=== PATIENT | male | born 1970 | race Caucasian/White ===

== ENCOUNTER → 2019-06-25 | Outpatient (CLI) | payer OTHER ==
--- NOTE | 2019-06-25 14:54 | CT ---
EXAMINATION TYPE: CT brain wo con DATE OF EXAM: 06/25/2019 COMPARISON: None HISTORY: headaches, hypotension CT DLP: 1098.[address] of the brain was performed. The ventricles, basal cisterns and sulci overlying the cerebral convexities demonstrate a normal appe arance. There is no evidence for intracranial hemorrhage or sulcal effacement. No mass effects are seen. Osseous calvarium is intact. If symptoms persist consider MRI as clinically warranted. IMPRESSION: 1. No acute intracranial process is seen at this time.
== END | disposition home or self-care (01) ==
LOC: RADCTMAIN 14:31
DX: R51 Headache (principal)
CPT/HCPCS: 70450

== ENCOUNTER → 2019-07-02 | Outpatient (CLI) | payer OTHER ==
--- NOTE | 2019-07-06 21:56 | HM ---
HOLTER MONITOR REPORT This patient was monitored for 72 hours. Baseline rhythm is sinus mechanism with normal conduction. The average rate 66 beats per minute, minimum rate 36, maximum 137 beats per minute. Ventricular ectopic activity was present in the form of frequent single PVCs with episodes of bigeminy. Supraventricular ectopic activity was present in the form of rare single PACs. Symptoms of slight headache did not correlate with any significant arrhythmia. CONCLUSION: 1. Sinus mechanism baseline rhythm. 2. Frequent ventricular ectopic activity with episodes of bigeminy and trigeminy with rare couplets. 3. Rare supraventricular ectopic activity. 4. Symptoms did not correlate with any dysrhythmia. MMODL / IJN: [id number] /
== END | disposition home or self-care (01) ==
LOC: RADECHMAIN 12:22
DX: R00.1 Bradycardia, unspecified (principal)
CPT/HCPCS: 93225; 93226

== ENCOUNTER 2021-06-27 11:53 | Inpatient (IN) | payer OTHER ==
[2021-06-27] MEDS ORDERED: DEXAMETHASONE SOD PHOSPHATE 10 MG/ML 1 ML VIAL IVP STA (12:03)
[2021-06-27] MEDS ORDERED: SODIUM CHLORIDE 0.9% 1,000 ML IV STA (12:03)
--- NOTE | 2021-06-27 12:12 | ED ---
SOB HPI - General Chief Complaint: Shortness of Breath Stated Complaint: COVID+, SOB Time Seen by Provider: 06/27/21 11:59 Source: patient, EMS, RN notes reviewed Mode of arrival: EMS Limitations: no limitations - History of Present Illness Initial Comments: 50-year-old male presents emergency department via EMS chief complaint of COVID- 19. Patient states that he did at home positive test 8 days ago started symptoms 2 days prior to that. Patient states she does have a history of asthma states the last couple days she's had increasing shortness of breath. EMS reports patient to be severely hypoxic, initial on 4-5 L was in the 70s nonrebreather at 92%. Patient states she does feel improved on a nonrebreather. Patient has no complaints of chest pain no GI symptoms patient's had fever cough congestion, body aches. Patient's had no prior vaccine. - Related Data Home Medications Medication Instructions Recorded Confirmed Albuterol Sulfate [Proair Hfa] 2 puff INHALATION RT-Q6H PRN 06/27/21 06/27/21 Baclofen 10 mg PO BID 06/27/21 06/27/21 Fluticasone Propion/Salmeterol 1 puff INHALATION RT-BID 06/27/21 06/27/21 [Wixela 250-50 Inhub] Naproxen 500 mg PO BID 06/27/21 06/27/21 oxyCODONE-APAP 5-325MG [Percocet 1 tab PO TID 06/27/21 06/27/21 5-325 mg] Allergies Allergy/AdvReac Type Severity Reaction Status Date / Time No Known Allergies Allergy Verified 06/27/21 12:56 Review of Systems ROS Statement: Those systems with pertinent positive or pertinent negative responses have been documented in the HPI. ROS Other: All systems not noted in ROS Statement are negative. Past Medical History Past Medical History: Asthma Additional Past Medical History / Comment(s): tranverese mylitis History of Any Multi-Drug Resistant Organisms: None Reported Additional Past Surgical History / Comment(s): c5-c6 fusion, right hip replacment. Past Psychological History: No Psychological Hx Reported Smoking Status: Former smoker Past Alcohol Use History: None Reported Past Drug Use History: None Reported General Exam Limitations: no limitations General appearance: alert, in distress Head exam: Present: atraumatic, normocephalic, normal inspection Eye exam: Present: normal appearance, PERRL, EOMI. Absent: scleral icterus, conjunctival injection, periorbital swelling ENT exam: Present: normal exam, mucous membranes moist, other (Nonrebreather) Neck exam: Present: normal inspection. Absent: tenderness, meningismus, lymphadenopathy Respiratory exam: Present: respiratory distress, decreased breath sounds. Absent: normal lung sounds bilaterally, wheezes, rales, rhonchi, stridor Cardiovascular Exam: Present: regular rate, normal rhythm, normal heart sounds. Absent: systolic murmur, diastolic murmur, rubs, gallop, clicks Neurological exam: Present: alert, oriented X3, CN II-XII intact Course Vital Signs 06/27/21 06/27/21 06/27/21 11:56 12:26 12:48 Temperature 97.7 F Pulse Rate 97 95 80 Respiratory 22 22 22 Rate Blood Pressure 104/72 101/70 O2 Sat by Pulse 94 L 91 L Oximetry Medical Decision Making - Medical Decision Making X-ray shows extensive COVID-19 changes. Patient is hypoxic, mild improvement on nonrebreather. Patient will be admitted for COVID-19 pneumonia and hypoxia. - Lab Data Result diagrams: 06/27/21 12:09 06/27/21 12:09 Lab Results 06/27/21 06/27/21 06/27/21 Range/Units 12:06 12:09 12:09 WBC 5.2 (3.8-10.6) k/uL RBC 4.60 (4.30-5.90) m/uL Hgb 14.7 (13.0-17.5) gm/dL Hct 42.5 (39.0-53.0) % MCV 92.4 (80.0-100.0) fL MCH 31.9 (25.0-35.0) pg MCHC 34.5 (31.0-37.0) g/dL RDW 12.0 (11.5-15.5) % Plt Count 191 (150-450) k/uL MPV 7.8 Neutrophils % 82 % Lymphocytes % 11 % Monocytes % 5 % Eosinophils % 1 % Basophils % 1 % Neutrophils # 4.2 (1.3-7.7) k/uL Lymphocytes # 0.6 L (1.0-4.8) k/uL Monocytes # 0.2 (0-1.0) k/uL Eosinophils # 0.0 (0-0.7) k/uL Basophils # 0.0 (0-0.2) k/uL PT 10.0 (9.0-12.0) sec INR 0.9 (<1.2) APTT 24.2 (22.0-30.0) sec D-Dimer 4.24 H (<0.60) mg/L FEU Sodium (137-145) mmol/L Potassium (3.5-5.1) mmol/L Chloride (98-107) mmol/L Carbon Dioxide (22-30) mmol/L Anion Gap mmol/L BUN (9-20) mg/dL Creatinine (0.66-1.25) mg/dL Est GFR (CKD-EPI)AfAm (>60 ml/min/1.73 sqM) Est GFR (CKD-EPI)NonAf (>60 ml/min/1.73 sqM) Glucose (74-99) mg/dL Calcium (8.4-10.2) mg/dL Total Bilirubin (0.2-1.3) mg/dL AST (17-59) U/L ALT (4-49) U/L Alkaline Phosphatase (38-126) U/L Lactate Dehydrogenase (313-618) U/L C-Reactive Protein (<1.0) mg/dL Total Protein (6.3-8.2) g/dL Albumin (3.5-5.0) g/dL Coronavirus (PCR) Detected A (Not Detectd) 06/27/21 Range/Units 12:09 WBC (3.8-10.6) k/uL RBC (4.30-5.90) m/uL Hgb (13.0-17.5) gm/dL Hct (39.0-53.0) % MCV (80.0-100.0) fL MCH (25.0-35.0) pg MCHC (31.0-37.0) g/dL RDW (11.5-15.5) % Plt Count (150-450) k/uL MPV Neutrophils % % Lymphocytes % % Monocytes % % Eosinophils % % Basophils % % Neutrophils # (1.3-7.7) k/uL Lymphocytes # (1.0-4.8) k/uL Monocytes # (0-1.0) k/uL Eosinophils # (0-0.7) k/uL Basophils # (0-0.2) k/uL PT (9.0-12.0) sec INR (<1.2) APTT (22.0-30.0) sec D-Dimer (<0.60) mg/L FEU Sodium 141 (137-145) mmol/L Potassium 4.0 (3.5-5.1) mmol/L Chloride 109 H (98-107) mmol/L Carbon Dioxide 26 (22-30) mmol/L Anion Gap 6 mmol/L BUN 11 (9-20) mg/dL Creatinine 0.66 (0.66-1.25) mg/dL Est GFR (CKD-EPI)AfAm >90 (>60 ml/min/1.73 sqM) Est GFR (CKD-EPI)NonAf >90 (>60 ml/min/1.73 sqM) Glucose 126 H (74-99) mg/dL Calcium 8.7 (8.4-10.2) mg/dL Total Bilirubin 0.7 (0.2-1.3) mg/dL AST 102 H (17-59) U/L ALT 88 H (4-49) U/L Alkaline Phosphatase 67 (38-126) U/L Lactate Dehydrogenase 2296 H (313-618) U/L C-Reactive Protein 16.6 H (<1.0) mg/dL Total Protein 6.7 (6.3-8.2) g/dL Albumin 3.5 (3.5-5.0) g/dL Coronavirus (PCR) (Not Detectd) Disposition Clinical Impression: Pneumonia due to COVID-19 virus, Hypoxia Disposition: ADMITTED IP TO THIS HOSP Condition: Serious Referrals: [facility],Clinic [Primary Care Provider] - 1-2 days
[2021-06-27 12:18] LABS: Basophils % (A) 1 %; Eosinophils % (A) 1 %; HCT 42.5 % (39.0-53.0); HGB 14.7 gm/dL (13.0-17.5); Lymphocytes # (A) 0.6 k/uL (1.0-4.8); Lymphocytes % (A) 11 %; MCH 31.9 pg (25.0-35.0); MCHC 34.5 g/dL (31.0-37.0); MCV 92.4 fL (80.0-100.0); Mean Platelet Volume 7.8; Monocytes # (A) 0.2 k/uL (0-1.0); Monocytes % (A) 5 %; Neutrophils # (A) 4.2 k/uL (1.3-7.7); Neutrophils % (A) 82 %; Platelet Count 191 k/uL (150-450); WBC 5.2 k/uL (3.8-10.6)
--- NOTE | 2021-06-27 12:22 | XR ---
EXAMINATION TYPE: XR chest 1V portable DATE OF EXAM: 06/27/2021 COMPARISON: None HISTORY: Shortness of breath TECHNIQUE: Single frontal view of the chest is obtained. FINDINGS: Scattered diffuse partially consolidative opacities in both lungs right greater than left. There is no pleural effusion, pleural thickening or pneumothorax. The heart size is normal. The osse ous structures and soft tissues are unremarkable IMPRESSION: Diffuse partially consolidative lung infiltrates, right greater than left, consistent with acute cardiopulmonary disease.
[2021-06-27 12:31] LABS: African American GFR (CKD) >90 (>60 ml/min/1.73 sqM); Albumin 3.5 g/dL (3.5-5.0); Blood Urea Nitrogen 11 mg/dL (9-20); Calcium 8.7 mg/dL (8.4-10.2); Carbon Dioxide 26 mmol/L (22-30); Glucose 126 mg/dL (74-99); INR 0.9 (<1.2); Non-African American GFR(CKD) >90 (>60 ml/min/1.73 sqM); Partial Thromboplastin Time 24.2 sec (22.0-30.0); Sodium 141 mmol/L (137-145); Total Protein 6.7 g/dL (6.3-8.2)
[2021-06-27 12:34] LABS: ALT 88 U/L (4-49); AST 102 U/L (17-59); Alkaline Phosphatase 67 U/L (38-126); Total Bilirubin 0.7 mg/dL (0.2-1.3)
[2021-06-27 12:45] LABS: C Reactive Protein 16.6 mg/dL (<1.0); LDH 2296 U/L (313-618)
[2021-06-27 13:32] LABS: Anion Gap 6 mmol/L; Chloride 109 mmol/L (98-107)
[2021-06-27] MEDS ORDERED: NALOXONE 0.4 MG/ML 1 ML VIAL IV PRN (13:52)
[2021-06-27] MEDS ORDERED: ONDANSETRON 4 MG/2 ML VIAL IVP PRN (13:52)
[2021-06-27 17:11] LABS: Appearance,Urine Clear (Clear); Bilirubin,Urine Negative (Negative); Blood,Urine Negative (Negative); Color,Urine Yellow; Glucose,Urine (UA) Negative (Negative); Ketones,Urine Negative (Negative); Leukocyte Esterase,Urine Negative (Negative); Mucus,Urine Rare /hpf; Nitrite,Urine Negative (Negative); PH, Urine 6.5 (5.0-8.0); Protein,Urine 1+ (Negative); RBC,Urine 1 /hpf (0-5); Specific Gravity,Urine 1.021 (1.001-1.035); WBC,Urine 2 /hpf (0-5)
[2021-06-27] MEDS: ENOXAPARIN 40 MG/0.4 ML SYRINGE SQ SCH (17:32)
[2021-06-27] MEDS: oxyCODONE-APAP 5-325MG 1 EACH TAB PO SCH ×2 (17:32→23:23)
[2021-06-27] MEDS: SODIUM CHLORIDE 0.9% 1,000 ML IV SCH (17:33)
--- NOTE | 2021-06-27 17:42 | CT ---
EXAMINATION TYPE: CT angio chest DATE OF EXAM: 06/27/2021 COMPARISON: None HISTORY: Covid, PE CT DLP: 996.1 mGycm Automated exposure control for dose reduction was used. CONTRAST: Performed with IV Contrast, patient injected with 100 mL of Isovue 370. There is extensive patchy interstitial and airspace infiltrates throughout both lungs. Heart size is top normal. There is no pericardial effusion. There is no pleural effusion. There is no mediastinal adenopathy. There are no hilar masses. There is no evidence of filling defect in the pulmonary arteries. The thoracic spine is intact. Sternum is intact. There is no compression fracture. Upper abdominal so ft tissues are intact. IMPRESSION: No evidence of pulmonary embolism. Extensive pulmonary infiltrates consistent with multifocal pneumonia.
--- NOTE | 2021-06-27 17:48 | US ---
EXAMINATION TYPE: US venous doppler duplex LE BI DATE OF EXAM: 06/27/2021 4:40 PM COMPARISON: NONE CLINICAL HISTORY: dvt. Elevated d dimer SIDE PERFORMED: Bilateral TECHNIQUE: The lower extremity deep venous system is examined utilizing real time linear array sonog fabio with graded compression, doppler sonography and color-flow sonography. VESSELS IMAGED: Common Femoral Vein Deep Femoral Vein Greater Saphenous Vein * Femoral Vein Popliteal Vein Small Saphenous Vein * Proximal Calf Veins (* superficial vessels) Right Leg: Appears negative for DVT Left Leg: Appears negative for DVT IMPRESSION: No evidence of deep vein thrombosis in both legs.
--- NOTE | 2021-06-27 19:02 | HP ---
HISTORY AND PHYSICAL DATE OF SERVICE: 06/27/2021. CHIEF COMPLAINTS: Shortness of breath and cough. HISTORY OF PRESENT ILLNESS: This 50-year-old gentleman with a past medical history of multiple medical problems, including asthma, history of transverse myelitis in 2007, history of C5-6 fusion. The patient is on disability being followed at the [facility] and Dr. Romo in the outpatient setting, was not feeling well for the past several days. Patient had increased shortness of breath and cough and the symptoms started about 10 days ago. The patient was tested positive about 8 days ago. The patient also had some asthma exacerbation. Apparently patient's was also recently diagnosed with Covid 19. She is recovering at this time. EMS found him to be severely hypoxic initially. Saturation was 70s and the patient was taken to [facility] and found to have extensive bilateral Covid 19 interstitial pneumonia and the patient admitted for further evaluation and treatment. There is no history of fever, rigors or chills. No history of headache. D-dimer is 4.24. CT angio chest is being ordered at this time. Inflammatory markers of Covid 19 is also increased. PAST MEDICAL HISTORY: History of asthma, history of transverse myelitis, C5-6 fusion. MEDICATIONS: Home medications are: Oxycodone, Naprosyn, fluticasone, baclofen, albuterol p.r.n. Doses reviewed. ALLERGIES: None. FAMILY HISTORY: No history of heart disease or strokes in the family. SOCIAL HISTORY: Previous history of smoking. No history of alcohol intake. REVIEW OF SYSTEMS: ENT: No diminished vision. No diminished hearing. CARDIOVASCULAR system: As mentioned earlier. GI no nausea or vomiting. : No dysuria or hematuria. NERVOUS SYSTEM: No numbness or weakness. ALLERGY/IMMUNOLOGY: As mentioned earlier. HEMATOLOGY/ONCOLOGY: No history of anemia. ENDOCRINE: No history of diabetes or hypothyroidism. CONSTITUTIONAL: As mentioned. DERMATOLOGY: Negative. RHEUMATOLOGY: Negative. PSYCHIATRIC: As mentioned earlier. PHYSICAL EXAMINATION: Alert and oriented times three. Pulse 75, blood pressure 118/74, respiration 22, temperature 97.7, pulse ox 91 percent on 14 L and high-flow oxygen. HEENT: Conjunctivae normal. Oral mucosa moist. NECK: Accessory muscles of respiration acting. CARDIOVASCULAR systems: S1, S2. RESPIRATION: Breath sounds diminished in the bases. A few scattered rhonchi and crackles. ABDOMEN: Soft, nontender. No mass palpable. LEGS: No edema. No swelling. NERVOUS SYSTEM: Higher functions as mentioned earlier. Moves all 4 limbs. No focal motor or sensory deficits. LYMPHATICS: No lymph nodes palpable in the neck, axillae or groin. SKIN: No ulcer, no rashes and no bleeding. JOINTS: No active deforming arthropathy. LABS: CBC within normal limits and is 0.6, and D-dimer is 4.24. Other labs are noted. LDH is 2296 and C-reactive protein 16.6. ASSESSMENT: 1. Acute Covid 19 infection with acute Covid bilateral interstitial pneumonia with acute hypoxic respiratory failure. 2. Elevated D-dimer, rule out pulmonary embolism. 3. Elevated AST/ALT, acute hepatitis possibly secondary to Covid 19. 4. Elevated inflammatory markers of Covid 19. 5. History of asthma. 6. History of transverse myelitis. 7. History of C5-C6 fusion. 8. History of right hip replacement. 9. Remote history of nicotine dependence. 10.Obesity, body mass index. 11.FULL CODE. RECOMMENDATIONS AND DISCUSSION: This 50-year-old gentleman who presented with multiple complex medical issues, we will monitor the patient closely, continue the current medications, and symptomatic treatment. Recommend CT angio chest and Infectious Disease and pulmonary consultation. The patient might be a candidate for Remdesivir. We will initiate dexamethasone, monitor blood sugars closely. Bronchodilators, Lovenox, the usual medication for Covid 19. Prognosis guarded because of multiple complex medical issues. Further recommendations to follow. Discussed with the patient who understands and agrees. A copy of this dictation is being forwarded to Dr. Romo who is the primary physician. MMODL / IJN: [id number] / MTDD
[2021-06-27] MEDS: SYMBICORT 80-4.5 MCG INHALER INHALATION SCH (19:22)
[2021-06-27] MEDS: ALBUTEROL HFA INHALER INHALATION SCH (19:23)
[2021-06-27] MEDS: NAPROXEN 250 MG TAB PO SCH (23:24)
[2021-06-27] MEDS: BACLOFEN 10 MG TAB PO SCH (23:24)
[2021-06-28] MEDS: ALBUTEROL HFA INHALER INHALATION SCH ×4 (00:27→20:19)
[2021-06-28] MEDS: SODIUM CHLORIDE 0.9% 1,000 ML IV SCH ×2 (06:49→13:29)
[2021-06-28] MEDS: PANTOPRAZOLE 40 MG TABLET PO SCH (06:49)
[2021-06-28 08:17] LABS: Basophils % (A) 0 %; Eosinophils % (A) 0 %; HCT 41.8 % (39.0-53.0); HGB 13.8 gm/dL (13.0-17.5); Lymphocytes # (A) 0.4 k/uL (1.0-4.8); Lymphocytes % (A) 6 %; MCH 31.4 pg (25.0-35.0); MCV 95.4 fL (80.0-100.0); Monocytes # (A) 0.3 k/uL (0-1.0); Monocytes % (A) 5 %; Neutrophils # (A) 5.6 k/uL (1.3-7.7); Neutrophils % (A) 86 %; Platelet Count 207 k/uL (150-450); RBC 4.38 m/uL (4.30-5.90); RDW 12.2 % (11.5-15.5); WBC 6.5 k/uL (3.8-10.6)
[2021-06-28 08:25] LABS: ALT 82 U/L (4-49); AST 77 U/L (17-59); African American GFR (CKD) >90 (>60 ml/min/1.73 sqM); Albumin 3.1 g/dL (3.5-5.0); Alkaline Phosphatase 61 U/L (38-126); Anion Gap 6 mmol/L; Blood Urea Nitrogen 16 mg/dL (9-20); Calcium 8.6 mg/dL (8.4-10.2); Carbon Dioxide 26 mmol/L (22-30); Chloride 110 mmol/L (98-107); Glucose 132 mg/dL (74-99); Non-African American GFR(CKD) >90 (>60 ml/min/1.73 sqM); Potassium 4.6 mmol/L (3.5-5.1); Sodium 142 mmol/L (137-145); Total Bilirubin 0.7 mg/dL (0.2-1.3); Total Protein 6.4 g/dL (6.3-8.2)
[2021-06-28] MEDS: SYMBICORT 80-4.5 MCG INHALER INHALATION SCH ×2 (08:37→20:19)
[2021-06-28] MEDS: BACLOFEN 10 MG TAB PO SCH ×2 (09:18→20:38)
[2021-06-28] MEDS: NAPROXEN 250 MG TAB PO SCH ×2 (09:18→20:38)
[2021-06-28] MEDS: ENOXAPARIN 40 MG/0.4 ML SYRINGE SQ SCH (09:18)
[2021-06-28] MEDS: oxyCODONE-APAP 5-325MG 1 EACH TAB PO SCH ×3 (09:19→20:38)
[2021-06-28] MEDS: DEXAMETHASONE SOD PHOSPHATE 10 MG/ML 1 ML VIAL IVP SCH (09:20)
--- NOTE | 2021-06-28 14:30 | P.CNPUL ---
History of Present Illness Consult date: 06/28/21 Requesting physician: Maeve Tello Reason for consult: dyspnea, cough, asthma, hypoxemia, pneumonia, abnormal CXR/CT Chief complaint: Shortness of breath, muscle aches, fever, chills, cough. History of present illness: Pulmonary/critical care consult dated 06/28/2021. 50-year-old , who gets his healthcare out of the [place], [place]. The patient states that he tested positive for coronavirus back on June 18 or , and has been sick for a couple days even before that. He complains of multiple issues including fever, chills, muscle aches, shortness of breath, cough, chest congestion, and weakness. The patient does have a history of asthma. He doesn't believe that it's his asthma that's causing his shortness of breath. The patient is on vaccinated. He was seen in the emergency room admitted with a diagnosis of hypoxemic respiratory failure secondary to coronavirus infection. He's currently on 10 L high flow O2. He is getting saline at 75 mL an hour. He had a Doppler of lower extremities which was negative for DVT. CT angiogram was negative for pulmonary embolism. His white count of 6.5, hemoglobin 13.8, hematocrit 41.8, and platelet count 207,000. Sodium 142, potassium 4.6, chlorides 110, CO2 26, BUN 16, creatinine 0.74. Chest x-ray and CAT scan showed diffuse bilateral infiltrates. The patient is a candidate for Decadron, Lovenox, and vitamins. If his oxygen requirements go up, he may be a candidate for FLAQUITO. He is not a candidate for REM, because his symptoms have been present for more than 7 days, and his oxygen requirements are greater than 6 L/m. Review of Systems REVIEW OF SYSTEMS: CONSTITUTIONAL: Fever, chills, muscle aches, weakness. NEUROLOGIC: [ Negative.] HEENT: [ Negative.] CARDIAC: [Negative.] PULMONARY: Shortness of breath, cough, chest congestion. GI: [Negative.] : [Negative.] RHEUMATOLOGIC: Myalgias. IMMUNOLOGIC: [ Negative.] ENDOCRINE: [Negative. ] DERMATOLOGIC: [Negative.] Past Medical History Past Medical History: Asthma Additional Past Medical History / Comment(s): tranverese mylitis History of Any Multi-Drug Resistant Organisms: None Reported Additional Past Surgical History / Comment(s): c5-c6 fusion, right hip replacment. Past Anesthesia/Blood Transfusion Reactions: No Reported Reaction Past Psychological History: No Psychological Hx Reported Smoking Status: Former smoker Past Alcohol Use History: None Reported Past Drug Use History: None Reported - Past Family History Mother Family Medical History: Myocardial Infarction (CT), Vascular Disorder Father History Unknown: Yes Medications and Allergies Home Medications Medication Instructions Recorded Confirmed Type Albuterol Sulfate [Proair Hfa] 2 puff INHALATION RT-Q6H PRN 06/27/21 06/27/21 History Baclofen 10 mg PO BID 06/27/21 06/27/21 History Fluticasone Propion/Salmeterol 1 puff INHALATION RT-BID 06/27/21 06/27/21 History [Wixela 250-50 Inhub] Naproxen 500 mg PO BID 06/27/21 06/27/21 History oxyCODONE-APAP 5-325MG [Percocet 1 tab PO TID 06/27/21 06/27/21 History 5-325 mg] Allergies Allergy/AdvReac Type Severity Reaction Status Date / Time No Known Allergies Allergy Verified 06/27/21 12:56 Physical Exam Osteopathic Statement: *. No significant issues noted on an osteopathic structural exam other than those noted in the History and Physical/Consult. Vitals: Vital Signs Temp Pulse Pulse Resp BP BP Pulse Ox 06/28/21 09:43 90 L 06/28/21 09:30 20 90 L 06/28/21 09:15 98.4 F 54 L 22 127/69 88 L 06/28/21 08:40 87 L 06/28/21 03:53 97.6 F 57 L 18 109/70 93 L 06/28/21 01:30 20 06/28/21 00:30 90 L 06/27/21 23:30 98.2 F 72 20 102/68 92 L 06/27/21 20:30 24 06/27/21 20:00 97.0 F L 70 24 101/66 91 L 06/27/21 18:00 92 25 H 104/76 94 L 06/27/21 14:47 98.1 F 74 18 145/65 94 L Intake and Output 12/18/21 12/19/21 12/19/21 22:59 06:59 14:59 Intake Total 765 250 Output Total 600 Balance 765 -600 250 Intake: IV 10 Invasive Line 1 10 Intake, IV Titration 325 Amount Sodium Chloride 0.9% 1, 325 000 ml @ 75 mls/hr IV . [id number] [facility] Rx#:[id number] Oral 440 240 Output: Urine 600 Other: Voiding Method Urinal Urinal Urinal Weight 121 kg No acute distress, oriented 3. No conversational dyspnea or use of accessory muscles. The patient's on 10 L high flow oxygen. HEENT examination is grossly unremarkable. Neck supple. Full range of motion. No adenopathy thyromegaly or neck vein distention. Cardiovascular examination reveals regular rhythm rate. S1-S2 normal. No S3 or S4. No discernible murmur noted. Heart sounds are distant. Heart rate 54 bpm. Lungs reveal diffuse bilateral coarse rhonchi. Scattered crackles at the bases. No wheezes. Breath sounds are equal bilaterally. Saturations in the high 80s, low 90s. Abdomen soft bowel sounds are heard. No masses or tenderness. Extremities are intact. No cyanosis clubbing or edema. Skin is without rash or lesion. Neurologic examination is brief but nonfocal. Results - Laboratory Findings CBC and BMP: 06/28/21 07:04 06/28/21 07:04 PT/INR, D-dimer PT 10.0 sec (9.0-12.0) 06/27/21 12:09 INR 0.9 (<1.2) 06/27/21 12:09 D-Dimer 4.24 mg/L FEU (<0.60) H 06/27/21 12:09 Abnormal lab findings: Abnormal Labs 06/27/21 06/27/21 06/27/21 12:06 12:09 12:09 Lymphocytes # 0.6 L D-Dimer 4.24 H Chloride Glucose Ferritin AST ALT Lactate Dehydrogenase C-Reactive Protein Albumin Procalcitonin Urine Protein Urine Mucus Coronavirus (PCR) Detected A 06/27/21 06/27/21 06/27/21 12:09 12:09 16:57 Lymphocytes # D-Dimer Chloride 109 H Glucose 126 H Ferritin 2288.0 H AST 102 H ALT 88 H Lactate Dehydrogenase 2296 H C-Reactive Protein 16.6 H Albumin Procalcitonin 0.15 H Urine Protein 1+ H Urine Mucus Rare H Coronavirus (PCR) 06/28/21 06/28/21 07:04 07:04 Lymphocytes # 0.4 L D-Dimer Chloride 110 H Glucose 132 H Ferritin AST 77 H ALT 82 H Lactate Dehydrogenase C-Reactive Protein Albumin 3.1 L Procalcitonin Urine Protein Urine Mucus Coronavirus (PCR) - Diagnostic Findings Chest x-ray: image reviewed CT scan - chest: image reviewed Assessment and Plan Assessment: Acute hypoxemic respiratory failure, secondary to coronavirus associated pneumonia. History of chronic bronchial asthma. Previous history of tobacco use. History of C5-C6 fusion. History of transverse myelitis. Plan: Plan dated 06/28/2021. Currently, the patient is a candidate for Decadron, Lovenox, vitamin C, vitamin D3, and zinc. He is not a candidate for REM, consistent and have been present for more than 7 days, and he is on oxygen that is greater than 6 L/m. He is getting close to the point where he may become a candidate for FLAQUITO. The patient does appear relatively comfortable. We will continue to follow make recommendations where appropriate. The patient is on his usual inhalers for his asthma. Prognosis is guarded. Time with Patient: Greater than 30
[2021-06-28 17:06] LABS: Glucose,Whole Blood 133 mg/dL (75-99)
[2021-06-28] MEDS ORDERED: SODIUM CHLORIDE 0.65% NASAL SPRAY 44 ML BTL NASAL PRN (17:27)
--- NOTE | 2021-06-28 17:36 | PN ---
PROGRESS NOTE DATE OF SERVICE: 06/28/2021 REASON FOR FOLLOWUP: COVID-19 pneumonia. INTERVAL HISTORY: The patient is afebrile. The patient is breathing slightly comfortably. Still requiring 15 L high-flow oxygen. The patient denies having any chest pain or worsening cough or sputum production. No abdominal pain or diarrhea. PHYSICAL EXAMINATION: Blood pressure 111/70 with a pulse of 57, temperature 98.3. He is 94% on 15 L high- flow oxygen. General description is a middle-aged male lying in bed in no distress. Respiratory system: Unlabored breathing, decreased intensity of breath sounds. No wheeze. Heart S1, S2. Regular rate and rhythm. Abdomen soft, no tenderness. Extremities no edema of the feet. LABS: Hemoglobin is 13.9, white count 6.5, creatinine 0.74. DIAGNOSTIC IMPRESSION AND PLAN: Patient with acute respiratory failure secondary to COVID-19 infection. Patient is requiring high-flow oxygen. Not an ideal candidate for remdesivir. He is currently on Decadron, Lovenox, zinc and ascorbic acid and not sick enough to get baricitinib. The patient is monitored closely. No evidence of any secondary bacterial pneumonia and need for antibiotic therapy. MMODL / IJN: [id number] /
[2021-06-28 19:18] LABS: Glucose,Whole Blood 170 mg/dL (75-99)
[2021-06-29 05:44] LABS: Glucose,Whole Blood 116 mg/dL (75-99)
[2021-06-29] MEDS: INSULIN ASPART (NovoLOG) 100 UNIT/ML VIAL SQ SCH ×4 (05:46→20:12)
[2021-06-29] MEDS: PANTOPRAZOLE 40 MG TABLET PO SCH (06:36)
[2021-06-29] MEDS: SODIUM CHLORIDE 0.9% 1,000 ML IV SCH ×2 (06:36→16:44)
[2021-06-29] MEDS: ASCORBIC ACID 500 MG TAB PO SCH (08:19)
[2021-06-29] MEDS: BACLOFEN 10 MG TAB PO SCH ×2 (08:19→21:17)
[2021-06-29] MEDS: NAPROXEN 250 MG TAB PO SCH ×2 (08:19→21:17)
[2021-06-29] MEDS: CHOLECALCIFEROL 25 MCG (1000 IU) TABLET PO SCH (08:19)
[2021-06-29] MEDS: ZINC SULFATE 220 MG CAP PO SCH (08:19)
[2021-06-29] MEDS: oxyCODONE-APAP 5-325MG 1 EACH TAB PO SCH ×3 (08:19→21:17)
[2021-06-29] MEDS: ENOXAPARIN 40 MG/0.4 ML SYRINGE SQ SCH ×2 (08:19→21:17)
[2021-06-29] MEDS: DEXAMETHASONE SOD PHOSPHATE 10 MG/ML 1 ML VIAL IVP SCH (08:20)
[2021-06-29] MEDS: SYMBICORT 80-4.5 MCG INHALER INHALATION SCH ×2 (08:40→21:17)
[2021-06-29] MEDS: ALBUTEROL HFA INHALER INHALATION SCH ×4 (08:40→21:17)
[2021-06-29 10:46] LABS: ALT 72 U/L (4-49); AST 80 U/L (17-59); African American GFR (CKD) >90 (>60 ml/min/1.73 sqM); Albumin 3.3 g/dL (3.5-5.0); Alkaline Phosphatase 82 U/L (38-126); Anion Gap 7 mmol/L; Blood Urea Nitrogen 22 mg/dL (9-20); Calcium 8.9 mg/dL (8.4-10.2); Carbon Dioxide 25 mmol/L (22-30); Chloride 113 mmol/L (98-107); Glucose 122 mg/dL (74-99); Non-African American GFR(CKD) >90 (>60 ml/min/1.73 sqM); Potassium 4.2 mmol/L (3.5-5.1); Sodium 145 mmol/L (137-145); Total Bilirubin 0.9 mg/dL (0.2-1.3); Total Protein 6.6 g/dL (6.3-8.2)
[2021-06-29 11:50] LABS: Glucose,Whole Blood 138 mg/dL (75-99)
[2021-06-29] MEDS: BARICITINIB 2 MG TABLET PO SCH (12:07)
--- NOTE | 2021-06-29 13:04 | P.PN ---
Subjective Progress Note Date: 06/29/21 On today's evaluation of 06/29/2021, the patient is being seen for a follow-up. This is a pleasant 50-year-old M with history of chest was myelitis was currently hospitalized for cognitive pneumonia. The patient (is COVID 19 vaccination. Noted the patient has extensive bilateral pneumonia with extensive bilateral pulmonary infiltrates and the patient is currently on high flow oxygen 15 L per minute nasal cannula. He seems to be comfortable. He is able to talk in complete full sentences. His oxidation is definitely gotten worse and for that reason, the patient was started on a combination of Decadron 6 mg IV and Baricitinib 4 mg per protocol. He is also on vitamin C, vitamin D and zinc sup plements. The patient had a d-dimer of more than 34,000. Doppler of the lower extremity was done earlier was negative and a repeat Doppler will be done tomorrow. Note that he has previous history of DVT and the patient remains on Lovenox for DVT prophylaxis. Electrodes are all within normal limits. Blood sugar is at 138. He is afebrile. He is able to speak full sentences for now. His breathing is mildly labored even at rest. Objective - Vital Signs Vital signs: Vital Signs Temp 97.8 F 06/29/21 08:00 Pulse 65 06/29/21 08:00 Resp 18 06/29/21 08:00 BP 96/49 06/29/21 08:00 Pulse Ox 91 L 06/29/21 08:42 Intake & Output 06/28/21 06/29/21 06/29/21 18:59 06:59 18:59 Intake Total 1400 Output Total 400 Balance 1000 Weight 121 kg 123 kg Intake: IV 920 Invasive Line 1 20 Sodium Chloride 0.9% 1, 900 000 ml @ 75 mls/hr IV . [id number] SE Rx#:[id number] Oral 480 Output: Urine 400 Other: Voiding Method Urinal Urinal # Voids 1 - Exam No acute distress, oriented 3. No conversational dyspnea or use of accessory muscles. The patient's on 15 L high flow oxygen. HEENT examination is grossly unremarkable. Neck supple. Full range of motion. No adenopathy thyromegaly or neck vein distention. Cardiovascular examination reveals regular rhythm rate. S1-S2 normal. No S3 or S4. No discernible murmur noted. Heart sounds are distant. Heart rate 54 bpm. Lungs reveal diffuse bilateral coarse rhonchi. Scattered crackles at the bases. No wheezes. Breath sounds are equal bilaterally. Saturations in the high 80s, low 90s. Abdomen soft bowel sounds are heard. No masses or tenderness. Extremities are intact. No cyanosis clubbing or edema. Skin is without rash or lesion. Neurologic examination is brief but nonfocal. - Labs CBC & Chem 7: 06/28/21 07:04 06/29/21 10:11 Labs: Abnormal Lab Results - Last 24 Hours (Table) 06/27/21 06/28/21 06/28/21 Range/Units 12:09 16:51 19:16 POC Glucose (mg/dL) 133 H 170 H (75-99) mg/dL Ferritin 2288.0 H (22.0-322.0) ng/mL 06/29/21 Range/Units 05:42 POC Glucose (mg/dL) 116 H (75-99) mg/dL Ferritin (22.0-322.0) ng/mL Assessment and Plan Plan: 1 Acute hypoxemic respiratory failure, secondary to coronavirus associated pneumonia. The patient presented with diffuse bilateral pulmonary infiltrates and hypoxic respiratory failure. Since yesterday, the patient has been requiring more oxygen and currently is on 15 L of oxygen by nasal cannula. He is on a combination of Decadron and Baricitinib for now. He is also on Lovenox for DVT prophylaxis. Doppler of the lower extremity has a negative d-dimer was elevated and the repeat Doppler will be obtained for tomorrow. 2 acute COVID 19 related pneumonia 3 History of chronic bronchial asthma. 4 Previous history of tobacco use. 5 History of C5-C6 fusion. 6 History of transverse myelitis. 7 History of DVT, December 2007 Plan Titrate FiO2 to maintain saturation was 90% currently on 15 L. Reading is mildly labored. Continue treatment with a combination of Decadron and Baricitinib protocol Lovenox 40 mg subcu for DVT prophylaxis Cut down the IV fluids to KVO Continue vitamin C and vitamin D and zinc supplements NovoLog insulin for blood sugar control per sliding scale coverage Repeat chest x-ray with next 24 hours along with d-dimer Repeat Doppler of the lower extremities in a.m. We'll continue to follow.
[2021-06-29 16:48] LABS: Glucose,Whole Blood 142 mg/dL (75-99)
[2021-06-29 20:08] LABS: Glucose,Whole Blood 115 mg/dL (75-99)
--- NOTE | 2021-06-29 21:17 | P.PN ---
Subjective Progress Note Date: 06/29/21 06/29/2021 Patient evaluated today sitting up in bed. He does complain of shortness of breath, appears fatigued. He is able to ambulate to the bedside commode and back to bed, but is limited due to the need for high flow cannula. He is able to carry on a conversation. Vital signs today include Temp, 98.5 axillary, heart rate 71, blood pressure 124/53, 90% oxygen on 15L HF cannula. D-Dimer today 34.10, sodium 145, potassium 4.2, BUN 22, creatinine 0.80, glucose in the 140s, AST 80, ALT 72. Doppler is negative for bilateral DVT. He is being followed closely by pulmonary and ID services. Receiving decadron, lovenox, zinc, vitamins, and baricitinib. ROS Constitutional: Denied any fatigue denied any fever. Cardio vascular: denied any chest pain, palpitations Gastrointestinal denied any nausea vomiting Pulmonary: Reports congested cough, reports shortness of breath Neurologic denied any new focal deficits All inpatient medications were reviewed and appropriate changes in these medications as dictated in the interval history and assessment and plan. PHYSICAL EXAMINATION: GENERAL: The patient is alert and oriented x3, not in any acute distress. Well developed, well nourished. HEENT: Pupils are round and equally reacting to light. EOMI. No scleral icterus. No conjunctival pallor. Normocephalic, atraumatic. No pharyngeal erythema. No thyromegaly. CARDIOVASCULAR: S1 and S2 present. No murmurs, rubs, or gallops. PULMONARY: Coarse scattered rhonchi ABDOMEN: Soft, nontender, nondistended, normoactive bowel sounds. No palpable organomegaly. MUSCULOSKELETAL: No joint swelling or deformity. EXTREMITIES: No cyanosis, clubbing, or mild pedal edema NEUROLOGICAL: Gross neurological examination did not reveal any focal deficits. SKIN: No rashes. Assessment and plan Assessment Acute hypoxic respiratory failure secondary to COVID 19 pneumonia requiring 15L HF nasal cannula Elevated DD, CTA negative for PE Elevated liver enzymes possibly due to systemic inflammation Elevated inflammatory markers secondary to COVID 19 History of DVT History of asthma, not in acute exacerbation Remote history of nicotine dependence History of transverse myelitis History of C5-C6 fusion Obesity GI Prophylaxis: Protonix DVT Prophylaxis: Lovenox FULL CODE Plan Continue decadron, vitamins, Baricitinib Increase lovenox to BID Repeat doppler tomorrow Repeat labs and inflammatory markers in AM Repeat chest xray tomorrow Incentive spirometry Prognosis is guarded for this patient Objective - Vital Signs Vital signs: Vital Signs Temp 97.8 F 06/29/21 08:00 Pulse 65 06/29/21 08:00 Resp 18 06/29/21 08:00 BP 96/49 06/29/21 08:00 Pulse Ox 91 L 06/29/21 08:42 Intake & Output 06/28/21 06/29/21 06/29/21 18:59 06:59 18:59 Intake Total 1400 Output Total 400 Balance 1000 Weight 121 kg 123 kg Intake: IV 920 Invasive Line 1 20 Sodium Chloride 0.9% 1, 900 000 ml @ 75 mls/hr IV . [id number] SE Rx#:[id number] Oral 480 Output: Urine 400 Other: Voiding Method Urinal Urinal # Voids 1 - Labs CBC & Chem 7: 06/28/21 07:04 06/29/21 10:11 Labs: Abnormal Lab Results - Last 24 Hours (Table) 06/27/21 06/28/21 06/28/21 Range/Units 12:09 16:51 19:16 POC Glucose (mg/dL) 133 H 170 H (75-99) mg/dL Ferritin 2288.0 H (22.0-322.0) ng/mL 06/29/21 Range/Units 05:42 POC Glucose (mg/dL) 116 H (75-99) mg/dL Ferritin (22.0-322.0) ng/mL
--- NOTE | 2021-06-29 22:58 | PN ---
PROGRESS NOTE DATE OF SERVICE: 06/29/2021 REASON FOR FOLLOWUP: COVID-19 pneumonia. INTERVAL HISTORY: The patient is afebrile. The patient is breathing comfortably; however, still requiring 15 L high-flow oxygen. The patient denies having any chest pain or worsening cough or sputum production. No abdominal pain or diarrhea. PHYSICAL EXAMINATION: Blood pressure 117/50 with a pulse of 60, temperature 98.1. He is 90% on % FiO2. General description is a middle-aged male lying in bed in no distress. Respiratory system: Unlabored breathing, decreased intensity of breath sounds. No wheeze. Heart S1, S2. Regular rate and rhythm. Abdomen soft, no tenderness. LABS: BUN of 22, creatinine 0.80. D-dimer is elevated. DIAGNOSTIC IMPRESSION AND PLAN: Patient with acute respiratory failure secondary to COVID-19 pneumonia. Patient's condition remains critical, though no worsening over the last 24 hours. Patient to continue dexamethasone with Lovenox, zinc and ascorbic acid along with respiratory support and monitor his clinical course closely. MMODL / IJN: [id number] /
[2021-06-30 05:56] LABS: Glucose,Whole Blood 95 mg/dL (75-99)
[2021-06-30] MEDS: INSULIN ASPART (NovoLOG) 100 UNIT/ML VIAL SQ SCH ×4 (06:22→20:59)
[2021-06-30] MEDS: PANTOPRAZOLE 40 MG TABLET PO SCH (06:29)
[2021-06-30 06:33] LABS: Basophils % (A) 0 %; Eosinophils % (A) 0 %; HCT 41.3 % (39.0-53.0); HGB 13.7 gm/dL (13.0-17.5); Lymphocytes # (A) 0.8 k/uL (1.0-4.8); Lymphocytes % (A) 8 %; MCH 31.5 pg (25.0-35.0); MCHC 33.2 g/dL (31.0-37.0); MCV 94.8 fL (80.0-100.0); Mean Platelet Volume 8.2; Monocytes # (A) 0.5 k/uL (0-1.0); Monocytes % (A) 5 %; Neutrophils # (A) 8.8 k/uL (1.3-7.7); Neutrophils % (A) 86 %; Platelet Count 213 k/uL (150-450); RBC 4.35 m/uL (4.30-5.90); RDW 12.1 % (11.5-15.5); WBC 10.3 k/uL (3.8-10.6)
[2021-06-30 06:52] LABS: ALT 61 U/L (4-49); AST 61 U/L (17-59); African American GFR (CKD) >90 (>60 ml/min/1.73 sqM); Alkaline Phosphatase 83 U/L (38-126); Anion Gap 4 mmol/L; Blood Urea Nitrogen 28 mg/dL (9-20); Calcium 8.4 mg/dL (8.4-10.2); Carbon Dioxide 28 mmol/L (22-30); Chloride 111 mmol/L (98-107); Glucose 94 mg/dL (74-99); Non-African American GFR(CKD) >90 (>60 ml/min/1.73 sqM); Potassium 4.6 mmol/L (3.5-5.1); Sodium 143 mmol/L (137-145); Total Bilirubin 0.9 mg/dL (0.2-1.3); Total Protein 6.2 g/dL (6.3-8.2)
[2021-06-30 07:59] LABS: LDH 2764 U/L (313-618)
[2021-06-30] MEDS: ALBUTEROL HFA INHALER INHALATION SCH ×4 (08:15→19:54)
[2021-06-30] MEDS: SYMBICORT 80-4.5 MCG INHALER INHALATION SCH ×2 (08:20→19:55)
[2021-06-30 08:42] LABS: C Reactive Protein 3.2 mg/dL (<1.0)
[2021-06-30] MEDS: BARICITINIB 2 MG TABLET PO SCH (08:45)
[2021-06-30] MEDS: oxyCODONE-APAP 5-325MG 1 EACH TAB PO SCH ×2 (08:46→18:40)
[2021-06-30] MEDS: ASCORBIC ACID 500 MG TAB PO SCH (08:46)
[2021-06-30] MEDS: CHOLECALCIFEROL 25 MCG (1000 IU) TABLET PO SCH (08:46)
[2021-06-30] MEDS: NAPROXEN 250 MG TAB PO SCH ×2 (08:47→20:50)
[2021-06-30] MEDS: ZINC SULFATE 220 MG CAP PO SCH (08:47)
[2021-06-30] MEDS: BACLOFEN 10 MG TAB PO SCH ×2 (08:47→20:51)
[2021-06-30] MEDS: DEXAMETHASONE SOD PHOSPHATE 10 MG/ML 1 ML VIAL IVP SCH ×2 (08:47→20:51)
[2021-06-30] MEDS: ENOXAPARIN 40 MG/0.4 ML SYRINGE SQ SCH (08:47)
--- NOTE | 2021-06-30 11:35 | US ---
EXAMINATION TYPE: US venous doppler duplex LE DATE OF EXAM: 06/30/2021 11:19 AM COMPARISON: US Venous doppler duplex LE BI 06/27/2021 CLINICAL HISTORY: elevated d-dimer. Patient states he is not experiencing any signs or symptoms for D VT; COVID-19 patient. Patient states having a DVT in his right lower extremity in 2007; patient does not currently take blood thinners. SIDE PERFORMED: Bilateral TECHNIQUE: The lower extremity deep venous system is examined utilizing real time linear array sonog fabio with graded compression, doppler sonography and color-flow sonography. VESSELS IMAGED: Common Femoral Vein Deep Femoral Vein Greater Saphenous Vein * Femoral Vein Popliteal Vein Small Saphenous Vein * Proximal Calf Veins (* superficial vessels) Right Leg: Positive for DVT in the right mid and distal popliteal vein as well as the right PTVs and peroneal veins. Left Leg: Negative for DVT Patient had same study done 3 days ago and was negative for DVT in the bilateral legs. Today, patient presents with elevated D-dimer and shows non-compressible thrombus within the popliteal, PTV, and pe roneal veins in the right lower extremity. IMPRESSION: 1. Positive DVT mid and distal popliteal vein and within the posterior tibial veins.
[2021-06-30 11:39] LABS: Glucose,Whole Blood 109 mg/dL (75-99)
--- NOTE | 2021-06-30 13:57 | P.PN ---
Subjective Progress Note Date: 06/30/21 On 06/30/2021, the patient is being seen for a follow-up. As mentioned earlier, 50-year-old male patient with pneumonia. The patient is not vaccinated. The patient has other comorbidities including previous history of DVT and history of transverse myelitis. The patient came in for worsening shortness of breath. The patient's shortness of breath progressively got worse and the patient was given 100% nonrebreather facemask to use in combination with 15 L per minute nasal cannula. Note that his inflammatory markers are also on the rise. On today's blood work, the patient had an LDH level of 2763 and a CRP level is at 3.2 and the rest of the electrodes are all within normal limits. Glucose 19. D-dimer is above 34,000 and the patient has a white second of 10.3 with hemoglobin 13.7. The patient was being treated with Decadron and Baricitinib was also added for protocol in view of worsening dyspnea and hypoxemia and oxygen requirements. Patient was also started on Lovenox for DVT prophylaxis. Currently is receiving 40 mg subcu every 24 hours and a repeat Doppler of the lower extremity to be done to rule out the possibility of DVT knowing his previous history. Objective - Vital Signs Vital signs: Vital Signs Temp 98 F 06/30/21 04:00 Pulse 50 L 06/30/21 04:00 Resp 20 06/30/21 04:00 BP 113/65 06/30/21 04:00 Pulse Ox 92 L 06/30/21 04:00 Intake & Output 06/29/21 06/30/21 06/30/21 18:59 06:59 18:59 Intake Total 118 240 Output Total 700 Balance 118 -700 240 Weight 122.5 kg Intake: Oral 118 240 Output: Urine 700 Other: Voiding Method Urinal # Voids 1 - Exam No acute distress, oriented 3. No conversational dyspnea or use of accessory muscles. The patient's on 15 L high flow oxygen, in addition to 100% nonrebreather facemask. Despite this high oxygen requirements, the patient's breathing is nonlabored at this point., HEENT examination is grossly unremarkable. Neck supple. Full range of motion. No adenopathy thyromegaly or neck vein distention. Cardiovascular examination reveals regular rhythm rate. S1-S2 normal. No S3 or S4. No discernible murmur noted. Heart sounds are distant. Lungs reveal diffuse bilateral coarse rhonchi. Scattered crackles at the bases. No wheezes. Breath sounds are equal bilaterally. Abdomen soft bowel sounds are heard. No masses or tenderness. Extremities are intact. No cyanosis clubbing or edema. Skin is without rash or lesion. Neurologic examination is brief but nonfocal. - Labs CBC & Chem 7: 06/30/21 05:46 06/30/21 05:46 Labs: Abnormal Lab Results - Last 24 Hours (Table) 06/29/21 06/29/21 06/30/21 Range/Units 16:44 20:06 05:46 Neutrophils # 8.8 H (1.3-7.7) k/uL Lymphocytes # 0.8 L (1.0-4.8) k/uL D-Dimer (<0.60) mg/L FEU Chloride (98-107) mmol/L BUN (9-20) mg/dL POC Glucose (mg/dL) 142 H 115 H (75-99) mg/dL AST (17-59) U/L ALT (4-49) U/L Lactate Dehydrogenase (313-618) U/L C-Reactive Protein (<1.0) mg/dL Total Protein (6.3-8.2) g/dL Albumin (3.5-5.0) g/dL 06/30/21 06/30/21 06/30/21 Range/Units 05:46 05:46 11:27 Neutrophils # (1.3-7.7) k/uL Lymphocytes # (1.0-4.8) k/uL D-Dimer >34.10 H (<0.60) mg/L FEU Chloride 111 H (98-107) mmol/L BUN 28 H (9-20) mg/dL POC Glucose (mg/dL) 109 H (75-99) mg/dL AST 61 H (17-59) U/L ALT 61 H (4-49) U/L Lactate Dehydrogenase 2764 H (313-618) U/L C-Reactive Protein 3.2 H (<1.0) mg/dL Total Protein 6.2 L (6.3-8.2) g/dL Albumin 3.0 L (3.5-5.0) g/dL Assessment and Plan Plan: 1 Acute hypoxemic respiratory failure, secondary to coronavirus associated pneumonia. The patient presented with diffuse bilateral pulmonary infiltrates and hypoxic respiratory failure. Since yesterday, the patient has been requiring more oxygen and currently is on 15 L of oxygen by nasal cannula in addition to 100% on a facemask to maintain a saturation above 90%. . He is on a combination of Decadron and Baricitinib for now. He is also on Lovenox for DVT prophylaxis. Doppler of the lower extremity has a negative d-dimer was elevated and the repeat Doppler will be obtained today. Note that the patient's d-dimer remains quite elevated. Nevertheless, no history of any DVT or pulmonary embolism on prior Dopplers and 5 CT of the chest. I realized the patient's oxidation is getting worse. I'm going to increase his Decadron dose. I'm going to keep the patient on Baricitinib. 2 acute COVID 19 related pneumonia 3 History of chronic bronchial asthma. 4 Previous history of tobacco use. 5 History of C5-C6 fusion. 6 History of transverse myelitis. 7 History of DVT, December 2007 Plan Titrate FiO2 to maintain saturation was 90% currently on 15 L in combination with 100% nonrebreather facemask Continue treatment with a combination of Decadron and Baricitinib protocol increase his Decadron dose to 6 mg IV every 12 hours. Lovenox 40 mg subcu for DVT prophylaxis Cut down the IV fluids to KVO Continue vitamin C and vitamin D and zinc supplements NovoLog insulin for blood sugar control per sliding scale coverage Repeat chest x-ray with next 24 hours along with d-dimer Repeat Doppler of the lower extremities today We'll continue to follow.
[2021-06-30] MEDS: SODIUM CHLORIDE 0.9% 1,000 ML IV SCH ×2 (14:46→21:01)
--- NOTE | 2021-06-30 14:48 | P.PN ---
Subjective Progress Note Date: 06/30/21 06/29/2021 Patient evaluated today sitting up in bed. He does complain of shortness of breath, appears fatigued. He is able to ambulate to the bedside commode and back to bed, but is limited due to the need for high flow cannula. He is able to carry on a conversation. Vital signs today include Temp, 98.5 axillary, heart rate 71, blood pressure 124/53, 90% oxygen on 15L HF cannula. D-Dimer today 34.10, sodium 145, potassium 4.2, BUN 22, creatinine 0.80, glucose in the 140s, AST 80, ALT 72. Doppler is negative for bilateral DVT. He is being followed closely by pulmonary and ID services. Receiving decadron, lovenox, zinc, vitamins, and baricitinib. 06/30/2021 Patient today sitting in bed. He is on a 15 L HF cannula with oxygen staturation around 97%. Afebrile, heart rate 61 sinus rhythm, blood pressure 118/74. Patient continues on Baricitinib, Decadron, Lovenox, zinc, vitamins. Labs today show white count 10.3, sodium 143, potassium 4.6, chloride 111, AST 61, ALT 61, LDH 2764, CRP 3.2 d-dimer again elevated at greater than 34.1. Repeat venous Doppler shows a positive DVT in the right mid and distal popliteal vein as well as the right PTVs and peroneal veins. Lovenox increased to 120 mg twice a day. Patient is followed closely by pulmonary and ID services. Prognosis is guarded continue all supportive care. ROS Constitutional: Denied any fatigue denied any fever. Cardio vascular: denied any chest pain, palpitations Gastrointestinal denied any nausea vomiting Pulmonary: Reports congested cough, reports shortness of breath Neurologic denied any new focal deficits All inpatient medications were reviewed and appropriate changes in these medications as dictated in the interval history and assessment and plan. PHYSICAL EXAMINATION: GENERAL: The patient is alert and oriented x3,mild respiratory distress. Well developed, well nourished. HEENT: Pupils are round and equally reacting to light. EOMI. No scleral icterus. No conjunctival pallor. Normocephalic, atraumatic. No pharyngeal erythema. No thyromegaly. CARDIOVASCULAR: S1 and S2 present. No murmurs, rubs, or gallops. PULMONARY: Coarse scattered rhonchi ABDOMEN: Soft, nontender, nondistended, normoactive bowel sounds. No palpable organomegaly. MUSCULOSKELETAL: No joint swelling or deformity. EXTREMITIES: No cyanosis, clubbing, mild pedal edema NEUROLOGICAL: Gross neurological examination did not reveal any focal deficits. SKIN: No rashes. Assessment and plan Assessment Acute hypoxic respiratory failure secondary to COVID 19 pneumonia requiring 15L HF nasal cannula Acute DVT right mid and distal popliteal vein, as well as right PTV's and peroneal veins Elevated DD, CTA negative for PE Elevated liver enzymes possibly due to systemic inflammation Elevated inflammatory markers secondary to COVID 19 History of DVT History of asthma, not in acute exacerbation Remote history of nicotine dependence History of transverse myelitis History of C5-C6 fusion Obesity GI Prophylaxis: Protonix DVT Prophylaxis: Lovenox FULL CODE Plan Continue decadron, vitamins, Baricitinib Decadron increased to 6 mg IV BID Lovenox increased for DVT Repeat labs in AM Incentive spirometry Prognosis is guarded for this patient Objective - Vital Signs Vital signs: Vital Signs Temp 98 F 06/30/21 04:00 Pulse 50 L 06/30/21 04:00 Resp 20 06/30/21 04:00 BP 113/65 06/30/21 04:00 Pulse Ox 92 L 06/30/21 04:00 Intake & Output 06/29/21 06/30/21 06/30/21 18:59 06:59 18:59 Intake Total 118 240 Output Total 700 Balance 118 -700 240 Weight 122.5 kg Intake: Oral 118 240 Output: Urine 700 Other: Voiding Method Urinal # Voids 1 - Labs CBC & Chem 7: 06/30/21 05:46 06/30/21 05:46 Labs: Abnormal Lab Results - Last 24 Hours (Table) 06/29/21 06/29/21 06/29/21 Range/Units 10:11 10:37 11:47 Neutrophils # (1.3-7.7) k/uL Lymphocytes # (1.0-4.8) k/uL D-Dimer >34.10 H (<0.60) mg/L FEU Chloride 113 H (98-107) mmol/L BUN 22 H (9-20) mg/dL Glucose 122 H (74-99) mg/dL POC Glucose (mg/dL) 138 H (75-99) mg/dL AST 80 H (17-59) U/L ALT 72 H (4-49) U/L Lactate Dehydrogenase (313-618) U/L C-Reactive Protein (<1.0) mg/dL Total Protein (6.3-8.2) g/dL Albumin 3.3 L (3.5-5.0) g/dL 06/29/21 06/29/21 06/30/21 Range/Units 16:44 20:06 05:46 Neutrophils # 8.8 H (1.3-7.7) k/uL Lymphocytes # 0.8 L (1.0-4.8) k/uL D-Dimer (<0.60) mg/L FEU Chloride (98-107) mmol/L BUN (9-20) mg/dL Glucose (74-99) mg/dL POC Glucose (mg/dL) 142 H 115 H (75-99) mg/dL AST (17-59) U/L ALT (4-49) U/L Lactate Dehydrogenase (313-618) U/L C-Reactive Protein (<1.0) mg/dL Total Protein (6.3-8.2) g/dL Albumin (3.5-5.0) g/dL 06/30/21 06/30/21 Range/Units 05:46 05:46 Neutrophils # (1.3-7.7) k/uL Lymphocytes # (1.0-4.8) k/uL D-Dimer >34.10 H (<0.60) mg/L FEU Chloride 111 H (98-107) mmol/L BUN 28 H (9-20) mg/dL Glucose (74-99) mg/dL POC Glucose (mg/dL) (75-99) mg/dL AST 61 H (17-59) U/L ALT 61 H (4-49) U/L Lactate Dehydrogenase 2764 H (313-618) U/L C-Reactive Protein 3.2 H (<1.0) mg/dL Total Protein 6.2 L (6.3-8.2) g/dL Albumin 3.0 L (3.5-5.0) g/dL
[2021-06-30 16:50] LABS: Glucose,Whole Blood 171 mg/dL (75-99)
[2021-06-30 20:05] LABS: Glucose,Whole Blood 117 mg/dL (75-99)
[2021-06-30] MEDS: ENOXAPARIN 120 MG/0.8 ML SYRINGE SQ SCH (20:52)
--- NOTE | 2021-06-30 22:17 | PN ---
PROGRESS NOTE DATE OF SERVICE: 06/30/2021 REASON FOR FOLLOWUP: COVID-19 pneumonia. INTERVAL HISTORY: The patient did have worsening of his respiratory status, requiring non-rebreather. The patient, however, mentioned breathing slightly comfortably. The patient denies having any chest pain. No cough. No sputum production. No abdominal pain or diarrhea. PHYSICAL EXAMINATION: Blood pressure is 113/67, pulse of 85, temperature 98.4. He is 90% on non-rebreather. General description is a middle-aged male lying in bed in no distress. Respiratory system: Unlabored breathing. Clear to auscultation anteriorly. Heart S1, S2. Regular rate and rhythm. Abdomen soft, no tenderness. LABS: Hemoglobin is 13.7, white count 10.3, creatinine 0.89. DIAGNOSTIC IMPRESSION AND PLAN: Patient with acute respiratory failure secondary to acute COVID-19 pneumonia and slight worsening of his respiratory status. The patient has been started on baricitinib. That will be continued along with dexamethasone, Lovenox, zinc and ascorbic acid and respiratory support. Monitor his clinical course closely. Continue with supportive care. MMODL / IJN: [id number] /
[2021-07-01] MEDS: oxyCODONE-APAP 5-325MG 1 EACH TAB PO SCH ×4 (00:47→21:13)
[2021-07-01 06:40] LABS: Glucose,Whole Blood 124 mg/dL (75-99)
[2021-07-01] MEDS: INSULIN ASPART (NovoLOG) 100 UNIT/ML VIAL SQ SCH ×4 (06:42→21:11)
[2021-07-01] MEDS: PANTOPRAZOLE 40 MG TABLET PO SCH (06:49)
[2021-07-01 08:40] LABS: Basophils % (A) 0 %; Eosinophils % (A) 0 %; HCT 45.5 % (39.0-53.0); HGB 14.7 gm/dL (13.0-17.5); Lymphocytes # (A) 0.6 k/uL (1.0-4.8); Lymphocytes % (A) 5 %; MCH 31.1 pg (25.0-35.0); MCHC 32.2 g/dL (31.0-37.0); MCV 96.6 fL (80.0-100.0); Mean Platelet Volume 8.5; Monocytes # (A) 0.5 k/uL (0-1.0); Monocytes % (A) 4 %; Neutrophils # (A) 11.2 k/uL (1.3-7.7); Neutrophils % (A) 90 %; Platelet Count 224 k/uL (150-450); RBC 4.71 m/uL (4.30-5.90); RDW 12.9 % (11.5-15.5); WBC 12.4 k/uL (3.8-10.6)
[2021-07-01 08:43] LABS: ALT 69 U/L (4-49); AST 60 U/L (17-59); African American GFR (CKD) >90 (>60 ml/min/1.73 sqM); Albumin 3.1 g/dL (3.5-5.0); Alkaline Phosphatase 102 U/L (38-126); Anion Gap 4 mmol/L; Blood Urea Nitrogen 24 mg/dL (9-20); Calcium 8.6 mg/dL (8.4-10.2); Carbon Dioxide 32 mmol/L (22-30); Chloride 107 mmol/L (98-107); Glucose 117 mg/dL (74-99); Non-African American GFR(CKD) >90 (>60 ml/min/1.73 sqM); Potassium 4.9 mmol/L (3.5-5.1); Sodium 143 mmol/L (137-145); Total Protein 6.6 g/dL (6.3-8.2)
[2021-07-01] MEDS: ALBUTEROL HFA INHALER INHALATION SCH ×4 (09:40→19:14)
[2021-07-01] MEDS: SYMBICORT 80-4.5 MCG INHALER INHALATION SCH ×2 (09:40→19:14)
[2021-07-01] MEDS: CHOLECALCIFEROL 25 MCG (1000 IU) TABLET PO SCH (10:44)
[2021-07-01] MEDS: NAPROXEN 250 MG TAB PO SCH ×2 (10:45→21:11)
[2021-07-01] MEDS: BACLOFEN 10 MG TAB PO SCH ×2 (10:45→21:11)
[2021-07-01] MEDS: ASCORBIC ACID 500 MG TAB PO SCH (10:45)
[2021-07-01] MEDS: ZINC SULFATE 220 MG CAP PO SCH (10:45)
[2021-07-01] MEDS: BARICITINIB 2 MG TABLET PO SCH (10:46)
[2021-07-01] MEDS: DEXAMETHASONE SOD PHOSPHATE 10 MG/ML 1 ML VIAL IVP SCH ×2 (10:46→21:11)
[2021-07-01] MEDS: ENOXAPARIN 120 MG/0.8 ML SYRINGE SQ SCH (10:47)
[2021-07-01 11:44] LABS: Glucose,Whole Blood 107 mg/dL (75-99)
--- NOTE | 2021-07-01 11:57 | P.PN ---
Subjective Progress Note Date: 07/01/21 06/29/2021 Patient evaluated today sitting up in bed. He does complain of shortness of breath, appears fatigued. He is able to ambulate to the bedside commode and back to bed, but is limited due to the need for high flow cannula. He is able to carry on a conversation. Vital signs today include Temp, 98.5 axillary, heart rate 71, blood pressure 124/53, 90% oxygen on 15L HF cannula. D-Dimer today 34.10, sodium 145, potassium 4.2, BUN 22, creatinine 0.80, glucose in the 140s, AST 80, ALT 72. Doppler is negative for bilateral DVT. He is being followed closely by pulmonary and ID services. Receiving decadron, lovenox, zinc, vitamins, and baricitinib. 06/30/2021 Patient today sitting in bed. He is on a 15 L HF cannula with oxygen staturation around 97%. Afebrile, heart rate 61 sinus rhythm, blood pressure 118/74. Patient continues on Baricitinib, Decadron, Lovenox, zinc, vitamins. Labs today show white count 10.3, sodium 143, potassium 4.6, chloride 111, AST 61, ALT 61, LDH 2764, CRP 3.2 d-dimer again elevated at greater than 34.1. Repeat venous Doppler shows a positive DVT in the right mid and distal popliteal vein as well as the right PTVs and peroneal veins. Lovenox increased to 120 mg twice a day. Patient is followed closely by pulmonary and ID services. Prognosis is guarded continue all supportive care. 07/01/2021 Patient evaluated today sitting up in a chair, states that he did well while transferring from bed. He is on 15L HF NC and nonrebreather at 15 L, oxygen saturation is between 90-91%. Blood pressure today is 108/68, heart rate 70s sinus rhythm, afebrile. On, zinc, vitamins, lovenox, decadron, and baricitinib. Continues to use IS and has been doing simple exercises in the room to keep his strength up. Spirits seem good today, and he seems less winded while talking. IV fluids have been off for the last 2 days per patient. White count today 12.4, sodium 143, potassium 4.9, CO2 32, BUN 24, creatinine 0.91 sugars in the 20s, AST 60, ALT 69. Followed by ID, pulmonary services. ROS Constitutional: Denied any fatigue denied any fever. Cardio vascular: denied any chest pain, palpitations Gastrointestinal denied any nausea vomiting Pulmonary: Reports congested cough, reports shortness of breath with exertion, minimally at rest. Neurologic denied any new focal deficits All inpatient medications were reviewed and appropriate changes in these medications as dictated in the interval history and assessment and plan. PHYSICAL EXAMINATION: GENERAL: The patient is alert and oriented x3,mild respiratory distress. Well developed, well nourished. HEENT: Pupils are round and equally reacting to light. EOMI. No scleral icterus. No conjunctival pallor. Normocephalic, atraumatic. No pharyngeal erythema. No thyromegaly. CARDIOVASCULAR: S1 and S2 present. No murmurs, rubs, or gallops. PULMONARY: Coarse scattered rhonchi, faint crackles right base ABDOMEN: Soft, nontender, nondistended, normoactive bowel sounds. No palpable organomegaly. MUSCULOSKELETAL: No joint swelling or deformity. EXTREMITIES: No cyanosis, clubbing, mild pedal edema NEUROLOGICAL: Gross neurological examination did not reveal any focal deficits. SKIN: No rashes. Assessment and plan Assessment Acute hypoxic respiratory failure secondary to COVID 19 pneumonia requiring 15L HF nasal cannula, and 15L NRB Acute DVT right mid and distal popliteal vein, as well as right PTV's and peroneal veins Elevated DD, CTA negative for PE Elevated liver enzymes possibly due to systemic inflammation Elevated inflammatory markers secondary to COVID 19 History of DVT History of asthma, not in acute exacerbation Remote history of nicotine dependence History of transverse myelitis History of C5-C6 fusion Obesity GI Prophylaxis: Protonix DVT Prophylaxis: Lovenox FULL CODE Plan Continue decadron, vitamins, Baricitinib Lovenox for DVT Repeat labs in AM Incentive spirometry Prognosis is guarded for this patient Objective - Vital Signs Vital signs: Vital Signs Temp 97.8 F 07/01/21 04:00 Pulse 52 L 07/01/21 04:00 Resp 18 07/01/21 04:00 BP 108/68 07/01/21 04:00 Pulse Ox 90 L 07/01/21 04:00 Intake & Output 06/30/21 07/01/21 07/01/21 18:59 06:59 18:59 Intake Total 694 Balance 694 Intake: Oral 694 Other: Voiding Method Urinal Urinal # Voids 1 # Bowel Movements 1 - Labs CBC & Chem 7: 07/01/21 06:55 07/01/21 06:55 Labs: Abnormal Lab Results - Last 24 Hours (Table) 06/30/21 06/30/21 06/30/21 Range/Units 05:46 11:27 16:35 POC Glucose (mg/dL) 109 H 171 H (75-99) mg/dL C-Reactive Protein 3.2 H (<1.0) mg/dL 06/30/21 07/01/21 Range/Units 20:04 06:39 POC Glucose (mg/dL) 117 H 124 H (75-99) mg/dL C-Reactive Protein (<1.0) mg/dL
--- NOTE | 2021-07-01 13:54 | P.PN ---
Subjective Progress Note Date: 07/01/21 07/01/2021, the patient remains in the hospital for community related pneumonia and hypoxic respiratory failure. Note that the patient had progressive worsening and oxygenation. Based on that, the patient was placed on a combination of 15 L nasal cannula in addition to 100% on a beta facemasks. He was also started on a higher dose of Decadron 6 mg IV every 12 hours and the patient was given Baricitinib per protocol. Further investigation with a repeat Doppler of the lower extremity showed a development of left lower extremity DVT. The patient accordingly is on a combination of Baricitinib, Decadron and therapeutic dose of Lovenox. His oxidation is the same. Is maintaining pulse ox above 90% and the patient denies having any worsening shortness of breath compared to yesterday. As such, his condition has remained stable for now. He remains on IV fluids at 75 mL an hour and still be cut down to KVO. Meanwhile, his inflammatory markers were quite elevated and this is to be repeated. Normal renal function. Normal electrolytes. D-dimer was around 34 and above. No altered mentation. Has a good appetite. Energy is preserved Objective - Vital Signs Vital signs: Vital Signs Temp 97.8 F 07/01/21 04:00 Pulse 52 L 07/01/21 04:00 Resp 18 07/01/21 04:00 BP 108/68 07/01/21 04:00 Pulse Ox 90 L 07/01/21 04:00 Intake & Output 06/30/21 07/01/21 07/01/21 18:59 06:59 18:59 Intake Total 694 Balance 694 Intake: Oral 694 Other: Voiding Method Urinal Urinal # Voids 1 # Bowel Movements 1 - Exam No acute distress, oriented 3. No conversational dyspnea or use of accessory muscles. The patient's on 15 L high flow oxygen, in addition to 100% nonrebreather facemask. Despite this high oxygen requirements, the patient's breathing is nonlabored at this point., HEENT examination is grossly unremarkable. Neck supple. Full range of motion. No adenopathy thyromegaly or neck vein distention. Cardiovascular examination reveals regular rhythm rate. S1-S2 normal. No S3 or S4. No discernible murmur noted. Heart sounds are distant. Lungs reveal diffuse bilateral coarse rhonchi. Scattered crackles at the bases. No wheezes. Breath sounds are equal bilaterally. Abdomen soft bowel sounds are heard. No masses or tenderness. Extremities are intact. No cyanosis clubbing or edema. Skin is without rash or lesion. Neurologic examination is brief but nonfocal. - Labs CBC & Chem 7: 07/01/21 06:55 07/01/21 06:55 Labs: Abnormal Lab Results - Last 24 Hours (Table) 06/30/21 06/30/21 07/01/21 Range/Units 16:35 20:04 06:39 WBC (3.8-10.6) k/uL Neutrophils # (1.3-7.7) k/uL Lymphocytes # (1.0-4.8) k/uL Carbon Dioxide (22-30) mmol/L BUN (9-20) mg/dL Glucose (74-99) mg/dL POC Glucose (mg/dL) 171 H 117 H 124 H (75-99) mg/dL AST (17-59) U/L ALT (4-49) U/L Albumin (3.5-5.0) g/dL 07/01/21 07/01/21 07/01/21 Range/Units 06:55 06:55 11:35 WBC 12.4 H (3.8-10.6) k/uL Neutrophils # 11.2 H (1.3-7.7) k/uL Lymphocytes # 0.6 L (1.0-4.8) k/uL Carbon Dioxide 32 H (22-30) mmol/L BUN 24 H (9-20) mg/dL Glucose 117 H (74-99) mg/dL POC Glucose (mg/dL) 107 H (75-99) mg/dL AST 60 H (17-59) U/L ALT 69 H (4-49) U/L Albumin 3.1 L (3.5-5.0) g/dL Assessment and Plan Plan: 1 Acute hypoxemic respiratory failure, secondary to coronavirus associated pneumonia. The patient presented with diffuse bilateral pulmonary infiltrates and hypoxic respiratory failure. Since yesterday, the patient has been requiring more oxygen and currently is on 15 L of oxygen by nasal cannula in addition to 100% on a facemask to maintain a saturation above 90%. . He is on a combination of Decadron and Baricitinib for now. Doppler of the lower extremity was positive for DVT in the patient is currently on a therapeutic dose of Lovenox. Oxygenation has remained stable without any interval worsening over the past 24 hours. 2 acute COVID 19 related pneumonia 3 History of chronic bronchial asthma. 4 Previous history of tobacco use. 5 History of C5-C6 fusion. 6 History of transverse myelitis. 7 History of DVT, December 2007 Plan Titrate FiO2 to maintain saturation was 90% currently on 15 L in combination with 100% nonrebreather facemask Oxygenation has remained stable for now Continue treatment with a combination of Decadron and Baricitinib protocol Continue Decadron dose to 6 mg IV every 12 hours. Lovenox 120 mg subcu every 12 hours Cut down the IV fluids to KVO Continue vitamin C and vitamin D and zinc supplements NovoLog insulin for blood sugar control per sliding scale coverage Repeat chest x-ray with next 24 hours along with d-dimer Repeat inflammatory markers in a.m. We'll continue to follow.
[2021-07-01 16:58] LABS: Glucose,Whole Blood 166 mg/dL (75-99)
[2021-07-01] MEDS: SODIUM CHLORIDE 0.9% 1,000 ML IV SCH (17:19)
[2021-07-01 20:02] LABS: Glucose,Whole Blood 157 mg/dL (75-99)
[2021-07-01] MEDS: APIXABAN 5 MG TAB PO SCH (21:11)
--- NOTE | 2021-07-01 23:06 | PN ---
PROGRESS NOTE DATE OF SERVICE: 07/01/2021 REASON FOR FOLLOWUP: COVID-19 pneumonia. INTERVAL HISTORY: The patient is afebrile. The patient is breathing slightly comfortably. Still requiring high-flow oxygen. The patient denies having any chest pain or worsening cough or sputum production. No abdominal pain or diarrhea. PHYSICAL EXAMINATION: Blood pressure 101/68 with a pulse of 72, temperature 97.8. He is 91% on 15 L non- rebreather. General description is a middle-aged male up in the chair in no distress. Respiratory system: Unlabored breathing, decreased intensity of breath sounds. No wheeze. Heart S1, S2. Regular rate and rhythm. Abdomen soft, no tenderness. LABS: Hemoglobin is 14, white count 12.4. 0.91. DIAGNOSTIC IMPRESSION AND PLAN: Patient with acute respiratory failure from COVID-19 pneumonia. The patient did have overall critical respiratory status requiring high-flow oxygen. Patient is currently covered with baricitinib, dexamethasone, Lovenox, zinc and ascorbic acid; to continue along with respiratory support and monitor his clinical course closely. MMODL / IJN: [id number] /
[2021-07-02 06:03] LABS: Glucose,Whole Blood 115 mg/dL (75-99)
[2021-07-02] MEDS: INSULIN ASPART (NovoLOG) 100 UNIT/ML VIAL SQ SCH ×4 (06:25→23:40)
[2021-07-02 06:33] LABS: Basophils % (A) 0 %; Eosinophils % (A) 0 %; HCT 44.4 % (39.0-53.0); HGB 14.6 gm/dL (13.0-17.5); Lymphocytes # (A) 0.6 k/uL (1.0-4.8); Lymphocytes % (A) 4 %; MCH 31.1 pg (25.0-35.0); MCHC 32.9 g/dL (31.0-37.0); MCV 94.7 fL (80.0-100.0); Mean Platelet Volume 8.3; Monocytes # (A) 0.5 k/uL (0-1.0); Monocytes % (A) 3 %; Neutrophils # (A) 13.6 k/uL (1.3-7.7); Neutrophils % (A) 92 %; Platelet Count 268 k/uL (150-450); RBC 4.69 m/uL (4.30-5.90); RDW 12.2 % (11.5-15.5); WBC 14.8 k/uL (3.8-10.6)
[2021-07-02 07:08] LABS: ALT 72 U/L (4-49); AST 57 U/L (17-59); African American GFR (CKD) >90 (>60 ml/min/1.73 sqM); Albumin 3.2 g/dL (3.5-5.0); Alkaline Phosphatase 109 U/L (38-126); Anion Gap 5 mmol/L; Blood Urea Nitrogen 26 mg/dL (9-20); Carbon Dioxide 30 mmol/L (22-30); Chloride 105 mmol/L (98-107); Glucose 118 mg/dL (74-99); Non-African American GFR(CKD) >90 (>60 ml/min/1.73 sqM); Potassium 4.9 mmol/L (3.5-5.1); Sodium 140 mmol/L (137-145); Total Bilirubin 0.9 mg/dL (0.2-1.3); Total Protein 6.9 g/dL (6.3-8.2)
[2021-07-02] MEDS: SODIUM CHLORIDE 0.9% 1,000 ML IV SCH (08:17)
[2021-07-02] MEDS: CHOLECALCIFEROL 25 MCG (1000 IU) TABLET PO SCH (08:35)
[2021-07-02] MEDS: BARICITINIB 2 MG TABLET PO SCH (08:36)
[2021-07-02] MEDS: ZINC SULFATE 220 MG CAP PO SCH (08:36)
[2021-07-02] MEDS: APIXABAN 5 MG TAB PO SCH ×2 (08:36→20:14)
[2021-07-02] MEDS: PANTOPRAZOLE 40 MG TABLET PO SCH (08:36)
[2021-07-02] MEDS: NAPROXEN 250 MG TAB PO SCH ×2 (08:37→20:13)
[2021-07-02] MEDS: BACLOFEN 10 MG TAB PO SCH (08:37)
[2021-07-02] MEDS: oxyCODONE-APAP 5-325MG 1 EACH TAB PO SCH ×3 (08:37→20:13)
[2021-07-02] MEDS: DEXAMETHASONE SOD PHOSPHATE 10 MG/ML 1 ML VIAL IVP SCH ×2 (08:40→20:18)
[2021-07-02] MEDS: ASCORBIC ACID 500 MG TAB PO SCH (08:40)
[2021-07-02] MEDS: SYMBICORT 80-4.5 MCG INHALER INHALATION SCH ×2 (09:09→19:48)
[2021-07-02] MEDS: ALBUTEROL HFA INHALER INHALATION SCH ×4 (09:09→19:48)
--- NOTE | 2021-07-02 09:23 | P.PN ---
Subjective 06/29/2021 Patient evaluated today sitting up in bed. He does complain of shortness of breath, appears fatigued. He is able to ambulate to the bedside commode and back to bed, but is limited due to the need for high flow cannula. He is able to lu y on a conversation. Vital signs today include Temp, 98.5 axillary, heart rate 71, blood pressure 124/53, 90% oxygen on 15L HF cannula. D-Dimer today 34.10, sodium 145, potassium 4.2, BUN 22, creatinine 0.80, glucose in the 140s, AST 80, ALT 72. Doppler is negative for bilateral DVT. He is being followed closely by pulmonary and ID services. Receiving decadron, lovenox, zinc, vitamins, and baricitinib. 06/30/2021 Patient today sitting in bed. He is on a 15 L HF cannula with oxygen staturation around 97%. Afebrile, heart rate 61 sinus rhythm, blood pressure 118/74. Patient continues on Baricitinib, Decadron, Lovenox, zinc, vitamins. Labs today show white count 10.3, sodium 143, potassium 4.6, chloride 111, AST 61, ALT 61, LDH 2764, CRP 3.2 d-dimer again elevated at greater than 34.1. Repeat venous Doppler shows a positive DVT in the right mid and distal popliteal vein as well as the right PTVs and peroneal veins. Lovenox increased to 120 mg twice a day. Patient is followed closely by pulmonary and ID services. Prognosis is guarded continue all supportive care. 07/01/2021 Patient evaluated today sitting up in a chair, states that he did well while transferring from bed. He is on 15L HF NC and nonrebreather at 15 L, oxygen saturation is between 90-91%. Blood pressure today is 108/68, heart rate 70s sinus rhythm, afebrile. On, zinc, vitamins, lovenox, decadron, and baricitinib. Continues to use IS and has been doing simple exercises in the room to keep his strength up. Spirits seem good today, and he seems less winded while talking. IV fluids have been off for the last 2 days per patient. White count today 12.4, sodium 143, potassium 4.9, CO2 32, BUN 24, creatinine 0.91 sugars in the 20s, AST 60, ALT 69. Followed by ID, pulmonary services. 07/02/2021 Liver enzymes are improving patient remains on nonrebreather rebreather as well as 15 L . ROS Constitutional: Denied any fatigue denied any fever. Cardio vascular: denied any chest pain, palpitations Gastrointestinal denied any nausea vomiting Pulmonary: Reports congested cough, reports shortness of breath with exertion, minimally at rest. Neurologic denied any new focal deficits All inpatient medications were reviewed and appropriate changes in these medications as dictated in the interval history and assessment and plan. PHYSICAL EXAMINATION: GENERAL: The patient is alert and oriented x3,mild respiratory distress. Well developed, well nourished. HEENT: Pupils are round and equally reacting to light. EOMI. No scleral icterus. No conjunctival pallor. Normocephalic, atraumatic. No pharyngeal erythema. No thyromegaly. CARDIOVASCULAR: S1 and S2 present. No murmurs, rubs, or gallops. PULMONARY: Coarse scattered rhonchi, faint crackles right base ABDOMEN: Soft, nontender, nondistended, normoactive bowel sounds. No palpable organomegaly. MUSCULOSKELETAL: No joint swelling or deformity. EXTREMITIES: No cyanosis, clubbing, mild pedal edema NEUROLOGICAL: Gross neurological examination did not reveal any focal deficits. SKIN: No rashes. Assessment and plan Assessment Acute hypoxic respiratory failure secondary to COVID 19 pneumonia requiring 15L HF nasal cannula, and 15L NRB Acute DVT right mid and distal popliteal vein, as well as right PTV's and peroneal veins Elevated DD, CTA negative for PE Elevated liver enzymes possibly due to systemic inflammation Elevated inflammatory markers secondary to COVID 19 History of DVT History of asthma, not in acute exacerbation Remote history of nicotine dependence History of transverse myelitis History of C5-C6 fusion Obesity GI Prophylaxis: Protonix DVT Prophylaxis: Lovenox FULL CODE Plan Continue decadron, vitamins, Baricitinib Lovenox for DVT Repeat labs in AM Incentive spirometry Prognosis is guarded for this patient Objective - Vital Signs Vital signs: Vital Signs Temp 97.7 F 07/02/21 00:00 Pulse 59 L 07/02/21 01:38 Resp 18 07/02/21 01:38 BP 108/62 07/02/21 00:00 Pulse Ox 90 L 07/02/21 00:00 Intake & Output 07/01/21 07/02/21 07/02/21 18:59 06:59 18:59 Intake Total 240 118 Output Total 400 300 Balance -160 -300 118 Intake: Oral 240 118 Output: Urine 400 300 Other: Voiding Method Urinal # Voids 1 - Labs CBC & Chem 7: 07/02/21 06:01 07/02/21 06:01 Labs: Abnormal Lab Results - Last 24 Hours (Table) 07/01/21 07/01/21 07/01/21 Range/Units 11:35 16:56 20:00 WBC (3.8-10.6) k/uL Neutrophils # (1.3-7.7) k/uL Lymphocytes # (1.0-4.8) k/uL BUN (9-20) mg/dL Glucose (74-99) mg/dL POC Glucose (mg/dL) 107 H 166 H 157 H (75-99) mg/dL ALT (4-49) U/L Albumin (3.5-5.0) g/dL 07/02/21 07/02/21 07/02/21 Range/Units 06:01 06:01 06:01 WBC 14.8 H (3.8-10.6) k/uL Neutrophils # 13.6 H (1.3-7.7) k/uL Lymphocytes # 0.6 L (1.0-4.8) k/uL BUN 26 H (9-20) mg/dL Glucose 118 H (74-99) mg/dL POC Glucose (mg/dL) 115 H (75-99) mg/dL ALT 72 H (4-49) U/L Albumin 3.2 L (3.5-5.0) g/dL
--- NOTE | 2021-07-02 10:57 | P.PN ---
Subjective Progress Note Date: 07/02/21 The patient is seen today 07/02/2021 in follow-up on the selective care unit. He is currently sitting up in a chair at the bedside. Awake and alert in no acute distress. He is still dyspneic with conversation. Dyspneic with exertion. He is still requiring 15 L high flow nasal cannula + nonrebreather mask. He was found to have a DVT in the right lower extremity. He is currently on Eliquis. He remains on Baricitinib, Decadron, bronchodilators and vitamin supplements. Objective - Vital Signs Vital signs: Vital Signs Temp 97.7 F 07/02/21 00:00 Pulse 59 L 07/02/21 01:38 Resp 18 07/02/21 01:38 BP 108/62 07/02/21 00:00 Pulse Ox 90 L 07/02/21 00:00 Intake & Output 07/01/21 07/02/21 07/02/21 18:59 06:59 18:59 Intake Total 240 118 Output Total 400 300 Balance -160 -300 118 Intake: Oral 240 118 Output: Urine 400 300 Other: Voiding Method Urinal # Voids 1 - Exam GENERAL EXAM: Alert, pleasant 50-year-old gentleman, up in a chair at the bedside, on 15 L high flow nasal cannula plus a nonrebreather mask, fairly comfortable in no apparent distress. HEAD: Normocephalic. EYES: Normal reaction of pupils, equal size. NOSE: Clear with pink turbinates. THROAT: No erythema or exudates. NECK: No masses, no JVD. CHEST: No chest wall deformity. LUNGS: Equal air entry with coarse crackles in bilateral bases. CVS: S1 and S2 normal with no audible murmur, regular rhythm. ABDOMEN: No hepatosplenomegaly, normal bowel sounds, no guarding or rigidity. SPINE: No scoliosis or deformity SKIN: No rashes CENTRAL NERVOUS SYSTEM: No focal deficits, tone is normal in all 4 extremities. EXTREMITIES: There is no peripheral edema. No clubbing, no cyanosis. Peripheral pulses are intact. - Labs CBC & Chem 7: 07/02/21 06:01 07/02/21 06:01 Labs: Abnormal Lab Results - Last 24 Hours (Table) 07/01/21 07/01/21 07/01/21 Range/Units 11:35 16:56 20:00 WBC (3.8-10.6) k/uL Neutrophils # (1.3-7.7) k/uL Lymphocytes # (1.0-4.8) k/uL BUN (9-20) mg/dL Glucose (74-99) mg/dL POC Glucose (mg/dL) 107 H 166 H 157 H (75-99) mg/dL ALT (4-49) U/L Albumin (3.5-5.0) g/dL 07/02/21 07/02/21 07/02/21 Range/Units 06:01 06:01 06:01 WBC 14.8 H (3.8-10.6) k/uL Neutrophils # 13.6 H (1.3-7.7) k/uL Lymphocytes # 0.6 L (1.0-4.8) k/uL BUN 26 H (9-20) mg/dL Glucose 118 H (74-99) mg/dL POC Glucose (mg/dL) 115 H (75-99) mg/dL ALT 72 H (4-49) U/L Albumin 3.2 L (3.5-5.0) g/dL Assessment and Plan Assessment: 1 Acute hypoxemic respiratory failure, secondary to coronavirus associated pneumonia. The patient presented with diffuse bilateral pulmonary infiltrates and hypoxic respiratory failure. Currently is on 15 L of oxygen by nasal cannula in addition to 100% on a facemask to maintain a saturation above 90%. . He is on a combination of Decadron and Baricitinib for now. Doppler of the lower extremity was positive for DVT in the patient is currently on Eliquis. Oxygenation has remained stable without any interval worsening over the past 24 hours. 2 Acute COVID 19 related pneumonia 3 History of chronic bronchial asthma. 4 Previous history of tobacco use. 5 History of C5-C6 fusion. 6 History of transverse myelitis. 7 History of DVT, December 2007 Plan: The patient was seen and evaluated Remains on 15 L high flow nasal cannula plus a nonrebreather mask We'll titrate down the FiO2 as tolerated Up in a chair at the bedside Anticoagulated with Eliquis Remains on Baricitinib, Decadron, vitamin supplements Prognosis guarded We will continue to follow I, the cosigning physician, performed a history & physical examination of the patient. Lungs sounds crackles in bilateral bases. Maintaining O2 saturations in the 90s on 15 L high flow nasal cannula +100% nonrebreather mask. I dis cussed the assessment and plan of care with my nurse practitioner, Harleen Mayen. I attest to the above note as dictated by her.
[2021-07-02 11:59] LABS: Glucose,Whole Blood 127 mg/dL (75-99)
[2021-07-02 16:56] LABS: Glucose,Whole Blood 123 mg/dL (75-99)
[2021-07-02] MEDS ORDERED: FLUTICASONE 50MCG/SPRAY NASAL 16GM EA NOSTRIL PRN (19:56)
[2021-07-02] MEDS: ALPRAZolam 0.25 MG TAB PO PRN (20:13)
[2021-07-02] MEDS: BACLOFEN 10 MG TAB PO PRN (20:14)
[2021-07-02 21:06] LABS: Glucose,Whole Blood 133 mg/dL (75-99)
--- NOTE | 2021-07-02 22:49 | PN ---
PROGRESS NOTE DATE OF SERVICE: 07/02/2021 REASON FOR FOLLOWUP: COVID-19 pneumonia. INTERVAL HISTORY: The patient is afebrile. The patient is still requiring a non-rebreather; however, he mentioned that he has been slightly better. The patient denies having any chest pain. No worsening cough or sputum production. No abdominal pain or diarrhea. PHYSICAL EXAMINATION: Blood pressure 110/62 with a pulse of 78, temperature 98.2. He is 92% on non- rebreather. General description is a middle-aged male up in the chair in no distress. Respiratory system: Unlabored breathing, decreased intensity of breath sounds. No wheeze. Heart S1, S2. Regular rate and rhythm. Abdomen soft, no tenderness. Extremities with no edema of the feet. LABS: Hemoglobin is 14.6, white count 14.8, creatinine 0.94. DIAGNOSTIC IMPRESSION AND PLAN: Patient with acute respiratory failure secondary to COVID-19 pneumonia in this patient whose condition remains critical. Still requiring high-flow oxygen. Patient to continue with baricitinib, dexamethasone, Eliquis, zinc and ascorbic acid along with respiratory support. Monitor his clinical course closely. MMODL / IJN: [id number] /
[2021-07-03] MEDS: SODIUM CHLORIDE 0.9% 1,000 ML IV SCH (05:45)
[2021-07-03 05:52] LABS: Basophils % (A) 0 %; Eosinophils # (A) 0.3 k/uL (0-0.7); Eosinophils % (A) 2 %; HCT 43.8 % (39.0-53.0); HGB 14.6 gm/dL (13.0-17.5); Lymphocytes # (A) 0.8 k/uL (1.0-4.8); Lymphocytes % (A) 5 %; MCH 31.3 pg (25.0-35.0); MCHC 33.4 g/dL (31.0-37.0); MCV 93.5 fL (80.0-100.0); Mean Platelet Volume 8.1; Monocytes # (A) 0.4 k/uL (0-1.0); Monocytes % (A) 3 %; Neutrophils % (A) 90 %; Platelet Count 233 k/uL (150-450); RBC 4.68 m/uL (4.30-5.90); RDW 12.3 % (11.5-15.5); WBC 15.6 k/uL (3.8-10.6)
[2021-07-03 06:15] LABS: ALT 73 U/L (4-49); AST 71 U/L (17-59); African American GFR (CKD) >90 (>60 ml/min/1.73 sqM); Albumin 3.2 g/dL (3.5-5.0); Alkaline Phosphatase 113 U/L (38-126); Anion Gap 6 mmol/L; Blood Urea Nitrogen 26 mg/dL (9-20); Calcium 8.7 mg/dL (8.4-10.2); Carbon Dioxide 28 mmol/L (22-30); Chloride 104 mmol/L (98-107); Glucose 87 mg/dL (74-99); Non-African American GFR(CKD) >90 (>60 ml/min/1.73 sqM); Potassium 4.2 mmol/L (3.5-5.1); Sodium 138 mmol/L (137-145); Total Protein 6.7 g/dL (6.3-8.2)
[2021-07-03] MEDS: INSULIN ASPART (NovoLOG) 100 UNIT/ML VIAL SQ SCH ×4 (06:18→22:48)
[2021-07-03] MEDS: PANTOPRAZOLE 40 MG TABLET PO SCH (06:31)
[2021-07-03] MEDS: ALBUTEROL HFA INHALER INHALATION SCH ×4 (08:20→23:29)
[2021-07-03] MEDS: SYMBICORT 80-4.5 MCG INHALER INHALATION SCH ×2 (08:20→23:29)
[2021-07-03] MEDS: DEXAMETHASONE SOD PHOSPHATE 10 MG/ML 1 ML VIAL IVP SCH ×2 (08:20→19:53)
[2021-07-03] MEDS: CHOLECALCIFEROL 25 MCG (1000 IU) TABLET PO SCH (08:20)
[2021-07-03] MEDS: oxyCODONE-APAP 5-325MG 1 EACH TAB PO SCH ×3 (08:21→19:54)
[2021-07-03] MEDS: BACLOFEN 10 MG TAB PO PRN ×2 (08:21→19:53)
[2021-07-03] MEDS: APIXABAN 5 MG TAB PO SCH ×2 (08:21→19:53)
[2021-07-03] MEDS: ZINC SULFATE 220 MG CAP PO SCH (08:21)
[2021-07-03] MEDS: NAPROXEN 250 MG TAB PO SCH ×2 (08:24→19:52)
[2021-07-03] MEDS: ASCORBIC ACID 500 MG TAB PO SCH (08:24)
[2021-07-03] MEDS: BARICITINIB 2 MG TABLET PO SCH (08:25)
[2021-07-03 11:44] LABS: Glucose,Whole Blood 108 mg/dL (75-99)
--- NOTE | 2021-07-03 11:53 | P.PN ---
Subjective 06/29/2021 Patient evaluated today sitting up in bed. He does complain of shortness of breath, appears fatigued. He is able to ambulate to the bedside commode and back to bed, but is limited due to the need for high flow cannula. He is able to lu y on a conversation. Vital signs today include Temp, 98.5 axillary, heart rate 71, blood pressure 124/53, 90% oxygen on 15L HF cannula. D-Dimer today 34.10, sodium 145, potassium 4.2, BUN 22, creatinine 0.80, glucose in the 140s, AST 80, ALT 72. Doppler is negative for bilateral DVT. He is being followed closely by pulmonary and ID services. Receiving decadron, lovenox, zinc, vitamins, and baricitinib. 06/30/2021 Patient today sitting in bed. He is on a 15 L HF cannula with oxygen staturation around 97%. Afebrile, heart rate 61 sinus rhythm, blood pressure 118/74. Patient continues on Baricitinib, Decadron, Lovenox, zinc, vitamins. Labs today show white count 10.3, sodium 143, potassium 4.6, chloride 111, AST 61, ALT 61, LDH 2764, CRP 3.2 d-dimer again elevated at greater than 34.1. Repeat venous Doppler shows a positive DVT in the right mid and distal popliteal vein as well as the right PTVs and peroneal veins. Lovenox increased to 120 mg twice a day. Patient is followed closely by pulmonary and ID services. Prognosis is guarded continue all supportive care. 07/01/2021 Patient evaluated today sitting up in a chair, states that he did well while transferring from bed. He is on 15L HF NC and nonrebreather at 15 L, oxygen saturation is between 90-91%. Blood pressure today is 108/68, heart rate 70s sinus rhythm, afebrile. On, zinc, vitamins, lovenox, decadron, and baricitinib. Continues to use IS and has been doing simple exercises in the room to keep his strength up. Spirits seem good today, and he seems less winded while talking. IV fluids have been off for the last 2 days per patient. White count today 12.4, sodium 143, potassium 4.9, CO2 32, BUN 24, creatinine 0.91 sugars in the 20s, AST 60, ALT 69. Followed by ID, pulmonary services. 07/02/2021 Liver enzymes are improving patient remains on nonrebreather rebreather as well as 15 L . 07/03/2021 Patient states he is feeling better his a also requirements remain the same. ROS Constitutional: Denied any fatigue denied any fever. Cardio vascular: denied any chest pain, palpitations Gastrointestinal denied any nausea vomiting Pulmonary: Reports congested cough, reports shortness of breath with exertion, minimally at rest. Neurologic denied any new focal deficits All inpatient medications were reviewed and appropriate changes in these medications as dictated in the interval history and assessment and plan. PHYSICAL EXAMINATION: GENERAL: The patient is alert and oriented x3,mild respiratory distress. Well developed, well nourished. HEENT: Pupils are round and equally reacting to light. EOMI. No scleral icterus. No conjunctival pallor. Normocephalic, atraumatic. No pharyngeal erythema. No thyromegaly. CARDIOVASCULAR: S1 and S2 present. No murmurs, rubs, or gallops. PULMONARY: Coarse scattered rhonchi, faint crackles right base ABDOMEN: Soft, nontender, nondistended, normoactive bowel sounds. No palpable organomegaly. MUSCULOSKELETAL: No joint swelling or deformity. EXTREMITIES: No cyanosis, clubbing, mild pedal edema NEUROLOGICAL: Gross neurological examination did not reveal any focal deficits. SKIN: No rashes. Assessment and plan Assessment Acute hypoxic respiratory failure secondary to COVID 19 pneumonia requiring 15L HF nasal cannula, and 15L NRB Acute DVT right mid and distal popliteal vein, as well as right PTV's and peroneal veins Elevated DD, CTA negative for PE Elevated liver enzymes possibly due to systemic inflammation Elevated inflammatory markers secondary to COVID 19 History of DVT History of asthma, not in acute exacerbation Remote history of nicotine dependence History of transverse myelitis History of C5-C6 fusion Obesity GI Prophylaxis: Protonix DVT Prophylaxis: Lovenox FULL CODE Plan Continue decadron, vitamins, Baricitinib Lovenox for DVT Repeat labs in AM Incentive spirometry Prognosis is guarded for this patient Objective - Vital Signs Vital signs: Vital Signs Temp 99 F 07/03/21 08:00 Pulse 101 H 07/03/21 08:00 Resp 24 07/03/21 08:00 BP 105/63 07/03/21 08:00 Pulse Ox 92 L 07/03/21 08:00 Intake & Output 07/02/21 07/03/21 07/03/21 18:59 06:59 18:59 Intake Total 354 150 240 Output Total 800 300 Balance 354 -650 -60 Weight 122.5 kg Intake: Intake, IV Titration 30 Amount Sodium Chloride 0.9% 1, 30 000 ml @ 10 mls/hr IV . Q24H [facility] Rx#:[id number] Oral 354 120 240 Output: Urine 800 300 Other: Voiding Method Urinal Urinal - Labs CBC & Chem 7: 07/03/21 04:58 07/03/21 04:58 Labs: Abnormal Lab Results - Last 24 Hours (Table) 07/02/21 07/02/21 07/02/21 Range/Units 11:57 16:55 20:59 WBC (3.8-10.6) k/uL Neutrophils # (1.3-7.7) k/uL Lymphocytes # (1.0-4.8) k/uL BUN (9-20) mg/dL POC Glucose (mg/dL) 127 H 123 H 133 H (75-99) mg/dL AST (17-59) U/L ALT (4-49) U/L Albumin (3.5-5.0) g/dL 07/03/21 07/03/21 07/03/21 Range/Units 04:58 04:58 11:42 WBC 15.6 H (3.8-10.6) k/uL Neutrophils # 14.0 H (1.3-7.7) k/uL Lymphocytes # 0.8 L (1.0-4.8) k/uL BUN 26 H (9-20) mg/dL POC Glucose (mg/dL) 108 H (75-99) mg/dL AST 71 H (17-59) U/L ALT 73 H (4-49) U/L Albumin 3.2 L (3.5-5.0) g/dL
--- NOTE | 2021-07-03 11:54 | P.PN ---
Subjective Progress Note Date: 07/03/21 Principal diagnosis: CoVID pneumonia The patient is seen today 07/02/2021 in follow-up on the selective care unit. He is currently sitting up in a chair at the bedside. Awake and alert in no acute distress. He is still dyspneic with conversation. Dyspneic with exertion. He is still requiring 15 L high flow nasal cannula + nonrebreather mask. He was found to have a DVT in the right lower extremity. He is currently on Eliquis. He remains on Baricitinib, Decadron, bronchodilators and vitamin supplements. The patient is seen today 07/03/2021 in follow-up on the selective care unit. he is currently sitting up in a chair at the bedside. Awake and alert in mild respiratory distress. He is now on AirVo high flow oxygen at 55 L and 90% FiO2 plus a nonrebreather mask to maintain O2 saturations in the high 80s low 90s. He is afebrile. Hemodynamically stable.He is continued on Eliquis 10 mg twice a day. Remains on Baricitinib,IV Decadron every 12 hours, bronchodilators,vitamin supplements. white count 15.6. Hemoglobin 14.6. Lymphocytes 0.8. Sodium 138. Potassium 4.2. Creatinine 0.84. Last pro calcitonin 0.08. Objective - Vital Signs Vital signs: Vital Signs Temp 99 F 07/03/21 08:00 Pulse 101 H 07/03/21 08:00 Resp 24 07/03/21 08:00 BP 105/63 07/03/21 08:00 Pulse Ox 92 L 07/03/21 08:00 Intake & Output 07/02/21 07/03/21 07/03/21 18:59 06:59 18:59 Intake Total 354 150 240 Output Total 800 300 Balance 354 -650 -60 Weight 122.5 kg Intake: Intake, IV Titration 30 Amount Sodium Chloride 0.9% 1, 30 000 ml @ 10 mls/hr IV . Q24H [facility] Rx#:[id number] Oral 354 120 240 Output: Urine 800 300 Other: Voiding Method Urinal Urinal - Exam GENERAL EXAM: Alert, pleasant 50-year-old gentleman, up in a chair at the bedside, on AirVo high flow nasal cannula at 55 L and 90% FiO2 plus a nonrebreather mask, fairly comfortable in no apparent distress. HEAD: Normocephalic. EYES: Normal reaction of pupils, equal size. NOSE: Clear with pink turbinates. THROAT: No erythema or exudates. NECK: No masses, no JVD. CHEST: No chest wall deformity. LUNGS: Equal air entry with coarse crackles in bilateral bases. CVS: S1 and S2 normal with no audible murmur, regular rhythm. ABDOMEN: No hepatosplenomegaly, normal bowel sounds, no guarding or rigidity. SPINE: No scoliosis or deformity SKIN: No rashes CENTRAL NERVOUS SYSTEM: No focal deficits, tone is normal in all 4 extremities. EXTREMITIES: There is no peripheral edema. No clubbing, no cyanosis. Peripheral pulses are intact. - Labs CBC & Chem 7: 07/03/21 04:58 07/03/21 04:58 Labs: Abnormal Lab Results - Last 24 Hours (Table) 07/02/21 07/02/21 07/02/21 Range/Units 11:57 16:55 20:59 WBC (3.8-10.6) k/uL Neutrophils # (1.3-7.7) k/uL Lymphocytes # (1.0-4.8) k/uL BUN (9-20) mg/dL POC Glucose (mg/dL) 127 H 123 H 133 H (75-99) mg/dL AST (17-59) U/L ALT (4-49) U/L Albumin (3.5-5.0) g/dL 07/03/21 07/03/21 07/03/21 Range/Units 04:58 04:58 11:42 WBC 15.6 H (3.8-10.6) k/uL Neutrophils # 14.0 H (1.3-7.7) k/uL Lymphocytes # 0.8 L (1.0-4.8) k/uL BUN 26 H (9-20) mg/dL POC Glucose (mg/dL) 108 H (75-99) mg/dL AST 71 H (17-59) U/L ALT 73 H (4-49) U/L Albumin 3.2 L (3.5-5.0) g/dL Assessment and Plan Assessment: 1 Acute hypoxemic respiratory failure, secondary to coronavirus associated pneumonia. The patient presented with diffuse bilateral pulmonary infiltrates and hypoxic respiratory failure. Currently is on AirVo high flow oxygen at 55 L and 90% FiO2 in addition to 100% on a facemask to maintain a saturation above 90%. He is on a combination of Decadron and Baricitinib for now. Doppler of the lower extremity was positive for DVT in the patient is currently on Eliquis. 2 Acute COVID 19 related pneumonia 3 History of chronic bronchial asthma. 4 Previous history of tobacco use. 5 History of C5-C6 fusion. 6 History of transverse myelitis. 7 History of DVT, December 2007 Plan: The patient was seen and evaluated Now on AirVo high flow oxygen at 55 L and 90% FiO2 plus a nonrebreather mask We'll titrate down the FiO2 as tolerated Up in a chair at the bedside Anticoagulated with Eliquis Remains on Baricitinib, Decadron, vitamin supplements Prognosis guarded Follow-up chest x-ray and inflammatory markers We will continue to follow I, the cosigning physician, performed a history & physical examination of the patient. Lungs sounds crackles in bilateral bases. Maintaining O2 saturations in the 90s on AirVo high flow nasal cannula at 55 L and 90% FiO2 +100% nonrebreather mask. I discussed the assessment and plan of care with my nurse practitioner, Harleen Mayen. I attest to the above note as dictated by her.
--- NOTE | 2021-07-03 12:21 | XR ---
EXAMINATION TYPE: XR chest 1V portable DATE OF EXAM: 07/03/2021 COMPARISON: Chest x-ray 06/27/2021 HISTORY: Covid pneumonia TECHNIQUE: Single frontal view of the chest is obtained. FINDINGS: Bilateral airspace disease is present. There is no evident pneumothorax or pleural effusio n. Cardiac mediastinal silhouette is stable. IMPRESSION: Correlate for pneumonia.
[2021-07-03 13:35] LABS: C Reactive Protein 14.8 mg/dL (<1.0)
--- NOTE | 2021-07-03 15:32 | PN ---
PROGRESS NOTE DATE OF SERVICE: 07/03/2021 REASON FOR FOLLOWUP: COVID-19 pneumonia and right leg DVT. INTERVAL HISTORY: The patient is afebrile. The patient is breathing more comfortably. The patient denies having any chest pain. No worsening cough or sputum production. No abdominal pain or diarrhea. PHYSICAL EXAMINATION: Blood pressure 108/55, pulse 88, temperature 98. He is 90% on % FiO2. General description is a middle-aged male up in the bed in no distress. Respiratory system: Unlabored breathing, decreased intensity of breath sounds. No wheeze. Heart S1, S2. Regular rate and rhythm. Abdomen soft, no tenderness. Extremities with no edema of the feet. LABS: Hemoglobin is 14, white count of 15, creatinine 0.84. DIAGNOSTIC IMPRESSION AND PLAN: Patient with acute respiratory failure secondary to COVID-19 pneumonia with right lower extremity DVT. Chest x-ray with no significant change. Patient to continue with Eliquis, baricitinib, dexamethasone, zinc and ascorbic acid along with respiratory support, and monitor his clinical course closely. MMODL / IJN: [id number] /
[2021-07-03 16:36] LABS: Glucose,Whole Blood 146 mg/dL (75-99)
[2021-07-03] MEDS: MORPHINE SULFATE 2 MG/ML SYRINGE IVP PRN (20:38)
[2021-07-03 21:11] LABS: Glucose,Whole Blood 153 mg/dL (75-99)
[2021-07-04 06:13] LABS: Glucose,Whole Blood 132 mg/dL (75-99)
[2021-07-04 06:25] LABS: Basophils % (A) 0 %; Eosinophils % (A) 0 %; HCT 39.9 % (39.0-53.0); HGB 13.3 gm/dL (13.0-17.5); Lymphocytes # (A) 0.3 k/uL (1.0-4.8); Lymphocytes % (A) 2 %; MCH 31.6 pg (25.0-35.0); MCHC 33.3 g/dL (31.0-37.0); MCV 94.9 fL (80.0-100.0); Mean Platelet Volume 8.3; Monocytes # (A) 0.5 k/uL (0-1.0); Monocytes % (A) 3 %; Neutrophils # (A) 14.6 k/uL (1.3-7.7); Neutrophils % (A) 95 %; Platelet Count 168 k/uL (150-450); RBC 4.21 m/uL (4.30-5.90); RDW 12.1 % (11.5-15.5); WBC 15.5 k/uL (3.8-10.6)
[2021-07-04 06:51] LABS: ALT 54 U/L (4-49); AST 52 U/L (17-59); African American GFR (CKD) >90 (>60 ml/min/1.73 sqM); Albumin 2.9 g/dL (3.5-5.0); Alkaline Phosphatase 127 U/L (38-126); Anion Gap 5 mmol/L; Blood Urea Nitrogen 26 mg/dL (9-20); Calcium 8.5 mg/dL (8.4-10.2); Carbon Dioxide 29 mmol/L (22-30); Chloride 104 mmol/L (98-107); Glucose 143 mg/dL (74-99); Non-African American GFR(CKD) >90 (>60 ml/min/1.73 sqM); Potassium 4.7 mmol/L (3.5-5.1); Sodium 138 mmol/L (137-145); Total Bilirubin 0.6 mg/dL (0.2-1.3); Total Protein 6.2 g/dL (6.3-8.2)
[2021-07-04] MEDS: INSULIN ASPART (NovoLOG) 100 UNIT/ML VIAL SQ SCH ×4 (06:56→21:46)
[2021-07-04] MEDS: PANTOPRAZOLE 40 MG TABLET PO SCH (06:57)
[2021-07-04] MEDS: APIXABAN 5 MG TAB PO SCH ×2 (08:45→21:45)
[2021-07-04] MEDS: DEXAMETHASONE SOD PHOSPHATE 10 MG/ML 1 ML VIAL IVP SCH ×2 (08:45→21:45)
[2021-07-04] MEDS: CHOLECALCIFEROL 25 MCG (1000 IU) TABLET PO SCH (08:45)
[2021-07-04] MEDS: BARICITINIB 2 MG TABLET PO SCH (08:45)
[2021-07-04] MEDS: ZINC SULFATE 220 MG CAP PO SCH (08:46)
[2021-07-04] MEDS: ASCORBIC ACID 500 MG TAB PO SCH (08:46)
[2021-07-04] MEDS: NAPROXEN 250 MG TAB PO SCH (08:46)
[2021-07-04] MEDS: MORPHINE SULFATE 2 MG/ML SYRINGE IVP PRN ×2 (08:47→21:45)
--- NOTE | 2021-07-04 08:49 | P.PN ---
Subjective 06/29/2021 Patient evaluated today sitting up in bed. He does complain of shortness of breath, appears fatigued. He is able to ambulate to the bedside commode and back to bed, but is limited due to the need for high flow cannula. He is able to lu y on a conversation. Vital signs today include Temp, 98.5 axillary, heart rate 71, blood pressure 124/53, 90% oxygen on 15L HF cannula. D-Dimer today 34.10, sodium 145, potassium 4.2, BUN 22, creatinine 0.80, glucose in the 140s, AST 80, ALT 72. Doppler is negative for bilateral DVT. He is being followed closely by pulmonary and ID services. Receiving decadron, lovenox, zinc, vitamins, and baricitinib. 06/30/2021 Patient today sitting in bed. He is on a 15 L HF cannula with oxygen staturation around 97%. Afebrile, heart rate 61 sinus rhythm, blood pressure 118/74. Patient continues on Baricitinib, Decadron, Lovenox, zinc, vitamins. Labs today show white count 10.3, sodium 143, potassium 4.6, chloride 111, AST 61, ALT 61, LDH 2764, CRP 3.2 d-dimer again elevated at greater than 34.1. Repeat venous Doppler shows a positive DVT in the right mid and distal popliteal vein as well as the right PTVs and peroneal veins. Lovenox increased to 120 mg twice a day. Patient is followed closely by pulmonary and ID services. Prognosis is guarded continue all supportive care. 07/01/2021 Patient evaluated today sitting up in a chair, states that he did well while transferring from bed. He is on 15L HF NC and nonrebreather at 15 L, oxygen saturation is between 90-91%. Blood pressure today is 108/68, heart rate 70s sinus rhythm, afebrile. On, zinc, vitamins, lovenox, decadron, and baricitinib. Continues to use IS and has been doing simple exercises in the room to keep his strength up. Spirits seem good today, and he seems less winded while talking. IV fluids have been off for the last 2 days per patient. White count today 12.4, sodium 143, potassium 4.9, CO2 32, BUN 24, creatinine 0.91 sugars in the 20s, AST 60, ALT 69. Followed by ID, pulmonary services. 07/02/2021 Liver enzymes are improving patient remains on nonrebreather rebreather as well as 15 L . 07/03/2021 Patient states he is feeling better his a also requirements remain the same. 07/04/2021 Patient the feel slightly better compared to yesterday is also requirement still remains the same which is 50 L of nasal cannula along with 100% nonrebreather although his saturation appears to have slightly improved patient overall appears to have slight improvement even compared to yesterday patient had a repeat chest x-ray continues to show bilateral pneumonia. Inflammatory markers are still high leukocytosis remained stable at 15,000. ROS Constitutional: Denied any fatigue denied any fever. Cardio vascular: denied any chest pain, palpitations Gastrointestinal denied any nausea vomiting Pulmonary: Reports congested cough, reports shortness of breath with exertion, minimally at rest. Neurologic denied any new focal deficits All inpatient medications were reviewed and appropriate changes in these m edications as dictated in the interval history and assessment and plan. PHYSICAL EXAMINATION: GENERAL: The patient is alert and oriented x3,mild respiratory distress. Well developed, well nourished. HEENT: Pupils are round and equally reacting to light. EOMI. No scleral icterus. No conjunctival pallor. Normocephalic, atraumatic. No pharyngeal erythema. No thyromegaly. CARDIOVASCULAR: S1 and S2 present. No murmurs, rubs, or gallops. PULMONARY: Coarse scattered rhonchi, faint crackles right base ABDOMEN: Soft, nontender, nondistended, normoactive bowel sounds. No palpable organomegaly. MUSCULOSKELETAL: No joint swelling or deformity. EXTREMITIES: No cyanosis, clubbing, mild pedal edema NEUROLOGICAL: Gross neurological examination did not reveal any focal deficits. SKIN: No rashes. Assessment and plan Assessment Acute hypoxic respiratory failure secondary to COVID 19 pneumonia requiring 15L HF nasal cannula, and 15L NRB Acute DVT right mid and distal popliteal vein, as well as right PTV's and peroneal veins, presently on Eliquis Elevated DD, CTA negative for PE Elevated liver enzymes possibly due to systemic inflammation Elevated inflammatory markers secondary to COVID 19 History of DVT History of asthma, not in acute exacerbation Remote history of nicotine dependence History of transverse myelitis History of C5-C6 fusion Obesity GI Prophylaxis: Protonix DVT Prophylaxis: Eliquis FULL CODE Plan Continue decadron, vitamins, Baricitinib Lovenox for DVT Repeat labs in AM Incentive spirometry Prognosis is guarded for this patient Objective - Vital Signs Vital signs: Vital Signs Temp 98.5 F 07/04/21 04:00 Pulse 90 07/04/21 04:00 Resp 22 07/04/21 04:00 BP 114/60 07/04/21 04:00 Pulse Ox 93 L 07/04/21 04:00 Intake & Output 07/03/21 07/04/21 07/04/21 18:59 06:59 18:59 Intake Total 476 240 340 Output Total 700 350 900 Balance -224 110 -560 Intake: Oral 476 240 340 Output: Urine 700 350 900 Other: Voiding Method Urinal - Labs CBC & Chem 7: 07/04/21 05:40 07/04/21 05:40 Labs: Abnormal Lab Results - Last 24 Hours (Table) 07/03/21 07/03/21 07/03/21 Range/Units 11:42 12:26 12:26 WBC (3.8-10.6) k/uL RBC (4.30-5.90) m/uL Neutrophils # (1.3-7.7) k/uL Lymphocytes # (1.0-4.8) k/uL D-Dimer >34.10 H (<0.60) mg/L FEU BUN (9-20) mg/dL Glucose (74-99) mg/dL POC Glucose (mg/dL) 108 H (75-99) mg/dL ALT (4-49) U/L Alkaline Phosphatase (38-126) U/L Lactate Dehydrogenase 3232 H (313-618) U/L C-Reactive Protein 14.8 H (<1.0) mg/dL Total Protein (6.3-8.2) g/dL Albumin (3.5-5.0) g/dL 07/03/21 07/03/21 07/04/21 Range/Units 16:34 20:59 05:40 WBC 15.5 H (3.8-10.6) k/uL RBC 4.21 L (4.30-5.90) m/uL Neutrophils # 14.6 H (1.3-7.7) k/uL Lymphocytes # 0.3 L (1.0-4.8) k/uL D-Dimer (<0.60) mg/L FEU BUN (9-20) mg/dL Glucose (74-99) mg/dL POC Glucose (mg/dL) 146 H 153 H (75-99) mg/dL ALT (4-49) U/L Alkaline Phosphatase (38-126) U/L Lactate Dehydrogenase (313-618) U/L C-Reactive Protein (<1.0) mg/dL Total Protein (6.3-8.2) g/dL Albumin (3.5-5.0) g/dL 07/04/21 07/04/21 Range/Units 05:40 06:00 WBC (3.8-10.6) k/uL RBC (4.30-5.90) m/uL Neutrophils # (1.3-7.7) k/uL Lymphocytes # (1.0-4.8) k/uL D-Dimer (<0.60) mg/L FEU BUN 26 H (9-20) mg/dL Glucose 143 H (74-99) mg/dL POC Glucose (mg/dL) 132 H (75-99) mg/dL ALT 54 H (4-49) U/L Alkaline Phosphatase 127 H (38-126) U/L Lactate Dehydrogenase (313-618) U/L C-Reactive Protein (<1.0) mg/dL Total Protein 6.2 L (6.3-8.2) g/dL Albumin 2.9 L (3.5-5.0) g/dL
[2021-07-04] MEDS: ALBUTEROL HFA INHALER INHALATION SCH ×4 (09:26→20:31)
[2021-07-04] MEDS: SYMBICORT 80-4.5 MCG INHALER INHALATION SCH ×2 (09:26→20:31)
--- NOTE | 2021-07-04 09:51 | P.PN ---
Subjective Progress Note Date: 07/04/21 Principal diagnosis: CoVID pneumonia The patient is seen today 07/02/2021 in follow-up on the selective care unit. He is currently sitting up in a chair at the bedside. Awake and alert in no acute distress. He is still dyspneic with conversation. Dyspneic with exertion. He is still requiring 15 L high flow nasal cannula + nonrebreather mask. He was found to have a DVT in the right lower extremity. He is currently on Eliquis. He remains on Baricitinib, Decadron, bronchodilators and vitamin supplements. The patient is seen today 07/03/2021 in follow-up on the selective care unit. he is currently sitting up in a chair at the bedside. Awake and alert in mild respiratory distress. He is now on AirVo high flow oxygen at 55 L and 90% FiO2 plus a nonrebreather mask to maintain O2 saturations in the high 80s low 90s. He is afebrile. Hemodynamically stable.He is continued on Eliquis 10 mg twice a day. Remains on Baricitinib,IV Decadron every 12 hours, bronchodilators,vitamin supplements. white count 15.6. Hemoglobin 14.6. Lymphocytes 0.8. Sodium 138. Potassium 4.2. Creatinine 0.84. Last pro calcitonin 0.08. The patient is seen today 07/04/2021 in follow-up on the selective care unit. He is awake and alert. Continues in mild respiratory distress. He's up in a chair at the bedside. He is still requiring AirVo high flow oxygen at 55 L or 90% FiO2 along with 100% nonrebreather mask to maintain O2 saturations in the low 90s. He is doing about the same. He states he is not worse. Chest x-ray continues to reveal bilateral airspace disease. No evidence of pneumothorax. white count 15.5. Hemoglobin 13.3. Glipizide 0.3. Sodium 138. Potassium 4.7. Creatinine 0.67. AST 52. ALT 54. LDH 3232, C-reactive protein 14.8. D-dimer remains greater than 34. He is continued on Symbicort, albuterol. On Baricitinib. Anticoagulated with Eliquis. Remains on Decadron, vitamin supplements. Objective - Vital Signs Vital signs: Vital Signs Temp 98.5 F 07/04/21 04:00 Pulse 90 12/25/21 04:00 Resp 22 07/04/21 04:00 BP 114/60 07/04/21 04:00 Pulse Ox 93 L 07/04/21 04:00 Intake & Output 07/03/21 07/04/21 07/04/21 18:59 06:59 18:59 Intake Total 476 240 340 Output Total 700 350 900 Balance -224 110 -560 Intake: Oral 476 240 340 Output: Urine 700 350 900 Other: Voiding Method Urinal - Exam GENERAL EXAM: Alert, pleasant 50-year-old gentleman, up in a chair at the bedside, on AirVo high flow nasal cannula at 55 L and 90% FiO2 plus a nonrebreather mask, fairly comfortable in no apparent distress. HEAD: Normocephalic. EYES: Normal reaction of pupils, equal size. NOSE: Clear with pink turbinates. THROAT: No erythema or exudates. NECK: No masses, no JVD. CHEST: No chest wall deformity. LUNGS: Equal air entry with coarse crackles in bilateral bases. CVS: S1 and S2 normal with no audible murmur, regular rhythm. ABDOMEN: No hepatosplenomegaly, normal bowel sounds, no guarding or rigidity. SPINE: No scoliosis or deformity SKIN: No rashes CENTRAL NERVOUS SYSTEM: No focal deficits, tone is normal in all 4 extremities. EXTREMITIES: There is no peripheral edema. No clubbing, no cyanosis. Peripheral pulses are intact. - Labs CBC & Chem 7: 07/04/21 05:40 07/04/21 05:40 Labs: Abnormal Lab Results - Last 24 Hours (Table) 07/03/21 07/03/21 07/03/21 Range/Units 11:42 12:26 12:26 WBC (3.8-10.6) k/uL RBC (4.30-5.90) m/uL Neutrophils # (1.3-7.7) k/uL Lymphocytes # (1.0-4.8) k/uL D-Dimer >34.10 H (<0.60) mg/L FEU BUN (9-20) mg/dL Glucose (74-99) mg/dL POC Glucose (mg/dL) 108 H (75-99) mg/dL ALT (4-49) U/L Alkaline Phosphatase (38-126) U/L Lactate Dehydrogenase 3232 H (313-618) U/L C-Reactive Protein 14.8 H (<1.0) mg/dL Total Protein (6.3-8.2) g/dL Albumin (3.5-5.0) g/dL 07/03/21 07/03/21 07/04/21 Range/Units 16:34 20:59 05:40 WBC 15.5 H (3.8-10.6) k/uL RBC 4.21 L (4.30-5.90) m/uL Neutrophils # 14.6 H (1.3-7.7) k/uL Lymphocytes # 0.3 L (1.0-4.8) k/uL D-Dimer (<0.60) mg/L FEU BUN (9-20) mg/dL Glucose (74-99) mg/dL POC Glucose (mg/dL) 146 H 153 H (75-99) mg/dL ALT (4-49) U/L Alkaline Phosphatase (38-126) U/L Lactate Dehydrogenase (313-618) U/L C-Reactive Protein (<1.0) mg/dL Total Protein (6.3-8.2) g/dL Albumin (3.5-5.0) g/dL 07/04/21 07/04/21 Range/Units 05:40 06:00 WBC (3.8-10.6) k/uL RBC (4.30-5.90) m/uL Neutrophils # (1.3-7.7) k/uL Lymphocytes # (1.0-4.8) k/uL D-Dimer (<0.60) mg/L FEU BUN 26 H (9-20) mg/dL Glucose 143 H (74-99) mg/dL POC Glucose (mg/dL) 132 H (75-99) mg/dL ALT 54 H (4-49) U/L Alkaline Phosphatase 127 H (38-126) U/L Lactate Dehydrogenase (313-618) U/L C-Reactive Protein (<1.0) mg/dL Total Protein 6.2 L (6.3-8.2) g/dL Albumin 2.9 L (3.5-5.0) g/dL Assessment and Plan Assessment: 1 Acute hypoxemic respiratory failure, secondary to coronavirus associated pneumonia. The patient presented with diffuse bilateral pulmonary infiltrates and hypoxic respiratory failure. Currently is on AirVo high flow oxygen at 55 L and 90% FiO2 in addition to 100% on a facemask to maintain a saturation above 90%. He is on a combination of Decadron and Baricitinib for now. Doppler of the right lower extremity was positive for DVT currently on Eliquis. 2 Acute COVID 19 related pneumonia 3 History of chronic bronchial asthma. 4 Previous history of tobacco use. 5 History of C5-C6 fusion. 6 History of transverse myelitis. 7 History of DVT, December 2007 8 Positive DVT of the right lower extremity, on Eliquis Plan: The patient was seen and evaluated Chest x-ray and labs reviewed AirVo high flow oxygen at 55 L and 90% FiO2 plus a nonrebreather mask We'll titrate down the FiO2 as tolerated Anticoagulated with Eliquis Remains on Baricitinib, Decadron, vitamin supplements Prognosis guarded We will continue to follow I, the cosigning physician, performed a history & physical examination of the patient. Lungs sounds crackles in bilateral bases. Maintaining O2 saturations in the 90s on AirVo high flow nasal cannula at 55 L and 90% FiO2 +100% nonrebreather mask. I discussed the assessment and plan of care with my nurse practitioner, Harleen Mayen. I attest to the above note as dictated by her.
[2021-07-04] MEDS: SODIUM CHLORIDE 0.9% 1,000 ML IV SCH (10:02)
[2021-07-04 11:42] LABS: Glucose,Whole Blood 121 mg/dL (75-99)
[2021-07-04 17:00] LABS: Glucose,Whole Blood 149 mg/dL (75-99)
--- NOTE | 2021-07-04 20:03 | PN ---
PROGRESS NOTE DATE OF SERVICE: 07/04/2021 REASON FOR FOLLOWUP: COVID-19 pneumonia. INTERVAL HISTORY: The patient is afebrile. The patient is breathing comfortably. Still requiring a non- rebreather in order to maintain his saturations. The patient denies having any chest pain. No worsening cough or sputum production. No abdominal pain or diarrhea. PHYSICAL EXAMINATION: Blood pressure 119/72 with a pulse of 81, temperature 98.1. He is 95% on 90% FiO2. General description is a middle-aged male up in the bed in no distress. Respiratory system: Unlabored breathing, decreased intensity of breath sounds. No wheeze. Heart S1, S2. Regular rate and rhythm. Abdomen soft, no tenderness. LABS: Hemoglobin is 13.3, white count 15.5, creatinine 0.67. DIAGNOSTIC IMPRESSION AND PLAN: Patient with acute respiratory failure secondary to COVID-19 pneumonia in this patient also with a component of infected DVT to the leg. The patient is on Eliquis, baricitinib, Decadron, zinc and ascorbic acid. To continue along with respiratory support and monitor his clinical course closely. MMODL / IJN: [id number] /
[2021-07-04 20:51] LABS: Glucose,Whole Blood 129 mg/dL (75-99)
[2021-07-04] MEDS: BACLOFEN 10 MG TAB PO PRN (21:45)
[2021-07-05] MEDS: NAPROXEN 250 MG TAB PO PRN ×3 (00:13→09:01)
[2021-07-05] MEDS: SODIUM CHLORIDE 0.9% 1,000 ML IV SCH (01:55)
[2021-07-05 06:58] LABS: Glucose,Whole Blood 131 mg/dL (75-99)
[2021-07-05] MEDS: PANTOPRAZOLE 40 MG TABLET PO SCH (07:03)
[2021-07-05] MEDS: INSULIN ASPART (NovoLOG) 100 UNIT/ML VIAL SQ SCH ×4 (07:03→21:16)
[2021-07-05 07:40] LABS: Basophils % (A) 0 %; Eosinophils % (A) 0 %; HCT 41.9 % (39.0-53.0); HGB 13.8 gm/dL (13.0-17.5); Lymphocytes # (A) 0.4 k/uL (1.0-4.8); Lymphocytes % (A) 2 %; MCH 31.6 pg (25.0-35.0); MCHC 32.9 g/dL (31.0-37.0); Mean Platelet Volume 8.4; Monocytes # (A) 0.6 k/uL (0-1.0); Monocytes % (A) 3 %; Neutrophils # (A) 19.4 k/uL (1.3-7.7); Neutrophils % (A) 95 %; Platelet Count 228 k/uL (150-450); RBC 4.37 m/uL (4.30-5.90); RDW 12.3 % (11.5-15.5); WBC 20.5 k/uL (3.8-10.6)
[2021-07-05 07:53] LABS: ALT 52 U/L (4-49); AST 43 U/L (17-59); African American GFR (CKD) >90 (>60 ml/min/1.73 sqM); Albumin 3.1 g/dL (3.5-5.0); Alkaline Phosphatase 131 U/L (38-126); Anion Gap 4 mmol/L; Blood Urea Nitrogen 24 mg/dL (9-20); Calcium 8.8 mg/dL (8.4-10.2); Carbon Dioxide 30 mmol/L (22-30); Chloride 104 mmol/L (98-107); Glucose 112 mg/dL (74-99); Non-African American GFR(CKD) >90 (>60 ml/min/1.73 sqM); Potassium 4.6 mmol/L (3.5-5.1); Sodium 138 mmol/L (137-145); Total Bilirubin 0.8 mg/dL (0.2-1.3); Total Protein 6.7 g/dL (6.3-8.2)
[2021-07-05 07:56] LABS: C Reactive Protein 4.7 mg/dL (<1.0)
[2021-07-05] MEDS: DEXAMETHASONE SOD PHOSPHATE 10 MG/ML 1 ML VIAL IVP SCH ×2 (08:44→21:15)
[2021-07-05] MEDS: APIXABAN 5 MG TAB PO SCH ×2 (08:44→21:16)
[2021-07-05] MEDS: CHOLECALCIFEROL 25 MCG (1000 IU) TABLET PO SCH (08:45)
[2021-07-05] MEDS: ASCORBIC ACID 500 MG TAB PO SCH (08:45)
[2021-07-05] MEDS: ZINC SULFATE 220 MG CAP PO SCH (08:45)
[2021-07-05] MEDS: BARICITINIB 2 MG TABLET PO SCH (08:45)
[2021-07-05] MEDS: BACLOFEN 10 MG TAB PO PRN ×2 (08:52→09:01)
[2021-07-05] MEDS: SYMBICORT 80-4.5 MCG INHALER INHALATION SCH ×2 (08:53→19:25)
[2021-07-05] MEDS: MORPHINE SULFATE 2 MG/ML SYRINGE IVP PRN ×3 (08:53→21:16)
[2021-07-05] MEDS: ALBUTEROL HFA INHALER INHALATION SCH ×4 (08:53→19:25)
--- NOTE | 2021-07-05 10:06 | P.PN ---
Subjective 06/29/2021 Patient evaluated today sitting up in bed. He does complain of shortness of breath, appears fatigued. He is able to ambulate to the bedside commode and back to bed, but is limited due to the need for high flow cannula. He is able to lu y on a conversation. Vital signs today include Temp, 98.5 axillary, heart rate 71, blood pressure 124/53, 90% oxygen on 15L HF cannula. D-Dimer today 34.10, sodium 145, potassium 4.2, BUN 22, creatinine 0.80, glucose in the 140s, AST 80, ALT 72. Doppler is negative for bilateral DVT. He is being followed closely by pulmonary and ID services. Receiving decadron, lovenox, zinc, vitamins, and baricitinib. 06/30/2021 Patient today sitting in bed. He is on a 15 L HF cannula with oxygen staturation around 97%. Afebrile, heart rate 61 sinus rhythm, blood pressure 118/74. Patient continues on Baricitinib, Decadron, Lovenox, zinc, vitamins. Labs today show white count 10.3, sodium 143, potassium 4.6, chloride 111, AST 61, ALT 61, LDH 2764, CRP 3.2 d-dimer again elevated at greater than 34.1. Repeat venous Doppler shows a positive DVT in the right mid and distal popliteal vein as well as the right PTVs and peroneal veins. Lovenox increased to 120 mg twice a day. Patient is followed closely by pulmonary and ID services. Prognosis is guarded continue all supportive care. 07/01/2021 Patient evaluated today sitting up in a chair, states that he did well while transferring from bed. He is on 15L HF NC and nonrebreather at 15 L, oxygen saturation is between 90-91%. Blood pressure today is 108/68, heart rate 70s sinus rhythm, afebrile. On, zinc, vitamins, lovenox, decadron, and baricitinib. Continues to use IS and has been doing simple exercises in the room to keep his strength up. Spirits seem good today, and he seems less winded while talking. IV fluids have been off for the last 2 days per patient. White count today 12.4, sodium 143, potassium 4.9, CO2 32, BUN 24, creatinine 0.91 sugars in the 20s, AST 60, ALT 69. Followed by ID, pulmonary services. 07/02/2021 Liver enzymes are improving patient remains on nonrebreather rebreather as well as 15 L . 07/03/2021 Patient states he is feeling better his a also requirements remain the same. 07/04/2021 Patient the feel slightly better compared to yesterday is also requirement still remains the same which is 50 L of nasal cannula along with 100% nonrebreather although his saturation appears to have slightly improved patient overall appears to have slight improvement even compared to yesterday patient had a repeat chest x-ray continues to show bilateral pneumonia. Inflammatory markers are still high leukocytosis remained stable at 15,000. 07/05/2021 Patient has mild worsening of leukocytosis, patient although can use to feel better AND requirements did not change much. Intermittent markers have gone down a bit. No fevers at this time. ROS Constitutional: Denied any fatigue denied any fever. Cardio vascular: denied any chest pain, palpitations Gastrointestinal denied any nausea vomiting Pulmonary: Reports congested cough, reports shortness of breath with exertion, minimally at rest. Neurologic denied any new focal deficits All inpatient medications were reviewed and appropriate changes in these medications as dictated in the interval history and assessment and plan. PHYSICAL EXAMINATION: GENERAL: The patient is alert and oriented x3,mild respiratory distress. Well developed, well nourished. HEENT: Pupils are round and equally reacting to light. EOMI. No scleral icterus. No conjunctival pallor. Normocephalic, atraumatic. No pharyngeal erythema. No thyromegaly. CARDIOVASCULAR: S1 and S2 present. No murmurs, rubs, or gallops. PULMONARY: Coarse scattered rhonchi, faint crackles right base ABDOMEN: Soft, nontender, nondistended, normoactive bowel sounds. No palpable organomegaly. MUSCULOSKELETAL: No joint swelling or deformity. EXTREMITIES: No cyanosis, clubbing, mild pedal edema NEUROLOGICAL: Gross neurological examination did not reveal any focal deficits. SKIN: No rashes. Assessment and plan Assessment Acute hypoxic respiratory failure secondary to COVID 19 pneumonia requiring 15L HF nasal cannula, and 15L NRB Acute DVT right mid and distal popliteal vein, as well as right PTV's and peroneal veins, presently on Eliquis Elevated DD, CTA negative for PE Elevated liver enzymes possibly due to systemic inflammation Elevated inflammatory markers secondary to COVID 19 History of DVT History of asthma, not in acute exacerbation Remote history of nicotine dependence History of transverse myelitis History of C5-C6 fusion Obesity GI Prophylaxis: Protonix DVT Prophylaxis: Eliquis FULL CODE Plan Continue decadron, vitamins, Baricitinib Lovenox for DVT Repeat labs in AM Incentive spirometry Prognosis is guarded for this patient Objective - Vital Signs Vital signs: Vital Signs Temp 98.0 F 07/05/21 08:00 Pulse 73 07/05/21 08:00 Resp 20 07/05/21 08:00 BP 119/61 07/05/21 08:00 Pulse Ox 94 L 07/05/21 09:02 Intake & Output 07/04/21 07/05/21 07/05/21 18:59 06:59 18:59 Intake Total 580 Output Total 1000 1200 Balance -420 -1200 Intake: Oral 580 Output: Urine 1000 1200 Other: Voiding Method Urinal Urinal Urinal # Voids 1 # Bowel Movements 1 - Labs CBC & Chem 7: 07/05/21 07:10 07/05/21 07:10 Labs: Abnormal Lab Results - Last 24 Hours (Table) 07/04/21 07/04/21 07/04/21 Range/Units 11:40 16:58 20:48 WBC (3.8-10.6) k/uL Neutrophils # (1.3-7.7) k/uL Lymphocytes # (1.0-4.8) k/uL D-Dimer (<0.60) mg/L FEU BUN (9-20) mg/dL Glucose (74-99) mg/dL POC Glucose (mg/dL) 121 H 149 H 129 H (75-99) mg/dL ALT (4-49) U/L Alkaline Phosphatase (38-126) U/L Lactate Dehydrogenase (313-618) U/L C-Reactive Protein (<1.0) mg/dL Albumin (3.5-5.0) g/dL 07/05/21 07/05/21 07/05/21 Range/Units 06:57 07:10 07:10 WBC (3.8-10.6) k/uL Neutrophils # (1.3-7.7) k/uL Lymphocytes # (1.0-4.8) k/uL D-Dimer >34.10 H (<0.60) mg/L FEU BUN (9-20) mg/dL Glucose (74-99) mg/dL POC Glucose (mg/dL) 131 H (75-99) mg/dL ALT (4-49) U/L Alkaline Phosphatase (38-126) U/L Lactate Dehydrogenase 2585 H (313-618) U/L C-Reactive Protein 4.7 H (<1.0) mg/dL Albumin (3.5-5.0) g/dL 07/05/21 07/05/21 Range/Units 07:10 07:10 WBC 20.5 H (3.8-10.6) k/uL Neutrophils # 19.4 H (1.3-7.7) k/uL Lymphocytes # 0.4 L (1.0-4.8) k/uL D-Dimer (<0.60) mg/L FEU BUN 24 H (9-20) mg/dL Glucose 112 H (74-99) mg/dL POC Glucose (mg/dL) (75-99) mg/dL ALT 52 H (4-49) U/L Alkaline Phosphatase 131 H (38-126) U/L Lactate Dehydrogenase (313-618) U/L C-Reactive Protein (<1.0) mg/dL Albumin 3.1 L (3.5-5.0) g/dL
[2021-07-05 11:55] LABS: Glucose,Whole Blood 162 mg/dL (75-99)
--- NOTE | 2021-07-05 14:48 | P.PN ---
Subjective Progress Note Date: 07/05/21 Principal diagnosis: Acute hypoxic respiratory failure secondary to COVID-19 pneumonia The patient is seen today 07/02/2021 in follow-up on the selective care unit. He is currently sitting up in a chair at the bedside. Awake and alert in no acute distress. He is still dyspneic with conversation. Dyspneic with exertion. He is still requiring 15 L high flow nasal cannula + nonrebreather mask. He was found to have a DVT in the right lower extremity. He is currently on Eliquis. He remains on Baricitinib, Decadron, bronchodilators and vitamin supplements. The patient is seen today 07/03/2021 in follow-up on the selective care unit. he is currently sitting up in a chair at the bedside. Awake and alert in mild respiratory distress. He is now on AirVo high flow oxygen at 55 L and 90% FiO2 plus a nonrebreather mask to maintain O2 saturations in the high 80s low 90s. He is afebrile. Hemodynamically stable.He is continued on Eliquis 10 mg twice a day. Remains on Baricitinib,IV Decadron every 12 hours, bronchodilators,vitamin supplements. white count 15.6. Hemoglobin 14.6. Lymphocytes 0.8. Sodium 138. Potassium 4.2. Creatinine 0.84. Last pro calcitonin 0.08. The patient is seen today 07/04/2021 in follow-up on the selective care unit. He is awake and alert. Continues in mild respiratory distress. He's up in a chair at the bedside. He is still requiring AirVo high flow oxygen at 55 L or 90% FiO2 along with 100% nonrebreather mask to maintain O2 saturations in the low 90s. He is doing about the same. He states he is not worse. Chest x-ray c ontinues to reveal bilateral airspace disease. No evidence of pneumothorax. white count 15.5. Hemoglobin 13.3. Glipizide 0.3. Sodium 138. Potassium 4.7. Creatinine 0.67. AST 52. ALT 54. LDH 3232, C-reactive protein 14.8. D-dimer remains greater than 34. He is continued on Symbicort, albuterol. On Baricitinib. Anticoagulated with Eliquis. Remains on Decadron, vitamin supplements. Reevaluated today on 07/05/21, patient is basically about the same, remains on 90% FiO2, 55 L flow, has a nonrebreather mask in addition to airvo psychiatric the patient felt that his feeling better today compared to how he felt in the last 2 days. Patient remains on high flow oxygen remains on anticoagulation therapy/Eliquis remains on Baricitinib and on Decadron as well as the COVID-19 cocktail. Objective - Vital Signs Vital signs: Vital Signs Temp 97.8 F 07/05/21 12:00 Pulse 73 07/05/21 12:00 Resp 20 07/05/21 12:00 BP 104/62 07/05/21 12:00 Pulse Ox 99 07/05/21 12:17 Intake & Output 07/04/21 07/05/21 07/05/21 18:59 06:59 18:59 Intake Total 580 Output Total 1000 1200 725 Balance -420 -1200 -725 Intake: Oral 580 Output: Urine 1000 1200 725 Other: Voiding Method Urinal Urinal Urinal # Voids 1 # Bowel Movements 1 1 - Exam Physical Exam: Revealed a 50-year-old white male on high flow oxygen via airvo and non-rebreather mask, O2 saturation is in the low 90s. Seems to be comfortable. Head: Atraumatic normocephalic. HEENT:[Neck is supple.] [No neck masses.] [No thyromegaly.] [No JVD.] Chest: [Symmetrical chest expansion coarse crackles at the bases. Cardiac Exam: [Normal S1 and S2, no S3 gallop, no murmur.] Abdomen: [Soft, nontender, no megaly, no rebound, no guarding, normal bowel sounds.] Extremities: [No clubbing, no edema, no cyanosis.] Neurological Exam: [No focal neurologic deficit.] Alert oriented 3. Psychiatric: Normal mood affect and normal mental status examination. Skin: No rashes. - Labs CBC & Chem 7: 07/05/21 07:10 07/05/21 07:10 Labs: Abnormal Lab Results - Last 24 Hours (Table) 07/04/21 07/04/21 07/05/21 Range/Units 16:58 20:48 06:57 WBC (3.8-10.6) k/uL Neutrophils # (1.3-7.7) k/uL Lymphocytes # (1.0-4.8) k/uL D-Dimer (<0.60) mg/L FEU BUN (9-20) mg/dL Glucose (74-99) mg/dL POC Glucose (mg/dL) 149 H 129 H 131 H (75-99) mg/dL ALT (4-49) U/L Alkaline Phosphatase (38-126) U/L Lactate Dehydrogenase (313-618) U/L C-Reactive Protein (<1.0) mg/dL Albumin (3.5-5.0) g/dL 07/05/21 07/05/21 07/05/21 Range/Units 07:10 07:10 07:10 WBC 20.5 H (3.8-10.6) k/uL Neutrophils # 19.4 H (1.3-7.7) k/uL Lymphocytes # 0.4 L (1.0-4.8) k/uL D-Dimer >34.10 H (<0.60) mg/L FEU BUN (9-20) mg/dL Glucose (74-99) mg/dL POC Glucose (mg/dL) (75-99) mg/dL ALT (4-49) U/L Alkaline Phosphatase (38-126) U/L Lactate Dehydrogenase 2585 H (313-618) U/L C-Reactive Protein 4.7 H (<1.0) mg/dL Albumin (3.5-5.0) g/dL 07/05/21 07/05/21 Range/Units 07:10 11:46 WBC (3.8-10.6) k/uL Neutrophils # (1.3-7.7) k/uL Lymphocytes # (1.0-4.8) k/uL D-Dimer (<0.60) mg/L FEU BUN 24 H (9-20) mg/dL Glucose 112 H (74-99) mg/dL POC Glucose (mg/dL) 162 H (75-99) mg/dL ALT 52 H (4-49) U/L Alkaline Phosphatase 131 H (38-126) U/L Lactate Dehydrogenase (313-618) U/L C-Reactive Protein (<1.0) mg/dL Albumin 3.1 L (3.5-5.0) g/dL Assessment and Plan Assessment: Impression: Acute hypoxic respiratory failure secondary to COVID-19 pneumonia, remains mar ginal at best remains on high flow oxygen patient does not seem to be getting much better or much worse. Remains on a combination of Decadron and Baricitinib patient remains on Eliquis for right lower extremity deep vein thrombosis. Acute COVID-19 pneumonia History of chronic bronchial asthma Previous smoker History of transverse myelitis History of C5-C6 fusion History of DVT and now he has DVT in the right lower extremity. Recommendation: Continue the COVID-19 cocktail Continue high flow oxygen and titrate accordingly Continue Eliquis Continue Decadron Prognosis remains relatively guarded Not ready for any discharge planning We will continue to follow. Time with Patient: Less than 30
[2021-07-05 17:11] LABS: Glucose,Whole Blood 120 mg/dL (75-99)
[2021-07-05 21:04] LABS: Glucose,Whole Blood 176 mg/dL (75-99)
--- NOTE | 2021-07-05 23:52 | PN ---
PROGRESS NOTE DATE OF SERVICE: 07/05/2021 REASON FOR FOLLOWUP: COVID-19 pneumonia. INTERVAL HISTORY: The patient is afebrile. The patient is breathing slightly comfortably. The patient's FiO2 is currently down to 70%. Denies any chest pain. No worsening cough. No sputum production. No abdominal pain. No diarrhea. PHYSICAL EXAMINATION: Blood pressure 128/72 with a pulse of 73, temperature 97.7. He is 94% on 70% FiO2. General description is a middle-aged male up in the chair in no distress. Respiratory system: Unlabored breathing, coarse breath sounds bilaterally. No wheeze. Heart S1, S2. Regular rate and rhythm. Abdomen soft, no tenderness. LABS: Hemoglobin is 13.8, white count 20.5 creatinine 0.73. DIAGNOSTIC IMPRESSION/PLAN: 1. Patient with acute respiratory failure secondary to Covid 19 pneumonia with complicating factor of DVT. Patient is currently on Eliquis, baricitinib, dexamethasone, zinc and ascorbic acid. 2. Patient with elevated white count more likely steroid effect. Clinically no evidence of any worsening infection and we will monitor closely. MMODL / IJN: [id number] /
[2021-07-06] MEDS: SODIUM CHLORIDE 0.9% 1,000 ML IV SCH (01:45)
[2021-07-06] MEDS: INSULIN ASPART (NovoLOG) 100 UNIT/ML VIAL SQ SCH ×4 (06:17→20:35)
[2021-07-06 06:18] LABS: Glucose,Whole Blood 112 mg/dL (75-99)
[2021-07-06] MEDS: PANTOPRAZOLE 40 MG TABLET PO SCH (06:57)
[2021-07-06] MEDS: ALBUTEROL HFA INHALER INHALATION SCH ×4 (07:44→20:20)
[2021-07-06] MEDS: SYMBICORT 80-4.5 MCG INHALER INHALATION SCH ×2 (07:45→20:21)
[2021-07-06 07:59] LABS: Basophils % (A) 0 %; Eosinophils % (A) 0 %; HCT 41.3 % (39.0-53.0); HGB 13.5 gm/dL (13.0-17.5); Lymphocytes # (A) 0.4 k/uL (1.0-4.8); Lymphocytes % (A) 2 %; MCH 31.4 pg (25.0-35.0); MCHC 32.8 g/dL (31.0-37.0); Mean Platelet Volume 8.7; Monocytes # (A) 0.8 k/uL (0-1.0); Monocytes % (A) 4 %; Neutrophils # (A) 17.4 k/uL (1.3-7.7); Neutrophils % (A) 93 %; Platelet Count 260 k/uL (150-450); RDW 12.2 % (11.5-15.5); WBC 18.7 k/uL (3.8-10.6)
[2021-07-06 08:13] LABS: ALT 47 U/L (4-49); AST 37 U/L (17-59); African American GFR (CKD) >90 (>60 ml/min/1.73 sqM); Alkaline Phosphatase 116 U/L (38-126); Anion Gap 4 mmol/L; Blood Urea Nitrogen 20 mg/dL (9-20); Calcium 8.7 mg/dL (8.4-10.2); Carbon Dioxide 32 mmol/L (22-30); Chloride 101 mmol/L (98-107); Glucose 101 mg/dL (74-99); Magnesium 2.2 mg/dL (1.6-2.3); Non-African American GFR(CKD) >90 (>60 ml/min/1.73 sqM); Potassium 4.5 mmol/L (3.5-5.1); Sodium 137 mmol/L (137-145); Total Protein 6.5 g/dL (6.3-8.2)
[2021-07-06] MEDS: DEXAMETHASONE SOD PHOSPHATE 10 MG/ML 1 ML VIAL IVP SCH ×2 (08:27→20:35)
[2021-07-06] MEDS: APIXABAN 5 MG TAB PO SCH ×2 (08:28→20:35)
[2021-07-06] MEDS: ZINC SULFATE 220 MG CAP PO SCH (08:28)
[2021-07-06] MEDS: CHOLECALCIFEROL 25 MCG (1000 IU) TABLET PO SCH (08:28)
[2021-07-06] MEDS: BARICITINIB 2 MG TABLET PO SCH (08:29)
[2021-07-06] MEDS: ASCORBIC ACID 500 MG TAB PO SCH (08:38)
[2021-07-06] MEDS: MORPHINE SULFATE 2 MG/ML SYRINGE IVP PRN ×2 (08:38→20:35)
--- NOTE | 2021-07-06 11:31 | P.PN ---
Subjective Progress Note Date: 07/06/21 Principal diagnosis: dyspnea On 07/06/2021 patient seen in follow-up on selective care unit, he remains on Airvo at 50 L and 70 percent, and nonrebreather mask, his pulse ox is 93-94%. She is sitting up in the chair, breathing comfortably, does not appear to be in any acute distress, no complete chest discomfort, occasional cough, he is afebrile. Does get short of breath and coughing with activity. Overall FiO2 requirements have improved slightly, he currently continues on Baricitinib, Decadron 6 mg twice daily, he is on Eliquis for new diagnosis DVT at 10 mg twice daily, and inhaled bronchodilators. Today's labs have been reviewed his white count is improving and is down to 18.7, hemoglobin is 13.5, d-dimer still pending for today, yesterday's level was greater than 34.1. Electrolytes and renal profile are unremarkable. Inflammatory markers were improving on yesterday's labs Objective - Vital Signs Vital signs: Vital Signs Temp 97.8 F 07/06/21 08:00 Pulse 93 07/06/21 08:00 Resp 23 07/06/21 08:00 BP 102/66 07/06/21 08:00 Pulse Ox 93 L 07/06/21 08:00 Intake & Output 07/05/21 07/06/21 07/06/21 18:59 06:59 18:59 Intake Total 240 118 Output Total 1025 1425 Balance -785 -1425 118 Intake: Oral 240 118 Output: Urine 1025 1425 Other: Voiding Method Urinal Urinal # Bowel Movements 1 - Exam GENERAL EXAM: Alert, very pleasant, 50-year-old white male, chronically on Airvo at 50 L and FiO2 of 70% nonrebreather mask with a pulse ox of 94%. comfortable in no apparent distress. HEAD: Normocephalic/atraumatic. EYES: Normal reaction of pupils, equal size. Conjunctiva pink, sclera white. NOSE: Clear with pink turbinates. THROAT: No erythema or exudates. NECK: No masses, no JVD, no thyroid enlargement, no adenopathy. CHEST: No chest wall deformity. Symmetrical expansion. LUNGS: Equal air entry with diffuse crackles CVS: Regular rate and rhythm, normal S1 and S2, no gallops, no murmurs, no rubs ABDOMEN: Soft, nontender. No hepatosplenomegaly, normal bowel sounds, no guarding or rigidity. EXTREMITIES: No clubbing, no edema, no cyanosis, 2+ pulses and upper and lower extremities. MUSCULOSKELETAL: Muscle strength and tone normal. SPINE: No scoliosis or deformity SKIN: No rashes CENTRAL NERVOUS SYSTEM: Alert and oriented -3. No focal deficits, tone is normal in all 4 extremities. PSYCHIATRIC: Alert and oriented -3. Appropriate affect. Intact judgment and insight. - Labs CBC & Chem 7: 07/06/21 06:52 07/06/21 06:52 Labs: Abnormal Lab Results - Last 24 Hours (Table) 07/05/21 07/05/21 07/05/21 Range/Units 11:46 17:00 21:03 WBC (3.8-10.6) k/uL Neutrophils # (1.3-7.7) k/uL Lymphocytes # (1.0-4.8) k/uL Carbon Dioxide (22-30) mmol/L Glucose (74-99) mg/dL POC Glucose (mg/dL) 162 H 120 H 176 H (75-99) mg/dL Albumin (3.5-5.0) g/dL 07/06/21 07/06/21 07/06/21 Range/Units 06:04 06:52 06:52 WBC 18.7 H (3.8-10.6) k/uL Neutrophils # 17.4 H (1.3-7.7) k/uL Lymphocytes # 0.4 L (1.0-4.8) k/uL Carbon Dioxide 32 H (22-30) mmol/L Glucose 101 H (74-99) mg/dL POC Glucose (mg/dL) 112 H (75-99) mg/dL Albumin 3.0 L (3.5-5.0) g/dL Assessment and Plan Plan: Assessment #1. Acute hypoxic respiratory failure related to over 19 associated pneumonia. Patient presented to the emergency department on 06/27/2021 with 8 days of symptoms, and shortness of breath. Patient was already on 70% nonrebreather mask when the EMS arrived. We started the patient on Baricitinib on 06/29/2021. Today on 07/06/2091 patient is on interval at 15 L and FiO2 of 70% in addition to nonrebreather mask #2. Acute right lower extremity DVT, patient was started on Eliquis #3. Increased d-dimer related to acute hypoxic respiratory failure and right lower extremity DVT #4. Increased inflammatory markers, improving #5. Previous history of smoking #6. History of transverse myelitis #7. History of C5-C6 fusion #8. History of chronic bronchial asthma Plan: Continue Baricitinib Continue current dose Decadron, and Eliquis Patient remains on Airvo and nonrebreather Does not appear to be in any acute distress, we're able to cut back slightly on the flow in the FiO2 compared to days prior We'll continue to follow his clinical course Today's labs have been reviewed inflammatory markers are improving although still elevated We'll continue to follow I performed a history & physical examination of the patient and discussed their management with my nurse practitioner, Snow Lovell. I reviewed the nurse practitioner's note and agree with the documented findings and plan of care. Lung sounds are positive for diffuse crackles throughout the lung vines. The findings and the impression was discussed with the patient. I attest to the documentation by the nurse practitioner. Time with Patient: Less than 30
[2021-07-06 12:24] LABS: Glucose,Whole Blood 113 mg/dL (75-99)
--- NOTE | 2021-07-06 15:08 | P.PN ---
Subjective Progress Note Date: 07/06/21 07/06/2021 Patient evaluated sitting up in the chair, reports overall he is feeling slightly better. He was talking on the phone with family and appeared in good spirits. He continues on airvo at 50L with an FiO2 of 70% and in addition to a nonrebreather, oxygen saturation is 94%. He is afebrile, blood pressure 102/66. Labs reviewed today; white count of 18.7, sodium 137, potassium 4.5, CO2 32, sugars in the 110s. AST, ALT and alk phos have normalized. He continues on eliquis for a right leg DVT. There is still some peripheral edema to the right leg. Continues on baricitinib, bronchodilators, zinc, vitamins, decadron. He is being followed closely pulmonary and ID services. ROS Constitutional: Denied any fatigue denied any fever. Cardio vascular: denied any chest pain, palpitations Gastrointestinal denied any nausea vomiting Pulmonary: Reports congested cough, reports shortness of breath with exertion, minimally at rest. Neurologic denied any new focal deficits All inpatient medications were reviewed and appropriate changes in these medications as dictated in the history and assessment and plan. PHYSICAL EXAMINATION: GENERAL: The patient is alert and oriented x3, no acute distress. Well developed, well nourished. HEENT: Pupils are round and equally reacting to light. EOMI. No scleral icterus. No conjunctival pallor. Normocephalic, atraumatic. No pharyngeal erythema. No thyromegaly. CARDIOVASCULAR: S1 and S2 present. No murmurs, rubs, or gallops. PULMONARY: Coarse scattered rhonchi, faint crackles right base ABDOMEN: Soft, nontender, nondistended, normoactive bowel sounds. No palpable organomegaly. MUSCULOSKELETAL: No joint swelling or deformity. EXTREMITIES: No cyanosis, clubbing, right leg peripheral edema. NEUROLOGICAL: Gross neurological examination did not reveal any focal deficits. SKIN: No rashes. Assessment and plan Assessment Acute hypoxic respiratory failure secondary to COVID 19 pneumonia requiring oxygen support with 50L with FiO2 70% and nonrebreather mask. Acute DVT right lower extremity; on eliquis started this admission Elevated DD, CTA negative for PE, positive DVT Elevated liver enzymes possibly due to systemic inflammation, resolved Elevated inflammatory markers secondary to COVID 19, improving History of DVT History of asthma, not in acute exacerbation Remote history of nicotine dependence History of transverse myelitis History of C5-C6 fusion Obesity GI Prophylaxis: Protonix DVT Prophylaxis: Eliquis FULL CODE Plan Continue decadron, vitamins, Baricitinib Eliquis for DVT Repeat labs in AM Incentive spirometry Prognosis is guarded for this patient however pulmonary was able to slightly wean oxygen today. Cont with PT/OT consultation Objective - Vital Signs Vital signs: Vital Signs Temp 97.8 F 07/06/21 08:00 Pulse 93 07/06/21 08:00 Resp 23 07/06/21 08:00 BP 102/66 07/06/21 08:00 Pulse Ox 93 L 07/06/21 08:00 Intake & Output 07/05/21 07/06/21 07/06/21 18:59 06:59 18:59 Intake Total 240 118 Output Total 1025 1425 Balance -785 -1425 118 Intake: Oral 240 118 Output: Urine 1025 1425 Other: Voiding Method Urinal Urinal # Bowel Movements 1 - Labs CBC & Chem 7: 07/06/21 06:52 07/06/21 06:52 Labs: Abnormal Lab Results - Last 24 Hours (Table) 07/05/21 07/05/21 07/05/21 Range/Units 11:46 17:00 21:03 WBC (3.8-10.6) k/uL Neutrophils # (1.3-7.7) k/uL Lymphocytes # (1.0-4.8) k/uL Carbon Dioxide (22-30) mmol/L Glucose (74-99) mg/dL POC Glucose (mg/dL) 162 H 120 H 176 H (75-99) mg/dL Albumin (3.5-5.0) g/dL 07/06/21 07/06/21 07/06/21 Range/Units 06:04 06:52 06:52 WBC 18.7 H (3.8-10.6) k/uL Neutrophils # 17.4 H (1.3-7.7) k/uL Lymphocytes # 0.4 L (1.0-4.8) k/uL Carbon Dioxide 32 H (22-30) mmol/L Glucose 101 H (74-99) mg/dL POC Glucose (mg/dL) 112 H (75-99) mg/dL Albumin 3.0 L (3.5-5.0) g/dL
[2021-07-06 17:10] LABS: Glucose,Whole Blood 112 mg/dL (75-99)
--- NOTE | 2021-07-06 17:14 | PN ---
PROGRESS NOTE DATE OF SERVICE: 07/06/2021 REASON FOR FOLLOW UP: Covid 19 pneumonia. INTERVAL HISTORY: Patient is afebrile. The patient is breathing more comfortably. Patient denies having any chest pain. Cough has decreased in intensity. FiO2 is down to 70%. No nausea, no vomiting. No abdominal pain. No diarrhea. PHYSICAL EXAMINATION: Blood pressure 102/70 with a pulse of 85. Temperature 97.4. He is 92% on 70% FiO2. General description is a middle-aged male up in the chair in no distress. Respiratory system: Unlabored breathing, decreased intensity of breath sounds. No wheeze. Heart S1, S2. Regular rate and rhythm. Abdomen soft, no tenderness. LABS: Hemoglobin 13.8, white count 18.7, creatinine 0.71. DIAGNOSTIC IMPRESSION AND PLAN: Patient with acute respiratory failure, secondary to COVID-19 pneumonia in this patient with slow clinical response. The patient to continue with Eliquis, baricitinib, dexamethasone, zinc and ascorbic acid along with respiratory support and monitor clinical course closely. MMODL / SABINAN: [id number] /
[2021-07-06 20:22] LABS: Glucose,Whole Blood 139 mg/dL (75-99)
[2021-07-07] MEDS: SODIUM CHLORIDE 0.9% 1,000 ML IV SCH (02:25)
[2021-07-07] MEDS: INSULIN ASPART (NovoLOG) 100 UNIT/ML VIAL SQ SCH ×4 (06:22→20:30)
[2021-07-07 06:30] LABS: Glucose,Whole Blood 123 mg/dL (75-99)
[2021-07-07] MEDS: PANTOPRAZOLE 40 MG TABLET PO SCH (06:52)
[2021-07-07] MEDS: SYMBICORT 80-4.5 MCG INHALER INHALATION SCH ×2 (08:07→21:33)
[2021-07-07] MEDS: ALBUTEROL HFA INHALER INHALATION SCH ×4 (08:07→21:32)
[2021-07-07] MEDS: ZINC SULFATE 220 MG CAP PO SCH (08:21)
[2021-07-07] MEDS: APIXABAN 5 MG TAB PO SCH ×2 (08:21→20:42)
[2021-07-07] MEDS: BARICITINIB 2 MG TABLET PO SCH (08:21)
[2021-07-07] MEDS: CHOLECALCIFEROL 25 MCG (1000 IU) TABLET PO SCH (08:21)
[2021-07-07] MEDS: ASCORBIC ACID 500 MG TAB PO SCH (08:22)
[2021-07-07] MEDS: DEXAMETHASONE SOD PHOSPHATE 10 MG/ML 1 ML VIAL IVP SCH ×2 (08:22→20:41)
[2021-07-07] MEDS: MORPHINE SULFATE 2 MG/ML SYRINGE IVP PRN ×3 (08:22→20:47)
[2021-07-07 09:45] LABS: Basophils % (A) 0 %; Eosinophils # (A) 0.1 k/uL (0-0.7); Eosinophils % (A) 1 %; HCT 41.1 % (39.0-53.0); HGB 13.5 gm/dL (13.0-17.5); Lymphocytes # (A) 0.7 k/uL (1.0-4.8); Lymphocytes % (A) 4 %; MCH 31.1 pg (25.0-35.0); MCHC 32.8 g/dL (31.0-37.0); MCV 94.8 fL (80.0-100.0); Mean Platelet Volume 8.1; Monocytes # (A) 0.6 k/uL (0-1.0); Monocytes % (A) 3 %; Neutrophils # (A) 16.8 k/uL (1.3-7.7); Neutrophils % (A) 92 %; Platelet Count 251 k/uL (150-450); RBC 4.33 m/uL (4.30-5.90); RDW 12.2 % (11.5-15.5); WBC 18.3 k/uL (3.8-10.6)
--- NOTE | 2021-07-07 09:50 | P.PN ---
Subjective Progress Note Date: 07/07/21 Principal diagnosis: dyspnea On 07/06/2021 patient seen in follow-up on selective care unit, he remains on Airvo at 50 L and 70 percent, and nonrebreather mask, his pulse ox is 93-94%. She is sitting up in the chair, breathing comfortably, does not appear to be in any acute distress, no complete chest discomfort, occasional cough, he is afebrile. Does get short of breath and coughing with activity. Overall FiO2 requirements have improved slightly, he currently continues on Baricitinib, Decadron 6 mg twice daily, he is on Eliquis for new diagnosis DVT at 10 mg twice daily, and inhaled bronchodilators. Today's labs have been reviewed his white count is improving and is down to 18.7, hemoglobin is 13.5, d-dimer still pending for today, yesterday's level was greater than 34.1. Electrolytes and renal profile are unremarkable. Inflammatory markers were improving on yesterday's labs On 07/07/2021 patient is seen in follow-up on selective care unit, she remains on high flow oxygen per Airvo at 65 L and FiO2 of 70% in addition to 100% nonrebreather mask, and his pulse ox is 92%, does not appear to be in any acute distress, sitting up in the recliner, he is talking to his on face time. He is awake and alert, oriented 3, afebrile, vital signs have been stable, occasional cough without phlegm production, no complaints of chest discomfort. Lung sounds reveal diffuse inspiratory crackles throughout the lung vines today. Overall he states he feels like he is slightly improved, no nausea vomiting or diarrhea, no abdominal pain, he is tolerating oral intake, he is currently on Baricitinib, decadron 6 mg twice daily, and Eliquis for newly diagnosed DVT, his inflammatory markers were improving on yesterday's labs, today's labs are still pending today Objective - Vital Signs Vital signs: Vital Signs Temp 98.1 F 07/07/21 04:01 Pulse 73 07/07/21 04:01 Resp 24 07/07/21 04:01 BP 96/62 07/07/21 04:01 Pulse Ox 92 L 07/07/21 04:01 Intake & Output 07/06/21 07/07/21 07/07/21 18:59 06:59 18:59 Intake Total 1198 240 240 Output Total 1175 500 Balance 23 -260 240 Intake: Oral 1198 240 240 Output: Urine 1175 500 Other: Voiding Method Urinal - Exam GENERAL EXAM: Alert, very pleasant, 50-year-old white male, chronically on Airvo at 50 L and FiO2 of 70% nonrebreather mask with a pulse ox of 92%. comfortable in no apparent distress. HEAD: Normocephalic/atraumatic. EYES: Normal reaction of pupils, equal size. Conjunctiva pink, sclera white. NOSE: Clear with pink turbinates. THROAT: No erythema or exudates. NECK: No masses, no JVD, no thyroid enlargement, no adenopathy. CHEST: No chest wall deformity. Symmetrical expansion. LUNGS: Equal air entry with diffuse crackles CVS: Regular rate and rhythm, normal S1 and S2, no gallops, no murmurs, no rubs ABDOMEN: Soft, nontender. No hepatosplenomegaly, normal bowel sounds, no guarding or rigidity. EXTREMITIES: No clubbing, mild pedal edema, no cyanosis, 2+ pulses and upper and lower extremities. MUSCULOSKELETAL: Muscle strength and tone normal. SPINE: No scoliosis or deformity SKIN: No rashes CENTRAL NERVOUS SYSTEM: Alert and oriented -3. No focal deficits, tone is normal in all 4 extremities. PSYCHIATRIC: Alert and oriented -3. Appropriate affect. Intact judgment and insight. - Labs CBC & Chem 7: 07/07/21 09:13 07/06/21 06:52 Labs: Abnormal Lab Results - Last 24 Hours (Table) 07/06/21 07/06/21 07/06/21 Range/Units 12:04 17:05 20:20 WBC (3.8-10.6) k/uL Neutrophils # (1.3-7.7) k/uL Lymphocytes # (1.0-4.8) k/uL POC Glucose (mg/dL) 113 H 112 H 139 H (75-99) mg/dL 07/07/21 07/07/21 Range/Units 06:21 09:13 WBC 18.3 H (3.8-10.6) k/uL Neutrophils # 16.8 H (1.3-7.7) k/uL Lymphocytes # 0.7 L (1.0-4.8) k/uL POC Glucose (mg/dL) 123 H (75-99) mg/dL Assessment and Plan Plan: Assessment #1. Acute hypoxic respiratory failure related to over 19 associated pneumonia. Patient presented to the emergency department on 06/27/2021 with 8 days of symptoms, and shortness of breath. Patient was already on 70% nonrebreather mask when the EMS arrived. We started the patient on Baricitinib on 06/29/2021. Today on 07/06/2091 patient is on interval at 15 L and FiO2 of 70% in addition to nonrebreather mask. Patient is currently on Airvo at 55 L and FiO2 of 70% in addition to nonrebreather mask with a pulse ox of 92% #2. Acute right lower extremity DVT, patient was started on Eliquis #3. Increased d-dimer related to acute hypoxic respiratory failure and right lower extremity DVT #4. Increased inflammatory markers, improving #5. Previous history of smoking #6. History of transverse myelitis #7. History of C5-C6 fusion #8. History of chronic bronchial asthma Plan: Patient remains on Airvo and nonrebreather Occasional cough, no phlegm production Seems be breathing fairly comfortably, does not appear to be in any acute distress Continue Baricitinib Continue current dose Decadron, and Eliquis Follow up chest x-ray today We'll continue to follow I performed a history & physical examination of the patient and discussed their management with my nurse practitioner, Snow Lovell. I reviewed the nurse practitioner's note and agree with the documented findings and plan of care. Lung sounds are positive for diffuse crackles throughout the lung vines. The findings and the impression was discussed with the patient. I attest to the documentation by the nurse practitioner. Time with Patient: Less than 30
--- NOTE | 2021-07-07 10:31 | XR ---
EXAMINATION TYPE: XR chest 1V portable DATE OF EXAM: 07/07/2021 COMPARISON: 07/03/2021 HISTORY: Cough TECHNIQUE: Single frontal view of the chest is obtained. FINDINGS: Diffuse bilateral infiltrates. Tiny effusion suspected. Cannot exclude a subtle pneumomedi astinum. No pneumothorax. Heart size stable. Osseous structures stable. IMPRESSION: 1. Stable bilateral diffuse infiltrates. Could not exclude subtle pneumomediastinum. Correlate clinic ally.
[2021-07-07 11:20] LABS: Glucose,Whole Blood 105 mg/dL (75-99)
[2021-07-07] MEDS: BACLOFEN 10 MG TAB PO PRN (12:02)
--- NOTE | 2021-07-07 12:38 | CDI ---
Documentation Clarification Form Date: 07/07/2021 12:22:01 PM From: Edita Goodman CCS, CCDS Admit Date: 06/27/2021 02:35:00 PM Patient Name: Dave Tian Visit Number: [id number] Discharge Date: ATTENTION: The Clinical Documentation Specialists (CDI) and [facility] Coding Staff appreciate your assistance in clarifying documentation. Please respond to the clarification below the line at the bottom and electronically sign. The CDI & [facility] Coding staff will review the response and follow-up if needed. Please note: Queries are made part of the Legal Health Record. If you have any questions, please contact the author of this message via ITS. Dr. Mika Camp: Asthma is documented throughout the record without further specificity. Per the 06/27 H/P: History of asthma and also had some asthma exacerbation. Per the 06/28 Pulmonary Consult and subsequent Progress Notes: History of Chronic Bronchial Asthma, uses Inhalers. Per the 06/29 Attending Progress Note: History of asthma, not in acute exacerbation. Additional clarification regarding the type of asthma is requested. History/risk factors per the 06/27 H/P: Asthma nos, Transverse myelitis, C5-C6 Fusion, Right Hip Replacement, Obesity w/BMI 37.7 and Nicotine Dependence. Home meds: INH Proair Hfa 2 puffs q6H/prn, INH Wixela 1 puff BID. Clinical Indicators: Presented to the ED on 06/27 via EMS from home with SOB. Had a positive COVID test eight days prior with symptoms 2 days prior to test. Per EMS: severely hypoxic, initially on 4-5L, PO in the 70s, 92% on nrb. Admit with COVID 19 Pneumonia & Hypoxia 06/27 VS: T 97.7, P 97, R 22 - 28 (sob, labored), BP 104/72, PO 94 nrb - 91 on 14L high flow 06/27 LAB: Lymph 0.6, D Dimer 4.24, Cl 109, Glucose 126, Ferritin 2288.0, AST 102, ALT 88, LDH 2296, CRP 16.6, Procalcitonin 0.15. 06/27 COVID Positive 06/27 CXR: Diffuse partially consolidative lung infiltrates, right > left, consistent with acute cardiopulmonary disease. 06/27 CT Chest: Negative for PE, Extensive pulmonary infiltrates consistent with multifocal pneumonia. Treatment 06/27: O2: nrb - High Flow, IV Decadron 10 mg x1, IV Na Cl 1,000 mls @ 999 mls/hr Q1H, IV Zofran 4 mg q8Hr, Lovenox 40 mg sq q24H, INH Symbicort 2 puffs BID Please clarify the type and severity of asthma, if known: [ ] Extrinsic asthma [ ] with exacerbation [ ] without exacerbation [ ] Intrinsic asthma [ ] with exacerbation [ ] without exacerbation [ ] Mild intermittent asthma [ ] with exacerbation [ ] without exacerbation [ ] Mild persistent asthma [ ] with exacerbation [ ] without exacerbation [ ] Moderate persistent asthma [ ] with exacerbation [ ] without exacerbation [ ] Other, please specify ____ [ ] Unable to determine (Template Last Revised: September 2020) MTDD
--- NOTE | 2021-07-07 14:33 | P.PN ---
Subjective Progress Note Date: 07/07/21 07/06/2021 Patient evaluated sitting up in the chair, reports overall he is feeling slightly better. He was talking on the phone with family and appeared in good spirits. He continues on airvo at 50L with an FiO2 of 70% and in addition to a nonrebreather, oxygen saturation is 94%. He is afebrile, blood pressure 102/66. Labs reviewed today; white count of 18.7, sodium 137, potassium 4.5, CO2 32, sugars in the 110s. AST, ALT and alk phos have normalized. He continues on eliquis for a right leg DVT. There is still some peripheral edema to the right leg. Continues on baricitinib, bronchodilators, zinc, vitamins, decadron. He is being followed closely pulmonary and ID services. 07/07/2021 Patient had to sleep sitting up in the chair last night, his oxygen support was decreased slightly yesterday to 55L airvo from 60L airvo. Otherwise he is relatively stable where he is at. Chest xray today shows stable bilateral diffuse infiltrates. Could not exclude subtle pneumomediastinum. Correlate c linically. Labs reviewed today shows a WBC count of 18.3. He has some cough with minimal sputum production. Vitals today he is afebrile, heart rate 85 normal sinus rhythm, blood pressure 102/61, 91% on airvo with nonrebreather. He maintains in good spirits. ROS Constitutional: Denied any fatigue denied any fever. Cardio vascular: denied any chest pain, palpitations Gastrointestinal denied any nausea vomiting Pulmonary: Reports congested cough, reports shortness of breath with exertion, minimally at rest. Neurologic denied any new focal deficits All inpatient medications were reviewed and appropriate changes in these medications as dictated in the history and assessment and plan. PHYSICAL EXAMINATION: GENERAL: The patient is alert and oriented x3, no acute distress. Well developed, well nourished. HEENT: Pupils are round and equally reacting to light. EOMI. No scleral icterus. No conjunctival pallor. Normocephalic, atraumatic. No pharyngeal erythema. No thyromegaly. CARDIOVASCULAR: S1 and S2 present. No murmurs, rubs, or gallops. PULMONARY: Coarse scattered rhonchi ABDOMEN: Soft, nontender, nondistended, normoactive bowel sounds. No palpable organomegaly. MUSCULOSKELETAL: No joint swelling or deformity. EXTREMITIES: No cyanosis, clubbing, right leg peripheral edema. NEUROLOGICAL: Gross neurological examination did not reveal any focal deficits. SKIN: No rashes. Assessment and plan Assessment Acute hypoxic respiratory failure secondary to COVID 19 pneumonia requiring oxygen support with 55L with FiO2 70% and nonrebreather mask. Acute DVT right lower extremity; on eliquis started this admission Elevated DD, CTA negative for PE, positive DVT Elevated liver enzymes possibly due to systemic inflammation, resolved Elevated inflammatory markers secondary to COVID 19, improving History of DVT History of asthma, not in acute exacerbation Remote history of nicotine dependence History of transverse myelitis History of C5-C6 fusion Obesity GI Prophylaxis: Protonix DVT Prophylaxis: Eliquis FULL CODE Plan Continue decadron, vitamins, Baricitinib Eliquis for DVT Repeat labs in AM Incentive spirometry Continue all other supportive care Cont with PT/OT consultation Prognosis remains guarded Objective - Vital Signs Vital signs: Vital Signs Temp 97.7 F 07/07/21 08:00 Pulse 92 07/07/21 08:00 Resp 24 07/07/21 08:00 BP 108/66 07/07/21 08:00 Pulse Ox 90 L 07/07/21 08:00 Intake & Output 07/06/21 07/07/21 07/07/21 18:59 06:59 18:59 Intake Total 1198 240 240 Output Total 1175 500 500 Balance 23 -260 -260 Intake: Oral 1198 240 240 Output: Urine 1175 500 500 Other: Voiding Method Urinal Urinal - Labs CBC & Chem 7: 07/07/21 09:13 07/06/21 06:52 Labs: Abnormal Lab Results - Last 24 Hours (Table) 07/06/21 07/06/21 07/06/21 Range/Units 12:04 17:05 20:20 WBC (3.8-10.6) k/uL Neutrophils # (1.3-7.7) k/uL Lymphocytes # (1.0-4.8) k/uL POC Glucose (mg/dL) 113 H 112 H 139 H (75-99) mg/dL 07/07/21 07/07/21 07/07/21 Range/Units 06:21 09:13 11:18 WBC 18.3 H (3.8-10.6) k/uL Neutrophils # 16.8 H (1.3-7.7) k/uL Lymphocytes # 0.7 L (1.0-4.8) k/uL POC Glucose (mg/dL) 123 H 105 H (75-99) mg/dL
[2021-07-07] MEDS: ALPRAZolam 0.25 MG TAB PO PRN ×2 (15:16→22:15)
[2021-07-07 16:46] LABS: Glucose,Whole Blood 167 mg/dL (75-99)
[2021-07-07 20:03] LABS: Glucose,Whole Blood 104 mg/dL (75-99)
--- NOTE | 2021-07-07 22:53 | PN ---
PROGRESS NOTE DATE OF SERVICE: 07/07/2021 REASON FOR FOLLOWUP: Acute COVID-19 pneumonia. INTERVAL HISTORY: The patient is afebrile. The patient is breathing slightly comfortably. FiO2 is currently down to 70%. The patient denies having any chest pain or worsening cough or sputum production. No abdominal pain or diarrhea. PHYSICAL EXAMINATION: Blood pressure 110/72 with a pulse of 87, temperature 97.5. He is 90% on 70% FiO2. General description is a middle-aged male lying in bed in no distress. Respiratory system: Unlabored breathing. Coarse breath sounds in the bases. No wheeze. Heart S1, S2. Regular rate and rhythm. Abdomen soft, no tenderness. LABS: Hemoglobin is 13.5, white count 18.3, procalcitonin 0.10. DIAGNOSTIC IMPRESSION AND PLAN: Patient with acute respiratory failure secondary to COVID-19 pneumonia with a complicating factor of a deep vein thrombosis. Patient is currently on Eliquis, baricitinib, dexamethasone, zinc and ascorbic acid; to continue along with respiratory support and monitor his clinical course closely. Prognosis remains fair. MMODL / IJN: [id number] /
[2021-07-08] MEDS: MORPHINE SULFATE 2 MG/ML SYRINGE IVP PRN ×3 (01:31→13:25)
[2021-07-08] MEDS: ALPRAZolam 0.25 MG TAB PO PRN ×3 (05:27→22:13)
[2021-07-08 06:07] LABS: Glucose,Whole Blood 111 mg/dL (75-99)
[2021-07-08] MEDS: INSULIN ASPART (NovoLOG) 100 UNIT/ML VIAL SQ SCH ×4 (06:16→20:08)
[2021-07-08] MEDS: SYMBICORT 80-4.5 MCG INHALER INHALATION SCH ×2 (08:23→21:03)
[2021-07-08] MEDS: ALBUTEROL HFA INHALER INHALATION SCH ×4 (08:23→21:03)
[2021-07-08 08:26] LABS: Basophils % (A) 0 %; Eosinophils # (A) 0.1 k/uL (0-0.7); Eosinophils % (A) 0 %; HCT 39.7 % (39.0-53.0); HGB 13.4 gm/dL (13.0-17.5); Lymphocytes # (A) 0.6 k/uL (1.0-4.8); Lymphocytes % (A) 3 %; MCH 32.1 pg (25.0-35.0); MCHC 33.7 g/dL (31.0-37.0); MCV 95.4 fL (80.0-100.0); Mean Platelet Volume 7.9; Monocytes # (A) 0.6 k/uL (0-1.0); Monocytes % (A) 3 %; Neutrophils # (A) 16.3 k/uL (1.3-7.7); Neutrophils % (A) 93 %; Platelet Count 243 k/uL (150-450); RBC 4.16 m/uL (4.30-5.90); RDW 12.9 % (11.5-15.5); WBC 17.6 k/uL (3.8-10.6)
[2021-07-08] MEDS: DEXAMETHASONE SOD PHOSPHATE 10 MG/ML 1 ML VIAL IVP SCH ×2 (08:31→20:08)
[2021-07-08] MEDS: PANTOPRAZOLE 40 MG TABLET PO SCH (08:32)
[2021-07-08] MEDS: CHOLECALCIFEROL 25 MCG (1000 IU) TABLET PO SCH (08:32)
[2021-07-08] MEDS: ZINC SULFATE 220 MG CAP PO SCH (08:32)
[2021-07-08] MEDS: APIXABAN 5 MG TAB PO SCH ×2 (08:32→20:09)
[2021-07-08] MEDS: ASCORBIC ACID 500 MG TAB PO SCH (08:32)
[2021-07-08] MEDS: BARICITINIB 2 MG TABLET PO SCH (08:33)
[2021-07-08 08:34] LABS: ALT 51 U/L (4-49); AST 30 U/L (17-59); African American GFR (CKD) >90 (>60 ml/min/1.73 sqM); Alkaline Phosphatase 104 U/L (38-126); Anion Gap 4 mmol/L; Blood Urea Nitrogen 22 mg/dL (9-20); Calcium 8.5 mg/dL (8.4-10.2); Carbon Dioxide 33 mmol/L (22-30); Chloride 99 mmol/L (98-107); Glucose 111 mg/dL (74-99); LDH 1897 U/L (313-618); Non-African American GFR(CKD) >90 (>60 ml/min/1.73 sqM); Potassium 4.5 mmol/L (3.5-5.1); Sodium 136 mmol/L (137-145); Total Bilirubin 1.2 mg/dL (0.2-1.3); Total Protein 6.6 g/dL (6.3-8.2)
[2021-07-08 09:08] LABS: C Reactive Protein 4.4 mg/dL (<1.0)
[2021-07-08 11:37] LABS: Glucose,Whole Blood 158 mg/dL (75-99)
[2021-07-08] MEDS: SODIUM CHLORIDE 0.9% 1,000 ML IV SCH (12:31)
--- NOTE | 2021-07-08 15:02 | P.PN ---
Subjective Progress Note Date: 07/08/21 Principal diagnosis: Acute hypoxic respiratory failure secondary to COVID-19 pneumonia The patient is seen today 07/02/2021 in follow-up on the selective care unit. He is currently sitting up in a chair at the bedside. Awake and alert in no acute distress. He is still dyspneic with conversation. Dyspneic with exertion. He is still requiring 15 L high flow nasal cannula + nonrebreather mask. He was found to have a DVT in the right lower extremity. He is currently on Eliquis. He remains on Baricitinib, Decadron, bronchodilators and vitamin supplements. The patient is seen today 07/03/2021 in follow-up on the selective care unit. he is currently sitting up in a chair at the bedside. Awake and alert in mild respiratory distress. He is now on AirVo high flow oxygen at 55 L and 90% FiO2 plus a nonrebreather mask to maintain O2 saturations in the high 80s low 90s. He is afebrile. Hemodynamically stable.He is continued on Eliquis 10 mg twice a day. Remains on Baricitinib,IV Decadron every 12 hours, bronchodilators,vitamin supplements. white count 15.6. Hemoglobin 14.6. Lymphocytes 0.8. Sodium 138. Potassium 4.2. Creatinine 0.84. Last pro calcitonin 0.08. The patient is seen today 07/04/2021 in follow-up on the selective care unit. He is awake and alert. Continues in mild respiratory distress. He's up in a chair at the bedside. He is still requiring AirVo high flow oxygen at 55 L or 90% FiO2 along with 100% nonrebreather mask to maintain O2 saturations in the low 90s. He is doing about the same. He states he is not worse. Chest x-ray c ontinues to reveal bilateral airspace disease. No evidence of pneumothorax. white count 15.5. Hemoglobin 13.3. Glipizide 0.3. Sodium 138. Potassium 4.7. Creatinine 0.67. AST 52. ALT 54. LDH 3232, C-reactive protein 14.8. D-dimer remains greater than 34. He is continued on Symbicort, albuterol. On Baricitinib. Anticoagulated with Eliquis. Remains on Decadron, vitamin supplements. Reevaluated today on 07/05/21, patient is basically about the same, remains on 90% FiO2, 55 L flow, has a nonrebreather mask in addition to airvo psychiatric the patient felt that his feeling better today compared to how he felt in the last 2 days. Patient remains on high flow oxygen remains on anticoagulation therapy/Eliquis remains on Baricitinib and on Decadron as well as the COVID-19 cocktail. On 07/06/2021 patient seen in follow-up on selective care unit, he remains on Airvo at 50 L and 70 percent, and nonrebreather mask, his pulse ox is 93-94%. She is sitting up in the chair, breathing comfortably, does not appear to be in any acute distress, no complete chest discomfort, occasional cough, he is afebrile. Does get short of breath and coughing with activity. Overall FiO2 requirements have improved slightly, he currently continues on Baricitinib, Decadron 6 mg twice daily, he is on Eliquis for new diagnosis DVT at 10 mg twice daily, and inhaled bronchodilators. Today's labs have been reviewed his white count is improving and is down to 18.7, hemoglobin is 13.5, d-dimer still pe nding for today, yesterday's level was greater than 34.1. Electrolytes and renal profile are unremarkable. Inflammatory markers were improving on yesterday's labs On 07/07/2021 patient is seen in follow-up on selective care unit, she remains on high flow oxygen per Airvo at 65 L and FiO2 of 70% in addition to 100% nonrebreather mask, and his pulse ox is 92%, does not appear to be in any acute distress, sitting up in the recliner, he is talking to his on face time. He is awake and alert, oriented 3, afebrile, vital signs have been stable, occasional cough without phlegm production, no complaints of chest discomfort. Lung sounds reveal diffuse inspiratory crackles throughout the lung vines today. Overall he states he feels like he is slightly improved, no nausea vomiting or diarrhea, no abdominal pain, he is tolerating oral intake, he is currently on Baricitinib, decadron 6 mg twice daily, and Eliquis for newly diagnosed DVT, his inflammatory markers were improving on yesterday's labs, today's labs are still pending today Patient was reevaluated today on 07/08/21, remains on high flow oxygen he is now at 60% FiO2, flow of 55 L/m, is also on a nonrebreather mask, patient seems to be doing better today compared to the last 2 days, less shortness of breath nonetheless is still requiring significant amount of oxygen. Patient remains on Baricitinib, Decadron, Eliquis, and overall minimal improvement noted over the last few days. Nonetheless the patient is not getting any worse. She count is 17.6 hemoglobin 15.4 electrolytes are normal renal profile is normal. Objective - Vital Signs Vital signs: Vital Signs Temp 97.8 F 07/08/21 12:00 Pulse 80 07/08/21 12:00 Resp 24 07/08/21 12:00 BP 106/66 07/08/21 12:00 Pulse Ox 94 L 07/08/21 12:00 Intake & Output 07/07/21 07/08/21 07/08/21 18:59 06:59 18:59 Intake Total 480 236 Output Total 1000 1000 600 Balance -520 -1000 -364 Intake: Oral 480 236 Output: Urine 1000 1000 600 Other: Voiding Method Urinal Urinal - Exam Physical Exam: Revealed a 50-year-old white male on high flow oxygen via airvo and non-rebreather mask, O2 saturation is in the low 90s. Seems to be comfortable. Head: Atraumatic normocephalic. HEENT:[Neck is supple.] [No neck masses.] [No thyromegaly.] [No JVD.] Chest: [Symmetrical chest expansion coarse crackles at the bases. Cardiac Exam: [Normal S1 and S2, no S3 gallop, no murmur.] Abdomen: [Soft, nontender, no megaly, no rebound, no guarding, normal bowel sounds.] Extremities: [No clubbing, no edema, no cyanosis.] Neurological Exam: [No focal neurologic deficit.] Alert oriented 3. Psychiatric: Normal mood affect and normal mental status examination. Skin: No rashes. - Labs CBC & Chem 7: 07/08/21 07:39 07/08/21 07:39 Labs: Abnormal Lab Results - Last 24 Hours (Table) 07/07/21 07/07/21 07/07/21 Range/Units 09:13 16:44 20:02 WBC (3.8-10.6) k/uL RBC (4.30-5.90) m/uL Neutrophils # (1.3-7.7) k/uL Lymphocytes # (1.0-4.8) k/uL Sodium (137-145) mmol/L Carbon Dioxide (22-30) mmol/L BUN (9-20) mg/dL Glucose (74-99) mg/dL POC Glucose (mg/dL) 167 H 104 H (75-99) mg/dL ALT (4-49) U/L Lactate Dehydrogenase (313-618) U/L C-Reactive Protein (<1.0) mg/dL Albumin (3.5-5.0) g/dL Procalcitonin 0.10 H (0.02-0.09) ng/mL 07/08/21 07/08/21 07/08/21 Range/Units 06:06 07:39 07:39 WBC 17.6 H (3.8-10.6) k/uL RBC 4.16 L (4.30-5.90) m/uL Neutrophils # 16.3 H (1.3-7.7) k/uL Lymphocytes # 0.6 L (1.0-4.8) k/uL Sodium 136 L (137-145) mmol/L Carbon Dioxide 33 H (22-30) mmol/L BUN 22 H (9-20) mg/dL Glucose 111 H (74-99) mg/dL POC Glucose (mg/dL) 111 H (75-99) mg/dL ALT 51 H (4-49) U/L Lactate Dehydrogenase 1897 H (313-618) U/L C-Reactive Protein 4.4 H (<1.0) mg/dL Albumin 3.0 L (3.5-5.0) g/dL Procalcitonin (0.02-0.09) ng/mL 07/08/21 Range/Units 11:36 WBC (3.8-10.6) k/uL RBC (4.30-5.90) m/uL Neutrophils # (1.3-7.7) k/uL Lymphocytes # (1.0-4.8) k/uL Sodium (137-145) mmol/L Carbon Dioxide (22-30) mmol/L BUN (9-20) mg/dL Glucose (74-99) mg/dL POC Glucose (mg/dL) 158 H (75-99) mg/dL ALT (4-49) U/L Lactate Dehydrogenase (313-618) U/L C-Reactive Protein (<1.0) mg/dL Albumin (3.5-5.0) g/dL Procalcitonin (0.02-0.09) ng/mL Assessment and Plan Assessment: Impression: Acute hypoxic respiratory failure secondary to COVID-19 pneumonia, remains marginal at best remains on high flow oxygen patient is about the same.. Remains on a combination of Decadron and Baricitinib patient remains on Eliquis for right lower extremity deep vein thrombosis. Acute COVID-19 pneumonia History of chronic bronchial asthma however it is not clear to me whether the patient had mild intermittent asthma or mild persistent or severe persistent, his asthma seems to be the least of his problem on this admission and it is an active straight is basically mild intermittent in general. Previous smoker History of transverse myelitis History of C5-C6 fusion History of DVT and now he has DVT in the right lower extremity. Mild intermittent asthma based on his history but again it is not active Recommendation: Continue the COVID-19 cocktail Continue high flow oxygen and titrate accordingly Continue Eliquis Continue Decadron Continue bronchodilators. Prognosis remains relatively guarded Not ready for any discharge planning We will continue to follow. Time with Patient: Less than 30
--- NOTE | 2021-07-08 15:25 | PN ---
PROGRESS NOTE DATE OF SERVICE: 07/08/2021 REASON FOR FOLLOWUP: COVID-19 pneumonia. INTERVAL HISTORY: The patient is afebrile. The patient is breathing comfortably. He is down to 70% FiO2. The patient denies any chest pain. No vomiting. No worsening cough or sputum production. No abdominal pain. No diarrhea. PHYSICAL EXAMINATION: Blood pressure 106/66, pulse of 80, temperature 97.8. He is 94% on 70% FIO2. General description is a middle-aged male up in a chair in no distress. Respiratory system: Unlabored breathing. Few coarse crackles at the base. No wheeze. Heart S1, S2. Regular rate and rhythm. Abdomen soft, no tenderness. Extremities: No edema of the feet. LABS: Hemoglobin is 13.4, white count 17.6, creatinine 0.74. DIAGNOSTIC IMPRESSION AND PLAN: 1. The patient with acute respiratory failure secondary to Covid 19 pneumonia in this patient with minimal slow clinical improvement. The patient to continue with about baricitinib, Eliquis, zinc and ascorbic acid along with respiratory support and monitor clinical course closely. Continue supportive care. 2. Elevated white count more likely steroid effect and will monitor closely. MMODL / IJN: [id number] /
[2021-07-08 15:44] LABS: Glucose,Whole Blood 121 mg/dL (75-99)
--- NOTE | 2021-07-08 15:48 | P.EN ---
A team called I arrived and was assessing patient when primary admitting service and assumed care.
--- NOTE | 2021-07-08 16:13 | XR ---
EXAMINATION TYPE: XR chest 1V DATE OF EXAM: 07/08/2021 COMPARISON: 07/07/2021 HISTORY: Chest pain TECHNIQUE: Single frontal view of the chest is obtained. FINDINGS: There is interval development of a small right apical pneumothorax estimated at less than 10%. There is subcutaneous emphysema. Scattered infiltrates persist bilaterally. Cardiomediastinal silhouette is stable. IMPRESSION: 1. There is interval development of a small right apical pneumothorax estimated at less than 10%. Th ere is subcutaneous emphysema. A [place] level critical message alert has been initiated for Dorene Pitt via the [employer] Critical Results System on 07/08/2021 4:10 PM. This message alert has been sent to Dorene Pitt via the preferences provided by the clinician for the receipt of Radiology Critical Findings. Message ID [id number].
[2021-07-08] MEDS: NAPROXEN 250 MG TAB PO PRN (16:23)
[2021-07-08 17:31] LABS: Glucose,Whole Blood 127 mg/dL (75-99)
[2021-07-08 20:05] LABS: Glucose,Whole Blood 168 mg/dL (75-99)
[2021-07-09] MEDS: MORPHINE SULFATE 2 MG/ML SYRINGE IVP PRN ×3 (05:20→20:23)
[2021-07-09] MEDS: INSULIN ASPART (NovoLOG) 100 UNIT/ML VIAL SQ SCH ×4 (06:02→20:17)
[2021-07-09 06:03] LABS: Glucose,Whole Blood 129 mg/dL (75-99)
[2021-07-09] MEDS: PANTOPRAZOLE 40 MG TABLET PO SCH (06:04)
[2021-07-09] MEDS: SODIUM CHLORIDE 0.9% 1,000 ML IV SCH (07:27)
--- NOTE | 2021-07-09 08:05 | XR ---
EXAMINATION TYPE: XR chest 1V portable DATE OF EXAM: 07/09/2021 COMPARISON: 07/08/2021 HISTORY: Chest pain TECHNIQUE: Single frontal view of the chest is obtained. FINDINGS: Right-sided pneumothorax persists and appears to have enlarged slightly in the interval with estimate d measurement of 15%. Scattered patchy perihilar and basilar infiltrates persist. Subcutaneous emphys raffy along the right chest. The cardiac silhouette size is within normal limits. The osseous structures are intact. IMPRESSION: 1. Persistent and enlarging right-sided pneumothorax. 2. Stable scattered reticulonodular infiltrates throughout both lung vines. A [place] level critical message alert has been initiated for Mika Camp MD~[id number] via the [employer] Critical Results System on 07/09/2021 8:02 AM. This message alert has been sent to Mika solis MD~[id number] via the preferences provided by the clinician for the receipt of Radiology Critical Find ings. Message ID [id number].
[2021-07-09 08:06] LABS: Basophils % (A) 0 %; Eosinophils # (A) 0.1 k/uL (0-0.7); Eosinophils % (A) 1 %; HCT 38.9 % (39.0-53.0); HGB 12.9 gm/dL (13.0-17.5); Lymphocytes # (A) 0.6 k/uL (1.0-4.8); Lymphocytes % (A) 4 %; MCH 31.7 pg (25.0-35.0); MCHC 33.1 g/dL (31.0-37.0); MCV 95.8 fL (80.0-100.0); Mean Platelet Volume 7.8; Monocytes # (A) 0.6 k/uL (0-1.0); Monocytes % (A) 4 %; Neutrophils # (A) 15.6 k/uL (1.3-7.7); Neutrophils % (A) 92 %; Platelet Count 260 k/uL (150-450); RBC 4.06 m/uL (4.30-5.90); RDW 12.8 % (11.5-15.5)
[2021-07-09 08:10] LABS: ALT 41 U/L (4-49); AST 28 U/L (17-59); African American GFR (CKD) >90 (>60 ml/min/1.73 sqM); Albumin 2.8 g/dL (3.5-5.0); Alkaline Phosphatase 96 U/L (38-126); Anion Gap 1 mmol/L; Blood Urea Nitrogen 23 mg/dL (9-20); Calcium 8.3 mg/dL (8.4-10.2); Carbon Dioxide 34 mmol/L (22-30); Chloride 101 mmol/L (98-107); Glucose 103 mg/dL (74-99); Non-African American GFR(CKD) >90 (>60 ml/min/1.73 sqM); Potassium 4.5 mmol/L (3.5-5.1); Sodium 136 mmol/L (137-145); Total Bilirubin 0.8 mg/dL (0.2-1.3); Total Protein 6.2 g/dL (6.3-8.2)
--- NOTE | 2021-07-09 08:23 | P.PN ---
Subjective Progress Note Date: 07/09/21 The patient is seen today 07/02/2021 in follow-up on the selective care unit. He is currently sitting up in a chair at the bedside. Awake and alert in no acute distress. He is still dyspneic with conversation. Dyspneic with exertion. He is still requiring 15 L high flow nasal cannula + nonrebreather mask. He was found to have a DVT in the right lower extremity. He is currently on Eliquis. He remains on Baricitinib, Decadron, bronchodilators and vitamin supplements. The patient is seen today 07/03/2021 in follow-up on the selective care unit. he is currently sitting up in a chair at the bedside. Awake and alert in mild respiratory distress. He is now on AirVo high flow oxygen at 55 L and 90% FiO2 plus a nonrebreather mask to maintain O2 saturations in the high 80s low 90s. He is afebrile. Hemodynamically stable.He is continued on Eliquis 10 mg twice a day. Remains on Baricitinib,IV Decadron every 12 hours, bronchodilators,vitamin supplements. white count 15.6. Hemoglobin 14.6. Lymphocytes 0.8. Sodium 138. Potassium 4.2. Creatinine 0.84. Last pro calcitonin 0.08. The patient is seen today 07/04/2021 in follow-up on the selective care unit. He is awake and alert. Continues in mild respiratory distress. He's up in a chair at the bedside. He is still requiring AirVo high flow oxygen at 55 L or 90% FiO2 along with 100% nonrebreather mask to maintain O2 saturations in the low 90s. He is doing about the same. He states he is not worse. Chest x-ray continues to reveal bilateral airspace disease. No evidence of pneumothorax. white count 15.5. Hemoglobin 13.3. Glipizide 0.3. Sodium 138. Potassium 4.7. Creatinine 0.67. AST 52. ALT 54. LDH 3232, C-reactive protein 14.8. D-dimer remains greater than 34. He is continued on Symbicort, albuterol. On Baricit inib. Anticoagulated with Eliquis. Remains on Decadron, vitamin supplements. Reevaluated today on 07/05/21, patient is basically about the same, remains on 90% FiO2, 55 L flow, has a nonrebreather mask in addition to airvo psychiatric the patient felt that his feeling better today compared to how he felt in the last 2 days. Patient remains on high flow oxygen remains on anticoagulation therapy/Eliquis remains on Baricitinib and on Decadron as well as the COVID-19 cocktail. On 07/06/2021 patient seen in follow-up on selective care unit, he remains on Airvo at 50 L and 70 percent, and nonrebreather mask, his pulse ox is 93-94%. She is sitting up in the chair, breathing comfortably, does not appear to be in any acute distress, no complete chest discomfort, occasional cough, he is afeb rile. Does get short of breath and coughing with activity. Overall FiO2 requirements have improved slightly, he currently continues on Baricitinib, Decadron 6 mg twice daily, he is on Eliquis for new diagnosis DVT at 10 mg twice daily, and inhaled bronchodilators. Today's labs have been reviewed his white count is improving and is down to 18.7, hemoglobin is 13.5, d-dimer still pending for today, yesterday's level was greater than 34.1. Electrolytes and renal profile are unremarkable. Inflammatory markers were improving on yesterday's labs On 07/07/2021 patient is seen in follow-up on selective care unit, she remains on high flow oxygen per Airvo at 65 L and FiO2 of 70% in addition to 100% nonrebreather mask, and his pulse ox is 92%, does not appear to be in any acute distress, sitting up in the recliner, he is talking to his on face time. He is awake and alert, oriented 3, afebrile, vital signs have been stable, occasional cough without phlegm production, no complaints of chest discomfort. Lung sounds reveal diffuse inspiratory crackles throughout the lung vines today . Overall he states he feels like he is slightly improved, no nausea vomiting or diarrhea, no abdominal pain, he is tolerating oral intake, he is currently on Baricitinib, decadron 6 mg twice daily, and Eliquis for newly diagnosed DVT, his inflammatory markers were improving on yesterday's labs, today's labs are still pending today Patient was reevaluated today on 07/08/21, remains on high flow oxygen he is now at 60% FiO2, flow of 55 L/m, is also on a nonrebreather mask, patient seems to be doing better today compared to the last 2 days, less shortness of breath nonetheless is still requiring significant amount of oxygen. Patient remains on Baricitinib, Decadron, Eliquis, and overall minimal improvement noted over the last few days. Nonetheless the patient is not getting any worse. She count is 17.6 hemoglobin 15.4 electrolytes are normal renal profile is normal. 07/09/2021, the patient is been transferred to the intensive care unit. Note that this is a subsequent severe COVID 19 related to pneumonia with hypoxic respiratory failure. The patient also has developed subcutaneous emphysema and pneumomediastinum. Follow-up chest x-rays. The most recent chest x-ray from this morning shows essentially no clear indication for pneumothorax. Nevertheless, there is subcutaneous emphysema on the right and there is evidence of pneumomediastinum. Radiologist raised the concern for a persistent and enlarging right-sided pneumothorax was probably in the order of 10-15%. The jackie duarte remains on a combination of Decadron and Baricitinib per protocol. His been on that for at least a week for now. His most recent inflammatory markers reveal a LDH level of 1897 from 07/08/2021 and this was lower compared to earlier values and a CRP level is at 6.4.4. Meanwhile, his pro calcitonin level is low at 0.1, sodium level is at 136, BUN is at 23 with a creatinine of 0.6, the the cause of 70 with a hemoglobin of 12.9. In terms of medication, the patient remains on Decadron and Baricitinib per protocol. He remains on Eliquis 5 mg by mouth twice a day as the patient was found to have DVTs in the right lower extremity and his been on anticoagulation since. He has a positive DVT in the mid and distal popliteal vein. In terms of oxygen supplementation, he is on Airvo 60 L, FiO2 of 90% along with 100% nonrebreather facemask. Is able to speak sentences. His breathing is nonlabored. Respiratory rate is currently in the mid 20s. Objective - Vital Signs Vital signs: Vital Signs Temp 97.7 F 07/09/21 04:00 Pulse 51 L 07/09/21 07:00 Resp 19 07/09/21 07:00 BP 119/74 07/09/21 07:00 Pulse Ox 92 L 07/09/21 07:00 Intake & Output 07/08/21 07/09/21 07/09/21 18:59 06:59 18:59 Intake Total 236 1080 0 Output Total 800 1425 Balance -564 -345 0 Weight 119 kg Intake: IV 0 0 Sodium Chloride 0.9% 1, 0 0 000 ml @ 10 mls/hr IV . Q24H [facility] Rx#:[id number] Oral 236 Tube Feeding 1080 Output: Urine 800 1425 Other: Voiding Method Urinal # Voids 0 0 # Bowel Movements 2 - Exam No acute distress, oriented 3. No conversational dyspnea or use of accessory muscles. The patient's on Airvo high flow oxygen 60 l and 90% Fio2 , in addition to 100% nonrebreather facemask. Despite this high oxygen requirements, the patient's breathing is nonlabored at this point., HEENT examination is grossly unremarkable. Neck supple. Full range of motion. No adenopathy thyromegaly or neck vein distention. Cardiovascular examination reveals regular rhythm rate. S1-S2 normal. No S3 or S4. No discernible murmur noted. Heart sounds are distant. Lungs reveal diffuse bilateral coarse rhonchi. Scattered crackles at the bases. No wheezes. Breath sounds are equal bilaterally. The patient has some limited to case emphysema along the right chest area. The patient has crackles in the lower lung vines bilaterally. Abdomen soft bowel sounds are heard. No masses or tenderness. Extremities are intact. No cyanosis clubbing or edema. Skin is without rash or lesion. Neurologic examination is brief but nonfocal. - Labs CBC & Chem 7: 07/09/21 07:31 07/09/21 07:31 Labs: Abnormal Lab Results - Last 24 Hours (Table) 07/08/21 07/08/21 07/08/21 Range/Units 07:39 07:39 11:36 WBC 17.6 H (3.8-10.6) k/uL RBC 4.16 L (4.30-5.90) m/uL Hgb (13.0-17.5) gm/dL Hct (39.0-53.0) % Neutrophils # 16.3 H (1.3-7.7) k/uL Lymphocytes # 0.6 L (1.0-4.8) k/uL Sodium 136 L (137-145) mmol/L Carbon Dioxide 33 H (22-30) mmol/L BUN 22 H (9-20) mg/dL Creatinine (0.66-1.25) mg/dL Glucose 111 H (74-99) mg/dL POC Glucose (mg/dL) 158 H (75-99) mg/dL Calcium (8.4-10.2) mg/dL ALT 51 H (4-49) U/L Lactate Dehydrogenase 1897 H (313-618) U/L C-Reactive Protein 4.4 H (<1.0) mg/dL Total Protein (6.3-8.2) g/dL Albumin 3.0 L (3.5-5.0) g/dL 07/08/21 07/08/21 07/08/21 Range/Units 15:43 17:30 20:03 WBC (3.8-10.6) k/uL RBC (4.30-5.90) m/uL Hgb (13.0-17.5) gm/dL Hct (39.0-53.0) % Neutrophils # (1.3-7.7) k/uL Lymphocytes # (1.0-4.8) k/uL Sodium (137-145) mmol/L Carbon Dioxide (22-30) mmol/L BUN (9-20) mg/dL Creatinine (0.66-1.25) mg/dL Glucose (74-99) mg/dL POC Glucose (mg/dL) 121 H 127 H 168 H (75-99) mg/dL Calcium (8.4-10.2) mg/dL ALT (4-49) U/L Lactate Dehydrogenase (313-618) U/L C-Reactive Protein (<1.0) mg/dL Total Protein (6.3-8.2) g/dL Albumin (3.5-5.0) g/dL 07/09/21 07/09/21 07/09/21 Range/Units 06:01 07:31 07:31 WBC 17.0 H (3.8-10.6) k/uL RBC 4.06 L (4.30-5.90) m/uL Hgb 12.9 L (13.0-17.5) gm/dL Hct 38.9 L (39.0-53.0) % Neutrophils # 15.6 H (1.3-7.7) k/uL Lymphocytes # 0.6 L (1.0-4.8) k/uL Sodium 136 L (137-145) mmol/L Carbon Dioxide 34 H (22-30) mmol/L BUN 23 H (9-20) mg/dL Creatinine 0.64 L (0.66-1.25) mg/dL Glucose 103 H (74-99) mg/dL POC Glucose (mg/dL) 129 H (75-99) mg/dL Calcium 8.3 L (8.4-10.2) mg/dL ALT (4-49) U/L Lactate Dehydrogenase (313-618) U/L C-Reactive Protein (<1.0) mg/dL Total Protein 6.2 L (6.3-8.2) g/dL Albumin 2.8 L (3.5-5.0) g/dL Assessment and Plan Plan: 1 Acute hypoxemic respiratory failure, secondary to coronavirus associated pneumonia. The patient presented with diffuse bilateral pulmonary infiltrates and hypoxic respiratory failure. Since yesterday, the patient has been requiring more oxygen and currently is on Airvo 60 liters Fio2 90 of oxygen in addition to 100% on a facemask to maintain a saturation above 90%. . He is on a combination of Decadron and Baricitinib for now. Doppler of the lower extremity was positive for DVT in the patient is currently on a therapeutic dose of Lovenox. Oxygenation has remained stable without any interval worsening over the past 24 hours. The patient has developed a right apical pneumothorax probably in the order of 5-10% in addition to that the patient has evidence of subcutaneous emphysema on the right, this is noted along the right chest area and the neck in addition to evidence of pneumomediastinum. All of those are anticipated and expected complications of COVID 19 related infection/pneumonia. He continues to have diffuse bilateral pulmonary infiltrates. He is currently requiring high flow oxygen in the form of Airvo 60 L, FiO2 of 90%He remains on a combination Baricitinib and Decadron. 100% nonrebreather facemask 2 acute COVID 19 related pneumonia 3 History of chronic bronchial asthma. 4 Previous history of tobacco use. 5 History of C5-C6 fusion. 6 History of transverse myelitis. 7 History of DVT, December 2007 Plan Titrate FiO2 to maintain saturation was 90% currently on Airvo 60 L , Fio2 90 in combination with addition to 100% on a beta facemasks. Oxygenation has remained stable for now Continue treatment with a combination of Decadron and Baricitinib protocol Continue Decadron dose to 6 mg IV every 24 hours. Eliquis 5 mg BID IV fluids to KVO Continue vitamin C and vitamin D and zinc supplements NovoLog insulin for blood sugar control per sliding scale coverage Repeat chest x-ray with next 24 hours along with d-dimer in am Repeat inflammatory markers in a.m., note that his LDH level was improving. We'll continue to follow.
[2021-07-09] MEDS: ZINC SULFATE 220 MG CAP PO SCH (08:30)
[2021-07-09] MEDS: ALPRAZolam 0.25 MG TAB PO PRN ×3 (08:30→20:23)
[2021-07-09] MEDS: CHOLECALCIFEROL 25 MCG (1000 IU) TABLET PO SCH (08:31)
[2021-07-09] MEDS: BARICITINIB 2 MG TABLET PO SCH (08:31)
[2021-07-09] MEDS: DEXAMETHASONE SOD PHOSPHATE 10 MG/ML 1 ML VIAL IVP SCH ×2 (08:31→08:32)
[2021-07-09] MEDS: ASCORBIC ACID 500 MG TAB PO SCH (08:31)
[2021-07-09] MEDS: APIXABAN 5 MG TAB PO SCH ×2 (08:32→20:01)
[2021-07-09] MEDS: NAPROXEN 250 MG TAB PO PRN (08:51)
[2021-07-09] MEDS: ALBUTEROL HFA INHALER INHALATION SCH ×4 (09:28→20:06)
[2021-07-09] MEDS: SYMBICORT 80-4.5 MCG INHALER INHALATION SCH ×2 (09:34→20:06)
[2021-07-09 11:48] LABS: Glucose,Whole Blood 125 mg/dL (75-99)
[2021-07-09] MEDS ORDERED: INSULIN ASPART (NovoLOG) 100 UNIT/ML VIAL SQ SCH (12:30)
[2021-07-09 16:44] LABS: Glucose,Whole Blood 152 mg/dL (75-99)
--- NOTE | 2021-07-09 18:50 | PN ---
PROGRESS NOTE DATE OF SERVICE: 07/09/2021 REASON FOR FOLLOWUP: COVID-19 pneumonia. INTERIM HISTORY: The patient is afebrile. The patient has been transferred to the ICU as the patient did have some episode of difficulty breathing and hypoxemia last evening. The patient denies any chest pain. No worsening cough or sputum production. No abdominal pain or diarrhea. PHYSICAL EXAMINATION: Blood pressure 126/85, pulse 72, temperature 96.9. He is 95% on 90% FiO2. General description is a middle-aged male up in chair in no distress. Respiratory system: Unlabored breathing, decreased breath sounds in the base, with no wheeze. Heart S1, S2. Regular rate and rhythm. Abdomen soft, no tenderness. LAB: Hemoglobin 12.1, white count 50224, BUN of 23, creatinine 0.64. DIAGNOSTIC IMPRESSION AND PLAN: Patient with acute respiratory failure secondary to the COVID-19 pneumonia. This patient did have evidence of complication with enlarging right-sided pneumothorax. Pulmonary is following the patient closely. The patient is currently covered with Eliquis, baricitinib, zinc and ascorbic acid to continue along with respiratory support and monitor clinical course closely. MMODL / IJN: [id number] /
[2021-07-09 20:12] LABS: Glucose,Whole Blood 117 mg/dL (75-99)
[2021-07-10] MEDS: MORPHINE SULFATE 2 MG/ML SYRINGE IVP PRN ×2 (00:21→05:28)
[2021-07-10] MEDS: SODIUM CHLORIDE 0.9% 1,000 ML IV SCH ×3 (00:28→21:16)
[2021-07-10 04:01] LABS: Basophils % (A) 0 %; Eosinophils # (A) 0.4 k/uL (0-0.7); Eosinophils % (A) 2 %; HCT 39.1 % (39.0-53.0); HGB 12.9 gm/dL (13.0-17.5); Lymphocytes # (A) 0.9 k/uL (1.0-4.8); Lymphocytes % (A) 4 %; MCH 31.7 pg (25.0-35.0); MCHC 33.1 g/dL (31.0-37.0); MCV 95.9 fL (80.0-100.0); Mean Platelet Volume 7.5; Monocytes % (A) 5 %; Neutrophils # (A) 18.9 k/uL (1.3-7.7); Neutrophils % (A) 89 %; Platelet Count 264 k/uL (150-450); RBC 4.08 m/uL (4.30-5.90); RDW 12.3 % (11.5-15.5); WBC 21.3 k/uL (3.8-10.6)
[2021-07-10 04:49] LABS: ALT 39 U/L (4-49); AST 30 U/L (17-59); African American GFR (CKD) >90 (>60 ml/min/1.73 sqM); Albumin 2.8 g/dL (3.5-5.0); Alkaline Phosphatase 105 U/L (38-126); Anion Gap 4 mmol/L; Blood Urea Nitrogen 28 mg/dL (9-20); C Reactive Protein 2.7 mg/dL (<1.0); Calcium 8.4 mg/dL (8.4-10.2); Carbon Dioxide 32 mmol/L (22-30); Chloride 99 mmol/L (98-107); Glucose 84 mg/dL (74-99); LDH 1698 U/L (313-618); Non-African American GFR(CKD) >90 (>60 ml/min/1.73 sqM); Potassium 4.3 mmol/L (3.5-5.1); Sodium 135 mmol/L (137-145); Total Bilirubin 0.5 mg/dL (0.2-1.3); Total Protein 6.1 g/dL (6.3-8.2)
[2021-07-10] MEDS: INSULIN ASPART (NovoLOG) 100 UNIT/ML VIAL SQ SCH ×3 (05:01→19:24)
[2021-07-10] MEDS: ALPRAZolam 0.25 MG TAB PO PRN (05:28)
[2021-07-10] MEDS: PANTOPRAZOLE 40 MG TABLET PO SCH (06:30)
[2021-07-10] MEDS ORDERED: DEXMEDETOMIDINE/0.9% NACL(PMX) 400 MCG in EMPTY BAG 1 BAG IV SCH (07:30)
--- NOTE | 2021-07-10 07:30 | P.PN ---
Subjective Progress Note Date: 07/10/21 The patient is seen today 07/02/2021 in follow-up on the selective care unit. He is currently sitting up in a chair at the bedside. Awake and alert in no acute distress. He is still dyspneic with conversation. Dyspneic with exertion. He is still requiring 15 L high flow nasal cannula + nonrebreather mask. He was found to have a DVT in the right lower extremity. He is currently on Eliquis. He remains on Baricitinib, Decadron, bronchodilators and vitamin supplements. The patient is seen today 07/03/2021 in follow-up on the selective care unit. he is currently sitting up in a chair at the bedside. Awake and alert in mild respiratory distress. He is now on AirVo high flow oxygen at 55 L and 90% FiO2 plus a nonrebreather mask to maintain O2 saturations in the high 80s low 90s. He is afebrile. Hemodynamically stable.He is continued on Eliquis 10 mg twice a day. Remains on Baricitinib,IV Decadron every 12 hours, bronchodilators,vitamin supplements. white count 15.6. Hemoglobin 14.6. Lymphocytes 0.8. Sodium 138. Potassium 4.2. Creatinine 0.84. Last pro calcitonin 0.08. The patient is seen today 07/04/2021 in follow-up on the selective care unit. He is awake and alert. Continues in mild respiratory distress. He's up in a chair at the bedside. He is still requiring AirVo high flow oxygen at 55 L or 90% FiO2 along with 100% nonrebreather mask to maintain O2 saturations in the low 90s. He is doing about the same. He states he is not worse. Chest x-ray continues to reveal bilateral airspace disease. No evidence of pneumothorax. white count 15.5. Hemoglobin 13.3. Glipizide 0.3. Sodium 138. Potassium 4.7. Creatinine 0.67. AST 52. ALT 54. LDH 3232, C-reactive protein 14.8. D-dimer remains greater than 34. He is continued on Symbicort, albuterol. On Baricit inib. Anticoagulated with Eliquis. Remains on Decadron, vitamin supplements. Reevaluated today on 07/05/21, patient is basically about the same, remains on 90% FiO2, 55 L flow, has a nonrebreather mask in addition to airvo psychiatric the patient felt that his feeling better today compared to how he felt in the last 2 days. Patient remains on high flow oxygen remains on anticoagulation therapy/Eliquis remains on Baricitinib and on Decadron as well as the COVID-19 cocktail. On 07/06/2021 patient seen in follow-up on selective care unit, he remains on Airvo at 50 L and 70 percent, and nonrebreather mask, his pulse ox is 93-94%. She is sitting up in the chair, breathing comfortably, does not appear to be in any acute distress, no complete chest discomfort, occasional cough, he is afeb rile. Does get short of breath and coughing with activity. Overall FiO2 requirements have improved slightly, he currently continues on Baricitinib, Decadron 6 mg twice daily, he is on Eliquis for new diagnosis DVT at 10 mg twice daily, and inhaled bronchodilators. Today's labs have been reviewed his white count is improving and is down to 18.7, hemoglobin is 13.5, d-dimer still pending for today, yesterday's level was greater than 34.1. Electrolytes and renal profile are unremarkable. Inflammatory markers were improving on yesterday's labs On 07/07/2021 patient is seen in follow-up on selective care unit, she remains on high flow oxygen per Airvo at 65 L and FiO2 of 70% in addition to 100% nonrebreather mask, and his pulse ox is 92%, does not appear to be in any acute distress, sitting up in the recliner, he is talking to his on face time. He is awake and alert, oriented 3, afebrile, vital signs have been stable, occasional cough without phlegm production, no complaints of chest discomfort. Lung sounds reveal diffuse inspiratory crackles throughout the lung vines today . Overall he states he feels like he is slightly improved, no nausea vomiting or diarrhea, no abdominal pain, he is tolerating oral intake, he is currently on Baricitinib, decadron 6 mg twice daily, and Eliquis for newly diagnosed DVT, his inflammatory markers were improving on yesterday's labs, today's labs are still pending today Patient was reevaluated today on 07/08/21, remains on high flow oxygen he is now at 60% FiO2, flow of 55 L/m, is also on a nonrebreather mask, patient seems to be doing better today compared to the last 2 days, less shortness of breath nonetheless is still requiring significant amount of oxygen. Patient remains on Baricitinib, Decadron, Eliquis, and overall minimal improvement noted over the last few days. Nonetheless the patient is not getting any worse. She count is 17.6 hemoglobin 15.4 electrolytes are normal renal profile is normal. 07/09/2021, the patient is been transferred to the intensive care unit. Note that this is a subsequent severe COVID 19 related to pneumonia with hypoxic respiratory failure. The patient also has developed subcutaneous emphysema and pneumomediastinum. Follow-up chest x-rays. The most recent chest x-ray from this morning shows essentially no clear indication for pneumothorax. Nevertheless, there is subcutaneous emphysema on the right and there is evidence of pneumomediastinum. Radiologist raised the concern for a persistent and enlarging right-sided pneumothorax was probably in the order of 10-15%. The jackie duarte remains on a combination of Decadron and Baricitinib per protocol. His been on that for at least a week for now. His most recent inflammatory markers reveal a LDH level of 1897 from 07/08/2021 and this was lower compared to earlier values and a CRP level is at 6.4.4. Meanwhile, his pro calcitonin level is low at 0.1, sodium level is at 136, BUN is at 23 with a creatinine of 0.6, the the cause of 70 with a hemoglobin of 12.9. In terms of medication, the patient remains on Decadron and Baricitinib per protocol. He remains on Eliquis 5 mg by mouth twice a day as the patient was found to have DVTs in the right lower extremity and his been on anticoagulation since. He has a positive DVT in the mid and distal popliteal vein. In terms of oxygen supplementation, he is on Airvo 60 L, FiO2 of 90% along with 100% nonrebreather facemask. Is able to speak sentences. His breathing is nonlabored. Respiratory rate is currently in the mid 20s. 07/10/2021, patient is being seen in follow-up in intensive care unit. This is a critically ill 50-year-old male patient with COVID 19 related pneumonia, with secondary hypoxic respiratory failure, and subsequent development of bilateral apical pneumothoraces that were small, saphenous emphysema and pneumomediastinum. The patient got transferred to the ICU yesterday because of worsening shortness of breath and worsening and oxygenation. He was Airvo at 60 L with an FiO2 of 90% in Addition to 100% on a Beta Facemasks. At the Time of My Evaluation Yesterday, the Patient Seemed to Be Comfortable and He Was Able to Speak Full Sentences and He Stated That His Breathing Was Not Labored. Nevertheless, in the stepdown nurse hours, the patient woke up with a coughing spell and subsequently he desaturated and he was unable to recover. At that point, he was switched to a BiPAP which is currently running at a pressure of 14/8 cm of water and FiO2 of 100%. He is breathing is labored. He is tachypneic. He is currently breathing in the mid 30s. His current pulse ox is in the low 80s. He is sitting up on a recliner. He is using some accessory muscles of breathing. He is anxious. He does not like the BiPAP which is making him quite claustrophobic Repeat chest x-ray from today shows essentially stable bilateral apical pneumothoraces and pneumomediastinum in addition to subcutaneous emphysema seen in the right chest and neck area. The patient remains hemodynamically stable. The patient remains on a combination of De cadron and Baricitinib per protocol. The patient remains on Eliquis 5 mg by mouth twice a day as he was found to have DVT of the right lower extremity. He does have a DVT in the mid and the distal popliteal vein noted on the Doppler of the lower extremities. He is afebrile. On his blood work from today, the patient has a white count of 21.3 with a hemoglobin of 12.9 which is essentially compatible to yesterday, predicted consistent 64, d-dimer was elevated at 28.5, his LDH level is at 1698 and compared to earlier values, it still elevated although lower compared to the earlier lab and his LFTs are essentially within normal limits. BUN is at 28 with a creatinine of 0.6. He is on IV fluids which is currently running at 10 mL an hour. He is receiving Xanax on an as-needed basis for increased anxiety. He seems to be quite anxious while on the BiPAP. He is able to generate volumes of around 600 at least while breathing on a BiPAP full face mask. Objective - Vital Signs Vital signs: Vital Signs Temp 97.7 F 07/10/21 00:00 Pulse 110 H 07/10/21 07:00 Resp 37 H 07/10/21 07:00 BP 131/82 07/10/21 07:00 Pulse Ox 81 L 07/10/21 07:00 Intake & Output 07/09/21 07/10/21 07/10/21 18:59 06:59 18:59 Intake Total 1075 325 0 Output Total 600 850 0 Balance 475 -525 0 Weight 121 kg Intake: IV 0 0 0 Sodium Chloride 0.9% 1, 0 0 0 000 ml @ 10 mls/hr IV . Q24H [facility] Rx#:[id number] Oral 1075 325 Output: Urine 600 850 0 Other: Voiding Method Urinal Urinal # Voids 0 0 - Exam acute distress, oriented 3. The patient is currently on a BiPAP at a pressure of 14/8cm water and FiO2 100%. He looks short of breath and anxious. HEENT examination is grossly unremarkable. Neck supple. Full range of motion. No adenopathy thyromegaly or neck vein distention. Cardiovascular examination reveals regular rhythm rate. S1-S2 normal. No S3 or S4. No discernible murmur noted. Heart sounds are distant. Lungs reveal diffuse bilateral coarse rhonchi. Scattered crackles at the bases. No wheezes. Breath sounds are equal bilaterally. The patient has some limited to case emphysema along the right chest area. The patient has crackles in the lower lung vines bilaterally. The patient is tachypneic. The patient is using some excessive muscle of breathing. Abdomen soft bowel sounds are heard. No masses or tenderness. Extremities are intact. No cyanosis clubbing or edema. Skin is without rash or lesion. Neurologic examination is brief but nonfocal. - Labs CBC & Chem 7: 07/10/21 03:38 07/10/21 03:38 Labs: Abnormal Lab Results - Last 24 Hours (Table) 07/09/21 07/09/21 07/09/21 Range/Units 07:31 07:31 11:47 WBC 17.0 H (3.8-10.6) k/uL RBC 4.06 L (4.30-5.90) m/uL Hgb 12.9 L (13.0-17.5) gm/dL Hct 38.9 L (39.0-53.0) % Neutrophils # 15.6 H (1.3-7.7) k/uL Lymphocytes # 0.6 L (1.0-4.8) k/uL D-Dimer (<0.60) mg/L FEU Sodium 136 L (137-145) mmol/L Carbon Dioxide 34 H (22-30) mmol/L BUN 23 H (9-20) mg/dL Creatinine 0.64 L (0.66-1.25) mg/dL Glucose 103 H (74-99) mg/dL POC Glucose (mg/dL) 125 H (75-99) mg/dL Calcium 8.3 L (8.4-10.2) mg/dL Lactate Dehydrogenase (313-618) U/L C-Reactive Protein (<1.0) mg/dL Total Protein 6.2 L (6.3-8.2) g/dL Albumin 2.8 L (3.5-5.0) g/dL 07/09/21 07/09/21 07/10/21 Range/Units 16:41 20:11 03:38 WBC 21.3 H (3.8-10.6) k/uL RBC 4.08 L (4.30-5.90) m/uL Hgb 12.9 L (13.0-17.5) gm/dL Hct (39.0-53.0) % Neutrophils # 18.9 H (1.3-7.7) k/uL Lymphocytes # 0.9 L (1.0-4.8) k/uL D-Dimer (<0.60) mg/L FEU Sodium (137-145) mmol/L Carbon Dioxide (22-30) mmol/L BUN (9-20) mg/dL Creatinine (0.66-1.25) mg/dL Glucose (74-99) mg/dL POC Glucose (mg/dL) 152 H 117 H (75-99) mg/dL Calcium (8.4-10.2) mg/dL Lactate Dehydrogenase (313-618) U/L C-Reactive Protein (<1.0) mg/dL Total Protein (6.3-8.2) g/dL Albumin (3.5-5.0) g/dL 07/10/21 07/10/21 Range/Units 03:38 03:38 WBC (3.8-10.6) k/uL RBC (4.30-5.90) m/uL Hgb (13.0-17.5) gm/dL Hct (39.0-53.0) % Neutrophils # (1.3-7.7) k/uL Lymphocytes # (1.0-4.8) k/uL D-Dimer 28.53 H (<0.60) mg/L FEU Sodium 135 L (137-145) mmol/L Carbon Dioxide 32 H (22-30) mmol/L BUN 28 H (9-20) mg/dL Creatinine (0.66-1.25) mg/dL Glucose (74-99) mg/dL POC Glucose (mg/dL) (75-99) mg/dL Calcium (8.4-10.2) mg/dL Lactate Dehydrogenase 1698 H (313-618) U/L C-Reactive Protein 2.7 H (<1.0) mg/dL Total Protein 6.1 L (6.3-8.2) g/dL Albumin 2.8 L (3.5-5.0) g/dL Assessment and Plan Plan: 1 Acute hypoxemic respiratory failure, secondary to coronavirus associated pneumonia. The patient presented with diffuse bilateral pulmonary infiltrates and hypoxic respiratory failure. Since yesterday, the patient has been requiring more oxygen and currently is on Airvo 60 liters Fio2 90 of oxygen in addition to 100% on a facemask to maintain a saturation above 90%. . He is on a combination of Decadron and Baricitinib for now. Doppler of the lower extremity was positive for DVT and the patient is on Eliquis. Note that over the past 48 hours, the patient's condition is decompensated. Initially got t ransferred to the intensive care unit where he was placed on high flow oxygen with 60 L and FiO2 of 90% in combination with 100% nonrebreather facemask. Subsequently, earlier this morning, he was switched to BiPAP at a pressure of 14/8 cm of water with an FiO2 of 100%. He is tachypneic. He is anxious. His hypoxic. He is on Precedex which is currently running at point for microvascular kilogram per minute. Is same time, inflammatory markers remain elevated including d-dimer and LDH. Chest x-ray showing bilateral apical pneumothoraces, stable. The patient has evidence of pneumomediastinum, the patient has evidence of subcutaneous emphysema involving the neck and the right lateral chest area which seems to be stable compared to yesterday. Obviously, the patient's condition is decompensated. High likelihood for intubation mechanical ventilation over the next 8-12 hours. 2 acute COVID 19 related pneumonia 3 History of chronic bronchial asthma. 4 Previous history of tobacco use. 5 History of C5-C6 fusion. 6 History of transverse myelitis. 7 History of DVT, December 2007 Plan Continue BiPAP at the same setting Keep the Precedex at a dose of 0.4 microvascular kilogram per minute and titrate for anxiety synchrony with the BiPAP Obtain a blood gases while the patient on a BiPAP Continue the combination of Decadron Baricitinib Continue anticoagulation Dear the patient dose of Lasix 40 mg IV push Consider possibility of superinfection and stop the Baricitinib for this patient and start IV cefepime 2 g every 12 hours Check a pro-calcitonin level Continue Decadron dose to 6 mg IV every 24 hours. Eliquis 5 mg BID IV fluids to KVO Continue vitamin C and vitamin D and zinc supplements NovoLog insulin for blood sugar control per sliding scale coverage We'll continue to follow. I'm going to contact the , Shyla and updated condition. High likelihood that the patient may decompensate further adequate intubation mechanical ventilation with the next few hours. We'll continue to follow this case here in the ICU. Carries a high risk for mortality based on his progressive decline and decompensated this occurred over the past several days. There is a critically care evaluation that was on a more than 30 minutes. More recommendations to follow. Time with Patient: Greater than 30
[2021-07-10] MEDS: ASCORBIC ACID 500 MG TAB PO SCH (07:59)
[2021-07-10] MEDS: APIXABAN 5 MG TAB PO SCH ×2 (07:59→20:11)
[2021-07-10] MEDS: CHOLECALCIFEROL 25 MCG (1000 IU) TABLET PO SCH (08:00)
[2021-07-10] MEDS: DEXAMETHASONE SOD PHOSPHATE 10 MG/ML 1 ML VIAL IVP SCH (08:00)
[2021-07-10] MEDS: ZINC SULFATE 220 MG CAP PO SCH (08:00)
[2021-07-10] MEDS: ALBUTEROL HFA INHALER INHALATION SCH ×4 (08:23→19:48)
[2021-07-10] MEDS: SYMBICORT 80-4.5 MCG INHALER INHALATION SCH ×2 (08:23→19:48)
--- NOTE | 2021-07-10 08:25 | XR ---
EXAMINATION TYPE: XR chest 1V portable DATE OF EXAM: 07/10/2021 COMPARISON: 07/09/2021 HISTORY: Shortness of breath TECHNIQUE: Single frontal view of the chest is obtained. FINDINGS: Stable right-sided pneumothorax estimated at 10%. Subcutaneous emphysema persists. Bilateral airspace and interstitial infiltrates persist unchanged. Cardiomediastinal silhouette is stable. IMPRESSION: 1. Stable chest
[2021-07-10] MEDS ORDERED: FUROSEMIDE 10 MG/ML 4 ML VIAL IV STA (09:31)
[2021-07-10] MEDS: CEFEPIME 2 GM in SODIUM CHLORIDE 0.9% 100 ML IVPB SCH ×2 (09:35→20:11)
[2021-07-10 10:14] LABS: ABG Base Excess 12.4 mmol/L; ABG HCO3 35 mmol/L (21-25); ABG Oxygen Saturation 84.6 % (94-97); ABG PCO2 44 mmHg (35-45); ABG PH 7.51 (7.35-7.45); ABG TCO2 37 mmol/L (19-24); Allen Test Performed? Yes
[2021-07-10 10:16] LABS: ABG PO2 46 mmHg (83-108)
[2021-07-10] MEDS ORDERED: CISATRACURIUM 2 MG/ML 5 ML VIAL IV ONE (10:27)
[2021-07-10] MEDS ORDERED: propofoL 100 ML IV ONE (10:27)
[2021-07-10] MEDS ORDERED: NOREPINEPHRIN 4 MG-0.9% NS PMX 4 MG/250 ML ML IV ONE (10:41)
--- NOTE | 2021-07-10 11:20 | P.PCN ---
Date of Procedure: 07/10/21 Operative Findings: Date of Procedure: 07/10/21 Operative Findings: Preoperative Diagnosis: COVID 19 pneumonia Postoperative Diagnosis: COVID 19 pneumonia Procedure(s) Performed: Intubation, insertion of a arterial line, insertion of central line Anesthesia: JAMARCUS Surgeon: Emile Isbell Estimated Blood Loss (ml): 0 Pathology: other Condition: critical Disposition: ICU Operative Findings: Intubation Indication: Respiratory compromise. A time-out was completed verifying correct patient, procedure, site, positioning, and implant(s) or special equipment if applicable. The scope was used to complete this intubation process. The patient was positioned appropriately and a #8 endotracheal tube was placed under direct laryngoscopy. The tube was anchored at 22 cm at the teeth. Correct placement was confirmed by presence of bilateral breath sounds without air sounds in the abdomen on auscultation. An end-tidal CO2 monitor was also used to confirm tr acheal placement of the ET tube. A chest x-ray was ordered to assess for pneumothorax and verify endotracheal tube placement. The patient tolerated the procedure well and there were no complications. Arterial Line Indication: Hemodynamic monitoring. A time-out was completed verifying correct patient, procedure, site, positioning, and implant(s) or special equipment if applicable. Allens test was performed to ensure adequate perfusion. The patients right wrist was prepped and draped in sterile fashion. 1% Lidocaine was used to anesthetize the area. An 18G Arrow arterial line was introduced into the radial artery. The catheter was threaded over the guide wire and the needle was removed with appropriate pulsatile blood return. Blood loss was minimal. The catheter was then sutured in place to the skin and a sterile dressing applied. Perfusion to the extremity distal to the point of catheter insertion was checked and found to be adequate. The patient tolerated the procedure well and there were no complications. Central Line Indication: Hemodynamic monitoring/Intravenous access. A time-out was completed verifying correct patient, procedure, site, positioning, and implant(s) or special equipment if applicable. The patient was placed in a dependent position appropriate for central line placement based on the vein to be cannulated. The patient s left shoulder was prepped and draped in sterile fashion. 1% Lidocaine was used to anesthetize the surrounding skin area. A triple lumen 9F Cordis catheter was introduced into the subclavian vein using Seldinger technique. The catheter was threaded smoothly over the guide wire and appropriate blood return was obtained. Each lumen of the catheter was evacuated of air and flushed with sterile saline. The catheter was then sutured in place to the skin and a sterile dressing applied. Perfusion to the extremity distal to the point of catheter insertion was checked and found to be adequate. The patient tolerated the procedure well and there were no complications.
--- NOTE | 2021-07-10 11:45 | XR ---
EXAMINATION TYPE: XR chest 1V portable DATE OF EXAM: 07/10/2021 COMPARISON: 07/10/2021 HISTORY: Shortness of breath TECHNIQUE: Single frontal view of the chest is obtained. FINDINGS: Diffuse subcutaneous emphysema noted in suspicion for pneumomediastinum stable relative to prior. Right-sided less than 5% apical pneumothorax suspected. Diffuse bilateral airspace disease wi th small effusion noted. ET and NG tube stable. Left-sided central line noted with the tip overlying the SVC. IMPRESSION: 1. Left-sided central line seen with the tip overlying the SVC. 2. Diffuse bilateral airspace disease, subcutaneous emphysema, pneumomediastinum, and less than 5% ri ght right-sided pneumothorax stable.
[2021-07-10] MEDS: FLUCONAZOLE IN NACL,ISO-OSM 100 MG in SALINE 1 50ML.BAG IVPB SCH (11:47)
[2021-07-10] MEDS: CISATRACURIUM 200 MG in SODIUM CHLORIDE 0.9% 180 ML IV SCH ×2 (12:29→22:21)
[2021-07-10 13:06] LABS: ABG Base Excess 6.6 mmol/L; ABG HCO3 34 mmol/L (21-25); ABG Oxygen Saturation 93.2 % (94-97); ABG PH 7.26 (7.35-7.45); ABG PO2 80 mmHg (83-108); ABG TCO2 36 mmol/L (19-24)
[2021-07-10 13:07] LABS: ABG PCO2 75 mmHg (35-45)
[2021-07-10] MEDS: fentaNYL (PF). 1,000 MCG in SODIUM CHLORIDE 0.9% 80 ML IV SCH ×2 (13:38→20:12)
[2021-07-10] MEDS ORDERED: SODIUM CHLORIDE 0.9% 1,000 ML IV ONE ×5 (14:00→18:30)
[2021-07-10] MEDS: NOREPINEPHRINE 8 MG in SODIUM CHLORIDE 0.9% 250 ML IV SCH ×3 (14:03→16:44)
[2021-07-10 14:12] LABS: Glucose,Whole Blood 189 mg/dL (75-99)
[2021-07-10] MEDS ORDERED: SODIUM CHLORIDE 0.9% 150 ML with VASOPRESSIN 60 UNIT IV SCH ×2 (15:00)
--- NOTE | 2021-07-10 15:11 | XR ---
EXAMINATION TYPE: XR chest 1V portable DATE OF EXAM: 07/10/2021 Comparison: 07/10/2021, earlier today Clinical History: 50-year-old male increased oxygen demands, previous pneumothorax Findings: Extensive subcutaneous emphysema persists. ET tube satisfactory. NG tube is short. It can be advanced further by 8 cm so that the sidehole enters the stomach. Left subclavian CVC tip not clearly seen be yond the upper SVC level. Heart borderline in size. Diffuse interstitial and patchy and confluent airspace opacities persist. S mall right apical pneumothorax slightly larger now a 2.0 cm versus 1.4 cm, earlier today. Trace left apical pneumothorax is now seen measuring 1.1 cm. Impression: 1. Small right apical pneumothorax slightly larger at 2.0 cm versus 1.4 cm earlier today. Trace left apical pneumothorax now seen measuring 1.1 cm. Findings called to Nurse Frey on 2SICU at 3:03pm. 2. Persistent extensive subcutaneous emphysema, slightly increased. 3. Diffuse interstitial along with patchy and confluent airspace disease persists 4. Advance NG tube so that the sidehole into the stomach. Advance by 8 cm.
[2021-07-10] MEDS: ARTIFICIAL TEARS-HYPROMELLOSE DROPS 15 ML BTL BOTH EYES SCH ×2 (15:35→20:15)
[2021-07-10 15:58] LABS: African American GFR (CKD) >90 (>60 ml/min/1.73 sqM); Anion Gap 4 mmol/L; Blood Urea Nitrogen 33 mg/dL (9-20); Calcium 7.7 mg/dL (8.4-10.2); Carbon Dioxide 30 mmol/L (22-30); Chloride 101 mmol/L (98-107); Glucose 217 mg/dL (74-99); Non-African American GFR(CKD) 83 (>60 ml/min/1.73 sqM); Potassium 5.4 mmol/L (3.5-5.1); Sodium 135 mmol/L (137-145)
[2021-07-10 16:28] LABS: Amorphous Sediment,Urine Occasional /hpf; Appearance,Urine Cloudy (Clear); Bilirubin,Urine Negative (Negative); Blood,Urine Small (Negative); Color,Urine Yellow; Glucose,Urine (UA) Negative (Negative); Hyaline Casts,Urine 3 /lpf (0-2); Ketones,Urine Negative (Negative); Leukocyte Esterase,Urine Negative (Negative); Mucus,Urine Rare /hpf; Nitrite,Urine Negative (Negative); PH, Urine 5.5 (5.0-8.0); Protein,Urine 1+ (Negative); RBC,Urine 18 /hpf (0-5); Specific Gravity,Urine 1.023 (1.001-1.035); Squamous Epithelial Cell,Urine <1 /hpf (0-4); WBC,Urine 6 /hpf (0-5)
[2021-07-10] MEDS: SODIUM CHLORIDE 0.9% 150 ML with VASOPRESSIN 60 UNIT IV SCH ×2 (18:00)
[2021-07-10 18:04] LABS: Glucose,Whole Blood 195 mg/dL (75-99)
[2021-07-10] MEDS ORDERED: SODIUM BICARB 8.4% 50 ML SYR (1 MEQ/ML) IV STA ×2 (18:15)
[2021-07-10 18:45] LABS: Basophils # (A) 0.1 k/uL (0-0.2); Basophils % (A) 0 %; Eosinophils % (A) 0 %; HCT 41.5 % (39.0-53.0); HGB 13.3 gm/dL (13.0-17.5); Hypochromasia Slight; Lymphocytes # (A) 0.5 k/uL (1.0-4.8); Lymphocytes % (A) 1 %; MCH 31.7 pg (25.0-35.0); MCHC 32.1 g/dL (31.0-37.0); MCV 98.8 fL (80.0-100.0); Mean Platelet Volume 7.8; Monocytes # (A) 1.4 k/uL (0-1.0); Monocytes % (A) 4 %; Neutrophils # (A) 37.8 k/uL (1.3-7.7); Neutrophils % (A) 95 %; Platelet Count 362 k/uL (150-450); RDW 12.4 % (11.5-15.5)
[2021-07-10] MEDS ORDERED: Magnesium Replacement Protocol 1 EACH MISC MISCELLANE PRN (19:50)
[2021-07-10] MEDS: MAGNESIUM SULFATE-D5W PMX 1 GM in DEXTROSE/WATER 1 100ML.BAG IVPB SCH ×2 (20:11→21:32)
[2021-07-10] MEDS: CHLORHEXIDINE GLUCONATE 15 ML CUP MUCOUS MEM SCH (20:11)
[2021-07-10] MEDS ORDERED: VANCOMYCIN IV PER PHARMACY 1 EACH MISC MISCELLANE PRN (20:11)
[2021-07-10] MEDS ORDERED: SODIUM CHLORIDE 0.9% 2,000 ML IV ONE (20:21)
[2021-07-10] MEDS ORDERED: ALBUMIN HUMAN 5% 250 ML in EMPTY BAG 1 BAG IVPB ONE ×2 (20:21→20:22)
[2021-07-10] MEDS: NOREPINEPHRINE 32 MG in SODIUM CHLORIDE 0.9% 218 ML IV SCH (22:12)
[2021-07-10] MEDS: VANCOMYCIN 2,000 MG in SODIUM CHLORIDE 0.9% 500 ML 500 ML IVPB SCH (22:20)
[2021-07-10 23:59] LABS: Glucose,Whole Blood 161 mg/dL (75-99)
--- NOTE | 2021-07-11 00:03 | PN ---
PROGRESS NOTE DATE OF SERVICE: 07/10/2021 REASON FOR FOLLOWUP: Acute aspiration pneumonia. INTERVAL HISTORY: Patient did spike a fever this morning of 100.9. Patient also had worsening of his respiratory status requiring intubation. The patient did have a right-sided chest tube. The patient is currently on pressor support. FiO2 is currently 100%. No significant purulent secretions in the ET or diarrhea reported by nursing staff. PHYSICAL EXAMINATION: Blood pressure is 83/54 with a pulse of 108, temperature of 98, T-max is 100.8. He is 93% on 100% FiO2. General description is a middle-aged male intubated on the vent. Respiratory system: Unlabored breathing, decreased intensity of breath sounds, no wheeze. Heart S1, S2. Regular rate and rhythm. Abdomen: Soft, no tenderness. LABORATORY DATA: Hemoglobin 13.3, white count 14 thousand, BUN of 33, creatinine 1.06. DIAGNOSTIC IMPRESSION AND PLAN: Patient with acute respiratory failure secondary to acute COVID-19 pneumonia. This patient did have significant worsening of his clinical condition and has developed a pneumothorax, status post right-sided chest tube placement. Empiric antibiotic has been added. However, cefepime and vanco will be continued while watching his kidney function closely. Prognosis remains to be guarded. MMODL / IJN: [id number] /
[2021-07-11] MEDS: ARTIFICIAL TEARS-HYPROMELLOSE DROPS 15 ML BTL BOTH EYES SCH ×7 (00:32→23:58)
[2021-07-11] MEDS: INSULIN ASPART (NovoLOG) 100 UNIT/ML VIAL SQ SCH ×5 (00:32→23:57)
[2021-07-11] MEDS: fentaNYL (PF). 1,000 MCG in SODIUM CHLORIDE 0.9% 80 ML IV SCH ×3 (02:52→16:47)
[2021-07-11 04:23] LABS: Glucose,Whole Blood 155 mg/dL (75-99)
[2021-07-11 05:15] LABS: Basophils % (A) 0 %; Eosinophils % (A) 0 %; HCT 39.4 % (39.0-53.0); HGB 12.5 gm/dL (13.0-17.5); Hypochromasia Slight; Lymphocytes # (A) 0.5 k/uL (1.0-4.8); Lymphocytes % (A) 2 %; MCH 31.5 pg (25.0-35.0); MCHC 31.7 g/dL (31.0-37.0); MCV 99.7 fL (80.0-100.0); Monocytes # (A) 1.3 k/uL (0-1.0); Monocytes % (A) 4 %; Neutrophils # (A) 26.5 k/uL (1.3-7.7); Neutrophils % (A) 93 %; Platelet Count 342 k/uL (150-450); RBC 3.95 m/uL (4.30-5.90); RDW 12.5 % (11.5-15.5); WBC 28.4 k/uL (3.8-10.6)
[2021-07-11 05:31] LABS: Albumin 2.6 g/dL (3.5-5.0); Calcium 6.6 mg/dL (8.4-10.2); Magnesium 2.5 mg/dL (1.6-2.3); Potassium 5.8 mmol/L (3.5-5.1); Total Bilirubin 1.5 mg/dL (0.2-1.3); Total Protein 5.5 g/dL (6.3-8.2)
[2021-07-11 05:42] LABS: ABG Base Excess -4.5 mmol/L; ABG HCO3 24 mmol/L (21-25); ABG Oxygen Saturation 96.1 % (94-97); ABG PCO2 70 mmHg (35-45); ABG PO2 95 mmHg (83-108); ABG TCO2 27 mmol/L (19-24)
[2021-07-11 05:44] LABS: ABG PH 7.15 (7.35-7.45); Allen Test Performed? no
[2021-07-11] MEDS: NOREPINEPHRINE 32 MG in SODIUM CHLORIDE 0.9% 218 ML IV SCH ×2 (05:50→23:58)
[2021-07-11] MEDS ORDERED: ALBUMIN HUMAN 5% 500 ML in EMPTY BAG 1 BAG IVPB ONE (06:13)
[2021-07-11] MEDS ORDERED: SODIUM CHLORIDE 0.9% 2,000 ML IV ONE (06:13)
[2021-07-11] MEDS ORDERED: SODIUM BICARB 8.4% 50 ML SYR (1 MEQ/ML) IV STA ×2 (06:13→06:20)
[2021-07-11] MEDS: ALBUMIN HUMAN 5% 250 ML in EMPTY BAG 1 BAG IVPB SCH ×2 (06:24→07:32)
[2021-07-11] MEDS: DEXTROSE 5% IN WATER 1,000 ML with SODIUM BICARB (1 MEQ/ML) 150 ML IV SCH ×3 (06:46→21:07)
--- NOTE | 2021-07-11 06:51 | XR ---
EXAMINATION TYPE: XR chest 1V portable DATE OF EXAM: 07/11/2021 5:28 AM COMPARISON:Chest radiograph from one day prior. CLINICAL INDICATION:Male, 50 years old with history of Tube placement; TECHNIQUE: Frontal view of the chest. FINDINGS: Lungs/Pleura: The pneumothoraces are not definitively visualized on today's exam. Linear line right m ay represent pneumothorax bilaterally however overlying subcutaneous gas limits evaluation. Scattered airspace opacities are seen throughout the lungs. No evidence of large pleural effusion. Pulmonary vascularity: Unremarkable. Heart/mediastinum: Cardiomediastinal silhouette is unremarkable. Musculoskeletal: No acute osseous pathology. Other findings: Diffuse subcutaneous emphysema not significantly changed from one day prior scattered throughout the thorax. Lines/Tubes: Endotracheal tube with distal tip 7.1 cm above the colin Nasogastric tube with its distal tip and side-port projecting under the diaphragm. Left-sided PICC with distal tip at the brachiocephalic vein. IMPRESSION: 1. Persistent bilateral airspace opacities. 2. Diffuse subcutaneous emphysema not significantly changed. 3. Pneumothoraces not definitely visualized continued attention on follow-up imaging.
--- NOTE | 2021-07-11 07:03 | P.PN ---
Subjective Progress Note Date: 07/11/21 The patient is seen today 07/02/2021 in follow-up on the selective care unit. He is currently sitting up in a chair at the bedside. Awake and alert in no acute distress. He is still dyspneic with conversation. Dyspneic with exertion. He is still requiring 15 L high flow nasal cannula + nonrebreather mask. He was found to have a DVT in the right lower extremity. He is currently on Eliquis. He remains on Baricitinib, Decadron, bronchodilators and vitamin supplements. The patient is seen today 07/03/2021 in follow-up on the selective care unit. he is currently sitting up in a chair at the bedside. Awake and alert in mild respiratory distress. He is now on AirVo high flow oxygen at 55 L and 90% FiO2 plus a nonrebreather mask to maintain O2 saturations in the high 80s low 90s. He is afebrile. Hemodynamically stable.He is continued on Eliquis 10 mg twice a day. Remains on Baricitinib,IV Decadron every 12 hours, bronchodilators,vitamin supplements. white count 15.6. Hemoglobin 14.6. Lymphocytes 0.8. Sodium 138. Potassium 4.2. Creatinine 0.84. Last pro calcitonin 0.08. The patient is seen today 07/04/2021 in follow-up on the selective care unit. He is awake and alert. Continues in mild respiratory distress. He's up in a chair at the bedside. He is still requiring AirVo high flow oxygen at 55 L or 90% FiO2 along with 100% nonrebreather mask to maintain O2 saturations in the low 90s. He is doing about the same. He states he is not worse. Chest x-ray continues to reveal bilateral airspace disease. No evidence of pneumothorax. white count 15.5. Hemoglobin 13.3. Glipizide 0.3. Sodium 138. Potassium 4.7. Creatinine 0.67. AST 52. ALT 54. LDH 3232, C-reactive protein 14.8. D-dimer remains greater than 34. He is continued on Symbicort, albuterol. On Baricit inib. Anticoagulated with Eliquis. Remains on Decadron, vitamin supplements. Reevaluated today on 07/05/21, patient is basically about the same, remains on 90% FiO2, 55 L flow, has a nonrebreather mask in addition to airvo psychiatric the patient felt that his feeling better today compared to how he felt in the last 2 days. Patient remains on high flow oxygen remains on anticoagulation therapy/Eliquis remains on Baricitinib and on Decadron as well as the COVID-19 cocktail. On 07/06/2021 patient seen in follow-up on selective care unit, he remains on Airvo at 50 L and 70 percent, and nonrebreather mask, his pulse ox is 93-94%. She is sitting up in the chair, breathing comfortably, does not appear to be in any acute distress, no complete chest discomfort, occasional cough, he is afeb rile. Does get short of breath and coughing with activity. Overall FiO2 requirements have improved slightly, he currently continues on Baricitinib, Decadron 6 mg twice daily, he is on Eliquis for new diagnosis DVT at 10 mg twice daily, and inhaled bronchodilators. Today's labs have been reviewed his white count is improving and is down to 18.7, hemoglobin is 13.5, d-dimer still pending for today, yesterday's level was greater than 34.1. Electrolytes and renal profile are unremarkable. Inflammatory markers were improving on yesterday's labs On 07/07/2021 patient is seen in follow-up on selective care unit, she remains on high flow oxygen per Airvo at 65 L and FiO2 of 70% in addition to 100% nonrebreather mask, and his pulse ox is 92%, does not appear to be in any acute distress, sitting up in the recliner, he is talking to his on face time. He is awake and alert, oriented 3, afebrile, vital signs have been stable, occasional cough without phlegm production, no complaints of chest discomfort. Lung sounds reveal diffuse inspiratory crackles throughout the lung vines today . Overall he states he feels like he is slightly improved, no nausea vomiting or diarrhea, no abdominal pain, he is tolerating oral intake, he is currently on Baricitinib, decadron 6 mg twice daily, and Eliquis for newly diagnosed DVT, his inflammatory markers were improving on yesterday's labs, today's labs are still pending today Patient was reevaluated today on 07/08/21, remains on high flow oxygen he is now at 60% FiO2, flow of 55 L/m, is also on a nonrebreather mask, patient seems to be doing better today compared to the last 2 days, less shortness of breath nonetheless is still requiring significant amount of oxygen. Patient remains on Baricitinib, Decadron, Eliquis, and overall minimal improvement noted over the last few days. Nonetheless the patient is not getting any worse. She count is 17.6 hemoglobin 15.4 electrolytes are normal renal profile is normal. 07/09/2021, the patient is been transferred to the intensive care unit. Note that this is a subsequent severe COVID 19 related to pneumonia with hypoxic respiratory failure. The patient also has developed subcutaneous emphysema and pneumomediastinum. Follow-up chest x-rays. The most recent chest x-ray from this morning shows essentially no clear indication for pneumothorax. Nevertheless, there is subcutaneous emphysema on the right and there is evidence of pneumomediastinum. Radiologist raised the concern for a persistent and enlarging right-sided pneumothorax was probably in the order of 10-15%. The jackie duarte remains on a combination of Decadron and Baricitinib per protocol. His been on that for at least a week for now. His most recent inflammatory markers reveal a LDH level of 1897 from 07/08/2021 and this was lower compared to earlier values and a CRP level is at 6.4.4. Meanwhile, his pro calcitonin level is low at 0.1, sodium level is at 136, BUN is at 23 with a creatinine of 0.6, the the cause of 70 with a hemoglobin of 12.9. In terms of medication, the patient remains on Decadron and Baricitinib per protocol. He remains on Eliquis 5 mg by mouth twice a day as the patient was found to have DVTs in the right lower extremity and his been on anticoagulation since. He has a positive DVT in the mid and distal popliteal vein. In terms of oxygen supplementation, he is on Airvo 60 L, FiO2 of 90% along with 100% nonrebreather facemask. Is able to speak sentences. His breathing is nonlabored. Respiratory rate is currently in the mid 20s. 07/10/2021, patient is being seen in follow-up in intensive care unit. This is a critically ill 50-year-old male patient with COVID 19 related pneumonia, with secondary hypoxic respiratory failure, and subsequent development of bilateral apical pneumothoraces that were small, saphenous emphysema and pneumomediastinum. The patient got transferred to the ICU yesterday because of worsening shortness of breath and worsening and oxygenation. He was Airvo at 60 L with an FiO2 of 90% in Addition to 100% on a Beta Facemasks. At the Time of My Evaluation Yesterday, the Patient Seemed to Be Comfortable and He Was Able to Speak Full Sentences and He Stated That His Breathing Was Not Labored. Nevertheless, in the brake operator hours, the patient woke up with a coughing spell and subsequently he desaturated and he was unable to recover. At that point, he was switched to a BiPAP which is currently running at a pressure of 14/8 cm of water and FiO2 of 100%. He is breathing is labored. He is tachypneic. He is currently breathing in the mid 30s. His current pulse ox is in the low 80s. He is sitting up on a recliner. He is using some accessory muscles of breathing. He is anxious. He does not like the BiPAP which is making him quite claustrophobic Repeat chest x-ray from today shows essentially stable bilateral apical pneumothoraces and pneumomediastinum in addition to subcutaneous emphysema seen in the right chest and neck area. The patient remains hemodynamically stable. The patient remains on a combination of De cadron and Baricitinib per protocol. The patient remains on Eliquis 5 mg by mouth twice a day as he was found to have DVT of the right lower extremity. He does have a DVT in the mid and the distal popliteal vein noted on the Doppler of the lower extremities. He is afebrile. On his blood work from today, the patient has a white count of 21.3 with a hemoglobin of 12.9 which is essentially compatible to yesterday, predicted consistent 64, d-dimer was elevated at 28.5, his LDH level is at 1698 and compared to earlier values, it still elevated although lower compared to the earlier lab and his LFTs are essentially within normal limits. BUN is at 28 with a creatinine of 0.6. He is on IV fluids which is currently running at 10 mL an hour. He is receiving Xanax on an as-needed basis for increased anxiety. He seems to be quite anxious while on the BiPAP. He is able to generate volumes of around 600 at least while breathing on a BiPAP full face mask. 07/11/2021, the patient is critically ill in the intensive care unit. At this point in time, the patient is intubated on a mechanical ventilator. I had to intubate the patient yesterday because of worsening respiratory status, decomp ensation, hypoxemia, respiratory distress, tachypnea and altered mentation. He was intubated in the ICU immediately following that the patient was sedated and paralyzed. The patient was placed on a combination of propofol and fentanyl and Nimbex. He was also placed on a pressure control mode of mechanical ventilation. Few hours following his intubation, the patient became progressively more hypotensive and went into shock state with signs of multisystem organ failure. I suspected septic shock and I immediately stop the Baricitinib. I had ordered to start the patient on antibiotics with cefepime and later on vancomycin was added. Note that during the course of his resuscitation, the patient received a total of 8 L of normal saline, a total of 500cc of albumin and despite that he continued to be hypotensive and in shock state. The patient had to be placed on high-dose of pressors. In summary, this morning, the patient remains on sedation the patient is currently on protocol ru nning at 50 g kilogram per minute and the patient is also on fentanyl at 1.5 mg/kg/h. The patient is paralyzed with Nimbex at 1.5 Dave respiratory kilogram per minute. Is adequately paralyzed and sedated at this point in time. He remains on a pressure control mode of mechanical ventilation and his pressure control is set at 23 cm of water with a rate of 30 and FiO2 is currently at 100% with a PEEP of 15. The chest x-ray showing worsening of the subcutaneous emphysema no mediastinal. Nevertheless, there is no change in the tiny apical pneumothoraces that were seen earlier. ET tube remains in a good location. The patient has a triple-lumen cath in the left subclavian and the patient has an orogastric tube in place. Blood gases showed a pH of 7.15 with a pCO2 of 70 and pO2 of 94 and this was done earlier this morning. Clinically, he does have some subcutaneous emphysema in his neck and the chest and arms bilaterally. Hemodynamically, he remains in shock and multisystem organ failure. The patient is currently on norepinephrine infusion running at 0.5 Dave respiratory kilogram per minute and the patient is on vasopressin physiologic dose. Urine output is in order of 20-30 mL an hour. He has having a temperature of 103.3 axillary. He is currently covered with accommodation cefepime and vancomycin. His white cell count came up to 40 and subsequently dropped down to 28.4 from this morning. He does have signs of shock liver and the cerumen total was at 1.5 with an AST of 1308 and the ALT of 1497 and alkaline phosphatase is 105. He also developed an acute kidney injury. Creatinine is up to 1.3. Potassium this morning is at 5.8 and the hyperkalemia is being managed and treated for now. The patient is receiving another 2 L of normal saline bolus this morning and he is going to receive 500 mL of albumin. His hyperkalemia is being treated with sodium bicarb and repeat potassium will be done accordingly and the patient will be switched to a bicarb infusion at the rate of 150 mL an hour. He remains nothing by mouth for now. He remains on Decadron. He remains on anticoagulation and the patient is currently on Eliquis 5 mg by mouth twice a day. Blood cultures of been sent and results are still pending. Sputum cultures are still pending. Family has been informed of these changes. Condition is critical. The patient is in obvious septic shock and multisystem organ failure. We'll obtain a stat echocardiogram to evaluate his LV function. Objective - Vital Signs Vital signs: Vital Signs Temp 103.3 F H 07/11/21 06:00 Pulse 125 H 07/11/21 06:00 Resp 30 H 07/11/21 06:00 BP 98/68 07/11/21 06:00 Pulse Ox 95 07/11/21 06:00 Intake & Output 07/10/21 07/10/21 07/11/21 06:59 18:59 06:59 Intake Total 325 4487.272 8482.048 Output Total 850 1610 727 Balance -525 2877.272 7755.048 Weight 121 kg 125.5 kg Intake: IV 0 3710 7860 Albumin 500 Cefepime 100 Fluid Bolus 4000 Magnesium 200 Pressure Bag 60 Sodium Chloride 0.9% 1, 0 3560 000 ml @ 10 mls/hr IV . Q24H [facility] Rx#:[id number] Sodium Chloride 0.9% 1, 150 2500 000 ml @ 150 mls/hr IV . Q6H40M [facility] Rx#:[id number] Vancomycin 2g/500 ml 500 Intake, IV Titration 677.272 622.048 Amount Cisatracurium 200 mg In 85.123 40.989 Sodium Chloride 0.9% 180 ml @ 1 MCG/KG/MIN 7.26 mls/hr IV .Q24H [facility] Rx#: [id number] Dexmedetomidine/0.9% NaCl 2.521 (Pmx) 400 mcg In Empty Bag 1 bag @ 0.2 MCG/KG/HR 6.05 mls/hr IV .F87Q00H [facility] Rx#:[id number] Norepinephrine 32 mg In 21.648 Sodium Chloride 0.9% 218 ml @ 0.05 MCG/KG/MIN 2. 836 mls/hr IV .Q24H [facility] Rx#:[id number] Norepinephrine 8 mg In 375.006 Sodium Chloride 0.9% 250 ml @ 0.05 MCG/KG/MIN 11. 707 mls/hr IV .Q22H3M [facility] Rx#:[id number] fentaNYL (PF). 1,000 mcg 14.622 185.378 In Sodium Chloride 0.9% 80 ml @ 0.5 MCG/KG/HR 6. 05 mls/hr IV .[id number] [facility] Rx#:[id number] propofoL 1,000 mg In 200.000 374.033 Empty Bag 1 bag @ Titrate IV .Q0M [facility] Rx#: [id number] Oral 325 100 0 Output: Urine 850 1610 727 Other: Voiding Method Urinal Indwelling Catheter Indwelling Catheter # Voids 0 ABP, PAP, CO, CI - Last Documented Arterial Blood Pressure 77/44 - Exam Patient is currently intubated on a mechanical ventilator. He is sedated and paralyzed. Orogastric and orotracheal tube are both in place. The patient is evidence of subcutaneous emphysema in his face neck chest and upper extremity is bilaterally. He has gained significant amount of weight in the order of 10 kg over the past 24 hours and this is essentially due to aggressive fluid resuscitation. HEENT examination is grossly unremarkable. Neck supple. Full range of motion. No adenopathy thyromegaly or neck vein distention. Cardiovascular examination reveals regular rhythm rate. S1-S2 normal. No S3 or S4. No discernible murmur noted. Heart sounds are distant. Lungs reveal diffuse bilateral coarse rhonchi. Scattered crackles at the bases. No wheezes. Breath sounds are equal bilaterally. The patient has some limited to case emphysema along the right chest area. The patient has crackles in the lower lung vines bilaterally. . Abdominal exam revealed normal bowel sounds. The abdomen was soft, non-tender, and without masses, organomegaly, or appreciable enlargement of the abdominal aorta. Extremities shows diminished pulses in all 4 extremities. Dexamethasone still cold. Pulses are present. There is trace edema and there is no cyanosis or clubbing at this point in time. Skin is without rash or lesion. Neurologic examination is limited as the patient is currently sedated and paralyzed. Pupils are equal and reactive to light. - Labs CBC & Chem 7: 07/11/21 04:20 07/11/21 04:20 Labs: Abnormal Lab Results - Last 24 Hours (Table) 07/10/21 07/10/21 07/10/21 Range/Units 10:10 13:00 14:07 WBC (3.8-10.6) k/uL RBC (4.30-5.90) m/uL Hgb (13.0-17.5) gm/dL Neutrophils # (1.3-7.7) k/uL Lymphocytes # (1.0-4.8) k/uL Monocytes # (0-1.0) k/uL ABG pH 7.51 H 7.26 L (7.35-7.45) ABG pCO2 75 H* (35-45) mmHg ABG pO2 46 L* 80 L (83-108) mmHg ABG HCO3 35 H 34 H (21-25) mmol/L ABG Total CO2 37 H 36 H (19-24) mmol/L ABG O2 Saturation 84.6 L 93.2 L (94-97) % Sodium (137-145) mmol/L Potassium (3.5-5.1) mmol/L BUN (9-20) mg/dL Creatinine (0.66-1.25) mg/dL Glucose (74-99) mg/dL POC Glucose (mg/dL) 189 H (75-99) mg/dL Calcium (8.4-10.2) mg/dL Magnesium (1.6-2.3) mg/dL Total Bilirubin (0.2-1.3) mg/dL AST (17-59) U/L ALT (4-49) U/L Troponin I (0.000-0.034) ng/mL Total Protein (6.3-8.2) g/dL Albumin (3.5-5.0) g/dL Procalcitonin (0.02-0.09) ng/mL Urine Protein (Negative) Urine Blood (Negative) Urine RBC (0-5) /hpf Urine WBC (0-5) /hpf Amorphous Sediment (None) /hpf Hyaline Casts (0-2) /lpf Urine Mucus (None) /hpf 07/10/21 07/10/21 07/10/21 Range/Units 15:22 15:22 15:38 WBC 40.0 H (3.8-10.6) k/uL RBC 4.20 L (4.30-5.90) m/uL Hgb (13.0-17.5) gm/dL Neutrophils # 37.8 H (1.3-7.7) k/uL Lymphocytes # 0.5 L (1.0-4.8) k/uL Monocytes # 1.4 H (0-1.0) k/uL ABG pH (7.35-7.45) ABG pCO2 (35-45) mmHg ABG pO2 (83-108) mmHg ABG HCO3 (21-25) mmol/L ABG Total CO2 (19-24) mmol/L ABG O2 Saturation (94-97) % Sodium 135 L (137-145) mmol/L Potassium 5.4 H (3.5-5.1) mmol/L BUN 33 H (9-20) mg/dL Creatinine (0.66-1.25) mg/dL Glucose 217 H (74-99) mg/dL POC Glucose (mg/dL) (75-99) mg/dL Calcium 7.7 L (8.4-10.2) mg/dL Magnesium (1.6-2.3) mg/dL Total Bilirubin (0.2-1.3) mg/dL AST (17-59) U/L ALT (4-49) U/L Troponin I (0.000-0.034) ng/mL Total Protein (6.3-8.2) g/dL Albumin (3.5-5.0) g/dL Procalcitonin 4.19 H (0.02-0.09) ng/mL Urine Protein (Negative) Urine Blood (Negative) Urine RBC (0-5) /hpf Urine WBC (0-5) /hpf Amorphous Sediment (None) /hpf Hyaline Casts (0-2) /lpf Urine Mucus (None) /hpf 07/10/21 07/10/21 07/10/21 Range/Units 15:38 15:45 18:02 WBC (3.8-10.6) k/uL RBC (4.30-5.90) m/uL Hgb (13.0-17.5) gm/dL Neutrophils # (1.3-7.7) k/uL Lymphocytes # (1.0-4.8) k/uL Monocytes # (0-1.0) k/uL ABG pH (7.35-7.45) ABG pCO2 (35-45) mmHg ABG pO2 (83-108) mmHg ABG HCO3 (21-25) mmol/L ABG Total CO2 (19-24) mmol/L ABG O2 Saturation (94-97) % Sodium (137-145) mmol/L Potassium (3.5-5.1) mmol/L BUN (9-20) mg/dL Creatinine (0.66-1.25) mg/dL Glucose (74-99) mg/dL POC Glucose (mg/dL) 195 H (75-99) mg/dL Calcium (8.4-10.2) mg/dL Magnesium (1.6-2.3) mg/dL Total Bilirubin (0.2-1.3) mg/dL AST (17-59) U/L ALT (4-49) U/L Troponin I 0.153 H* (0.000-0.034) ng/mL Total Protein (6.3-8.2) g/dL Albumin (3.5-5.0) g/dL Procalcitonin (0.02-0.09) ng/mL Urine Protein 1+ H (Negative) Urine Blood Small H (Negative) Urine RBC 18 H (0-5) /hpf Urine WBC 6 H (0-5) /hpf Amorphous Sediment Occasional H (None) /hpf Hyaline Casts 3 H (0-2) /lpf Urine Mucus Rare H (None) /hpf 07/10/21 07/11/21 07/11/21 Range/Units 23:56 04:20 04:20 WBC 28.4 H (3.8-10.6) k/uL RBC 3.95 L (4.30-5.90) m/uL Hgb 12.5 L (13.0-17.5) gm/dL Neutrophils # 26.5 H (1.3-7.7) k/uL Lymphocytes # 0.5 L (1.0-4.8) k/uL Monocytes # 1.3 H (0-1.0) k/uL ABG pH (7.35-7.45) ABG pCO2 (35-45) mmHg ABG pO2 (83-108) mmHg ABG HCO3 (21-25) mmol/L ABG Total CO2 (19-24) mmol/L ABG O2 Saturation (94-97) % Sodium (137-145) mmol/L Potassium 5.8 H (3.5-5.1) mmol/L BUN 34 H (9-20) mg/dL Creatinine 1.30 H (0.66-1.25) mg/dL Glucose 143 H (74-99) mg/dL POC Glucose (mg/dL) 161 H (75-99) mg/dL Calcium 6.6 L (8.4-10.2) mg/dL Magnesium 2.5 H (1.6-2.3) mg/dL Total Bilirubin 1.5 H (0.2-1.3) mg/dL AST 1308 H (17-59) U/L ALT 1497 H (4-49) U/L Troponin I (0.000-0.034) ng/mL Total Protein 5.5 L (6.3-8.2) g/dL Albumin 2.6 L (3.5-5.0) g/dL Procalcitonin (0.02-0.09) ng/mL Urine Protein (Negative) Urine Blood (Negative) Urine RBC (0-5) /hpf Urine WBC (0-5) /hpf Amorphous Sediment (None) /hpf Hyaline Casts (0-2) /lpf Urine Mucus (None) /hpf 07/11/21 07/11/21 Range/Units 04:21 05:40 WBC (3.8-10.6) k/uL RBC (4.30-5.90) m/uL Hgb (13.0-17.5) gm/dL Neutrophils # (1.3-7.7) k/uL Lymphocytes # (1.0-4.8) k/uL Monocytes # (0-1.0) k/uL ABG pH 7.15 L* (7.35-7.45) ABG pCO2 70 H (35-45) mmHg ABG pO2 (83-108) mmHg ABG HCO3 (21-25) mmol/L ABG Total CO2 27 H (19-24) mmol/L ABG O2 Saturation (94-97) % Sodium (137-145) mmol/L Potassium (3.5-5.1) mmol/L BUN (9-20) mg/dL Creatinine (0.66-1.25) mg/dL Glucose (74-99) mg/dL POC Glucose (mg/dL) 155 H (75-99) mg/dL Calcium (8.4-10.2) mg/dL Magnesium (1.6-2.3) mg/dL Total Bilirubin (0.2-1.3) mg/dL AST (17-59) U/L ALT (4-49) U/L Troponin I (0.000-0.034) ng/mL Total Protein (6.3-8.2) g/dL Albumin (3.5-5.0) g/dL Procalcitonin (0.02-0.09) ng/mL Urine Protein (Negative) Urine Blood (Negative) Urine RBC (0-5) /hpf Urine WBC (0-5) /hpf Amorphous Sediment (None) /hpf Hyaline Casts (0-2) /lpf Urine Mucus (None) /hpf Microbiology - Last 24 Hours (Table) 07/10/21 13:05 Sputum Culture - Preliminary Sputum Assessment and Plan Plan: 1 Acute hypoxemic respiratory failure, secondary to coronavirus associated pneumonia. The patient presented with diffuse bilateral pulmonary infiltrates and hypoxic respiratory failure. Since yesterday, the patient has been requiring more oxygen and currently is on Airvo 60 liters Fio2 90 of oxygen in addition to 100% on a facemask to maintain a saturation above 90%. . He is on a combination of Decadron and Baricitinib for now. Doppler of the lower extremity was positive for DVT and the patient is on Eliquis. Note that over the past 24-48 hours, the patient's condition decompensated. He got transferred to the intensive care unit. He was switched to BiPAP yesterday morning and subsequently further failed and by afternoon he had to be intubated and placed on mechanical ventilator. At this point in time, he is on a pressure control mode of mechanical ventilation. He has developed tiny apical pneumothoraces bilaterally. There is extensive subcutaneous emphysema which is worse on fred mariee's chest x-ray. He is oxygenating adequately at this point and he has adequate ventilation. Nevertheless, he has gone into shock and multisystem organ failure which is probably related to a septic shock events. The patient is being resuscitated accordingly. His condition is extremely critical at this point in time. 2 septic shock with multisystem organ failure. The patient is profoundly hy potensive currently on a combination of vasopressin and norepinephrine. The patient is also being resuscitated with fluids received a total of 9 L about 4 in addition to albumin and he is on broad-spectrum antibiotics. His blood pressure is soft and marginal at this point in time 3 acute metabolic and respiratory acidosis 4 acute kidney injury 5 acute hyperkalemia 6 shock liver secondary to above 7 history of bronchial asthma 8 history of transverse myelitis 9 DVT of the lower extremity currently on Eliquis 5 mg twice a day 10 acute leukocytosis 11 oropharyngeal candidiasis currently on Diflucan 12 fever Plan Extremely critical situation with multisystem organ failure. Overnight, we managed to reassess the patient aggressively. The active issue for now as his respiratory failure and septic shock and multisystem organ failure. continue the fluid resuscitation. The patient is already received 9 L and another liters will be given in addition to albumin. His urine output is marginal at this point in time. Give the patient is total of 150 mEq of sodium bicarbonate immediately and repeat the potassium level Consult nephrology regarding the acute kidney injury Start The patient a bicarb infusion at a rate of 150 mL an hour and repeat another set of electrolytes of around 10:00 today. Supported to touch base with nephrology regarding his oligoria and ongoing signs of renal failure. Continue pressors with a combination of vasopressin and norepinephrine infusion Obtain echocardiogram to evaluate his LV function Patient has developed leukocytosis and cultures of been sent and the results will be pending for now Continue cefepime vancomycin for now and the patient is also on fluconazole as the patient during intubation process was seen to have extensive amount of oropharyngeal candidiasis Continue Eliquis 5 mg by mouth twice a day Continue Decadron 6 mg daily 24 hours. The Baricitinib NovoLog insulin sliding scale coverage Monitor LFTs and rest of electrolytes Consult also infectious disease We'll continue to follow. I'm going to contact the , Shyla and updated condition. Condition is critical and the patient carries a very high mortality risk placed on above-mentioned comorbidities. This evaluation was done more than 30 minutes. Time with Patient: Greater than 30
[2021-07-11] MEDS: SODIUM CHLORIDE 0.9% 1,000 ML IV SCH ×2 (07:36→13:43)
[2021-07-11] MEDS: EPINEPHrine 4 MG in DEXTROSE 5% IN WATER 250 ML IV SCH ×2 (08:20)
[2021-07-11] MEDS: ALBUTEROL HFA INHALER INHALATION SCH ×4 (08:42→19:41)
[2021-07-11] MEDS: SYMBICORT 80-4.5 MCG INHALER INHALATION SCH ×2 (08:42→19:41)
[2021-07-11] MEDS: ACETAMINOPHEN IV (For NPO) 1,000 MG in EMPTY BAG 1 BAG IVPB PRN ×2 (08:45→18:26)
[2021-07-11 08:56] LABS: Glucose,Whole Blood 131 mg/dL (75-99)
[2021-07-11] MEDS ORDERED: FUROSEMIDE 10 MG/ML 10 ML VIAL IV STA (09:00)
--- NOTE | 2021-07-11 09:03 | P.NPCON ---
History of Present Illness - Reason for Consult acute renal failure - History of Present Illness Reason for consultation: Acute kidney injury History of present illness: Patient is a 50-year-old male seen in consultation for acute kidney injury. Patient presented to the hospital on 06/27/2021 with shortness of breath. He had tested positive for coronary 5 as prior to his admission. He presented to the hospital with fever or chills shortness of breath cough as well as muscle aches. Patient became progressively short of breath and was intubated on 07/10/2021. He has received 10 L of IV fluid as well as IV albumin in the last 24 hours. He is currently on Levophed and vasopressin and remains hypotensive. Epinephrine will be added as well. Urine output was about 70 mL an hour and in the last 2 hours he has made 55 mL of urine. He is currently maintained on isotonic bicarbonate drip running at 1 50 mL an hour. He also received 3 A of sodium bicarbonate IV push this morning. Potassium level this morning was 5.8. Vital signs - tachycardic. On vasopressor support. HEENT: Intubated. LUNGS: Breath sounds decreased. HEART: Tachycardic. ABDOMEN: Soft, no distention. EXTREMITITES: No edema. Past Medical History Past Medical History: Asthma Additional Past Medical History / Comment(s): tranverese mylitis History of Any Multi-Drug Resistant Organisms: None Reported Additional Past Surgical History / Comment(s): c5-c6 fusion, right hip replacment. Past Anesthesia/Blood Transfusion Reactions: No Reported Reaction Past Psychological History: No Psychological Hx Reported Smoking Status: Former smoker Past Alcohol Use History: None Reported Past Drug Use History: None Reported - Past Family History Mother Family Medical History: Myocardial Infarction ([place]), Vascular Disorder Father History Unknown: Yes Medications and Allergies Home Medications Medication Instructions Recorded Confirmed Type Albuterol Sulfate [Proair Hfa] 2 puff INHALATION RT-Q6H PRN 06/27/21 06/27/21 History Baclofen 10 mg PO BID 06/27/21 06/27/21 History Fluticasone Propion/Salmeterol 1 puff INHALATION RT-BID 06/27/21 06/27/21 History [Wixela 250-50 Inhub] Naproxen 500 mg PO BID 06/27/21 06/27/21 History oxyCODONE-APAP 5-325MG [Percocet 1 tab PO TID 06/27/21 06/27/21 History 5-325 mg] Allergies Allergy/AdvReac Type Severity Reaction Status Date / Time No Known Allergies Allergy Verified 06/27/21 12:56 Physical Exam Vitals: Vital Signs Temp Pulse Resp BP Pulse Ox 07/11/21 08:30 115 H 30 H 97 07/11/21 08:15 116 H 30 H 76/56 97 07/11/21 08:00 115 H 30 H 97 07/11/21 07:45 117 H 30 H 96 07/11/21 07:30 118 H 30 H 97 07/11/21 07:15 120 H 30 H 98 07/11/21 07:00 103.1 F H 121 H 30 H 92/64 98 07/11/21 06:45 122 H 30 H 97 07/11/21 06:30 129 H 30 H 95 07/11/21 06:15 125 H 30 H 96 07/11/21 06:00 103.3 F H 125 H 30 H 98/68 95 07/11/21 05:45 125 H 30 H 95 07/11/21 05:30 126 H 30 H 95 07/11/21 05:15 103.1 F H 128 H 30 H 95 07/11/21 05:00 128 H 30 H 101/69 95 07/11/21 04:45 102.7 F H 126 H 30 H 94 L 07/11/21 04:30 125 H 30 H 95 07/11/21 04:15 123 H 30 H 95 07/11/21 04:00 102.3 F H 122 H 30 H 104/67 95 07/11/21 03:45 123 H 30 H 95 07/11/21 03:30 121 H 30 H 95 07/11/21 03:15 120 H 30 H 96 07/11/21 03:00 118 H 30 H 103/62 96 07/11/21 02:45 117 H 30 H 96 07/11/21 02:30 117 H 30 H 96 07/11/21 02:15 117 H 30 H 95 07/11/21 02:00 115 H 30 H 104/76 96 07/11/21 01:45 115 H 30 H 96 07/11/21 01:30 115 H 30 H 96 07/11/21 01:15 113 H 30 H 96 07/11/21 01:00 115 H 30 H 98/63 96 07/11/21 00:45 112 H 30 H 95 07/11/21 00:30 113 H 30 H 96 07/11/21 00:15 112 H 30 H 96 07/11/21 00:00 99.7 F H 113 H 30 H 99/73 95 07/10/21 23:45 111 H 30 H 96 07/10/21 23:30 109 H 30 H 96 07/10/21 23:15 111 H 30 H 96 07/10/21 23:00 109 H 30 H 100/73 96 07/10/21 22:45 108 H 30 H 100/73 95 07/10/21 22:30 101 H 30 H 96 07/10/21 22:15 112 H 30 H 96 07/10/21 22:00 111 H 30 H 89/72 96 07/10/21 21:45 111 H 30 H 97 07/10/21 21:30 113 H 30 H 97 07/10/21 21:15 114 H 30 H 97 07/10/21 21:00 114 H 30 H 88/61 98 07/10/21 20:45 115 H 30 H 97 07/10/21 20:30 98.1 F 118 H 30 H 97 07/10/21 20:15 120 H 30 H 97 07/10/21 20:00 120 H 30 H 87/62 96 07/10/21 19:45 118 H 30 H 96 07/10/21 19:30 118 H 30 H 96 07/10/21 19:15 118 H 30 H 87/62 95 07/10/21 19:00 118 H 30 H 96 07/10/21 18:45 117 H 30 H 96 07/10/21 18:30 120 H 30 H 95 07/10/21 18:15 121 H 30 H 95/71 94 L 07/10/21 18:00 122 H 30 H 88/65 95 07/10/21 17:45 122 H 30 H 94 L 07/10/21 17:30 123 H 30 H 88/65 94 L 07/10/21 17:15 123 H 30 H 88/65 94 L 07/10/21 17:00 123 H 30 H 94 L 07/10/21 16:45 122 H 30 H 94 L 07/10/21 16:30 124 H 30 H 94 L 07/10/21 16:15 125 H 30 H 93/69 94 L 07/10/21 16:00 98.2 F 125 H 30 H 94 L 07/10/21 15:45 128 H 30 H 93 L 07/10/21 15:30 134 H 30 H 100/69 93 L 07/10/21 15:15 135 H 30 H 92 L 07/10/21 15:00 138 H 30 H 92 L 07/10/21 14:45 140 H 30 H 106/68 91 L 07/10/21 14:30 140 H 30 H 91 L 07/10/21 14:15 141 H 30 H 90 L 07/10/21 14:00 138 H 30 H 90 L 07/10/21 13:45 135 H 30 H 91 L 07/10/21 13:30 130 H 30 H 91 L 07/10/21 13:15 123 H 30 H 91 L 07/10/21 13:00 118 H 30 H 92 L 07/10/21 12:45 123 H 32 H 93 L 07/10/21 12:30 123 H 30 H 94 L 07/10/21 12:15 122 H 30 H 93 L 07/10/21 12:00 99 F 122 H 31 H 94 L 07/10/21 11:45 120 H 30 H 94 L 07/10/21 11:30 107 H 30 H 80/56 94 L 07/10/21 11:15 101 H 30 H 80/56 94 L 07/10/21 11:05 30 H 07/10/21 11:00 106 H 103/74 90 L 07/10/21 10:45 101 H 39 H 103/74 86 L 07/10/21 10:30 101 H 36 H 89/79 86 L 07/10/21 10:00 104 H 37 H 89/79 81 L 07/10/21 09:30 98 363 H 94/54 86 L 07/10/21 09:00 95 26 H 128/74 88 L Intake and Output 07/10/21 07/11/21 07/11/21 22:59 06:59 14:59 Intake Total 86815.419 2241.846 1323.412 Output Total 337 510 55 Balance 9990.419 1604.789 5463.412 Intake: IV 9637 1823 1322 Albumin 500 Cefepime 25 75 Fluid Bolus 4000 1000 Magnesium 200 Pressure Bag 12 48 12 Sodium Bicarbonate 300 Sodium Chloride 0.9% 1, 3450 000 ml @ 10 mls/hr IV . Q24H [facility] Rx#:[id number] Sodium Chloride 0.9% 1, 1450 1200 10 000 ml @ 150 mls/hr IV . Q6H40M [facility] Rx#:[id number] Vancomycin 2g/500 ml 500 Intake, IV Titration 690.419 418.846 1.412 Amount Cisatracurium 200 mg In 96.951 Sodium Chloride 0.9% 180 ml @ 1 MCG/KG/MIN 7.26 mls/hr IV .Q24H SE Rx#: [id number] EPINEPHrine 4 mg In 1.412 Dextrose 5% in Water 250 ml @ 0.01 MCG/KG/MIN 4. 706 mls/hr IV .Q24H [facility] Rx#:[id number] Norepinephrine 32 mg In 21.648 Sodium Chloride 0.9% 218 ml @ 0.05 MCG/KG/MIN 2. 836 mls/hr IV .Q24H [facility] Rx#:[id number] Norepinephrine 8 mg In 341.056 Sodium Chloride 0.9% 250 ml @ 0.05 MCG/KG/MIN 11. 707 mls/hr IV .Q22H3M [facility] Rx#:[id number] fentaNYL (PF). 1,000 mcg 85.378 100 In Sodium Chloride 0.9% 80 ml @ 0.5 MCG/KG/HR 6. 05 mls/hr IV .[id number] SE Rx#:[id number] propofoL 1,000 mg In 167.034 297.198 Empty Bag 1 bag @ Titrate IV .Q0M SE Rx#: [id number] Oral 0 0 0 Output: Urine 337 510 55 Other: Voiding Method Indwelling Catheter Indwelling Catheter Weight 125.5 kg ABP, PAP, CO, CI - Last 8 Hours Arterial Blood Pressure 73/44 Arterial Blood Pressure 68/44 Arterial Blood Pressure 67/42 Arterial Blood Pressure 71/43 Arterial Blood Pressure 68/43 Arterial Blood Pressure 71/44 Arterial Blood Pressure 76/47 Arterial Blood Pressure 78/49 Arterial Blood Pressure 97/59 Arterial Blood Pressure 77/44 Arterial Blood Pressure 77/44 Arterial Blood Pressure 75/46 Arterial Blood Pressure 74/47 Arterial Blood Pressure 81/46 Arterial Blood Pressure 84/74 Arterial Blood Pressure 84/48 Arterial Blood Pressure 90/51 Arterial Blood Pressure 94/49 Arterial Blood Pressure 94/51 Arterial Blood Pressure 90/53 Arterial Blood Pressure 93/50 Arterial Blood Pressure 90/52 Arterial Blood Pressure 89/54 Arterial Blood Pressure 90/54 Arterial Blood Pressure 91/55 Arterial Blood Pressure 96/54 Arterial Blood Pressure 90/60 Arterial Blood Pressure 94/57 Arterial Blood Pressure 92/56 Arterial Blood Pressure 94/58 Arterial Blood Pressure 84/65 Results - Lab Results Most recent lab results ABG pH 7.15 (7.35-7.45) L* 07/11/21 05:40 ABG pCO2 70 mmHg (35-45) H 07/11/21 05:40 ABG pO2 95 mmHg (83-108) 07/11/21 05:40 ABG HCO3 24 mmol/L (21-25) 07/11/21 05:40 ABG O2 Saturation 96.1 % (94-97) 07/11/21 05:40 Calcium 6.6 mg/dL (8.4-10.2) L 07/11/21 04:20 Magnesium 2.5 mg/dL (1.6-2.3) H 07/11/21 04:20 07/11/21 04:20 07/11/21 04:20 Assessment and Plan Plan: Assessment: 1. Acute kidney injury secondary to ATN secondary to septic shock. Baseline creatinine near 1 and is 1.3 today. Urine output dropping - 55 mL in the last 12 hours. 2. Septic shock secondary to COVID-19 infection with concern for superimposed b acterial infection. 3. Hyperkalemia secondary to acute kidney injury, nonsteroidals and acidosis. 4. Acute hypoxic and hypercapnic respiratory failure. 5. Metabolic acidosis secondary to acute kidney injury. Plan: Maintain bicarb drip. Add lokelma. Lasix 80 mg IV once today. Repeat potassium level this evening. Epinephrine will be added. Stop NSAIDs. Continue to monitor renal function and urine output. Continue to assess daily for need for renal replacement therapy. Currently hemodynamically unstable. Thank you for the consultation. I will continue to follow the patient with you during his hospital stay.
[2021-07-11] MEDS: APIXABAN 5 MG TAB PO SCH ×2 (09:10→21:08)
[2021-07-11] MEDS: ASCORBIC ACID 500 MG TAB PO SCH (09:10)
[2021-07-11] MEDS: CEFEPIME 2 GM in SODIUM CHLORIDE 0.9% 100 ML IVPB SCH ×2 (09:10→21:08)
[2021-07-11] MEDS: DEXAMETHASONE SOD PHOSPHATE 10 MG/ML 1 ML VIAL IVP SCH (09:11)
[2021-07-11] MEDS: CHOLECALCIFEROL 25 MCG (1000 IU) TABLET PO SCH (09:11)
[2021-07-11] MEDS: CHLORHEXIDINE GLUCONATE 15 ML CUP MUCOUS MEM SCH ×2 (09:11→21:08)
[2021-07-11] MEDS: PANTOPRAZOLE 40 MG/10 ML VIAL IVP SCH (09:12)
[2021-07-11] MEDS: ZINC SULFATE 220 MG CAP PO SCH (09:12)
[2021-07-11] MEDS: FLUCONAZOLE IN NACL,ISO-OSM 100 MG in SALINE 1 50ML.BAG IVPB SCH (09:14)
[2021-07-11] MEDS: SODIUM ZIRCONIUM CYCLOSILICATE 10 GM PACKET PO SCH ×2 (09:29→21:08)
[2021-07-11] MEDS: VANCOMYCIN 2,000 MG in SODIUM CHLORIDE 0.9% 500 ML 500 ML IVPB SCH (09:58)
[2021-07-11 10:11] LABS: INR 1.6 (<1.2); Prothrombin Time 15.7 sec (9.0-12.0)
[2021-07-11 10:34] LABS: Albumin 2.5 g/dL (3.5-5.0); Potassium 5.4 mmol/L (3.5-5.1); Total Bilirubin 1.4 mg/dL (0.2-1.3)
[2021-07-11 11:03] LABS: Calcium 6.2 mg/dL (8.4-10.2)
[2021-07-11] MEDS: SODIUM CHLORIDE 0.9% 150 ML with VASOPRESSIN 60 UNIT IV SCH ×4 (11:30→20:44)
[2021-07-11] MEDS ORDERED: DEXTROSE 5% IN WATER 1,000 ML IV ONE (12:25)
[2021-07-11 12:37] LABS: Glucose,Whole Blood 168 mg/dL (75-99)
[2021-07-11] MEDS ORDERED: CEFEPIME 2 GM in SODIUM CHLORIDE 0.9% 100 ML IVPB STA (14:40)
[2021-07-11] MEDS ORDERED: VORICONAZOLE IVPB SCH (16:00)
[2021-07-11] MEDS ORDERED: SODIUM CHLORIDE 0.9% IVPB SCH (16:00)
[2021-07-11] MEDS: CISATRACURIUM 200 MG in SODIUM CHLORIDE 0.9% 180 ML IV SCH (16:09)
[2021-07-11 17:02] LABS: Potassium 5.2 mmol/L (3.5-5.1)
[2021-07-11 17:04] LABS: Calcium 6.2 mg/dL (8.4-10.2)
[2021-07-11 19:01] LABS: Glucose,Whole Blood 222 mg/dL (75-99)
[2021-07-11 19:34] LABS: INR 1.4 (<1.2); Prothrombin Time 14.2 sec (9.0-12.0)
--- NOTE | 2021-07-11 20:10 | PN ---
PROGRESS NOTE DATE OF SERVICE: 07/11/2021 REASON FOR FOLLOWUP: 1. Covid 19 pneumonia. 2. Sepsis. INTERVAL HISTORY: Patient has been spiking fever since 4 in the morning. The patient is requiring maximal pressor support to maintain his blood pressure. FiO2 is currently at 60%. No significant purulent secretions in the ET or diarrhea or any other changes reported by nursing staff. EXAMINATION: Blood pressure 104/50 with a pulse of 106, temperature of 102. He is 97% on 60% FIO2. General description is a middle-aged male intubated on the vent. Respiratory system: Unlabored breathing, decreased intensity of breath sounds. No wheeze. Heart S1, S2. Regular rate and rhythm. Abdomen soft. No tenderness. Extremities: No edema of the feet. LABS: Hemoglobin is 12.4, white count 28.4 with a BUN of 44, creatinine is 2.177. Liver enzymes have jumped as well. DIAGNOSTIC IMPRESSION AND PLAN: Patient with acute respiratory failure, multifactorial in this patient who did have COVID-19 pneumonia now with concern for possible secondary bacterial pneumonia. The patient has been on broad spectrum antibiotic in the form of cefepime and Vanco and Diflucan , to cover for the aspergillosis. Voriconazole was considered with severe jump in his liver enzymes that will contraindicate the use of it. The patient is not a candidate or high-risk with . Overall prognosis remains to be poor at this point. Hence, we will continue with cefepime, Vanco and Diflucan and continue supportive care. MMODL / IJN: [id number] /
--- NOTE | 2021-07-11 21:59 | P.PN ---
Subjective Progress Note Date: 07/08/21 Principal diagnosis: Acute hypoxic respiratory failure secondary to COVID-19 pneumonia 07/06/2021 Patient evaluated sitting up in the chair, reports overall he is feeling slightly better. He was talking on the phone with family and appeared in good spirits. He continues on airvo at 50L with an FiO2 of 70% and in addition to a nonrebreather, oxygen saturation is 94%. He is afebrile, blood pressure 102/66. Labs reviewed today; white count of 18.7, sodium 137, potassium 4.5, CO2 32, sugars in the 110s. AST, ALT and alk phos have normalized. He continues on eliquis for a right leg DVT. There is still some peripheral edema to the right leg. Continues on baricitinib, bronchodilators, zinc, vitamins, decadron. He is being followed closely pulmonary and ID services. 07/07/2021 Patient had to sleep sitting up in the chair last night, his oxygen support was decreased slightly yesterday to 55L airvo from 60L airvo. Otherwise he is relatively stable where he is at. Chest xray today shows stable bilateral diffuse infiltrates. Could not exclude subtle pneumomediastinum. Correlate clinically. Labs reviewed today shows a WBC count of 18.3. He has some cough with minimal sputum production. Vitals today he is afebrile, heart rate 85 normal sinus rhythm, blood pressure 102/61, 91% on airvo with nonrebreather. He maintains in good spirits. 07/08/2021 Patient is in the select care unit. Requiring high flow oxygen 55 L/min with 60% FiO2. Patient became anxious and hypoxic in the afternoon and rapid response team was called him. Repeat chest x-ray showed right apical pneumothorax. Patient was transferred to MICU for close monitoring. Patient is being continued on dexamethasone and Eliquis. Also being continued on baricitinib. Laboratory data showed WBC 17.6 hemoglobin 13.4 and platelets 243 Sodium 136 potassium 4.5 chloride 99 bicarbonate 33 BUN 22 and creatinine 0.74 LDH 8074 and CRP 4.4 ROS Constitutional: Denied any fatigue denied any fever. Cardio vascular: denied any chest pain, palpitations Gastrointestinal denied any nausea vomiting Pulmonary: Reports congested cough, reports shortness of breath with exertion, minimally at rest. Neurologic denied any new focal deficits All inpatient medications were reviewed and appropriate changes in these medications as dictated in the history and assessment and plan. Objective - Vital Signs Vital signs: Vital Signs Temp 97.8 F 07/08/21 12:00 Pulse 80 07/08/21 12:00 Resp 24 07/08/21 12:00 BP 106/66 07/08/21 12:00 Pulse Ox 94 L 07/08/21 12:00 Intake & Output 07/07/21 07/08/21 07/08/21 18:59 06:59 18:59 Intake Total 480 236 Output Total 1000 1000 600 Balance -520 -1000 -364 Intake: Oral 480 236 Output: Urine 1000 1000 600 Other: Voiding Method Urinal Urinal - Exam PHYSICAL EXAMINATION: GENERAL: The patient is alert and oriented x3, no acute distress. Well developed, well nourished. HEENT: Pupils are round and equally reacting to light. EOMI. No scleral icterus. No conjunctival pallor. Normocephalic, atraumatic. No pharyngeal erythema. No thyromegaly. CARDIOVASCULAR: S1 and S2 present. No murmurs, rubs, or gallops. PULMONARY: Coarse scattered rhonchi ABDOMEN: Soft, nontender, nondistended, normoactive bowel sounds. No palpable organomegaly. MUSCULOSKELETAL: No joint swelling or deformity. EXTREMITIES: No cyanosis, clubbing, right leg peripheral edema. NEUROLOGICAL: Gross neurological examination did not reveal any focal deficits. SKIN: No rashes. - Labs CBC & Chem 7: 07/11/21 04:20 07/11/21 16:15 Labs: Abnormal Lab Results - Last 24 Hours (Table) 07/07/21 07/07/21 07/07/21 Range/Units 09:13 16:44 20:02 WBC (3.8-10.6) k/uL RBC (4.30-5.90) m/uL Neutrophils # (1.3-7.7) k/uL Lymphocytes # (1.0-4.8) k/uL Sodium (137-145) mmol/L Carbon Dioxide (22-30) mmol/L BUN (9-20) mg/dL Glucose (74-99) mg/dL POC Glucose (mg/dL) 167 H 104 H (75-99) mg/dL ALT (4-49) U/L Lactate Dehydrogenase (313-618) U/L C-Reactive Protein (<1.0) mg/dL Albumin (3.5-5.0) g/dL Procalcitonin 0.10 H (0.02-0.09) ng/mL 07/08/21 07/08/21 07/08/21 Range/Units 06:06 07:39 07:39 WBC 17.6 H (3.8-10.6) k/uL RBC 4.16 L (4.30-5.90) m/uL Neutrophils # 16.3 H (1.3-7.7) k/uL Lymphocytes # 0.6 L (1.0-4.8) k/uL Sodium 136 L (137-145) mmol/L Carbon Dioxide 33 H (22-30) mmol/L BUN 22 H (9-20) mg/dL Glucose 111 H (74-99) mg/dL POC Glucose (mg/dL) 111 H (75-99) mg/dL ALT 51 H (4-49) U/L Lactate Dehydrogenase 1897 H (313-618) U/L C-Reactive Protein 4.4 H (<1.0) mg/dL Albumin 3.0 L (3.5-5.0) g/dL Procalcitonin (0.02-0.09) ng/mL 07/08/21 Range/Units 11:36 WBC (3.8-10.6) k/uL RBC (4.30-5.90) m/uL Neutrophils # (1.3-7.7) k/uL Lymphocytes # (1.0-4.8) k/uL Sodium (137-145) mmol/L Carbon Dioxide (22-30) mmol/L BUN (9-20) mg/dL Glucose (74-99) mg/dL POC Glucose (mg/dL) 158 H (75-99) mg/dL ALT (4-49) U/L Lactate Dehydrogenase (313-618) U/L C-Reactive Protein (<1.0) mg/dL Albumin (3.5-5.0) g/dL Procalcitonin (0.02-0.09) ng/mL Assessment and Plan Assessment: Acute hypoxic respiratory failure secondary to COVID 19 pneumonia requiring oxygen support with 55L with FiO2 70% and nonrebreather mask. Right apical pneumothorax estimated at less than 10% and subcutaneous emphysema Acute DVT right lower extremity; on eliquis started this admission Elevated DD, CTA negative for PE, positive DVT Elevated liver enzymes possibly due to systemic inflammation, resolved Elevated inflammatory markers secondary to COVID 19, improving History of DVT History of asthma, not in acute exacerbation Remote history of nicotine dependence History of transverse myelitis History of C5-C6 fusion Obesity GI Prophylaxis: Protonix DVT Prophylaxis: Eliquis FULL CODE Plan Patient is being transferred to MICU. Repeat chest x-ray showed right apical pneumothorax. Continue decadron, vitamins, Baricitinib Eliquis for DVT Repeat labs in AM Incentive spirometry Continue all other supportive care Cont with PT/OT consultation Prognosis remains guarded Time with Patient: Greater than 30
[2021-07-11] MEDS ORDERED: VANCOMYCIN IV PER PHARMACY 1 EACH MISC MISCELLANE PRN (22:00)
--- NOTE | 2021-07-11 22:03 | P.PN ---
Subjective Progress Note Date: 07/09/21 Principal diagnosis: Acute hypoxic respiratory failure secondary to COVID-19 pneumonia 07/06/2021 Patient evaluated sitting up in the chair, reports overall he is feeling slightly better. He was talking on the phone with family and appeared in good spirits. He continues on airvo at 50L with an FiO2 of 70% and in addition to a nonrebreather, oxygen saturation is 94%. He is afebrile, blood pressure 102/66. Labs reviewed today; white count of 18.7, sodium 137, potassium 4.5, CO2 32, sugars in the 110s. AST, ALT and alk phos have normalized. He continues on eliquis for a right leg DVT. There is still some peripheral edema to the right leg. Continues on baricitinib, bronchodilators, zinc, vitamins, decadron. He is being followed closely pulmonary and ID services. 07/07/2021 Patient had to sleep sitting up in the chair last night, his oxygen support was decreased slightly yesterday to 55L airvo from 60L airvo. Otherwise he is relatively stable where he is at. Chest xray today shows stable bilateral diffuse infiltrates. Could not exclude subtle pneumomediastinum. Correlate clinically. Labs reviewed today shows a WBC count of 18.3. He has some cough with minimal sputum production. Vitals today he is afebrile, heart rate 85 normal sinus rhythm, blood pressure 102/61, 91% on airvo with nonrebreather. He maintains in good spirits. 07/08/2021 Patient is in the select care unit. Requiring high flow oxygen 55 L/min with 60% FiO2. Patient became anxious and hypoxic in the afternoon and rapid response team was called him. Repeat chest x-ray showed right apical pneumothorax. Patient was transferred to MICU for close monitoring. Patient is being continued on dexamethasone and Eliquis. Also being continued on baricitinib. Laboratory data showed WBC 17.6 hemoglobin 13.4 and platelets 243 Sodium 136 potassium 4.5 chloride 99 bicarbonate 33 BUN 22 and creatinine 0.74 LDH 8074 and CRP 4.4 07/09/2021 Patient is currently in the MICU. Awake alert and oriented x3. Able to speak. Sitting in the chair. Requiring high flow oxygen currently. on Airvo 60 L at 90% FiO2 with 100% nonrebreather facemask. Chest x-ray showed no pneumothorax today. There is subcutaneous emphysema on the right and evidence of pneumomediastinum. Patient is being continued on dexamethasone and baricitinib and Eliquis due to DVT diagnosed on admission. Laboratory data showed WBC 17.0 hemoglobin 12.9 and platelets 260 BUN 73 and creatinine 0.64 ROS Constitutional: Denied any fatigue denied any fever. Cardio vascular: denied any chest pain, palpitations Gastrointestinal denied any nausea vomiting Pulmonary: Reports congested cough, reports shortness of breath with exertion, minimally at rest. Neurologic denied any new focal deficits All inpatient medications were reviewed and appropriate changes in these medications as dictated in the history and assessment and plan. Objective - Vital Signs Vital signs: Vital Signs Temp 97.3 F L 07/09/21 20:00 Pulse 71 07/09/21 21:00 Resp 22 07/09/21 21:00 BP 115/70 07/09/21 21:00 Pulse Ox 94 L 07/09/21 21:00 Intake & Output 07/09/21 07/09/21 07/10/21 06:59 18:59 06:59 Intake Total 1080 1075 0 Output Total 1425 600 350 Balance -345 475 -350 Weight 119 kg Intake: IV 0 0 0 Sodium Chloride 0.9% 1, 0 0 0 000 ml @ 10 mls/hr IV . Q24H [facility] Rx#:[id number] Oral 1075 Tube Feeding 1080 Output: Urine 1425 600 350 Other: Voiding Method Urinal Urinal Urinal # Voids 0 0 0 - Exam PHYSICAL EXAMINATION: GENERAL: The patient is alert and oriented x3, no acute distress. Well developed, well nourished. HEENT: Pupils are round and equally reacting to light. EOMI. No scleral icterus. No conjunctival pallor. Normocephalic, atraumatic. No pharyngeal erythema. No thyromegaly. CARDIOVASCULAR: S1 and S2 present. No murmurs, rubs, or gallops. PULMONARY: Coarse scattered rhonchi ABDOMEN: Soft, nontender, nondistended, normoactive bowel sounds. No palpable organomegaly. MUSCULOSKELETAL: No joint swelling or deformity. EXTREMITIES: No cyanosis, clubbing, right leg peripheral edema. NEUROLOGICAL: Gross neurological examination did not reveal any focal deficits. SKIN: No rashes. - Labs CBC & Chem 7: 07/11/21 04:20 07/11/21 16:15 Labs: Abnormal Lab Results - Last 24 Hours (Table) 07/09/21 07/09/21 07/09/21 Range/Units 06:01 07:31 07:31 WBC 17.0 H (3.8-10.6) k/uL RBC 4.06 L (4.30-5.90) m/uL Hgb 12.9 L (13.0-17.5) gm/dL Hct 38.9 L (39.0-53.0) % Neutrophils # 15.6 H (1.3-7.7) k/uL Lymphocytes # 0.6 L (1.0-4.8) k/uL Sodium 136 L (137-145) mmol/L Carbon Dioxide 34 H (22-30) mmol/L BUN 23 H (9-20) mg/dL Creatinine 0.64 L (0.66-1.25) mg/dL Glucose 103 H (74-99) mg/dL POC Glucose (mg/dL) 129 H (75-99) mg/dL Calcium 8.3 L (8.4-10.2) mg/dL Total Protein 6.2 L (6.3-8.2) g/dL Albumin 2.8 L (3.5-5.0) g/dL 07/09/21 07/09/21 07/09/21 Range/Units 11:47 16:41 20:11 WBC (3.8-10.6) k/uL RBC (4.30-5.90) m/uL Hgb (13.0-17.5) gm/dL Hct (39.0-53.0) % Neutrophils # (1.3-7.7) k/uL Lymphocytes # (1.0-4.8) k/uL Sodium (137-145) mmol/L Carbon Dioxide (22-30) mmol/L BUN (9-20) mg/dL Creatinine (0.66-1.25) mg/dL Glucose (74-99) mg/dL POC Glucose (mg/dL) 125 H 152 H 117 H (75-99) mg/dL Calcium (8.4-10.2) mg/dL Total Protein (6.3-8.2) g/dL Albumin (3.5-5.0) g/dL Assessment and Plan Assessment: Acute hypoxic respiratory failure secondary to COVID 19 pneumonia requiring oxygen support with 60L with FiO2 90% and nonrebreather mask. Right apical pneumothorax estimated at less than 10% and subcutaneous emphysema Acute DVT right lower extremity; on eliquis started this admission Elevated DD, CTA negative for PE, positive DVT Elevated liver enzymes possibly due to systemic inflammation, resolved Elevated inflammatory markers secondary to COVID 19, improving History of DVT History of asthma, not in acute exacerbation Remote history of nicotine dependence History of transverse myelitis History of C5-C6 fusion Obesity GI Prophylaxis: Protonix DVT Prophylaxis: Eliquis FULL CODE Plan Patient is being transferred to MICU. Repeat chest x-ray showed right apical pneumothorax. Continue decadron, vitamins, Baricitinib Eliquis for DVT Repeat labs in AM Incentive spirometry Continue all other supportive care Cont with PT/OT consultation Prognosis remains guarded Time with Patient: Greater than 30
--- NOTE | 2021-07-11 22:09 | P.PN ---
Subjective Progress Note Date: 07/10/21 Principal diagnosis: Acute hypoxic respiratory failure secondary to COVID-19 pneumonia 07/06/2021 Patient evaluated sitting up in the chair, reports overall he is feeling slightly better. He was talking on the phone with family and appeared in good spirits. He continues on airvo at 50L with an FiO2 of 70% and in addition to a nonrebreather, oxygen saturation is 94%. He is afebrile, blood pressure 102/66. Labs reviewed today; white count of 18.7, sodium 137, potassium 4.5, CO2 32, sugars in the 110s. AST, ALT and alk phos have normalized. He continues on eliquis for a right leg DVT. There is still some peripheral edema to the right leg. Continues on baricitinib, bronchodilators, zinc, vitamins, decadron. He is being followed closely pulmonary and ID services. 07/07/2021 Patient had to sleep sitting up in the chair last night, his oxygen support was decreased slightly yesterday to 55L airvo from 60L airvo. Otherwise he is relatively stable where he is at. Chest xray today shows stable bilateral diffuse infiltrates. Could not exclude subtle pneumomediastinum. Correlate clinically. Labs reviewed today shows a WBC count of 18.3. He has some cough with minimal sputum production. Vitals today he is afebrile, heart rate 85 normal sinus rhythm, blood pressure 102/61, 91% on airvo with nonrebreather. He maintains in good spirits. 07/08/2021 Patient is in the select care unit. Requiring high flow oxygen 55 L/min with 60% FiO2. Patient became anxious and hypoxic in the afternoon and rapid response team was called him. Repeat chest x-ray showed right apical pneumothorax. Patient was transferred to MICU for close monitoring. Patient is being continued on dexamethasone and Eliquis. Also being continued on baricitinib. Laboratory data showed WBC 17.6 hemoglobin 13.4 and platelets 243 Sodium 136 potassium 4.5 chloride 99 bicarbonate 33 BUN 22 and creatinine 0.74 LDH 8074 and CRP 4.4 07/09/2021 Patient is currently in the MICU. Awake alert and oriented x3. Able to speak. Sitting in the chair. Requiring high flow oxygen currently. on Airvo 60 L at 90% FiO2 with 100% nonrebreather facemask. Chest x-ray showed no pneumothorax today. There is subcutaneous emphysema on the right and evidence of pneumomediastinum. Patient is being continued on dexamethasone and baricitinib and Eliquis due to DVT diagnosed on admission. Laboratory data showed WBC 17.0 hemoglobin 12.9 and platelets 260 BUN 73 and creatinine 0.64 [id number] Patient is in the MICU. Was requiring BiPAP last night. Patient woke up with coughing spell and subsequently desaturated and unable to recover. He was switched to BiPAP and eventually went into respiratory failure. Patient was intubated in the afternoon. Chest x-ray in the morning showed stable chest. Repeat chest x-ray showed left- sided central line. Diffuse bilateral airspace disease subcutaneous emphysema pneumomediastinum and less than 5% right-sided pneumothorax stable. Patient is being current dexamethasone, baricitinib and Eliquis. Laboratory data showed WBC 40.0 hemoglobin 13.3 and platelets 362 ABGs showed pH 7.26 PCO2 75 PO2 80 and sodium 135 potassium 4.3 chloride 99 bicarb is 32 BUN 28 and creatinine 0.69 LDH 1698 CRP 2.7 and procalcitonin level is 0.06 Review of systems could not be obtained from the patient at this time. All inpatient medications were reviewed and appropriate changes in these medications as dictated in the history and assessment and plan. Objective - Vital Signs Vital signs: Vital Signs Temp 98.1 F 07/10/21 20:30 Pulse 108 H 07/10/21 22:45 Resp 30 H 07/10/21 22:45 BP 100/73 07/10/21 22:45 Pulse Ox 95 07/10/21 22:45 Intake & Output 07/10/21 07/10/21 07/11/21 06:59 18:59 06:59 Intake Total 325 4487.272 6090.202 Output Total 850 1610 217 Balance -525 2877.272 5873.202 Weight 121 kg Intake: IV 0 3710 5887 Albumin 500 Cefepime 25 Fluid Bolus 4000 Magnesium 200 Pressure Bag 12 Sodium Chloride 0.9% 1, 0 3560 000 ml @ 10 mls/hr IV . Q24H SE Rx#:[id number] Sodium Chloride 0.9% 1, 150 1150 000 ml @ 150 mls/hr IV . Q6H40M SE Rx#:[id number] Intake, IV Titration 677.272 203.202 Amount Cisatracurium 200 mg In 85.123 40.989 Sodium Chloride 0.9% 180 ml @ 1 MCG/KG/MIN 7.26 mls/hr IV .Q24H SE Rx#: [id number] Dexmedetomidine/0.9% NaCl 2.521 (Pmx) 400 mcg In Empty Bag 1 bag @ 0.2 MCG/KG/HR 6.05 mls/hr IV .[id number] SE Rx#:[id number] Norepinephrine 8 mg In 375.006 Sodium Chloride 0.9% 250 ml @ 0.05 MCG/KG/MIN 11. 707 mls/hr IV .Q22H3M SE Rx#:[id number] fentaNYL (PF). 1,000 mcg 14.622 85.378 In Sodium Chloride 0.9% 80 ml @ 0.5 MCG/KG/HR 6. 05 mls/hr IV .[id number] SE Rx#:[id number] propofoL 1,000 mg In 200.000 76.835 Empty Bag 1 bag @ Titrate IV .Q0M SE Rx#: [id number] Oral 325 100 0 Output: Urine 850 1610 217 Other: Voiding Method Urinal Indwelling Catheter # Voids 0 ABP, PAP, CO, CI - Last Documented Arterial Blood Pressure 88/60 - Exam PHYSICAL EXAMINATION: GENERAL: Patient is currently on mechanical mechanical ventilator sedated and intubated.. HEENT: Pupils are round and equally reacting to light. EOMI. No scleral icterus. No conjunctival pallor. Normocephalic, atraumatic. No pharyngeal erythema. No thyromegaly. CARDIOVASCULAR: S1 and S2 present. No murmurs, rubs, or gallops. PULMONARY: Coarse scattered rhonchi ABDOMEN: Soft, nontender, nondistended, normoactive bowel sounds. No palpable organomegaly. MUSCULOSKELETAL: No joint swelling or deformity. EXTREMITIES: No cyanosis, clubbing, right leg peripheral edema. NEUROLOGICAL: Gross neurological examination did not reveal any focal deficits. SKIN: No rashes. - Labs CBC & Chem 7: 07/11/21 04:20 07/11/21 16:15 Labs: Abnormal Lab Results - Last 24 Hours (Table) 07/10/21 07/10/21 07/10/21 Range/Units 03:38 03:38 03:38 WBC 21.3 H (3.8-10.6) k/uL RBC 4.08 L (4.30-5.90) m/uL Hgb 12.9 L (13.0-17.5) gm/dL Neutrophils # 18.9 H (1.3-7.7) k/uL Lymphocytes # 0.9 L (1.0-4.8) k/uL Monocytes # (0-1.0) k/uL D-Dimer 28.53 H (<0.60) mg/L FEU ABG pH (7.35-7.45) ABG pCO2 (35-45) mmHg ABG pO2 (83-108) mmHg ABG HCO3 (21-25) mmol/L ABG Total CO2 (19-24) mmol/L ABG O2 Saturation (94-97) % Sodium 135 L (137-145) mmol/L Potassium (3.5-5.1) mmol/L Carbon Dioxide 32 H (22-30) mmol/L BUN 28 H (9-20) mg/dL Glucose (74-99) mg/dL POC Glucose (mg/dL) (75-99) mg/dL Calcium (8.4-10.2) mg/dL Lactate Dehydrogenase 1698 H (313-618) U/L Troponin I (0.000-0.034) ng/mL C-Reactive Protein 2.7 H (<1.0) mg/dL Total Protein 6.1 L (6.3-8.2) g/dL Albumin 2.8 L (3.5-5.0) g/dL Procalcitonin (0.02-0.09) ng/mL Urine Protein (Negative) Urine Blood (Negative) Urine RBC (0-5) /hpf Urine WBC (0-5) /hpf Amorphous Sediment (None) /hpf Hyaline Casts (0-2) /lpf Urine Mucus (None) /hpf 07/10/21 07/10/21 07/10/21 Range/Units 10:10 13:00 14:07 WBC (3.8-10.6) k/uL RBC (4.30-5.90) m/uL Hgb (13.0-17.5) gm/dL Neutrophils # (1.3-7.7) k/uL Lymphocytes # (1.0-4.8) k/uL Monocytes # (0-1.0) k/uL D-Dimer (<0.60) mg/L FEU ABG pH 7.51 H 7.26 L (7.35-7.45) ABG pCO2 75 H* (35-45) mmHg ABG pO2 46 L* 80 L (83-108) mmHg ABG HCO3 35 H 34 H (21-25) mmol/L ABG Total CO2 37 H 36 H (19-24) mmol/L ABG O2 Saturation 84.6 L 93.2 L (94-97) % Sodium (137-145) mmol/L Potassium (3.5-5.1) mmol/L Carbon Dioxide (22-30) mmol/L BUN (9-20) mg/dL Glucose (74-99) mg/dL POC Glucose (mg/dL) 189 H (75-99) mg/dL Calcium (8.4-10.2) mg/dL Lactate Dehydrogenase (313-618) U/L Troponin I (0.000-0.034) ng/mL C-Reactive Protein (<1.0) mg/dL Total Protein (6.3-8.2) g/dL Albumin (3.5-5.0) g/dL Procalcitonin (0.02-0.09) ng/mL Urine Protein (Negative) Urine Blood (Negative) Urine RBC (0-5) /hpf Urine WBC (0-5) /hpf Amorphous Sediment (None) /hpf Hyaline Casts (0-2) /lpf Urine Mucus (None) /hpf 07/10/21 07/10/21 07/10/21 Range/Units 15:22 15:22 15:38 WBC 40.0 H (3.8-10.6) k/uL RBC 4.20 L (4.30-5.90) m/uL Hgb (13.0-17.5) gm/dL Neutrophils # 37.8 H (1.3-7.7) k/uL Lymphocytes # 0.5 L (1.0-4.8) k/uL Monocytes # 1.4 H (0-1.0) k/uL D-Dimer (<0.60) mg/L FEU ABG pH (7.35-7.45) ABG pCO2 (35-45) mmHg ABG pO2 (83-108) mmHg ABG HCO3 (21-25) mmol/L ABG Total CO2 (19-24) mmol/L ABG O2 Saturation (94-97) % Sodium 135 L (137-145) mmol/L Potassium 5.4 H (3.5-5.1) mmol/L Carbon Dioxide (22-30) mmol/L BUN 33 H (9-20) mg/dL Glucose 217 H (74-99) mg/dL POC Glucose (mg/dL) (75-99) mg/dL Calcium 7.7 L (8.4-10.2) mg/dL Lactate Dehydrogenase (313-618) U/L Troponin I (0.000-0.034) ng/mL C-Reactive Protein (<1.0) mg/dL Total Protein (6.3-8.2) g/dL Albumin (3.5-5.0) g/dL Procalcitonin 4.19 H (0.02-0.09) ng/mL Urine Protein (Negative) Urine Blood (Negative) Urine RBC (0-5) /hpf Urine WBC (0-5) /hpf Amorphous Sediment (None) /hpf Hyaline Casts (0-2) /lpf Urine Mucus (None) /hpf 07/10/21 07/10/21 07/10/21 Range/Units 15:38 15:45 18:02 WBC (3.8-10.6) k/uL RBC (4.30-5.90) m/uL Hgb (13.0-17.5) gm/dL Neutrophils # (1.3-7.7) k/uL Lymphocytes # (1.0-4.8) k/uL Monocytes # (0-1.0) k/uL D-Dimer (<0.60) mg/L FEU ABG pH (7.35-7.45) ABG pCO2 (35-45) mmHg ABG pO2 (83-108) mmHg ABG HCO3 (21-25) mmol/L ABG Total CO2 (19-24) mmol/L ABG O2 Saturation (94-97) % Sodium (137-145) mmol/L Potassium (3.5-5.1) mmol/L Carbon Dioxide (22-30) mmol/L BUN (9-20) mg/dL Glucose (74-99) mg/dL POC Glucose (mg/dL) 195 H (75-99) mg/dL Calcium (8.4-10.2) mg/dL Lactate Dehydrogenase (313-618) U/L Troponin I 0.153 H* (0.000-0.034) ng/mL C-Reactive Protein (<1.0) mg/dL Total Protein (6.3-8.2) g/dL Albumin (3.5-5.0) g/dL Procalcitonin (0.02-0.09) ng/mL Urine Protein 1+ H (Negative) Urine Blood Small H (Negative) Urine RBC 18 H (0-5) /hpf Urine WBC 6 H (0-5) /hpf Amorphous Sediment Occasional H (None) /hpf Hyaline Casts 3 H (0-2) /lpf Urine Mucus Rare H (None) /hpf Assessment and Plan Assessment: Acute hypoxic respiratory failure secondary to COVID 19 pneumonia requiring oxygen support with 60L with FiO2 90% and nonrebreather mask--> BIPAP. Intubated on 07/10/2021 Right apical pneumothorax estimated at less than 10% and subcutaneous emphysema Acute DVT right lower extremity; on eliquis started this admission Elevated DD, CTA negative for PE, positive DVT Elevated liver enzymes possibly due to systemic inflammation, resolved Elevated inflammatory markers secondary to COVID 19, improving History of DVT History of asthma, not in acute exacerbation Remote history of nicotine dependence History of transverse myelitis History of C5-C6 fusion Obesity GI Prophylaxis: Protonix DVT Prophylaxis: Eliquis FULL CODE Plan [facility] Continue decadron, vitamins, Baricitinib Eliquis for DVT Repeat labs in AM Incentive spirometry Continue all other supportive care Cont with PT/OT consultation Prognosis remains guarded Time with Patient: Greater than 30
--- NOTE | 2021-07-11 22:16 | P.PN ---
Subjective Progress Note Date: 07/11/21 Principal diagnosis: Acute hypoxic respiratory failure secondary to COVID-19 pneumonia 07/06/2021 Patient evaluated sitting up in the chair, reports overall he is feeling slightly better. He was talking on the phone with family and appeared in good spirits. He continues on airvo at 50L with an FiO2 of 70% and in addition to a nonrebreather, oxygen saturation is 94%. He is afebrile, blood pressure 102/66. Labs reviewed today; white count of 18.7, sodium 137, potassium 4.5, CO2 32, sugars in the 110s. AST, ALT and alk phos have normalized. He continues on eliquis for a right leg DVT. There is still some peripheral edema to the right leg. Continues on baricitinib, bronchodilators, zinc, vitamins, decadron. He is being followed closely pulmonary and ID services. 07/07/2021 Patient had to sleep sitting up in the chair last night, his oxygen support was decreased slightly yesterday to 55L airvo from 60L airvo. Otherwise he is relatively stable where he is at. Chest xray today shows stable bilateral diffuse infiltrates. Could not exclude subtle pneumomediastinum. Correlate clinically. Labs reviewed today shows a WBC count of 18.3. He has some cough with minimal sputum production. Vitals today he is afebrile, heart rate 85 normal sinus rhythm, blood pressure 102/61, 91% on airvo with nonrebreather. He maintains in good spirits. 07/08/2021 Patient is in the [facility]. Requiring high flow oxygen 55 L/min with 60% FiO2. Patient became anxious and hypoxic in the afternoon and rapid response team was called him. Repeat chest x-ray showed right apical pneumothorax. Patient was transferred to MICU for close monitoring. Patient is being continued on dexamethasone and Eliquis. Also being continued on baricitinib. Laboratory data showed WBC 17.6 hemoglobin 13.4 and platelets 243 Sodium 136 potassium 4.5 chloride 99 bicarbonate 33 BUN 22 and creatinine 0.74 LDH 8074 and CRP 4.4 07/09/2021 Patient is currently in the MICU. Awake alert and oriented x3. Able to speak. Sitting in the chair. Requiring high flow oxygen currently. on Airvo 60 L at 90% FiO2 with 100% nonrebreather facemask. Chest x-ray showed no pneumothorax today. There is subcutaneous emphysema on the right and evidence of pneumomediastinum. Patient is being continued on dexamethasone and baricitinib and Eliquis due to DVT diagnosed on admission. Laboratory data showed WBC 17.0 hemoglobin 12.9 and platelets 260 BUN 73 and creatinine 0.64 [id number] Patient is in the MICU. Was requiring BiPAP last night. Patient woke up with coughing spell and subsequently desaturated and unable to recover. He was switched to BiPAP and eventually went into respiratory failure. Patient was intubated in the afternoon. Chest x-ray in the morning showed stable chest. Repeat chest x-ray showed left- sided central line. Diffuse bilateral airspace disease subcutaneous emphysema pneumomediastinum and less than 5% right-sided pneumothorax stable. Patient is being current dexamethasone, baricitinib and Eliquis. Laboratory data showed WBC 40.0 hemoglobin 13.3 and platelets 362 ABGs showed pH 7.26 PCO2 75 PO2 80 and sodium 135 potassium 4.3 chloride 99 bicarb is 32 BUN 28 and creatinine 0.69 LDH 1698 CRP 2.7 and procalcitonin level is 0.06 07/11/2021 Patient is only intensive care unit. Intubated and on mechanical ventilator. Patient is also sedated and on propofol and fentanyl and Nimbex. Patient became progressively hypotensive and into septic shock with signs of multiorgan failure. Patient was started vancomycin and cefepime. Currently patient is on pressure control respiratory rate 30 and FiO2-% PEEP of 15. Chest x-ray this morning showed persistent bilateral airspace opacities. Diffuse subcutaneous emphysema not significantly changed. Pneumothorax is not definitely visualized continued retention on follow-up imaging. Laboratory data showed WBC 28.4 hemoglobin 12.5 and platelets 342 ABGs this morning showed pH of 7.15 PCO2 70 PO2 95 Sodium 137 potassium 5.8 BUN 34 and creatinine 1.30 magnesium 2.5 total bilirubin is 1.5 AST 07/13/2007 and ALT 1497 and alk phos 105 Repeat BMP showed creatinine went up to 2.17 and nephrology was consulted. Critical care team is on board. Review of systems could not be obtained from the patient at this time. All inpatient medications were reviewed and appropriate changes in these medications as dictated in the history and assessment and plan. Objective - Vital Signs Vital signs: Vital Signs Temp 100.4 F H 07/11/21 20:00 Pulse 105 H 07/11/21 20:15 Resp 30 H 07/11/21 20:15 BP 104/66 07/11/21 10:15 Pulse Ox 96 07/11/21 20:15 Intake & Output 07/11/21 07/11/21 07/12/21 06:59 18:59 06:59 Intake Total 8482.048 5096.398 473.685 Output Total 727 2145 180 Balance 7755.048 2951.398 293.685 Weight 125.5 kg Intake: IV 7860 4326 412 ACETAMINOPHEN IV (For NPO 100 ) 1,000 mg In Empty Bag 1 bag @ 400 mls/hr IVPB Q6HR PRN Rx#:[id number] Albumin 500 Cefepime 100 Cefepime 2 gm In Sodium 200 Chloride 0.9% 100 ml @ 200 mls/hr IVPB ONCE STA Rx#:[id number] Cefepime 2 gm In Sodium 100 Chloride 0.9% 100 ml @ 25 mls/hr IVPB Q12HR [facility] Rx #:[id number] Dextrose 5% in Water 1, 300 100 000 ml @ 50 mls/hr IV . Q20H ONE Rx#:[id number] Fluconazole in NaCl,Iso- 50 Osm 100 mg In Saline 1 50ml.bag @ 50 mls/hr IVPB DAILY [facility] Rx#:[id number] Fluid Bolus 4000 1000 Magnesium 200 Pressure Bag 60 66 12 Sodium Bicarbonate 1800 300 Sodium Chloride 0.9% 1, 2500 10 000 ml @ 150 mls/hr IV . Q6H40M [facility] Rx#:[id number] Vancomycin 2g/500 ml 500 500 Voriconazole 570 mg In 200 Sodium Chloride 0.9% 100 ml @ 78.5 mls/hr IVPB Q12H [facility] Rx#:[id number] Intake, IV Titration 622.048 770.398 61.685 Amount Cisatracurium 200 mg In 40.989 167.162 45.92 Sodium Chloride 0.9% 180 ml @ 1 MCG/KG/MIN 7.26 mls/hr IV .Q24H [facility] Rx#: [id number] EPINEPHrine 4 mg In 100.089 15.765 Dextrose 5% in Water 250 ml @ 0.01 MCG/KG/MIN 4. 706 mls/hr IV .Q24H [facility] Rx#:[id number] Norepinephrine 32 mg In 21.648 108.666 Sodium Chloride 0.9% 218 ml @ 0.05 MCG/KG/MIN 2. 836 mls/hr IV .Q24H SE Rx#:[id number] fentaNYL (PF). 1,000 mcg 185.378 194.481 In Sodium Chloride 0.9% 80 ml @ 0.5 MCG/KG/HR 6. 05 mls/hr IV .[id number] SE Rx#:[id number] propofoL 1,000 mg In 374.033 200 Empty Bag 1 bag @ Titrate IV .Q0M SE Rx#: [id number] Oral 0 0 Output: Gastric Drainage 50 Urine 727 2095 180 Other: Voiding Method Indwelling Catheter Indwelling Catheter Indwelling Catheter ABP, PAP, CO, CI - Last Documented Arterial Blood Pressure 104/49 - Exam PHYSICAL EXAMINATION: GENERAL: Patient is currently on mechanical mechanical ventilator sedated and intubated.. HEENT: Pupils are round and equally reacting to light. EOMI. No scleral icterus. No conjunctival pallor. Normocephalic, atraumatic. No pharyngeal erythema. No thyromegaly. CARDIOVASCULAR: S1 and S2 present. No murmurs, rubs, or gallops. PULMONARY: Coarse scattered rhonchi ABDOMEN: Soft, nontender, nondistended, normoactive bowel sounds. No palpable organomegaly. MUSCULOSKELETAL: No joint swelling or deformity. EXTREMITIES: No cyanosis, clubbing, right leg peripheral edema. NEUROLOGICAL: Gross neurological examination did not reveal any focal deficits. SKIN: No rashes. - Labs CBC & Chem 7: 07/11/21 04:20 07/11/21 16:15 Labs: Abnormal Lab Results - Last 24 Hours (Table) 07/10/21 07/10/21 07/11/21 Range/Units 15:22 23:56 04:20 WBC 28.4 H (3.8-10.6) k/uL RBC 3.95 L (4.30-5.90) m/uL Hgb 12.5 L (13.0-17.5) gm/dL Neutrophils # 26.5 H (1.3-7.7) k/uL Lymphocytes # 0.5 L (1.0-4.8) k/uL Monocytes # 1.3 H (0-1.0) k/uL PT (9.0-12.0) sec INR (<1.2) ABG pH (7.35-7.45) ABG pCO2 (35-45) mmHg ABG Total CO2 (19-24) mmol/L Potassium (3.5-5.1) mmol/L BUN (9-20) mg/dL Creatinine (0.66-1.25) mg/dL Glucose (74-99) mg/dL POC Glucose (mg/dL) 161 H (75-99) mg/dL Calcium (8.4-10.2) mg/dL Magnesium (1.6-2.3) mg/dL Total Bilirubin (0.2-1.3) mg/dL AST (17-59) U/L ALT (4-49) U/L Total Protein (6.3-8.2) g/dL Albumin (3.5-5.0) g/dL Procalcitonin 4.19 H (0.02-0.09) ng/mL 07/11/21 07/11/21 07/11/21 Range/Units 04:20 04:21 05:40 WBC (3.8-10.6) k/uL RBC (4.30-5.90) m/uL Hgb (13.0-17.5) gm/dL Neutrophils # (1.3-7.7) k/uL Lymphocytes # (1.0-4.8) k/uL Monocytes # (0-1.0) k/uL PT (9.0-12.0) sec INR (<1.2) ABG pH 7.15 L* (7.35-7.45) ABG pCO2 70 H (35-45) mmHg ABG Total CO2 27 H (19-24) mmol/L Potassium 5.8 H (3.5-5.1) mmol/L BUN 34 H (9-20) mg/dL Creatinine 1.30 H (0.66-1.25) mg/dL Glucose 143 H (74-99) mg/dL POC Glucose (mg/dL) 155 H (75-99) mg/dL Calcium 6.6 L (8.4-10.2) mg/dL Magnesium 2.5 H (1.6-2.3) mg/dL Total Bilirubin 1.5 H (0.2-1.3) mg/dL AST 1308 H (17-59) U/L ALT 1497 H (4-49) U/L Total Protein 5.5 L (6.3-8.2) g/dL Albumin 2.6 L (3.5-5.0) g/dL Procalcitonin (0.02-0.09) ng/mL 07/11/21 07/11/21 07/11/21 Range/Units 08:54 09:55 09:55 WBC (3.8-10.6) k/uL RBC (4.30-5.90) m/uL Hgb (13.0-17.5) gm/dL Neutrophils # (1.3-7.7) k/uL Lymphocytes # (1.0-4.8) k/uL Monocytes # (0-1.0) k/uL PT 15.7 H (9.0-12.0) sec INR 1.6 H (<1.2) ABG pH (7.35-7.45) ABG pCO2 (35-45) mmHg ABG Total CO2 (19-24) mmol/L Potassium 5.4 H (3.5-5.1) mmol/L BUN 39 H (9-20) mg/dL Creatinine 1.65 H (0.66-1.25) mg/dL Glucose 159 H (74-99) mg/dL POC Glucose (mg/dL) 131 H (75-99) mg/dL Calcium 6.2 L* (8.4-10.2) mg/dL Magnesium (1.6-2.3) mg/dL Total Bilirubin 1.4 H (0.2-1.3) mg/dL AST 2717 H (17-59) U/L ALT 2731 H (4-49) U/L Total Protein 5.0 L (6.3-8.2) g/dL Albumin 2.5 L (3.5-5.0) g/dL Procalcitonin (0.02-0.09) ng/mL 07/11/21 07/11/21 07/11/21 Range/Units 12:35 16:15 18:59 WBC (3.8-10.6) k/uL RBC (4.30-5.90) m/uL Hgb (13.0-17.5) gm/dL Neutrophils # (1.3-7.7) k/uL Lymphocytes # (1.0-4.8) k/uL Monocytes # (0-1.0) k/uL PT (9.0-12.0) sec INR (<1.2) ABG pH (7.35-7.45) ABG pCO2 (35-45) mmHg ABG Total CO2 (19-24) mmol/L Potassium 5.2 H (3.5-5.1) mmol/L BUN 44 H (9-20) mg/dL Creatinine 2.17 H (0.66-1.25) mg/dL Glucose 264 H (74-99) mg/dL POC Glucose (mg/dL) 168 H 222 H (75-99) mg/dL Calcium 6.2 L* (8.4-10.2) mg/dL Magnesium (1.6-2.3) mg/dL Total Bilirubin (0.2-1.3) mg/dL AST (17-59) U/L ALT (4-49) U/L Total Protein (6.3-8.2) g/dL Albumin (3.5-5.0) g/dL Procalcitonin (0.02-0.09) ng/mL 07/11/21 Range/Units 19:19 WBC (3.8-10.6) k/uL RBC (4.30-5.90) m/uL Hgb (13.0-17.5) gm/dL Neutrophils # (1.3-7.7) k/uL Lymphocytes # (1.0-4.8) k/uL Monocytes # (0-1.0) k/uL PT 14.2 H (9.0-12.0) sec INR 1.4 H (<1.2) ABG pH (7.35-7.45) ABG pCO2 (35-45) mmHg ABG Total CO2 (19-24) mmol/L Potassium (3.5-5.1) mmol/L BUN (9-20) mg/dL Creatinine (0.66-1.25) mg/dL Glucose (74-99) mg/dL POC Glucose (mg/dL) (75-99) mg/dL Calcium (8.4-10.2) mg/dL Magnesium (1.6-2.3) mg/dL Total Bilirubin (0.2-1.3) mg/dL AST (17-59) U/L ALT (4-49) U/L Total Protein (6.3-8.2) g/dL Albumin (3.5-5.0) g/dL Procalcitonin (0.02-0.09) ng/mL Microbiology - Last 24 Hours (Table) 07/10/21 17:41 Blood Culture - Preliminary Blood No Growth after 24 hours 07/10/21 16:02 Blood Culture - Preliminary Blood No Growth after 24 hours 07/10/21 13:05 Gram Stain - Preliminary Sputum Sputum Culture - Preliminary Assessment and Plan Assessment: Acute hypoxic respiratory failure secondary to COVID 19 pneumonia requiring oxygen support with 60L with FiO2 90% and nonrebreather mask--> BIPAP. Intubated on 07/10/2021 Right apical pneumothorax estimated at less than 10% and subcutaneous emphysema Septic shock with multiorgan system failure. Requiring pressor support with norepinephrine and vasopressin. Acute kidney injury Acute metabolic acidosis Shock liver with elevated AST and ALT Acute DVT right lower extremity; on eliquis started this admission Elevated DD, CTA negative for PE, positive DVT Elevated liver enzymes possibly due to systemic inflammation, resolved Elevated inflammatory markers secondary to COVID 19, improving History of DVT History of asthma, not in acute exacerbation Remote history of nicotine dependence History of transverse myelitis History of C5-C6 fusion Obesity GI Prophylaxis: Protonix DVT Prophylaxis: Eliquis FULL CODE Plan Patientin in the MICU. on [facility] ventilator Patient went into septic shock and multiorgan failure. Currently requiring 2 pressors and received fluid boluses. Patient was also started on bicarb drip and monitor renal function closely. Patient will be cannula broad-spectrum antibiotics in the form of vancomycin and cefepime. Monitor LFTs Continue decadron, vitamins, Baricitinib Eliquis for DVT Repeat labs in AM Incentive spirometry Continue all other supportive care Cont with PT/OT consultation Prognosis remains guarded Time with Patient: Greater than 30
[2021-07-11 23:50] LABS: Glucose,Whole Blood 224 mg/dL (75-99)
[2021-07-12] MEDS: CEFEPIME 2 GM in SODIUM CHLORIDE 0.9% 100 ML IVPB SCH ×3 (00:07→17:42)
[2021-07-12] MEDS: fentaNYL (PF). 1,000 MCG in SODIUM CHLORIDE 0.9% 80 ML IV SCH ×3 (01:14→17:40)
[2021-07-12 03:46] LABS: Basophils % (A) 0 %; Eosinophils % (A) 0 %; HCT 35.3 % (39.0-53.0); HGB 11.5 gm/dL (13.0-17.5); Lymphocytes # (A) 0.7 k/uL (1.0-4.8); Lymphocytes % (A) 3 %; MCH 31.6 pg (25.0-35.0); MCHC 32.6 g/dL (31.0-37.0); MCV 96.8 fL (80.0-100.0); Mean Platelet Volume 8.3; Monocytes % (A) 4 %; Neutrophils # (A) 20.9 k/uL (1.3-7.7); Neutrophils % (A) 92 %; Platelet Count 245 k/uL (150-450); RBC 3.65 m/uL (4.30-5.90); RDW 12.7 % (11.5-15.5); WBC 22.7 k/uL (3.8-10.6)
[2021-07-12 03:55] LABS: Albumin 2.3 g/dL (3.5-5.0); Potassium 4.4 mmol/L (3.5-5.1); Total Protein 4.6 g/dL (6.3-8.2)
[2021-07-12] MEDS: ARTIFICIAL TEARS-HYPROMELLOSE DROPS 15 ML BTL BOTH EYES SCH ×6 (04:11→23:46)
[2021-07-12 04:33] LABS: Calcium 6.2 mg/dL (8.4-10.2)
[2021-07-12 05:26] LABS: Glucose,Whole Blood 178 mg/dL (75-99)
[2021-07-12] MEDS: INSULIN ASPART (NovoLOG) 100 UNIT/ML VIAL SQ SCH ×3 (05:46→18:36)
[2021-07-12] MEDS: DEXTROSE 5% IN WATER 1,000 ML with SODIUM BICARB (1 MEQ/ML) 150 ML IV SCH (05:46)
[2021-07-12 06:19] LABS: ABG HCO3 31 mmol/L (21-25); ABG Oxygen Saturation 99.1 % (94-97); ABG PCO2 52 mmHg (35-45); ABG PH 7.39 (7.35-7.45); ABG PO2 107 mmHg (83-108); ABG TCO2 33 mmol/L (19-24)
[2021-07-12 06:20] LABS: Allen Test Performed? No
--- NOTE | 2021-07-12 07:03 | P.PN ---
Subjective Progress Note Date: 07/12/21 The patient is seen today 07/02/2021 in follow-up on the selective care unit. He is currently sitting up in a chair at the bedside. Awake and alert in no acute distress. He is still dyspneic with conversation. Dyspneic with exertion. He is still requiring 15 L high flow nasal cannula + nonrebreather mask. He was found to have a DVT in the right lower extremity. He is currently on Eliquis. He remains on Baricitinib, Decadron, bronchodilators and vitamin supplements. The patient is seen today 07/03/2021 in follow-up on the selective care unit. he is currently sitting up in a chair at the bedside. Awake and alert in mild respiratory distress. He is now on AirVo high flow oxygen at 55 L and 90% FiO2 plus a nonrebreather mask to maintain O2 saturations in the high 80s low 90s. He is afebrile. Hemodynamically stable.He is continued on Eliquis 10 mg twice a day. Remains on Baricitinib,IV Decadron every 12 hours, bronchodilators,vitamin supplements. white count 15.6. Hemoglobin 14.6. Lymphocytes 0.8. Sodium 138. Potassium 4.2. Creatinine 0.84. Last pro calcitonin 0.08. The patient is seen today 07/04/2021 in follow-up on the selective care unit. He is awake and alert. Continues in mild respiratory distress. He's up in a chair at the bedside. He is still requiring AirVo high flow oxygen at 55 L or 90% FiO2 along with 100% nonrebreather mask to maintain O2 saturations in the low 90s. He is doing about the same. He states he is not worse. Chest x-ray continues to reveal bilateral airspace disease. No evidence of pneumothorax. white count 15.5. Hemoglobin 13.3. Glipizide 0.3. Sodium 138. Potassium 4.7. Creatinine 0.67. AST 52. ALT 54. LDH 3232, C-reactive protein 14.8. D-dimer remains greater than 34. He is continued on Symbicort, albuterol. On Baricit inib. Anticoagulated with Eliquis. Remains on Decadron, vitamin supplements. Reevaluated today on 07/05/21, patient is basically about the same, remains on 90% FiO2, 55 L flow, has a nonrebreather mask in addition to airvo psychiatric the patient felt that his feeling better today compared to how he felt in the last 2 days. Patient remains on high flow oxygen remains on anticoagulation therapy/Eliquis remains on Baricitinib and on Decadron as well as the COVID-19 cocktail. On 07/06/2021 patient seen in follow-up on selective care unit, he remains on Airvo at 50 L and 70 percent, and nonrebreather mask, his pulse ox is 93-94%. She is sitting up in the chair, breathing comfortably, does not appear to be in any acute distress, no complete chest discomfort, occasional cough, he is afeb rile. Does get short of breath and coughing with activity. Overall FiO2 requirements have improved slightly, he currently continues on Baricitinib, Decadron 6 mg twice daily, he is on Eliquis for new diagnosis DVT at 10 mg twice daily, and inhaled bronchodilators. Today's labs have been reviewed his white count is improving and is down to 18.7, hemoglobin is 13.5, d-dimer still pending for today, yesterday's level was greater than 34.1. Electrolytes and renal profile are unremarkable. Inflammatory markers were improving on yesterday's labs On 07/07/2021 patient is seen in follow-up on selective care unit, she remains on high flow oxygen per Airvo at 65 L and FiO2 of 70% in addition to 100% nonrebreather mask, and his pulse ox is 92%, does not appear to be in any acute distress, sitting up in the recliner, he is talking to his on face time. He is awake and alert, oriented 3, afebrile, vital signs have been stable, occasional cough without phlegm production, no complaints of chest discomfort. Lung sounds reveal diffuse inspiratory crackles throughout the lung vines today . Overall he states he feels like he is slightly improved, no nausea vomiting or diarrhea, no abdominal pain, he is tolerating oral intake, he is currently on Baricitinib, decadron 6 mg twice daily, and Eliquis for newly diagnosed DVT, his inflammatory markers were improving on yesterday's labs, today's labs are still pending today Patient was reevaluated today on 07/08/21, remains on high flow oxygen he is now at 60% FiO2, flow of 55 L/m, is also on a nonrebreather mask, patient seems to be doing better today compared to the last 2 days, less shortness of breath nonetheless is still requiring significant amount of oxygen. Patient remains on Baricitinib, Decadron, Eliquis, and overall minimal improvement noted over the last few days. Nonetheless the patient is not getting any worse. She count is 17.6 hemoglobin 15.4 electrolytes are normal renal profile is normal. 07/09/2021, the patient is been transferred to the intensive care unit. Note that this is a subsequent severe COVID 19 related to pneumonia with hypoxic respiratory failure. The patient also has developed subcutaneous emphysema and pneumomediastinum. Follow-up chest x-rays. The most recent chest x-ray from this morning shows essentially no clear indication for pneumothorax. Nevertheless, there is subcutaneous emphysema on the right and there is evidence of pneumomediastinum. Radiologist raised the concern for a persistent and enlarging right-sided pneumothorax was probably in the order of 10-15%. The jackie duarte remains on a combination of Decadron and Baricitinib per protocol. His been on that for at least a week for now. His most recent inflammatory markers reveal a LDH level of 1897 from 07/08/2021 and this was lower compared to earlier values and a CRP level is at 6.4.4. Meanwhile, his pro calcitonin level is low at 0.1, sodium level is at 136, BUN is at 23 with a creatinine of 0.6, the the cause of 70 with a hemoglobin of 12.9. In terms of medication, the patient remains on Decadron and Baricitinib per protocol. He remains on Eliquis 5 mg by mouth twice a day as the patient was found to have DVTs in the right lower extremity and his been on anticoagulation since. He has a positive DVT in the mid and distal popliteal vein. In terms of oxygen supplementation, he is on Airvo 60 L, FiO2 of 90% along with 100% nonrebreather facemask. Is able to speak sentences. His breathing is nonlabored. Respiratory rate is currently in the mid 20s. 07/10/2021, patient is being seen in follow-up in intensive care unit. This is a critically ill 50-year-old male patient with COVID 19 related pneumonia, with secondary hypoxic respiratory failure, and subsequent development of bilateral apical pneumothoraces that were small, saphenous emphysema and pneumomediastinum. The patient got transferred to the ICU yesterday because of worsening shortness of breath and worsening and oxygenation. He was Airvo at 60 L with an FiO2 of 90% in Addition to 100% on a Beta Facemasks. At the Time of My Evaluation Yesterday, the Patient Seemed to Be Comfortable and He Was Able to Speak Full Sentences and He Stated That His Breathing Was Not Labored. Nevertheless, in the compliance review specialist hours, the patient woke up with a coughing spell and subsequently he desaturated and he was unable to recover. At that point, he was switched to a BiPAP which is currently running at a pressure of 14/8 cm of water and FiO2 of 100%. He is breathing is labored. He is tachypneic. He is currently breathing in the mid 30s. His current pulse ox is in the low 80s. He is sitting up on a recliner. He is using some accessory muscles of breathing. He is anxious. He does not like the BiPAP which is making him quite claustrophobic Repeat chest x-ray from today shows essentially stable bilateral apical pneumothoraces and pneumomediastinum in addition to subcutaneous emphysema seen in the right chest and neck area. The patient remains hemodynamically stable. The patient remains on a combination of De cadron and Baricitinib per protocol. The patient remains on Eliquis 5 mg by mouth twice a day as he was found to have DVT of the right lower extremity. He does have a DVT in the mid and the distal popliteal vein noted on the Doppler of the lower extremities. He is afebrile. On his blood work from today, the patient has a white count of 21.3 with a hemoglobin of 12.9 which is essentially compatible to yesterday, predicted consistent 64, d-dimer was elevated at 28.5, his LDH level is at 1698 and compared to earlier values, it still elevated although lower compared to the earlier lab and his LFTs are essentially within normal limits. BUN is at 28 with a creatinine of 0.6. He is on IV fluids which is currently running at 10 mL an hour. He is receiving Xanax on an as-needed basis for increased anxiety. He seems to be quite anxious while on the BiPAP. He is able to generate volumes of around 600 at least while breathing on a BiPAP full face mask. 07/11/2021, the patient is critically ill in the intensive care unit. At this point in time, the patient is intubated on a mechanical ventilator. I had to intubate the patient yesterday because of worsening respiratory status, decomp ensation, hypoxemia, respiratory distress, tachypnea and altered mentation. He was intubated in the ICU immediately following that the patient was sedated and paralyzed. The patient was placed on a combination of propofol and fentanyl and Nimbex. He was also placed on a pressure control mode of mechanical ventilation. Few hours following his intubation, the patient became progressively more hypotensive and went into shock state with signs of multisystem organ failure. I suspected septic shock and I immediately stop the Baricitinib. I had ordered to start the patient on antibiotics with cefepime and later on vancomycin was added. Note that during the course of his resuscitation, the patient received a total of 8 L of normal saline, a total of 500cc of albumin and despite that he continued to be hypotensive and in shock state. The patient had to be placed on high-dose of pressors. In summary, this morning, the patient remains on sedation the patient is currently on protocol ru nning at 50 g kilogram per minute and the patient is also on fentanyl at 1.5 mg/kg/h. The patient is paralyzed with Nimbex at 1.5 Dave respiratory kilogram per minute. Is adequately paralyzed and sedated at this point in time. He remains on a pressure control mode of mechanical ventilation and his pressure control is set at 23 cm of water with a rate of 30 and FiO2 is currently at 100% with a PEEP of 15. The chest x-ray showing worsening of the subcutaneous emphysema no mediastinal. Nevertheless, there is no change in the tiny apical pneumothoraces that were seen earlier. ET tube remains in a good location. The patient has a triple-lumen cath in the left subclavian and the patient has an orogastric tube in place. Blood gases showed a pH of 7.15 with a pCO2 of 70 and pO2 of 94 and this was done earlier this morning. Clinically, he does have some subcutaneous emphysema in his neck and the chest and arms bilaterally. Hemodynamically, he remains in shock and multisystem organ failure. The patient is currently on norepinephrine infusion running at 0.5 Dave respiratory kilogram per minute and the patient is on vasopressin physiologic dose. Urine output is in order of 20-30 mL an hour. He has having a temperature of 103.3 axillary. He is currently covered with accommodation cefepime and vancomycin. His white cell count came up to 40 and subsequently dropped down to 28.4 from this morning. He does have signs of shock liver and the cerumen total was at 1.5 with an AST of 1308 and the ALT of 1497 and alkaline phosphatase is 105. He also developed an acute kidney injury. Creatinine is up to 1.3. Potassium this morning is at 5.8 and the hyperkalemia is being managed and treated for now. The patient is receiving another 2 L of normal saline bolus this morning and he is going to receive 500 mL of albumin. His hyperkalemia is being treated with sodium bicarb and repeat potassium will be done accordingly and the patient will be switched to a bicarb infusion at the rate of 150 mL an hour. He remains nothing by mouth for now. He remains on Decadron. He remains on anticoagulation and the patient is currently on Eliquis 5 mg by mouth twice a day. Blood cultures of been sent and results are still pending. Sputum cultures are still pending. Family has been informed of these changes. Condition is critical. The patient is in obvious septic shock and multisystem organ failure. We'll obtain a stat echocardiogram to evaluate his LV function. 07/12/2021, the patient is being seen for a follow-up. He remains critically ill intubated sedated paralyzed on a mechanical ventilator with COVID 19 related to pneumonia and multisystem organ failure. The patient has been aggressively resuscitated over the past 48 hours. At this point in time the patient remains sedated and paralyzed. His propofol is currently running at 50 mcg/kg per minute and fentanyl is running at 1 mcg/kg/h and the patient is paralyzed with Nimbex at 1 mcg/kg per minute. He is adequately sedated and paralyzed. He remains synchronous with the mechanical ventilator. He is on a pressure control mode of mechanical ventilation with a pressure control of 23 and the rate of 30 with an FiO2 of 70% and a PEEP of 15. Chest x-ray still showing diffuse bilateral subcutaneous emphysema and there is no evidence of any pneumothorax. There is also diffuse bilateral pulmonary infiltrates. All of the tubes are in good location. PH is at 7.38 with a pCO2 of 51 and pO2 of 107. As such, the patient is adequately oxygenating and ventilating. Nevertheless, the active problem was the massive shock and hypotension which was probably a septic event. Cultures were all negative. The patient is currently on a combination of antibiotics and he is receiving cefepime, and vancomycin. Infectious disease was also consulted. I maintain the patient on fluconazole knowing that the patient had extensive oropharyngeal candidiasis at the time of the intubation. He was resuscitated IV fluids and received more than 10 L of saline and also received several doses of IV albumin. During the course of the resuscitation, he was on a combination of vasopressin physiologic dose, norepinephrine and epinephrine was also added to maintain his blood pressure. We are unable to wean off the epinephrine. Vasopressin remains at physiologic dose of 0.03 units an hour and the patient is currently on 0.15 mcg/kg per minute of norepinephrine infusion. Urine output is order of 30-50 mL an hour. His white cell count is low and currently is at 22.7. He is still spiking fever on and off for which she was given Tylenol IV. Currently he is afebrile. White cell count is down to 22.7. Meanwhile, the patient developed a nonoliguric renal failure. Creatinine is up to 2.59. He was having issues with hyperkalemia. He was given bicarb IV in the form of a push and later on drip and the sodium bicarb is currently running at the rate of 150 mL an hour. Serum bicarb this morning is a t 30 with a potassium level of 4.4. Coagulation profile shows an INR of 1.4 with a PT of 14.2. The patient is a sinus rhythm. He is a shock liver and the liver function tests are essentially improving. Vancomycin level this morning is at 18.2. As stated, blood cultures are negative. Enterofeeding for nutritional support will be started today. Objective - Vital Signs Vital signs: Vital Signs Temp 99 F 07/12/21 04:00 Pulse 80 07/12/21 06:00 Resp 30 H 07/12/21 06:00 BP 116/72 07/12/21 04:15 Pulse Ox 96 07/12/21 06:00 Intake & Output 07/11/21 07/11/21 07/12/21 06:59 18:59 06:59 Intake Total 8482.048 5096.398 3019.143 Output Total 727 2145 930 Balance 7755.048 2951.398 2089.143 Weight 125.5 kg 126.5 kg Intake: IV 7860 0586 2472 ACETAMINOPHEN IV (For NPO 100 ) 1,000 mg In Empty Bag 1 bag @ 400 mls/hr IVPB Q6HR PRN Rx#:[id number] Albumin 500 Cefepime 100 Cefepime 2 gm In Sodium 200 Chloride 0.9% 100 ml @ 200 mls/hr IVPB ONCE STA Rx#:[id number] Cefepime 2 gm In Sodium 100 Chloride 0.9% 100 ml @ 25 mls/hr IVPB Q12HR [facility] Rx #:[id number] Dextrose 5% in Water 1, 300 600 000 ml @ 50 mls/hr IV . Q20H ONE Rx#:[id number] Fluconazole in NaCl,Iso- 50 Osm 100 mg In Saline 1 50ml.bag @ 50 mls/hr IVPB DAILY [facility] Rx#:[id number] Fluid Bolus 4000 1000 Magnesium 200 Pressure Bag 60 66 72 Sodium Bicarbonate 1800 1800 Sodium Chloride 0.9% 1, 2500 10 000 ml @ 150 mls/hr IV . Q6H40M [facility] Rx#:[id number] Vancomycin 2g/500 ml 500 500 Voriconazole 570 mg In 200 Sodium Chloride 0.9% 100 ml @ 78.5 mls/hr IVPB Q12H [facility] Rx#:[id number] Intake, IV Titration 622.048 770.398 547.143 Amount Cisatracurium 200 mg In 40.989 167.162 45.92 Sodium Chloride 0.9% 180 ml @ 1 MCG/KG/MIN 7.26 mls/hr IV .Q24H [facility] Rx#: [id number] EPINEPHrine 4 mg In 100.089 15.765 Dextrose 5% in Water 250 ml @ 0.01 MCG/KG/MIN 4. 706 mls/hr IV .Q24H [facility] Rx#:[id number] Norepinephrine 32 mg In 21.648 108.666 190.705 Sodium Chloride 0.9% 218 ml @ 0.05 MCG/KG/MIN 2. 836 mls/hr IV .Q24H [facility] Rx#:[id number] fentaNYL (PF). 1,000 mcg 185.378 194.481 100 In Sodium Chloride 0.9% 80 ml @ 0.5 MCG/KG/HR 6. 05 mls/hr IV .[id number] [facility] Rx#:[id number] propofoL 1,000 mg In 374.033 200 194.753 Empty Bag 1 bag @ Titrate IV .Q0M [facility] Rx#: [id number] Oral 0 0 Output: Gastric Drainage 50 Urine 727 2095 930 Other: Voiding Method Indwelling Catheter Indwelling Catheter Indwelling Catheter ABP, PAP, CO, CI - Last Documented Arterial Blood Pressure 105/66 - Exam Patient is currently intubated on a mechanical ventilator. He is sedated and paralyzed. Orogastric and orotracheal tube are both in place. The patient is evidence of subcutaneous emphysema in his face neck chest and upper extremity is bilaterally. He has gained significant amount of weight in the order of 10 kg over the past 24 hours and this is essentially due to aggressive fluid resuscitation. HEENT examination is grossly unremarkable. Neck supple. Full range of motion. No adenopathy thyromegaly or neck vein distention. Cardiovascular examination reveals regular rhythm rate. S1-S2 normal. No S3 or S4. No discernible murmur noted. Heart sounds are distant. Lungs reveal diffuse bilateral coarse rhonchi. Scattered crackles at the bases. No wheezes. Breath sounds are equal bilaterally. The patient has some limited to case emphysema along the right chest area. The patient has crackles in the lower lung vines bilaterally. . Abdominal exam revealed normal bowel sounds. The abdomen was soft, non-tender, and without masses, organomegaly, or appreciable enlargement of the abdominal aorta. Extremities shows diminished pulses in all 4 extremities. Dexamethasone still cold. Pulses are present. There is trace edema and there is no cyanosis or clubbing at this point in time. Skin is without rash or lesion. Neurologic examination is limited as the patient is currently sedated and paralyzed. Pupils are equal and reactive to light. - Labs CBC & Chem 7: 07/12/21 03:25 07/12/21 03:25 Labs: Abnormal Lab Results - Last 24 Hours (Table) 07/11/21 07/11/21 07/11/21 Range/Units 08:54 09:55 09:55 WBC (3.8-10.6) k/uL RBC (4.30-5.90) m/uL Hgb (13.0-17.5) gm/dL Hct (39.0-53.0) % Neutrophils # (1.3-7.7) k/uL Lymphocytes # (1.0-4.8) k/uL PT 15.7 H (9.0-12.0) sec INR 1.6 H (<1.2) ABG pCO2 (35-45) mmHg ABG HCO3 (21-25) mmol/L ABG Total CO2 (19-24) mmol/L ABG O2 Saturation (94-97) % Sodium (137-145) mmol/L Potassium 5.4 H (3.5-5.1) mmol/L BUN 39 H (9-20) mg/dL Creatinine 1.65 H (0.66-1.25) mg/dL Glucose 159 H (74-99) mg/dL POC Glucose (mg/dL) 131 H (75-99) mg/dL Calcium 6.2 L* (8.4-10.2) mg/dL Total Bilirubin 1.4 H (0.2-1.3) mg/dL AST 2717 H (17-59) U/L ALT 2731 H (4-49) U/L Total Protein 5.0 L (6.3-8.2) g/dL Albumin 2.5 L (3.5-5.0) g/dL 07/11/21 07/11/21 07/11/21 Range/Units 12:35 16:15 18:59 WBC (3.8-10.6) k/uL RBC (4.30-5.90) m/uL Hgb (13.0-17.5) gm/dL Hct (39.0-53.0) % Neutrophils # (1.3-7.7) k/uL Lymphocytes # (1.0-4.8) k/uL PT (9.0-12.0) sec INR (<1.2) ABG pCO2 (35-45) mmHg ABG HCO3 (21-25) mmol/L ABG Total CO2 (19-24) mmol/L ABG O2 Saturation (94-97) % Sodium (137-145) mmol/L Potassium 5.2 H (3.5-5.1) mmol/L BUN 44 H (9-20) mg/dL Creatinine 2.17 H (0.66-1.25) mg/dL Glucose 264 H (74-99) mg/dL POC Glucose (mg/dL) 168 H 222 H (75-99) mg/dL Calcium 6.2 L* (8.4-10.2) mg/dL Total Bilirubin (0.2-1.3) mg/dL AST (17-59) U/L ALT (4-49) U/L Total Protein (6.3-8.2) g/dL Albumin (3.5-5.0) g/dL 07/11/21 07/11/21 07/12/21 Range/Units 19:19 23:49 03:25 WBC 22.7 H (3.8-10.6) k/uL RBC 3.65 L (4.30-5.90) m/uL Hgb 11.5 L (13.0-17.5) gm/dL Hct 35.3 L (39.0-53.0) % Neutrophils # 20.9 H (1.3-7.7) k/uL Lymphocytes # 0.7 L (1.0-4.8) k/uL PT 14.2 H (9.0-12.0) sec INR 1.4 H (<1.2) ABG pCO2 (35-45) mmHg ABG HCO3 (21-25) mmol/L ABG Total CO2 (19-24) mmol/L ABG O2 Saturation (94-97) % Sodium (137-145) mmol/L Potassium (3.5-5.1) mmol/L BUN (9-20) mg/dL Creatinine (0.66-1.25) mg/dL Glucose (74-99) mg/dL POC Glucose (mg/dL) 224 H (75-99) mg/dL Calcium (8.4-10.2) mg/dL Total Bilirubin (0.2-1.3) mg/dL AST (17-59) U/L ALT (4-49) U/L Total Protein (6.3-8.2) g/dL Albumin (3.5-5.0) g/dL 07/12/21 07/12/21 07/12/21 Range/Units 03:25 05:25 05:38 WBC (3.8-10.6) k/uL RBC (4.30-5.90) m/uL Hgb (13.0-17.5) gm/dL Hct (39.0-53.0) % Neutrophils # (1.3-7.7) k/uL Lymphocytes # (1.0-4.8) k/uL PT (9.0-12.0) sec INR (<1.2) ABG pCO2 52 H (35-45) mmHg ABG HCO3 31 H (21-25) mmol/L ABG Total CO2 33 H (19-24) mmol/L ABG O2 Saturation 99.1 H (94-97) % Sodium 135 L (137-145) mmol/L Potassium (3.5-5.1) mmol/L BUN 47 H (9-20) mg/dL Creatinine 2.59 H (0.66-1.25) mg/dL Glucose 193 H (74-99) mg/dL POC Glucose (mg/dL) 178 H (75-99) mg/dL Calcium 6.2 L* (8.4-10.2) mg/dL Total Bilirubin (0.2-1.3) mg/dL AST 1062 H (17-59) U/L ALT 2036 H (4-49) U/L Total Protein 4.6 L (6.3-8.2) g/dL Albumin 2.3 L (3.5-5.0) g/dL Microbiology - Last 24 Hours (Table) 07/10/21 17:41 Blood Culture - Preliminary Blood No Growth after 24 hours 07/10/21 16:02 Blood Culture - Preliminary Blood No Growth after 24 hours 07/10/21 13:05 Gram Stain - Preliminary Sputum Sputum Culture - Preliminary Assessment and Plan Plan: 1 Acute hypoxemic respiratory failure, secondary to coronavirus associated pneumonia. The patient presented with diffuse bilateral pulmonary infiltrates and hypoxic respiratory failure. Since yesterday, the patient has been requiring more oxygen and currently is on Airvo 60 liters Fio2 90 of oxygen in addition to 100% on a facemask to maintain a saturation above 90%. . He is on a combination of Decadron and Baricitinib for now. Doppler of the lower extremity was positive for DVT and the patient is on Eliquis. Patient currently intubated on a mechanical ventilator, sedated and paralyzed, post intubation, he went into shock with multisystem organ failure which is probably a septic shock. Baricitinib was discontinued. He was to the broad-spectrum antibiotics. He was resuscitated aggressively and he received more than 10 L of IV fluids, colloids and crystalloids. He is on a combination of antibiotics using cefepime, vancomycin and Diflucan. He was on a combination of pressors including vasopressin, norepinephrine and epinephrine. His been adequately resuscitated for now. Pressors are being gradually weaned off for now. Cultures are all negative. Remains on a mechanical ventilator. Chest x-ray was reviewed. Blood gases was reviewed. There is adequate oxygenation and ventilation for now. He has developed extensive subcutaneous emphysema. 2 septic shock with multisystem organ failure. The patient is profoundly hypotensive currently on a combination of vasopressin and norepinephrine. Epinephrine infusion was discontinued 3 acute metabolic and respiratory acidosis, stable for now 4 acute kidney injury, nonoliguric and the patient is producing adequate amount of urine output. Nephrology is on the case and the creatinine currently is at 2.59 5 acute hyperkalemia, improving and the potassium level is down to 4.4 6 shock liver secondary to above, LFTs are improving 7 history of bronchial asthma 8 history of transverse myelitis 9 DVT of the lower extremity currently on Eliquis 5 mg twice a day, the dose has been reduced down to 2.5 mg twice a day in view of that the underlying acute kidney injury 10 acute leukocytosis, improving 11 oropharyngeal candidiasis currently on Diflucan 12 fever 13 extensive subcutaneous emphysema complication of COVID 19 related pneumonia and infection. Note this of pneumothorax. There may be tiny apical pneumothoraces bilaterally, not requiring chest tube insertion at this point in time. Plan Extremely critical situation with multisystem organ failure. O Patient has been aggressively resuscitated. Recommend stopping the bicarb infusion for now Monitor the renal function I to repeat another set of labs at around noontime today in addition to another blood gas Drop the FiO2 down to 60% and drop the PEEP down to 14 days in the morning blood gases Stop the epinephrine infusion and continue with norepinephrine weaning and maintain a vasopressin for now Echocardiogram was suboptimal due to poor window Continue the current antibiotic coverage Modified Eliquis dose to 2.5 mg twice a day Continue Decadron 6 mg IV every 24 hours and Baricitinib has been discontinued We'll monitor the blood sugar after discontinuation of the D5 bicarb infusion and will add Levemir insulin if needed. For now the patient is on sliding scale coverage NovoLog insulin sliding scale coverage Monitor LFTs and rest of electrolytes Consult also infectious disease Nephrology is on the case Start enteral feeding for nutritional support per dietary We'll continue to follow. I'm going to contact the , Shyla and updated condition. Condition is critical and the patient carries a very high mortality risk placed on above-mentioned comorbidities. This evaluation was done more than 30 minutes. Time with Patient: Greater than 30
[2021-07-12] MEDS: SYMBICORT 80-4.5 MCG INHALER INHALATION SCH ×2 (07:53→20:22)
[2021-07-12] MEDS: ALBUTEROL HFA INHALER INHALATION SCH ×4 (07:53→20:22)
[2021-07-12] MEDS ORDERED: VANCOMYCIN 1,750 MG in SODIUM CHLORIDE 0.9% 500 ML 500 ML IVPB ONE (08:30)
[2021-07-12] MEDS: SODIUM CHLORIDE 0.9% 1,000 ML IV SCH ×2 (08:38→20:27)
[2021-07-12] MEDS: CHOLECALCIFEROL 25 MCG (1000 IU) TABLET PO SCH (08:39)
[2021-07-12] MEDS: CHLORHEXIDINE GLUCONATE 15 ML CUP MUCOUS MEM SCH ×2 (08:39→20:26)
[2021-07-12] MEDS: FLUCONAZOLE IN NACL,ISO-OSM 100 MG in SALINE 1 50ML.BAG IVPB SCH (08:39)
[2021-07-12] MEDS: ASCORBIC ACID 500 MG TAB PO SCH (08:39)
[2021-07-12] MEDS: PANTOPRAZOLE 40 MG/10 ML VIAL IVP SCH (08:40)
[2021-07-12] MEDS: ZINC SULFATE 220 MG CAP PO SCH (08:40)
[2021-07-12] MEDS: APIXABAN 5 MG TAB PO SCH ×2 (08:41→20:26)
[2021-07-12] MEDS: DEXAMETHASONE SOD PHOSPHATE 10 MG/ML 1 ML VIAL IVP SCH (08:41)
[2021-07-12] MEDS: EPINEPHrine 4 MG in DEXTROSE 5% IN WATER 250 ML IV SCH ×2 (08:42)
--- NOTE | 2021-07-12 08:58 | P.PN ---
Subjective Patient is seen in follow-up for acute kidney injury. Renal function worsening. Currently on Levophed and vasopressin. Urine output about 50 mL an hour. Receiving IV fluids. Vital signs - on vasopressor support. HEENT: Intubated. HEART: Rate and Rhythm are regular on monitor. EXTREMITITES: No gross edema noted. Exam discussed with the nurse. Objective - Vital Signs Vital signs: Vital Signs Temp 99 F 07/12/21 04:00 Pulse 77 07/12/21 07:00 Resp 30 H 07/12/21 07:00 BP 116/72 07/12/21 04:15 Pulse Ox 94 L 07/12/21 07:00 Intake & Output 07/11/21 07/12/21 07/12/21 18:59 06:59 18:59 Intake Total 5096.398 3119.143 295.54 Output Total 2145 930 30 Balance 2951.398 2189.143 265.54 Weight 126.5 kg Intake: IV 4326 7322 206 ACETAMINOPHEN IV (For NPO 100 ) 1,000 mg In Empty Bag 1 bag @ 400 mls/hr IVPB Q6HR PRN Rx#:[id number] Cefepime 2 gm In Sodium 200 Chloride 0.9% 100 ml @ 200 mls/hr IVPB ONCE STA Rx#:[id number] Cefepime 2 gm In Sodium 100 Chloride 0.9% 100 ml @ 25 mls/hr IVPB Q12HR [facility] Rx #:[id number] Dextrose 5% in Water 1, 300 600 50 000 ml @ 50 mls/hr IV . Q20H ONE Rx#:[id number] Fluconazole in NaCl,Iso- 50 Osm 100 mg In Saline 1 50ml.bag @ 50 mls/hr IVPB DAILY [facility] Rx#:[id number] Fluid Bolus 1000 Pressure Bag 66 72 6 Sodium Bicarbonate 1800 1800 150 Sodium Chloride 0.9% 1, 10 000 ml @ 150 mls/hr IV . Q6H40M [facility] Rx#:[id number] Vancomycin 2g/500 ml 500 Voriconazole 570 mg In 200 Sodium Chloride 0.9% 100 ml @ 78.5 mls/hr IVPB Q12H [facility] Rx#:[id number] Intake, IV Titration 770.398 647.143 89.54 Amount Cisatracurium 200 mg In 167.162 45.92 Sodium Chloride 0.9% 180 ml @ 1 MCG/KG/MIN 7.26 mls/hr IV .Q24H SE Rx#: [id number] EPINEPHrine 4 mg In 100.089 15.765 Dextrose 5% in Water 250 ml @ 0.01 MCG/KG/MIN 4. 706 mls/hr IV .Q24H SE Rx#:[id number] Norepinephrine 32 mg In 108.666 190.705 Sodium Chloride 0.9% 218 ml @ 0.05 MCG/KG/MIN 2. 836 mls/hr IV .Q24H SE Rx#:[id number] fentaNYL (PF). 1,000 mcg 194.481 100 89.54 In Sodium Chloride 0.9% 80 ml @ 0.5 MCG/KG/HR 6. 05 mls/hr IV .[id number] SE Rx#:[id number] propofoL 1,000 mg In 200 294.753 Empty Bag 1 bag @ Titrate IV .Q0M SE Rx#: [id number] Oral 0 Output: Gastric Drainage 50 Urine 2095 930 30 Other: Voiding Method Indwelling Catheter Indwelling Catheter ABP, PAP, CO, CI - Last Documented Arterial Blood Pressure 107/72 - Labs CBC & Chem 7: 07/12/21 03:25 07/12/21 03:25 Labs: Abnormal Lab Results - Last 24 Hours (Table) 07/11/21 07/11/21 07/11/21 Range/Units 08:54 09:55 09:55 WBC (3.8-10.6) k/uL RBC (4.30-5.90) m/uL Hgb (13.0-17.5) gm/dL Hct (39.0-53.0) % Neutrophils # (1.3-7.7) k/uL Lymphocytes # (1.0-4.8) k/uL PT 15.7 H (9.0-12.0) sec INR 1.6 H (<1.2) ABG pCO2 (35-45) mmHg ABG HCO3 (21-25) mmol/L ABG Total CO2 (19-24) mmol/L ABG O2 Saturation (94-97) % Sodium (137-145) mmol/L Potassium 5.4 H (3.5-5.1) mmol/L BUN 39 H (9-20) mg/dL Creatinine 1.65 H (0.66-1.25) mg/dL Glucose 159 H (74-99) mg/dL POC Glucose (mg/dL) 131 H (75-99) mg/dL Calcium 6.2 L* (8.4-10.2) mg/dL Total Bilirubin 1.4 H (0.2-1.3) mg/dL AST 2717 H (17-59) U/L ALT 2731 H (4-49) U/L Total Protein 5.0 L (6.3-8.2) g/dL Albumin 2.5 L (3.5-5.0) g/dL 07/11/21 07/11/21 07/11/21 Range/Units 12:35 16:15 18:59 WBC (3.8-10.6) k/uL RBC (4.30-5.90) m/uL Hgb (13.0-17.5) gm/dL Hct (39.0-53.0) % Neutrophils # (1.3-7.7) k/uL Lymphocytes # (1.0-4.8) k/uL PT (9.0-12.0) sec INR (<1.2) ABG pCO2 (35-45) mmHg ABG HCO3 (21-25) mmol/L ABG Total CO2 (19-24) mmol/L ABG O2 Saturation (94-97) % Sodium (137-145) mmol/L Potassium 5.2 H (3.5-5.1) mmol/L BUN 44 H (9-20) mg/dL Creatinine 2.17 H (0.66-1.25) mg/dL Glucose 264 H (74-99) mg/dL POC Glucose (mg/dL) 168 H 222 H (75-99) mg/dL Calcium 6.2 L* (8.4-10.2) mg/dL Total Bilirubin (0.2-1.3) mg/dL AST (17-59) U/L ALT (4-49) U/L Total Protein (6.3-8.2) g/dL Albumin (3.5-5.0) g/dL 07/11/21 07/11/21 07/12/21 Range/Units 19:19 23:49 03:25 WBC 22.7 H (3.8-10.6) k/uL RBC 3.65 L (4.30-5.90) m/uL Hgb 11.5 L (13.0-17.5) gm/dL Hct 35.3 L (39.0-53.0) % Neutrophils # 20.9 H (1.3-7.7) k/uL Lymphocytes # 0.7 L (1.0-4.8) k/uL PT 14.2 H (9.0-12.0) sec INR 1.4 H (<1.2) ABG pCO2 (35-45) mmHg ABG HCO3 (21-25) mmol/L ABG Total CO2 (19-24) mmol/L ABG O2 Saturation (94-97) % Sodium (137-145) mmol/L Potassium (3.5-5.1) mmol/L BUN (9-20) mg/dL Creatinine (0.66-1.25) mg/dL Glucose (74-99) mg/dL POC Glucose (mg/dL) 224 H (75-99) mg/dL Calcium (8.4-10.2) mg/dL Total Bilirubin (0.2-1.3) mg/dL AST (17-59) U/L ALT (4-49) U/L Total Protein (6.3-8.2) g/dL Albumin (3.5-5.0) g/dL 07/12/21 07/12/21 07/12/21 Range/Units 03:25 05:25 05:38 WBC (3.8-10.6) k/uL RBC (4.30-5.90) m/uL Hgb (13.0-17.5) gm/dL Hct (39.0-53.0) % Neutrophils # (1.3-7.7) k/uL Lymphocytes # (1.0-4.8) k/uL PT (9.0-12.0) sec INR (<1.2) ABG pCO2 52 H (35-45) mmHg ABG HCO3 31 H (21-25) mmol/L ABG Total CO2 33 H (19-24) mmol/L ABG O2 Saturation 99.1 H (94-97) % Sodium 135 L (137-145) mmol/L Potassium (3.5-5.1) mmol/L BUN 47 H (9-20) mg/dL Creatinine 2.59 H (0.66-1.25) mg/dL Glucose 193 H (74-99) mg/dL POC Glucose (mg/dL) 178 H (75-99) mg/dL Calcium 6.2 L* (8.4-10.2) mg/dL Total Bilirubin (0.2-1.3) mg/dL AST 1062 H (17-59) U/L ALT 2036 H (4-49) U/L Total Protein 4.6 L (6.3-8.2) g/dL Albumin 2.3 L (3.5-5.0) g/dL Microbiology - Last 24 Hours (Table) 07/10/21 17:41 Blood Culture - Preliminary Blood No Growth after 24 hours 07/10/21 16:02 Blood Culture - Preliminary Blood No Growth after 24 hours 07/10/21 13:05 Gram Stain - Preliminary Sputum Sputum Culture - Preliminary Assessment and Plan Plan: Assessment: 1. Acute kidney injury secondary to ATN secondary to septic shock. Baseline creatinine near 1 and is 2.59 today. Urine output about 50 mL an hour. 2. Septic shock secondary to COVID-19 infection with concern for superimposed bacterial infection. 3. Hyperkalemia secondary to acute kidney injury, nonsteroidals and acidosis. Improved. 4. Acute hypoxic and hypercapnic respiratory failure. 5. Metabolic acidosis secondary to acute kidney injury. Status post bicarb drip. Resolved. 6. Hypocalcemia secondary to acute kidney injury. Corrected calcium 7.5. Plan: Stop bicarb drip. Start normal saline at 75 mL an hour. Tube feeds to be started today. Continue to monitor renal function and urine output. Continue to assess daily for need for renal replacement therapy. No urgent need at this time. Monitor vancomycin levels. Dose to be adjusted for renal function. 1 g IV calcium gluconate. Wean FiO2 and vasopressors.
[2021-07-12] MEDS ORDERED: VANCOMYCIN 2,000 MG in SODIUM CHLORIDE 0.9% 500 ML 500 ML IVPB SCH (09:00)
[2021-07-12] MEDS: SODIUM ZIRCONIUM CYCLOSILICATE 10 GM PACKET PO SCH ×2 (09:19→20:26)
[2021-07-12] MEDS ORDERED: CALCIUM GLUCONATE 1 GM in SODIUM CHLORIDE 0.9% 100 ML IVPB ONE (09:30)
--- NOTE | 2021-07-12 09:55 | XR ---
EXAMINATION TYPE: XR chest 1V portable DATE OF EXAM: 07/12/2021 COMPARISON: 07/11/2021 INDICATION: Tube placement TECHNIQUE: Single frontal view of the chest is obtained semiupright position. FINDINGS: The heart size is normal. The pulmonary vasculature is indistinct. Patchy bilateral lung infiltrates are present. No pneumothorax is evident current exam. Endotracheal tube tip is above the colin. Nasogastric tube transverses the thorax. Left central venous catheter t ip is in the superior vena cava region. Extensive subcutaneous emphysema remains present. IMPRESSION: 1. Patchy bilateral lung infiltrates, stable from comparison. 2. Lines and catheters discussed above. 3. No definite pneumothorax evident on the current study. Extensive subcutaneous emphysema remains pr esent.
[2021-07-12 12:33] LABS: Glucose,Whole Blood 139 mg/dL (75-99)
[2021-07-12] MEDS: CISATRACURIUM 200 MG in SODIUM CHLORIDE 0.9% 180 ML IV SCH (12:57)
[2021-07-12 16:52] LABS: Hepatitis B Surface AB- Quant 3.5 mIU/mL; Hepatitis B Surface Antibody Nonreactive (Nonreactive); Hepatitis B Surface Antigen Nonreactive (Nonreactive)
[2021-07-12 18:17] LABS: Glucose,Whole Blood 164 mg/dL (75-99)
[2021-07-12] MEDS: SODIUM CHLORIDE 0.9% 150 ML with VASOPRESSIN 60 UNIT IV SCH ×2 (20:25)
--- NOTE | 2021-07-12 22:05 | PN ---
PROGRESS NOTE DATE OF SERVICE: 07/12/2021 REASON FOR FOLLOW UP: 1. COVID-19 infection. 2. Sepsis, possible pneumonia. INTERVAL HISTORY: The patient's overall fever pattern has improved. The patient is afebrile today. The patient is hemodynamically stable, is slowly getting weaned off the pressor support. No significant purulent secretions through the ET, diarrhea or other changes reported by the nursing staff. FiO2 is currently down to 60%. PHYSICAL EXAMINATION: Blood pressure 128/85 with a pulse of 63, temperature 97.4. He is 95% on 60% FiO2. General description is a middle-aged male intubated on the vent. Respiratory system: Unlabored breathing, decreased intensity of breath sounds. No wheeze. Heart S1, S2. Regular rate and rhythm. Abdomen soft, slightly distended. No guarding or rigidity. Extremities with no edema of the feet. LABS: Hemoglobin is 11.5, white count 22.7. Creatinine is down to 2.59. Liver enzymes are slightly improved. DIAGNOSTIC IMPRESSION AND PLAN: Patient with acute respiratory failure which is multifactorial in this patient who did have COVID-19 pneumonia with subsequent significant worsening and concern for possible secondary bacterial pneumonia. Sputum has been showing Ivonne, possible colonizer. Patient's fever and white count responding to the current antibiotic regimen of cefepime, vancomycin and Diflucan; to continue while watching his kidney function closely. Prognosis remains guarded. MMODL / IJN: [id number] /
[2021-07-12 23:52] LABS: Glucose,Whole Blood 132 mg/dL (75-99)
[2021-07-13] MEDS: CEFEPIME 2 GM in SODIUM CHLORIDE 0.9% 100 ML IVPB SCH ×3 (00:03→23:23)
[2021-07-13] MEDS: INSULIN ASPART (NovoLOG) 100 UNIT/ML VIAL SQ SCH ×4 (00:04→18:38)
--- NOTE | 2021-07-13 00:37 | P.PN ---
Subjective Progress Note Date: 07/12/21 Principal diagnosis: Acute hypoxic respiratory failure secondary to COVID-19 pneumonia 07/06/2021 Patient evaluated sitting up in the chair, reports overall he is feeling slightly better. He was talking on the phone with family and appeared in good spirits. He continues on airvo at 50L with an FiO2 of 70% and in addition to a nonrebreather, oxygen saturation is 94%. He is afebrile, blood pressure 102/66. Labs reviewed today; white count of 18.7, sodium 137, potassium 4.5, CO2 32, sugars in the 110s. AST, ALT and alk phos have normalized. He continues on eliquis for a right leg DVT. There is still some peripheral edema to the right leg. Continues on baricitinib, bronchodilators, zinc, vitamins, decadron. He is being followed closely pulmonary and ID services. 07/07/2021 Patient had to sleep sitting up in the chair last night, his oxygen support was decreased slightly yesterday to 55L airvo from 60L airvo. Otherwise he is relatively stable where he is at. Chest xray today shows stable bilateral diffuse infiltrates. Could not exclude subtle pneumomediastinum. Correlate clinically. Labs reviewed today shows a WBC count of 18.3. He has some cough with minimal sputum production. Vitals today he is afebrile, heart rate 85 normal sinus rhythm, blood pressure 102/61, 91% on airvo with nonrebreather. He maintains in good spirits. 07/08/2021 Patient is in the select care unit. Requiring high flow oxygen 55 L/min with 60% FiO2. Patient became anxious and hypoxic in the afternoon and rapid response team was called him. Repeat chest x-ray showed right apical pneumothorax. Patient was transferred to MICU for close monitoring. Patient is being continued on dexamethasone and Eliquis. Also being continued on baricitinib. Laboratory data showed WBC 17.6 hemoglobin 13.4 and platelets 243 Sodium 136 potassium 4.5 chloride 99 bicarbonate 33 BUN 22 and creatinine 0.74 LDH 8074 and CRP 4.4 07/09/2021 Patient is currently in the MICU. Awake alert and oriented x3. Able to speak. Sitting in the chair. Requiring high flow oxygen currently. on Airvo 60 L at 90% FiO2 with 100% nonrebreather facemask. Chest x-ray showed no pneumothorax today. There is subcutaneous emphysema on the right and evidence of pneumomediastinum. Patient is being continued on dexamethasone and baricitinib and Eliquis due to DVT diagnosed on admission. Laboratory data showed WBC 17.0 hemoglobin 12.9 and platelets 260 BUN 73 and creatinine 0.64 [id number] Patient is in the MICU. Was requiring BiPAP last night. Patient woke up with coughing spell and subsequently desaturated and unable to recover. He was switched to BiPAP and eventually went into respiratory failure. Patient was intubated in the afternoon. Chest x-ray in the morning showed stable chest. Repeat chest x-ray showed left- sided central line. Diffuse bilateral airspace disease subcutaneous emphysema pneumomediastinum and less than 5% right-sided pneumothorax stable. Patient is being current dexamethasone, baricitinib and Eliquis. Laboratory data showed WBC 40.0 hemoglobin 13.3 and platelets 362 ABGs showed pH 7.26 PCO2 75 PO2 80 and sodium 135 potassium 4.3 chloride 99 bicarb is 32 BUN 28 and creatinine 0.69 LDH 1698 CRP 2.7 and procalcitonin level is 0.06 07/11/2021 Patient is only intensive care unit. Intubated and on mechanical ventilator. Patient is also sedated and on propofol and fentanyl and Nimbex. Patient became progressively hypotensive and into septic shock with signs of multiorgan failure. Patient was started vancomycin and cefepime. Currently patient is on pressure control respiratory rate 30 and FiO2-% PEEP of 15. Chest x-ray this morning showed persistent bilateral airspace opacities. Diffuse subcutaneous emphysema not significantly changed. Pneumothorax is not definitely visualized continued retention on follow-up imaging. Laboratory data showed WBC 28.4 hemoglobin 12.5 and platelets 342 ABGs this morning showed pH of 7.15 PCO2 70 PO2 95 Sodium 137 potassium 5.8 BUN 34 and creatinine 1.30 magnesium 2.5 total bilirubin is 1.5 AST 07/13/2007 and ALT 1497 and alk phos 105 Repeat BMP showed creatinine went up to 2.17 and nephrology was consulted. Critical care team is on board. 07/12/2020 Patient is in MICU. Remains on mechanical ventilator. Sedated and paralyzed.. Patient is on pressor support with Levophed. Currently on pressure control with FiO2 70% PEEP of 15. Chest x-ray showed patchy bilateral lung infiltrates stable from comparison. No definite pneumothorax evident on the current study. Extensive subcutaneous emphysema remains present. Patient went into septic shock and multiorgan dysfunction following intubation. Currently on broad-spectrum antibiotics, vancomycin and cefepime. Also on fluconazole due to extensive oropharyngeal candidiasis. Urine output is maintained. Laboratory data showed WBC 22.7. Hemoglobin 11.9 platelets 245 lymphocytes 0.7 BUN 47 creatinine 2.59 and calcium 6.2 liver enzymes are trending down AST 1062 ALT 2036 and alk phos 84 albumin 2.3 hepatitis panel negative. Sputum culture showed Ivonne albicans. Patient is in sinus rhythm. Pulmonary nephrology is on board. Review of systems could not be obtained from the patient at this time. All inpatient medications were reviewed and appropriate changes in these medications as dictated in the history and assessment and plan. Objective - Vital Signs Vital signs: Vital Signs Temp 97.9 F 07/12/21 12:00 Pulse 71 07/12/21 15:15 Resp 30 H 07/12/21 15:15 BP 120/78 07/12/21 12:00 Pulse Ox 95 07/12/21 15:15 Intake & Output 07/11/21 07/12/21 07/12/21 18:59 06:59 18:59 Intake Total 5096.398 3119.143 1826.611 Output Total 2145 930 580 Balance 2951.398 2189.143 1246.611 Weight 126.5 kg Intake: IV 4326 7562 1454 ACETAMINOPHEN IV (For NPO 100 ) 1,000 mg In Empty Bag 1 bag @ 400 mls/hr IVPB Q6HR PRN Rx#:[id number] Cefepime 2 gm In Sodium 200 100 Chloride 0.9% 100 ml @ 200 mls/hr IVPB ONCE STA Rx#:[id number] Cefepime 2 gm In Sodium 100 Chloride 0.9% 100 ml @ 25 mls/hr IVPB Q12HR [facility] Rx #:[id number] Dextrose 5% in Water 1, 300 600 50 000 ml @ 50 mls/hr IV . Q20H ONE Rx#:[id number] Fluconazole in NaCl,Iso- 50 Osm 100 mg In Saline 1 50ml.bag @ 50 mls/hr IVPB DAILY [facility] Rx#:[id number] Fluid Bolus 1000 Pressure Bag 66 72 54 Sodium Bicarbonate 1800 1800 150 Sodium Chloride 0.9% 1, 10 000 ml @ 150 mls/hr IV . Q6H40M [facility] Rx#:[id number] Sodium Chloride 0.9% 1, 600 000 ml @ 75 mls/hr IV . [id number] [facility] Rx#:[id number] Vancomycin 2g/500 ml 500 500 Voriconazole 570 mg In 200 Sodium Chloride 0.9% 100 ml @ 78.5 mls/hr IVPB Q12H [facility] Rx#:[id number] Intake, IV Titration 770.398 647.143 372.611 Amount Cisatracurium 200 mg In 167.162 45.92 120.395 Sodium Chloride 0.9% 180 ml @ 1 MCG/KG/MIN 7.26 mls/hr IV .Q24H [facility] Rx#: [id number] EPINEPHrine 4 mg In 100.089 15.765 Dextrose 5% in Water 250 ml @ 0.01 MCG/KG/MIN 4. 706 mls/hr IV .Q24H [facility] Rx#:[id number] Norepinephrine 32 mg In 108.666 190.705 62.676 Sodium Chloride 0.9% 218 ml @ 0.05 MCG/KG/MIN 2. 836 mls/hr IV .Q24H [facility] Rx#:[id number] fentaNYL (PF). 1,000 mcg 194.481 100 89.54 In Sodium Chloride 0.9% 80 ml @ 0.5 MCG/KG/HR 6. 05 mls/hr IV .[id number] [facility] Rx#:[id number] propofoL 1,000 mg In 200 294.753 100 Empty Bag 1 bag @ Titrate IV .Q0M [facility] Rx#: [id number] Oral 0 Output: Gastric Drainage 50 Urine 2095 930 580 Other: Voiding Method Indwelling Catheter Indwelling Catheter Indwelling Catheter ABP, PAP, CO, CI - Last Documented Arterial Blood Pressure 120/80 - Exam PHYSICAL EXAMINATION: GENERAL: Patient is currently on mechanical mechanical ventilator sedated and intubated.. HEENT: Pupils are round and equally reacting to light. EOMI. No scleral icterus. No conjunctival pallor. Normocephalic, atraumatic. No pharyngeal erythema. No thyromegaly. CARDIOVASCULAR: S1 and S2 present. No murmurs, rubs, or gallops. PULMONARY: Coarse scattered rhonchi ABDOMEN: Soft, nontender, nondistended, normoactive bowel sounds. No palpable organomegaly. MUSCULOSKELETAL: No joint swelling or deformity. EXTREMITIES: No cyanosis, clubbing, right leg peripheral edema. NEUROLOGICAL: Gross neurological examination did not reveal any focal deficits. SKIN: No rashes. - Labs CBC & Chem 7: 07/12/21 03:25 07/12/21 03:25 Labs: Abnormal Lab Results - Last 24 Hours (Table) 07/11/21 07/11/21 07/11/21 Range/Units 16:15 18:59 19:19 WBC (3.8-10.6) k/uL RBC (4.30-5.90) m/uL Hgb (13.0-17.5) gm/dL Hct (39.0-53.0) % Neutrophils # (1.3-7.7) k/uL Lymphocytes # (1.0-4.8) k/uL PT 14.2 H (9.0-12.0) sec INR 1.4 H (<1.2) ABG pCO2 (35-45) mmHg ABG HCO3 (21-25) mmol/L ABG Total CO2 (19-24) mmol/L ABG O2 Saturation (94-97) % Sodium (137-145) mmol/L Potassium 5.2 H (3.5-5.1) mmol/L BUN 44 H (9-20) mg/dL Creatinine 2.17 H (0.66-1.25) mg/dL Glucose 264 H (74-99) mg/dL POC Glucose (mg/dL) 222 H (75-99) mg/dL Calcium 6.2 L* (8.4-10.2) mg/dL AST (17-59) U/L ALT (4-49) U/L Total Protein (6.3-8.2) g/dL Albumin (3.5-5.0) g/dL 07/11/21 07/12/21 07/12/21 Range/Units 23:49 03:25 03:25 WBC 22.7 H (3.8-10.6) k/uL RBC 3.65 L (4.30-5.90) m/uL Hgb 11.5 L (13.0-17.5) gm/dL Hct 35.3 L (39.0-53.0) % Neutrophils # 20.9 H (1.3-7.7) k/uL Lymphocytes # 0.7 L (1.0-4.8) k/uL PT (9.0-12.0) sec INR (<1.2) ABG pCO2 (35-45) mmHg ABG HCO3 (21-25) mmol/L ABG Total CO2 (19-24) mmol/L ABG O2 Saturation (94-97) % Sodium 135 L (137-145) mmol/L Potassium (3.5-5.1) mmol/L BUN 47 H (9-20) mg/dL Creatinine 2.59 H (0.66-1.25) mg/dL Glucose 193 H (74-99) mg/dL POC Glucose (mg/dL) 224 H (75-99) mg/dL Calcium 6.2 L* (8.4-10.2) mg/dL AST 1062 H (17-59) U/L ALT 2036 H (4-49) U/L Total Protein 4.6 L (6.3-8.2) g/dL Albumin 2.3 L (3.5-5.0) g/dL 07/12/21 07/12/21 07/12/21 Range/Units 05:25 05:38 12:31 WBC (3.8-10.6) k/uL RBC (4.30-5.90) m/uL Hgb (13.0-17.5) gm/dL Hct (39.0-53.0) % Neutrophils # (1.3-7.7) k/uL Lymphocytes # (1.0-4.8) k/uL PT (9.0-12.0) sec INR (<1.2) ABG pCO2 52 H (35-45) mmHg ABG HCO3 31 H (21-25) mmol/L ABG Total CO2 33 H (19-24) mmol/L ABG O2 Saturation 99.1 H (94-97) % Sodium (137-145) mmol/L Potassium (3.5-5.1) mmol/L BUN (9-20) mg/dL Creatinine (0.66-1.25) mg/dL Glucose (74-99) mg/dL POC Glucose (mg/dL) 178 H 139 H (75-99) mg/dL Calcium (8.4-10.2) mg/dL AST (17-59) U/L ALT (4-49) U/L Total Protein (6.3-8.2) g/dL Albumin (3.5-5.0) g/dL Microbiology - Last 24 Hours (Table) 07/10/21 13:05 Gram Stain - Preliminary Sputum Sputum Culture - Preliminary Ivonne albicans 07/10/21 17:41 Blood Culture - Preliminary Blood No Growth after 24 hours 07/10/21 16:02 Blood Culture - Preliminary Blood No Growth after 24 hours Assessment and Plan Assessment: Acute hypoxic respiratory failure secondary to COVID 19 pneumonia requiring oxy gen support with 60L with FiO2 90% and nonrebreather mask--> BIPAP. Intubated on 07/10/2021 Right apical pneumothorax estimated at less than 10% and subcutaneous emphysema Septic shock with multiorgan system failure. Requiring pressor support with norepinephrine and vasopressin. Acute kidney injury due to ATN Acute metabolic acidosis Shock liver with elevated AST and ALT Acute DVT right lower extremity; on eliquis started this admission Elevated DD, CTA negative for PE, positive DVT Elevated liver enzymes possibly due to systemic inflammation, resolved Elevated inflammatory markers secondary to COVID 19, improving History of DVT History of asthma, not in acute exacerbation Remote history of nicotine dependence History of transverse myelitis History of C5-C6 fusion Obesity GI Prophylaxis: Protonix DVT Prophylaxis: Eliquis FULL CODE Plan Patientin in the MICU. on [facility] ventilator Patient went into septic shock and multiorgan failure. Currently requiring pressors and received fluid boluses. Patient was also started on bicarb drip and monitor renal function closely. Patient will be cannula broad-spectrum antibiotics in the form of vancomycin and cefepime. Monitor LFTs Continue decadron, vitamins, Baricitinib Eliquis for DVT Repeat labs in AM Incentive spirometry Continue all other supportive care Cont with PT/OT consultation Prognosis remains guarded Time with Patient: Greater than 30
[2021-07-13] MEDS ORDERED: SODIUM BICARB 8.4% 50 ML SYR (1 MEQ/ML) IV STA (02:07)
[2021-07-13] MEDS: fentaNYL (PF). 1,000 MCG in SODIUM CHLORIDE 0.9% 80 ML IV SCH ×3 (02:09→16:44)
[2021-07-13 04:16] LABS: Basophils % (A) 0 %; Eosinophils % (A) 0 %; HCT 33.4 % (39.0-53.0); HGB 11.3 gm/dL (13.0-17.5); Lymphocytes # (A) 0.4 k/uL (1.0-4.8); Lymphocytes % (A) 2 %; MCH 32.7 pg (25.0-35.0); MCHC 33.8 g/dL (31.0-37.0); MCV 96.9 fL (80.0-100.0); Mean Platelet Volume 8.2; Monocytes # (A) 0.8 k/uL (0-1.0); Monocytes % (A) 4 %; Neutrophils % (A) 94 %; Platelet Count 190 k/uL (150-450); RBC 3.45 m/uL (4.30-5.90); RDW 12.9 % (11.5-15.5); WBC 22.3 k/uL (3.8-10.6)
[2021-07-13 04:29] LABS: Glucose,Whole Blood 132 mg/dL (75-99)
[2021-07-13 04:30] LABS: Albumin 2.3 g/dL (3.5-5.0); Potassium 4.4 mmol/L (3.5-5.1); Total Bilirubin 1.2 mg/dL (0.2-1.3); Total Protein 4.9 g/dL (6.3-8.2)
[2021-07-13] MEDS: ARTIFICIAL TEARS-HYPROMELLOSE DROPS 15 ML BTL BOTH EYES SCH ×6 (04:31→23:23)
[2021-07-13] MEDS: NOREPINEPHRINE 32 MG in SODIUM CHLORIDE 0.9% 218 ML IV SCH ×2 (04:42→23:30)
[2021-07-13 06:15] LABS: ABG Base Excess 1.9 mmol/L; ABG HCO3 30 mmol/L (21-25); ABG Oxygen Saturation 96.8 % (94-97); ABG PH 7.21 (7.35-7.45); ABG PO2 105 mmHg (83-108); ABG TCO2 32 mmol/L (19-24)
[2021-07-13 06:16] LABS: ABG PCO2 74 mmHg (35-45); Allen Test Performed? No
[2021-07-13] MEDS: ALBUTEROL HFA INHALER INHALATION SCH ×4 (07:34→20:11)
[2021-07-13] MEDS: CHLORHEXIDINE GLUCONATE 15 ML CUP MUCOUS MEM SCH ×2 (08:05→20:41)
[2021-07-13] MEDS: CHOLECALCIFEROL 25 MCG (1000 IU) TABLET PO SCH (08:05)
[2021-07-13] MEDS: PANTOPRAZOLE 40 MG/10 ML VIAL IVP SCH (08:05)
[2021-07-13] MEDS: EPINEPHrine 4 MG in DEXTROSE 5% IN WATER 250 ML IV SCH ×2 (08:06)
[2021-07-13] MEDS: APIXABAN 5 MG TAB PO SCH ×2 (08:06→20:41)
[2021-07-13] MEDS: DEXAMETHASONE SOD PHOSPHATE 10 MG/ML 1 ML VIAL IVP SCH (08:06)
[2021-07-13] MEDS: ASCORBIC ACID 500 MG TAB PO SCH (08:06)
[2021-07-13] MEDS: ZINC SULFATE 220 MG CAP PO SCH (08:06)
--- NOTE | 2021-07-13 08:10 | XR ---
EXAMINATION TYPE: XR chest 1V portable DATE OF EXAM: 07/13/2021 COMPARISON: Chest x-ray 07/12/2021 HISTORY: Intubated TECHNIQUE: Single frontal view of the chest is obtained. FINDINGS: Endotracheal tube, NG tube, left subclavian central venous catheter are overlying appropri ate positions similar to prior exam. Contrast material is present within the stomach. There is extens rosie subcutaneous emphysema which may limit evaluation. Cardiac mediastinal silhouette is likely uncha nged accounting for differences in technique, there is bilateral airspace disease. No evident pneumot horax. There are overlying artifacts. IMPRESSION: Correlate for pneumonia, ARDS, edema felt to be less likely
--- NOTE | 2021-07-13 09:22 | P.PN ---
Subjective Patient is seen in follow-up for acute kidney injury. Renal function continues to worsen. Currently on Levophed and vasopressin. Urine output about 40-50 mL an hour. Receiving IV fluids. Vital signs - on vasopressor support. HEENT: Intubated. HEART: Tachycardic. EXTREMITITES: No gross edema noted. Exam discussed with the nurse. Objective - Vital Signs Vital signs: Vital Signs Temp 98 F 07/13/21 08:00 Pulse 105 H 07/13/21 08:30 Resp 30 H 07/13/21 08:30 BP 95/68 07/13/21 04:15 Pulse Ox 93 L 07/13/21 08:30 Intake & Output 07/12/21 07/13/21 07/13/21 18:59 06:59 18:59 Intake Total 2269.611 1544.641 81 Output Total 705 624 100 Balance 1564.611 920.641 -19 Weight 137.5 kg Intake: IV 1697 1053 81 Cefepime 2 gm In Sodium 100 Chloride 0.9% 100 ml @ 200 mls/hr IVPB ONCE [facility] Rx#:[id number] Dextrose 5% in Water 1, 50 000 ml @ 50 mls/hr IV . Q20H [facility] Rx#:[id number] Pressure Bag 72 78 6 Sodium Bicarbonate 150 Sodium Chloride 0.9% 1, 825 975 75 000 ml @ 75 mls/hr IV . [id number] [facility] Rx#:[id number] Vancomycin 2g/500 ml 500 Intake, IV Titration 572.611 491.641 Amount Cisatracurium 200 mg In 120.395 Sodium Chloride 0.9% 180 ml @ 1 MCG/KG/MIN 7.26 mls/hr IV .Q24H [facility] Rx#: [id number] Norepinephrine 32 mg In 62.676 129.518 Sodium Chloride 0.9% 218 ml @ 0.05 MCG/KG/MIN 2. 836 mls/hr IV .Q24H [facility] Rx#:[id number] fentaNYL (PF). 1,000 mcg 189.54 100 In Sodium Chloride 0.9% 80 ml @ 0.5 MCG/KG/HR 6. 05 mls/hr IV .[id number] [facility] Rx#:[id number] propofoL 1,000 mg In 200 262.123 Empty Bag 1 bag @ Titrate IV .Q0M [facility] Rx#: [id number] Output: Urine 705 624 100 Other: Voiding Method Indwelling Catheter Indwelling Catheter ABP, PAP, CO, CI - Last Documented Arterial Blood Pressure 86/52 - Labs CBC & Chem 7: 07/13/21 03:50 07/13/21 03:50 Labs: Abnormal Lab Results - Last 24 Hours (Table) 07/12/21 07/12/21 07/12/21 Range/Units 12:31 18:16 23:49 WBC (3.8-10.6) k/uL RBC (4.30-5.90) m/uL Hgb (13.0-17.5) gm/dL Hct (39.0-53.0) % Neutrophils # (1.3-7.7) k/uL Lymphocytes # (1.0-4.8) k/uL ABG pH (7.35-7.45) ABG pCO2 (35-45) mmHg ABG HCO3 (21-25) mmol/L ABG Total CO2 (19-24) mmol/L Sodium (137-145) mmol/L BUN (9-20) mg/dL Creatinine (0.66-1.25) mg/dL Glucose (74-99) mg/dL POC Glucose (mg/dL) 139 H 164 H 132 H (75-99) mg/dL Calcium (8.4-10.2) mg/dL AST (17-59) U/L ALT (4-49) U/L Total Protein (6.3-8.2) g/dL Albumin (3.5-5.0) g/dL 07/13/21 07/13/21 07/13/21 Range/Units 03:50 03:50 04:27 WBC 22.3 H (3.8-10.6) k/uL RBC 3.45 L (4.30-5.90) m/uL Hgb 11.3 L (13.0-17.5) gm/dL Hct 33.4 L (39.0-53.0) % Neutrophils # 21.0 H (1.3-7.7) k/uL Lymphocytes # 0.4 L (1.0-4.8) k/uL ABG pH (7.35-7.45) ABG pCO2 (35-45) mmHg ABG HCO3 (21-25) mmol/L ABG Total CO2 (19-24) mmol/L Sodium 136 L (137-145) mmol/L BUN 60 H (9-20) mg/dL Creatinine 2.87 H (0.66-1.25) mg/dL Glucose 124 H (74-99) mg/dL POC Glucose (mg/dL) 132 H (75-99) mg/dL Calcium 7.0 L (8.4-10.2) mg/dL AST 572 H (17-59) U/L ALT 1786 H (4-49) U/L Total Protein 4.9 L (6.3-8.2) g/dL Albumin 2.3 L (3.5-5.0) g/dL 07/13/21 Range/Units 05:46 WBC (3.8-10.6) k/uL RBC (4.30-5.90) m/uL Hgb (13.0-17.5) gm/dL Hct (39.0-53.0) % Neutrophils # (1.3-7.7) k/uL Lymphocytes # (1.0-4.8) k/uL ABG pH 7.21 L (7.35-7.45) ABG pCO2 74 H* (35-45) mmHg ABG HCO3 30 H (21-25) mmol/L ABG Total CO2 32 H (19-24) mmol/L Sodium (137-145) mmol/L BUN (9-20) mg/dL Creatinine (0.66-1.25) mg/dL Glucose (74-99) mg/dL POC Glucose (mg/dL) (75-99) mg/dL Calcium (8.4-10.2) mg/dL AST (17-59) U/L ALT (4-49) U/L Total Protein (6.3-8.2) g/dL Albumin (3.5-5.0) g/dL Microbiology - Last 24 Hours (Table) 07/10/21 17:41 Blood Culture - Preliminary Blood No Growth after 48 hours 07/10/21 16:02 Blood Culture - Preliminary Blood No Growth after 48 hours 07/10/21 13:05 Gram Stain - Preliminary Sputum Sputum Culture - Preliminary Ivonne albicans Assessment and Plan Plan: Assessment: 1. Acute kidney injury secondary to ATN secondary to septic shock. Baseline creatinine near 1 and is 2.87 today. Urine output about 40-50 mL an hour. 2. Septic shock secondary to COVID-19 infection with concern for superimposed bacterial infection. 3. Hyperkalemia secondary to acute kidney injury, nonsteroidals and acidosis. Improved. 4. Acute hypoxic and hypercapnic respiratory failure. 5. Metabolic acidosis secondary to acute kidney injury. Status post bicarb drip. Resolved. 6. Hypocalcemia secondary to acute kidney injury. Replaced. Corrected calcium 8.3. Plan: Maintain normal saline at 75 mL an hour. Tube feeds to be started today. Continue to monitor renal function and urine output. Continue to assess daily for need for renal replacement therapy. No urgent need at this time. Monitor vancomycin levels. Dose to be adjusted for renal function. Wean FiO2 and vasopressors.
[2021-07-13] MEDS: FLUCONAZOLE IN NACL,ISO-OSM 100 MG in SALINE 1 50ML.BAG IVPB SCH (09:46)
[2021-07-13] MEDS: SODIUM CHLORIDE 0.9% 1,000 ML IV SCH ×2 (09:50→20:42)
[2021-07-13] MEDS: SYMBICORT 80-4.5 MCG INHALER INHALATION SCH ×2 (10:08→20:11)
--- NOTE | 2021-07-13 12:00 | P.PN ---
Subjective Progress Note Date: 07/13/21 Principal diagnosis: Respiratory failure. 07/12/2021, the patient is being seen for a follow-up. He remains critically ill intubated sedated paralyzed on a mechanical ventilator with COVID 19 related to pneumonia and multisystem organ failure. The patient has been aggressively resuscitated over the past 48 hours. At this point in time the patient remains sedated and paralyzed. His propofol is currently running at 50 mcg/kg per minute and fentanyl is running at 1 mcg/kg/h and the patient is paralyzed with Nimbex at 1 mcg/kg per minute. He is adequately sedated and paralyzed. He remains synchronous with the mechanical ventilator. He is on a pressure control mode of mechanical ventilation with a pressure control of 23 and the rate of 30 with an FiO2 of 70% and a PEEP of 15. Chest x-ray still showing diffuse bilateral subcutaneous emphysema and there is no evidence of any pneumothorax. There is also diffuse bilateral pulmonary infiltrates. All of the tubes are in good location. PH is at 7.38 with a pCO2 of 51 and pO2 of 107. As such, the patient is adequately oxygenating and ventilating. Nevertheless, the active problem was the massive shock and hypotension which was probably a septic event. Cultures were all negative. The patient is currently on a combination of antibiotics and he is receiving cefepime, and vancomycin. Infectious disease was also consulted. I maintain the patient on fluconazole knowing that the patient had extensive oropharyngeal candidiasis at the time of the intubation. He was resuscitated IV fluids and received more than 10 L of saline and also received several doses of IV albumin. During the course of the resuscitation, he was on a combination of vasopressin physiologic dose, norepinephrine and epinephrine was also added to maintain his blood pressure. We are unable to wean off the epinephrine. Vasopressin remains at physiologic dose of 0.03 units an hour and the patient is currently on 0.15 mcg/kg per minute of norepinephrine infusion. Urine output is order of 30-50 mL an hour. His white cell count is low and currently is at 22.7. He is still spiking fever on and off for which she was given Tylenol IV. Currently he is afebrile. White cell count is down to 22.7. Meanwhile, the patient developed a nonoliguric renal failure. Creatinine is up to 2.59. He was having issues with hyperkalemia. He was given bicarb IV in the form of a push and later on drip and the sodium bicarb is currently running at the rate of 150 mL an hour. Serum bicarb this morning is at 30 with a potassium level of 4.4. Coagulation profile shows an INR of 1.4 with a PT of 14.2. The patient is a sinus rhythm. He is a shock liver and the liver function tests are essentially improving. Vancomycin level this morning is at 18.2. As stated, blood cultures are negative. Enterofeeding for nutritional support will be started today. Progress note dated 07/13/2020. 50-year-old male admitted to the hospital on June 27. His admission diagnosis was coronavirus associated pneumonia. He came to the [facility] care unit on July 08, and ended up being intubated on July 10. This was for worsening hypoxemic respiratory failure. The patient is on pressure assist control mode of ventilation, with an inspiratory pressure of 23 cm water, and inspiratory time of 1 second. In addition, the patient has a rate of 30, FiO2 of 80%, and PEEP of 14. The patient's blood gases show pO2 105, pCO2 74, and pH is 7.21. The patient's currently on norepinephrine at 0.09 mcg/kg/m, vasopressin, and 0.02 units per minute, and saline at 75 mL an hour. In addition, the patient's on fentanyl 1 mcg/kg/h, Nimbex at 1 mcg/kg/m, and propofol at 50 mcg/kg/m. Tube feedings have not yet been started. White count 22.3, hemoglobin 11.3, hematocrit 33.4, and platelet count 190,000. Sodium 136, potassium 4.4, chlorides 101, CO2 28, anion gap 7 BUN 60, creatinine 2.87. Albumin is 2.3. Sputum from July 10 showing presumptive staph aureus. Chest x-ray from July 13 shows diffuse bilateral patchy infiltrates. There is extensive subcutaneous emphysema. Objective - Vital Signs Vital signs: Vital Signs Temp 98 F 07/13/21 08:00 Pulse 98 07/13/21 11:00 Resp 30 H 07/13/21 11:00 BP 95/68 07/13/21 04:15 Pulse Ox 92 L 07/13/21 11:00 Intake & Output 07/12/21 07/13/21 07/13/21 18:59 06:59 18:59 Intake Total 2269.611 1544.641 517.17 Output Total 705 624 250 Balance 1564.611 920.641 267.17 Weight 137.5 kg Intake: IV 1697 1053 324 Cefepime 2 gm In Sodium 100 Chloride 0.9% 100 ml @ 200 mls/hr IVPB ONCE STA Rx#:[id number] Dextrose 5% in Water 1, 50 000 ml @ 50 mls/hr IV . Q20H [facility] Rx#:[id number] Pressure Bag 72 78 24 Sodium Bicarbonate 150 Sodium Chloride 0.9% 1, 825 975 300 000 ml @ 75 mls/hr IV . [id number] [facility] Rx#:[id number] Vancomycin 2g/500 ml 500 Intake, IV Titration 572.611 491.641 193.17 Amount Cisatracurium 200 mg In 120.395 Sodium Chloride 0.9% 180 ml @ 1 MCG/KG/MIN 7.26 mls/hr IV .Q24H [facility] Rx#: [id number] Norepinephrine 32 mg In 62.676 129.518 Sodium Chloride 0.9% 218 ml @ 0.05 MCG/KG/MIN 2. 836 mls/hr IV .Q24H [facility] Rx#:[id number] fentaNYL (PF). 1,000 mcg 189.54 100 93.17 In Sodium Chloride 0.9% 80 ml @ 0.5 MCG/KG/HR 6. 05 mls/hr IV .[id number] [facility] Rx#:[id number] propofoL 1,000 mg In 200 262.123 100 Empty Bag 1 bag @ Titrate IV .Q0M [facility] Rx#: [id number] Output: Urine 705 624 250 Other: Voiding Method Indwelling Catheter Indwelling Catheter Indwelling Catheter ABP, PAP, CO, CI - Last Documented Arterial Blood Pressure 100/55 - Exam No acute distress, currently sedated and paralyzed, with an orally placed endotracheal tube and NG tube. HEENT examination is grossly unremarkable. Extensive subcutaneous emphysema. Neck supple. Full range of motion. No adenopathy thyromegaly or neck vein distention. Cardiovascular examination reveals regular rhythm rate. S1-S2 normal. No S3 or S4. No discernible murmur noted. Heart sounds are distant. Heart rate 98 bpm. Lungs reveal diffuse coarse rhonchi. Breath sounds equal. No wheezes. There is extensive subcutaneous emphysema. Abdomen soft without bowel sounds Extremities are intact. No cyanosis clubbing or edema. Skin is without rash or lesion. Neurologic examination cannot be evaluated. - Labs CBC & Chem 7: 07/13/21 03:50 07/13/21 03:50 Labs: Abnormal Lab Results - Last 24 Hours (Table) 07/12/21 07/12/21 07/12/21 Range/Units 12:31 18:16 23:49 WBC (3.8-10.6) k/uL RBC (4.30-5.90) m/uL Hgb (13.0-17.5) gm/dL Hct (39.0-53.0) % Neutrophils # (1.3-7.7) k/uL Lymphocytes # (1.0-4.8) k/uL ABG pH (7.35-7.45) ABG pCO2 (35-45) mmHg ABG HCO3 (21-25) mmol/L ABG Total CO2 (19-24) mmol/L Sodium (137-145) mmol/L BUN (9-20) mg/dL Creatinine (0.66-1.25) mg/dL Glucose (74-99) mg/dL POC Glucose (mg/dL) 139 H 164 H 132 H (75-99) mg/dL Calcium (8.4-10.2) mg/dL AST (17-59) U/L ALT (4-49) U/L Total Protein (6.3-8.2) g/dL Albumin (3.5-5.0) g/dL 07/13/21 07/13/21 07/13/21 Range/Units 03:50 03:50 04:27 WBC 22.3 H (3.8-10.6) k/uL RBC 3.45 L (4.30-5.90) m/uL Hgb 11.3 L (13.0-17.5) gm/dL Hct 33.4 L (39.0-53.0) % Neutrophils # 21.0 H (1.3-7.7) k/uL Lymphocytes # 0.4 L (1.0-4.8) k/uL ABG pH (7.35-7.45) ABG pCO2 (35-45) mmHg ABG HCO3 (21-25) mmol/L ABG Total CO2 (19-24) mmol/L Sodium 136 L (137-145) mmol/L BUN 60 H (9-20) mg/dL Creatinine 2.87 H (0.66-1.25) mg/dL Glucose 124 H (74-99) mg/dL POC Glucose (mg/dL) 132 H (75-99) mg/dL Calcium 7.0 L (8.4-10.2) mg/dL AST 572 H (17-59) U/L ALT 1786 H (4-49) U/L Total Protein 4.9 L (6.3-8.2) g/dL Albumin 2.3 L (3.5-5.0) g/dL 07/13/21 Range/Units 05:46 WBC (3.8-10.6) k/uL RBC (4.30-5.90) m/uL Hgb (13.0-17.5) gm/dL Hct (39.0-53.0) % Neutrophils # (1.3-7.7) k/uL Lymphocytes # (1.0-4.8) k/uL ABG pH 7.21 L (7.35-7.45) ABG pCO2 74 H* (35-45) mmHg ABG HCO3 30 H (21-25) mmol/L ABG Total CO2 32 H (19-24) mmol/L Sodium (137-145) mmol/L BUN (9-20) mg/dL Creatinine (0.66-1.25) mg/dL Glucose (74-99) mg/dL POC Glucose (mg/dL) (75-99) mg/dL Calcium (8.4-10.2) mg/dL AST (17-59) U/L ALT (4-49) U/L Total Protein (6.3-8.2) g/dL Albumin (3.5-5.0) g/dL Microbiology - Last 24 Hours (Table) 07/10/21 13:05 Gram Stain - Preliminary Sputum Sputum Culture - Preliminary Ivonne albicans Presumptive Staph aureus 07/10/21 17:41 Blood Culture - Preliminary Blood No Growth after 48 hours 07/10/21 16:02 Blood Culture - Preliminary Blood No Growth after 48 hours Assessment and Plan Assessment: Acute hypoxemic respiratory failure, secondary to coronavirus associated pne umonia, status post intubation and mechanical ventilation on July 10. Extensive subcutaneous emphysema as a complication of coronavirus associated pneumonia. History of chronic bronchial asthma. Right lower extremity deep venous thrombosis. History of oropharyngeal candidiasis. History of shock liver. Acute kidney injury. Septic shock with multiorgan system failure. Previous history of tobacco use. History of C5-C6 fusion. History of transverse myelitis. Plan: Plan dated 06/28/2021. Currently, the patient is a candidate for Decadron, Lovenox, vitamin C, vitamin D3, and zinc. He is not a candidate for REM, consistent and have been present for more than 7 days, and he is on oxygen that is greater than 6 L/m. He is getting close to the point where he may become a candidate for FLAQUITO. The patient does appear relatively comfortable. We will continue to follow make recommendations where appropriate. The patient is on his usual inhalers for his asthma. Prognosis is guarded. Plan dated 07/13/2020. The patient's labs, x-rays, and medications all reviewed. The patient remains on a factor X a inhibitor for his right lower extremity DVT. The patient cont inues on Decadron. FLAQUITO has been discontinued. The patient remains on fentanyl, Nimbex, and propofol. The patient remains on both norepinephrine and vasopressin. The patient is obviously very critically ill. The patient remains on pressure assist control mode of mechanical ventilation. Additional recommendations and suggestions are forthcoming. We will continue to follow the patient and make recommendations where appropriate. Overall prognosis remains very guarded. Time with Patient: Greater than 30
[2021-07-13] MEDS: CISATRACURIUM 200 MG in SODIUM CHLORIDE 0.9% 180 ML IV SCH (13:09)
[2021-07-13 13:21] LABS: Glucose,Whole Blood 154 mg/dL (75-99)
--- NOTE | 2021-07-13 14:43 | XR ---
EXAMINATION TYPE: XR chest 1V portable DATE OF EXAM: 07/13/2021 COMPARISON: Chest x-ray 07/13/2021 HISTORY: Hypoxemia TECHNIQUE: Single frontal view of the chest is obtained. FINDINGS: There is no pleural effusion or pneumothorax seen. The cardiac silhouette size is within normal limits. There is extensive subcutaneous emphysema. Endotracheal tube, NG tube are overlying a ppropriate positions. Side port of the NG tube is likely within the distal esophagus however. There m ay be pneumomediastinum. Lung volumes are low. Bilateral airspace disease is again seen. Contrast is present within the stomach. The osseous structures are intact. IMPRESSION: Difficult to exclude pneumomediastinum, there is extensive subcutaneous emphysema.
[2021-07-13 18:25] LABS: Glucose,Whole Blood 214 mg/dL (75-99)
[2021-07-13] MEDS: SODIUM CHLORIDE 0.9% 150 ML with VASOPRESSIN 60 UNIT IV SCH ×2 (19:10)
[2021-07-13] MEDS ORDERED: VANCOMYCIN 1,750 MG in SODIUM CHLORIDE 0.9% 500 ML 500 ML IVPB ONE (21:00)
--- NOTE | 2021-07-13 21:57 | PN ---
PROGRESS NOTE DATE OF SERVICE: 07/13/2021 REASON FOR FOLLOWUP: Sepsis, pneumonia. INTERVAL HISTORY: Patient is afebrile. The patient is still hemodynamically requiring pressor support. Monitor blood pressure. No significant purulent secretions or any diarrhea or any other changes reported by the nursing staff. No fever has been recorded in the last 48 hours. PHYSICAL EXAMINATION: Blood pressure is 90/58 with a pulse of 170, temperature of 98. He is 93% on 70% FIO2. General description is a middle-aged male intubated on the vent. Respiratory system: Unlabored breathing, decreased intensity of breath sounds. No wheeze. Heart S1, S2. Regular rate and rhythm. Abdomen soft, no tenderness. LABS: Hemoglobin 11.1, white count 22.3, creatinine is 2.87. Sputum showing presumptive Staph aureus and Ivonne albicans. DIAGNOSTIC IMPRESSION AND PLAN: Patient with acute respiratory failure, multifactorial in this patient with acute COVID- 19 pneumonia, now with concern for possible secondary bacterial pneumonia. Sputum showing Staph aureus. Sensitivities will be followed. Continue cefepime, Vanco and Diflucan to which the patient's fever has responded. Prognosis remains to be guarded. MMODL / IJN: [id number] /
[2021-07-13 23:45] LABS: Glucose,Whole Blood 147 mg/dL (75-99)
[2021-07-14] MEDS: INSULIN ASPART (NovoLOG) 100 UNIT/ML VIAL SQ SCH ×5 (00:01→23:17)
[2021-07-14] MEDS: fentaNYL (PF). 1,000 MCG in SODIUM CHLORIDE 0.9% 80 ML IV SCH ×4 (01:02→23:38)
[2021-07-14] MEDS: ARTIFICIAL TEARS-HYPROMELLOSE DROPS 15 ML BTL BOTH EYES SCH ×6 (04:47→23:17)
[2021-07-14 05:12] LABS: HCT 41.3 % (39.0-53.0); HGB 12.7 gm/dL (13.0-17.5); Hypochromasia Marked; MCH 31.4 pg (25.0-35.0); MCHC 30.8 g/dL (31.0-37.0); Macrocytosis Slight; Mean Platelet Volume 8.5; Platelet Count 239 k/uL (150-450); RBC 4.04 m/uL (4.30-5.90); RDW 13.2 % (11.5-15.5)
[2021-07-14 05:28] LABS: Albumin 2.8 g/dL (3.5-5.0); Potassium 5.7 mmol/L (3.5-5.1); Total Bilirubin 1.7 mg/dL (0.2-1.3); Total Protein 5.7 g/dL (6.3-8.2)
[2021-07-14 05:49] LABS: MCV 102.1 fL (80.0-100.0)
[2021-07-14 06:03] LABS: ABG Base Excess -5.6 mmol/L; ABG HCO3 24 mmol/L (21-25); ABG Oxygen Saturation 94.9 % (94-97); ABG PO2 87 mmHg (83-108); ABG TCO2 26 mmol/L (19-24); Allen Test Performed? Yes
[2021-07-14 06:10] LABS: ABG PCO2 77 mmHg (35-45)
[2021-07-14 06:23] LABS: Glucose,Whole Blood 162 mg/dL (75-99)
[2021-07-14] MEDS: ALBUTEROL HFA INHALER INHALATION SCH ×4 (07:34→20:03)
[2021-07-14] MEDS: SYMBICORT 80-4.5 MCG INHALER INHALATION SCH ×2 (07:34→20:00)
[2021-07-14 08:05] LABS: Band Neutrophils % 4 %; Lymphocytes # (M) 0.68 k/uL (1.0-4.8); Metamyelocytes # (M) 0.34 k/uL (0); Metamyelocytes % 1 %; Monocytes # (M) 1.36 k/uL (0-1.0); Myelocytes # (M) 1.02 k/uL (0); Myelocytes % 3 %; Neutrophils % (M) 89 %; Nucleated Red Blood Cells 0 /100 WBC (0-0); Total Cells Counted 200
[2021-07-14 08:07] LABS: Toxic Vacuolation Present
[2021-07-14 08:08] LABS: Anisocytosis (M) Present; Poikilocytosis (M) Present
--- NOTE | 2021-07-14 08:48 | XR ---
EXAMINATION TYPE: XR chest 1V portable DATE OF EXAM: 07/14/2021 COMPARISON: Chest x-ray 07/13/2021 HISTORY: Intubated, abnormal chest x-ray TECHNIQUE: Single frontal view of the chest is obtained. FINDINGS: Endotracheal tube, NG tube are again present and overlying appropriate positions. There is extensive subcutaneous emphysema, bilateral airspace disease as on prior exam, left subclavian centr al venous catheter is stable. Cardiac mediastinal silhouette is unchanged. There are overlying artifa cts. No evident pneumothorax or sizable effusion. There may be underlying pneumomediastinum. IMPRESSION: Findings are similar to prior exam. Correlate for pneumonia, ARDS, edema
[2021-07-14 08:49] LABS: ABG Base Excess -9.1 mmol/L; ABG HCO3 21 mmol/L (21-25); ABG PCO2 70 mmHg (35-45); ABG PO2 76 mmHg (83-108); ABG TCO2 23 mmol/L (19-24)
[2021-07-14 08:51] LABS: ABG PH 7.08 (7.35-7.45); Allen Test Performed? no
[2021-07-14] MEDS: SODIUM CHLORIDE 0.9% 150 ML with VASOPRESSIN 60 UNIT IV SCH ×2 (08:53)
[2021-07-14] MEDS ORDERED: SODIUM ZIRCONIUM CYCLOSILICATE 10 GM PACKET PO ONE (09:17)
[2021-07-14] MEDS ORDERED: INSULIN REGULAR 100 UNIT/ML VIAL (IV) IV ONE (09:17)
[2021-07-14] MEDS ORDERED: SODIUM BICARB 8.4% 50 ML SYR (1 MEQ/ML) IV STA (09:17)
[2021-07-14] MEDS ORDERED: DEXTROSE 50% SYRINGE 50 ML IVP STA (09:17)
[2021-07-14] MEDS: EPINEPHrine 4 MG in DEXTROSE 5% IN WATER 250 ML IV SCH ×2 (09:19)
--- NOTE | 2021-07-14 09:19 | P.PN ---
Subjective Patient is seen in follow-up for acute kidney injury. Renal function continues to worsen. Currently on Levophed and vasopressin. Receiving IV fluids. Patient is now oliguric. Potassium level 5.7 today. Vital signs - on vasopressor support. HEENT: Intubated. HEART: Tachycardic. EXTREMITITES: No gross edema noted. Exam discussed with the nurse. Objective - Vital Signs Vital signs: Vital Signs Temp 98.5 F 07/14/21 04:00 Pulse 113 H 07/14/21 07:00 Resp 30 H 07/14/21 07:00 BP 104/76 07/14/21 06:45 Pulse Ox 93 L 07/14/21 07:00 Intake & Output 07/13/21 07/14/21 07/14/21 18:59 06:59 18:59 Intake Total 9432.673 2174.165 175.985 Output Total 540 200 5 Balance 8901.403 8779.165 170.985 Weight 137.5 kg 140.5 kg Intake: IV 972 1391 81 Pressure Bag 72 66 6 Sodium Chloride 0.9% 1, 900 825 75 000 ml @ 75 mls/hr IV . [id number] [facility] Rx#:[id number] Vancomycin 2g/500 ml 500 Intake, IV Titration 736.361 665.165 94.985 Amount Cisatracurium 200 mg In 175.692 Sodium Chloride 0.9% 180 ml @ 1 MCG/KG/MIN 7.26 mls/hr IV .Q24H [facility] Rx#: [id number] Norepinephrine 32 mg In 46.894 165.165 Sodium Chloride 0.9% 218 ml @ 0.05 MCG/KG/MIN 2. 836 mls/hr IV .Q24H [facility] Rx#:[id number] fentaNYL (PF). 1,000 mcg 176.458 100 94.985 In Sodium Chloride 0.9% 80 ml @ 0.5 MCG/KG/HR 6. 05 mls/hr IV .[id number] [facility] Rx#:[id number] propofoL 1,000 mg In 337.317 400 Empty Bag 1 bag @ Titrate IV .Q0M [facility] Rx#: [id number] Tube Feeding 160 Other 30 Output: Urine 540 200 5 Other: Voiding Method Indwelling Catheter Indwelling Catheter ABP, PAP, CO, CI - Last Documented Arterial Blood Pressure 108/67 - Labs CBC & Chem 7: 07/14/21 04:15 07/14/21 04:15 Labs: Abnormal Lab Results - Last 24 Hours (Table) 07/13/21 07/13/21 07/13/21 Range/Units 13:19 18:23 23:43 WBC (3.8-10.6) k/uL RBC (4.30-5.90) m/uL Hgb (13.0-17.5) gm/dL MCV (80.0-100.0) fL MCHC (31.0-37.0) g/dL Neutrophils # (Manual) (1.3-7.7) k/uL Lymphocytes # (Manual) (1.0-4.8) k/uL Monocytes # (Manual) (0-1.0) k/uL Metamyelocytes # (Man) (0) k/uL Myelocytes # (Manual) (0) k/uL ABG pH (7.35-7.45) ABG pCO2 (35-45) mmHg ABG pO2 (83-108) mmHg ABG Total CO2 (19-24) mmol/L ABG O2 Saturation (94-97) % Sodium (137-145) mmol/L Potassium (3.5-5.1) mmol/L BUN (9-20) mg/dL Creatinine (0.66-1.25) mg/dL Glucose (74-99) mg/dL POC Glucose (mg/dL) 154 H 214 H 147 H (75-99) mg/dL Calcium (8.4-10.2) mg/dL Total Bilirubin (0.2-1.3) mg/dL AST (17-59) U/L ALT (4-49) U/L Alkaline Phosphatase (38-126) U/L Total Protein (6.3-8.2) g/dL Albumin (3.5-5.0) g/dL 07/14/21 07/14/21 07/14/21 Range/Units 04:15 04:15 06:05 WBC 34.0 H (3.8-10.6) k/uL RBC 4.04 L (4.30-5.90) m/uL Hgb 12.7 L (13.0-17.5) gm/dL MCV 102.1 H D (80.0-100.0) fL MCHC 30.8 L (31.0-37.0) g/dL Neutrophils # (Manual) 31.60 H (1.3-7.7) k/uL Lymphocytes # (Manual) 0.68 L (1.0-4.8) k/uL Monocytes # (Manual) 1.36 H (0-1.0) k/uL Metamyelocytes # (Man) 0.34 H (0) k/uL Myelocytes # (Manual) 1.02 H (0) k/uL ABG pH 7.10 L* (7.35-7.45) ABG pCO2 77 H* (35-45) mmHg ABG pO2 (83-108) mmHg ABG Total CO2 26 H (19-24) mmol/L ABG O2 Saturation (94-97) % Sodium 136 L (137-145) mmol/L Potassium 5.7 H (3.5-5.1) mmol/L BUN 76 H (9-20) mg/dL Creatinine 4.10 H (0.66-1.25) mg/dL Glucose 138 H (74-99) mg/dL POC Glucose (mg/dL) (75-99) mg/dL Calcium 7.0 L (8.4-10.2) mg/dL Total Bilirubin 1.7 H (0.2-1.3) mg/dL AST 3060 H (17-59) U/L ALT 4094 H (4-49) U/L Alkaline Phosphatase 159 H (38-126) U/L Total Protein 5.7 L (6.3-8.2) g/dL Albumin 2.8 L (3.5-5.0) g/dL 07/14/21 07/14/21 Range/Units 06:22 08:47 WBC (3.8-10.6) k/uL RBC (4.30-5.90) m/uL Hgb (13.0-17.5) gm/dL MCV (80.0-100.0) fL MCHC (31.0-37.0) g/dL Neutrophils # (Manual) (1.3-7.7) k/uL Lymphocytes # (Manual) (1.0-4.8) k/uL Monocytes # (Manual) (0-1.0) k/uL Metamyelocytes # (Man) (0) k/uL Myelocytes # (Manual) (0) k/uL ABG pH 7.08 L* (7.35-7.45) ABG pCO2 70 H (35-45) mmHg ABG pO2 76 L (83-108) mmHg ABG Total CO2 (19-24) mmol/L ABG O2 Saturation 92.0 L (94-97) % Sodium (137-145) mmol/L Potassium (3.5-5.1) mmol/L BUN (9-20) mg/dL Creatinine (0.66-1.25) mg/dL Glucose (74-99) mg/dL POC Glucose (mg/dL) 162 H (75-99) mg/dL Calcium (8.4-10.2) mg/dL Total Bilirubin (0.2-1.3) mg/dL AST (17-59) U/L ALT (4-49) U/L Alkaline Phosphatase (38-126) U/L Total Protein (6.3-8.2) g/dL Albumin (3.5-5.0) g/dL Microbiology - Last 24 Hours (Table) 07/10/21 17:41 Blood Culture - Preliminary Blood No Growth after 72 hours 07/10/21 16:02 Blood Culture - Preliminary Blood No Growth after 72 hours 07/10/21 13:05 Gram Stain - Preliminary Sputum Sputum Culture - Preliminary Ivonne albicans Presumptive Staph aureus Assessment and Plan Plan: Assessment: 1. Acute kidney injury secondary to ATN secondary to septic shock. Baseline creatinine near 1 and is 4.1 today. Now oliguric. 2. Septic shock secondary to COVID-19 infection with concern for superimposed bacterial infection. 3. Hyperkalemia secondary to acute kidney injury. 4. Acute hypoxic and hypercapnic respiratory failure. 5. Metabolic acidosis secondary to acute kidney injury. Status post bicarb drip. Improved. 6. Hypocalcemia secondary to acute kidney injury. Replaced. Corrected calcium 8. Plan: Maintain normal saline at 75 mL an hour. Continue to monitor renal function and urine output. Monitor vancomycin levels. Dose to be adjusted for renal function. Wean FiO2 and vasopressors. 10 units IV insulin with an amp of D50 and 2 A of sodium bicarb IV push now. 10 g lokelma now. Due to worsening renal function, hyperkalemia and oliguria, initiated renal replacement therapy. Consult vascular surgery for dialysis catheter placement. Plan for SLED today. Repeat BMP this afternoon. Check phosphorus level.
[2021-07-14] MEDS: APIXABAN 5 MG TAB PO SCH ×2 (09:20→19:49)
[2021-07-14] MEDS: CHLORHEXIDINE GLUCONATE 15 ML CUP MUCOUS MEM SCH ×2 (09:21→19:49)
[2021-07-14] MEDS: CHOLECALCIFEROL 25 MCG (1000 IU) TABLET PO SCH (09:21)
[2021-07-14] MEDS: ASCORBIC ACID 500 MG TAB PO SCH (09:21)
[2021-07-14] MEDS: DEXAMETHASONE SOD PHOSPHATE 10 MG/ML 1 ML VIAL IVP SCH (09:22)
[2021-07-14] MEDS: ZINC SULFATE 220 MG CAP PO SCH (09:22)
[2021-07-14] MEDS: PANTOPRAZOLE 40 MG/10 ML VIAL IVP SCH (09:22)
[2021-07-14] MEDS: SODIUM BICARBONATE TAB 650 MG TAB PO SCH ×2 (09:35→19:49)
[2021-07-14] MEDS: FLUCONAZOLE IN NACL,ISO-OSM 100 MG in SALINE 1 50ML.BAG IVPB SCH (09:54)
--- NOTE | 2021-07-14 10:29 | P.PN ---
Subjective Progress Note Date: 07/13/21 Principal diagnosis: Acute hypoxic respiratory failure secondary to COVID-19 pneumonia 07/06/2021 Patient evaluated sitting up in the chair, reports overall he is feeling slightly better. He was talking on the phone with family and appeared in good spirits. He continues on airvo at 50L with an FiO2 of 70% and in addition to a nonrebreather, oxygen saturation is 94%. He is afebrile, blood pressure 102/66. Labs reviewed today; white count of 18.7, sodium 137, potassium 4.5, CO2 32, sugars in the 110s. AST, ALT and alk phos have normalized. He continues on eliquis for a right leg DVT. There is still some peripheral edema to the right leg. Continues on baricitinib, bronchodilators, zinc, vitamins, decadron. He is being followed closely pulmonary and ID services. 07/07/2021 Patient had to sleep sitting up in the chair last night, his oxygen support was decreased slightly yesterday to 55L airvo from 60L airvo. Otherwise he is relatively stable where he is at. Chest xray today shows stable bilateral diffuse infiltrates. Could not exclude subtle pneumomediastinum. Correlate clinically. Labs reviewed today shows a WBC count of 18.3. He has some cough with minimal sputum production. Vitals today he is afebrile, heart rate 85 normal sinus rhythm, blood pressure 102/61, 91% on airvo with nonrebreather. He maintains in good spirits. 07/08/2021 Patient is in the select care unit. Requiring high flow oxygen 55 L/min with 60% FiO2. Patient became anxious and hypoxic in the afternoon and rapid response team was called him. Repeat chest x-ray showed right apical pneumothorax. Patient was transferred to MICU for close monitoring. Patient is being continued on dexamethasone and Eliquis. Also being continued on baricitinib. Laboratory data showed WBC 17.6 hemoglobin 13.4 and platelets 243 Sodium 136 potassium 4.5 chloride 99 bicarbonate 33 BUN 22 and creatinine 0.74 LDH 8074 and CRP 4.4 07/09/2021 Patient is currently in the MICU. Awake alert and oriented x3. Able to speak. Sitting in the chair. Requiring high flow oxygen currently. on Airvo 60 L at 90% FiO2 with 100% nonrebreather facemask. Chest x-ray showed no pneumothorax today. There is subcutaneous emphysema on the right and evidence of pneumomediastinum. Patient is being continued on dexamethasone and baricitinib and Eliquis due to DVT diagnosed on admission. Laboratory data showed WBC 17.0 hemoglobin 12.9 and platelets 260 BUN 73 and creatinine 0.64 [id number] Patient is in the MICU. Was requiring BiPAP last night. Patient woke up with coughing spell and subsequently desaturated and unable to recover. He was switched to BiPAP and eventually went into respiratory failure. Patient was intubated in the afternoon. Chest x-ray in the morning showed stable chest. Repeat chest x-ray showed left- sided central line. Diffuse bilateral airspace disease subcutaneous emphysema pneumomediastinum and less than 5% right-sided pneumothorax stable. Patient is being current dexamethasone, baricitinib and Eliquis. Laboratory data showed WBC 40.0 hemoglobin 13.3 and platelets 362 ABGs showed pH 7.26 PCO2 75 PO2 80 and sodium 135 potassium 4.3 chloride 99 bicarb is 32 BUN 28 and creatinine 0.69 LDH 1698 CRP 2.7 and procalcitonin level is 0.06 07/11/2021 Patient is only intensive care unit. Intubated and on mechanical ventilator. Patient is also sedated and on propofol and fentanyl and Nimbex. Patient became progressively hypotensive and into septic shock with signs of multiorgan failure. Patient was started vancomycin and cefepime. Currently patient is on pressure control respiratory rate 30 and FiO2-% PEEP of 15. Chest x-ray this morning showed persistent bilateral airspace opacities. Diffuse subcutaneous emphysema not significantly changed. Pneumothorax is not definitely visualized continued retention on follow-up imaging. Laboratory data showed WBC 28.4 hemoglobin 12.5 and platelets 342 ABGs this morning showed pH of 7.15 PCO2 70 PO2 95 Sodium 137 potassium 5.8 BUN 34 and creatinine 1.30 magnesium 2.5 total bilirubin is 1.5 AST 07/13/2007 and ALT 1497 and alk phos 105 Repeat BMP showed creatinine went up to 2.17 and nephrology was consulted. Critical care team is on board. 07/12/2020 Patient is in MICU. Remains on mechanical ventilator. Sedated and paralyzed.. Patient is on pressor support with Levophed. Currently on pressure control with FiO2 70% PEEP of 15. Chest x-ray showed patchy bilateral lung infiltrates stable from comparison. No definite pneumothorax evident on the current study. Extensive subcutaneous emphysema remains present. Patient went into septic shock and multiorgan dysfunction following intubation. Currently on broad-spectrum antibiotics, vancomycin and cefepime. Also on fluconazole due to extensive oropharyngeal candidiasis. Urine output is maintained. Laboratory data showed WBC 22.7. Hemoglobin 11.9 platelets 245 lymphocytes 0.7 BUN 47 creatinine 2.59 and calcium 6.2 liver enzymes are trending down AST 1062 ALT 2036 and alk phos 84 albumin 2.3 hepatitis panel negative. Sputum culture showed Ivonne albicans. Patient is in sinus rhythm. Pulmonary nephrology is on board. 07/13/2020 Patient is in the MICU and on mechanical ventilator with pressure support. Sedated and paralyzed. FiO2 80% and PEEP of 14. ABG showed pH 7.21 PCO2 74 and PO2 105. Patient is being continued on Levophed and vasopressin as well. Chest x-ray today showed difficult to exclude pneumomediastinum. There is extensive subcutaneous emphysema. Laboratory data showed WBC 22.3 hemoglobin 11.3 and platelets 190 lymphocytes 0.4 Sodium 136 potassium 4.4 chloride 101 BUN 16 creatinine 2.87. AST 572 ALT 1786 and alk phos 99 albumin 2.3 Review of systems could not be obtained from the patient at this time. All inpatient medications were reviewed and appropriate changes in these medications as dictated in the history and assessment and plan. Objective - Vital Signs Vital signs: Vital Signs Temp 98.6 F 07/13/21 20:00 Pulse 121 H 07/13/21 21:30 Resp 30 H 07/13/21 21:30 BP 106/68 07/13/21 21:30 Pulse Ox 94 L 07/13/21 21:30 Intake & Output 07/13/21 07/13/21 07/14/21 06:59 18:59 06:59 Intake Total 0853.347 0874.361 100 Output Total 624 540 Balance 351.078 5238.361 100 Weight 137.5 kg 137.5 kg Intake: IV 1053 972 Pressure Bag 78 72 Sodium Chloride 0.9% 1, 975 900 000 ml @ 75 mls/hr IV . [id number] [facility] Rx#:[id number] Intake, IV Titration 491.641 736.361 100 Amount Cisatracurium 200 mg In 175.692 Sodium Chloride 0.9% 180 ml @ 1 MCG/KG/MIN 7.26 mls/hr IV .Q24H SE Rx#: [id number] Norepinephrine 32 mg In 129.518 46.894 Sodium Chloride 0.9% 218 ml @ 0.05 MCG/KG/MIN 2. 836 mls/hr IV .Q24H SE Rx#:[id number] fentaNYL (PF). 1,000 mcg 100 176.458 In Sodium Chloride 0.9% 80 ml @ 0.5 MCG/KG/HR 6. 05 mls/hr IV .[id number] SE Rx#:[id number] propofoL 1,000 mg In 262.123 337.317 100 Empty Bag 1 bag @ Titrate IV .Q0M SE Rx#: [id number] Tube Feeding 160 Other 30 Output: Urine 624 540 Other: Voiding Method Indwelling Catheter Indwelling Catheter Indwelling Catheter ABP, PAP, CO, CI - Last Documented Arterial Blood Pressure 79/58 - Exam PHYSICAL EXAMINATION: GENERAL: Patient is currently on mechanical mechanical ventilator sedated and intubated.. HEENT: Pupils are round and equally reacting to light. EOMI. No scleral icterus. No conjunctival pallor. Normocephalic, atraumatic. No pharyngeal erythema. No thyromegaly. CARDIOVASCULAR: S1 and S2 present. No murmurs, rubs, or gallops. PULMONARY: Coarse scattered rhonchi ABDOMEN: Soft, nontender, nondistended, normoactive bowel sounds. No palpable organomegaly. MUSCULOSKELETAL: No joint swelling or deformity. EXTREMITIES: No cyanosis, clubbing, right leg peripheral edema. NEUROLOGICAL: Gross neurological examination did not reveal any focal deficits. SKIN: No rashes. - Labs CBC & Chem 7: 07/14/21 04:15 07/14/21 04:15 Labs: Abnormal Lab Results - Last 24 Hours (Table) 07/12/21 07/13/21 07/13/21 Range/Units 23:49 03:50 03:50 WBC 22.3 H (3.8-10.6) k/uL RBC 3.45 L (4.30-5.90) m/uL Hgb 11.3 L (13.0-17.5) gm/dL Hct 33.4 L (39.0-53.0) % Neutrophils # 21.0 H (1.3-7.7) k/uL Lymphocytes # 0.4 L (1.0-4.8) k/uL ABG pH (7.35-7.45) ABG pCO2 (35-45) mmHg ABG HCO3 (21-25) mmol/L ABG Total CO2 (19-24) mmol/L Sodium 136 L (137-145) mmol/L BUN 60 H (9-20) mg/dL Creatinine 2.87 H (0.66-1.25) mg/dL Glucose 124 H (74-99) mg/dL POC Glucose (mg/dL) 132 H (75-99) mg/dL Calcium 7.0 L (8.4-10.2) mg/dL AST 572 H (17-59) U/L ALT 1786 H (4-49) U/L Total Protein 4.9 L (6.3-8.2) g/dL Albumin 2.3 L (3.5-5.0) g/dL 07/13/21 07/13/21 07/13/21 Range/Units 04:27 05:46 13:19 WBC (3.8-10.6) k/uL RBC (4.30-5.90) m/uL Hgb (13.0-17.5) gm/dL Hct (39.0-53.0) % Neutrophils # (1.3-7.7) k/uL Lymphocytes # (1.0-4.8) k/uL ABG pH 7.21 L (7.35-7.45) ABG pCO2 74 H* (35-45) mmHg ABG HCO3 30 H (21-25) mmol/L ABG Total CO2 32 H (19-24) mmol/L Sodium (137-145) mmol/L BUN (9-20) mg/dL Creatinine (0.66-1.25) mg/dL Glucose (74-99) mg/dL POC Glucose (mg/dL) 132 H 154 H (75-99) mg/dL Calcium (8.4-10.2) mg/dL AST (17-59) U/L ALT (4-49) U/L Total Protein (6.3-8.2) g/dL Albumin (3.5-5.0) g/dL 01/03/22 Range/Units 18:23 WBC (3.8-10.6) k/uL RBC (4.30-5.90) m/uL Hgb (13.0-17.5) gm/dL Hct (39.0-53.0) % Neutrophils # (1.3-7.7) k/uL Lymphocytes # (1.0-4.8) k/uL ABG pH (7.35-7.45) ABG pCO2 (35-45) mmHg ABG HCO3 (21-25) mmol/L ABG Total CO2 (19-24) mmol/L Sodium (137-145) mmol/L BUN (9-20) mg/dL Creatinine (0.66-1.25) mg/dL Glucose (74-99) mg/dL POC Glucose (mg/dL) 214 H (75-99) mg/dL Calcium (8.4-10.2) mg/dL AST (17-59) U/L ALT (4-49) U/L Total Protein (6.3-8.2) g/dL Albumin (3.5-5.0) g/dL Microbiology - Last 24 Hours (Table) 07/10/21 17:41 Blood Culture - Preliminary Blood No Growth after 72 hours 07/10/21 16:02 Blood Culture - Preliminary Blood No Growth after 72 hours 07/10/21 13:05 Gram Stain - Preliminary Sputum Sputum Culture - Preliminary Ivonne albicans Presumptive Staph aureus Assessment and Plan Assessment: Acute hypoxic respiratory failure secondary to COVID 19 pneumonia requiring oxygen support with 60L with FiO2 90% and nonrebreather mask--> BIPAP. Intubated on 07/10/2021 Right apical pneumothorax estimated at less than 10% and subcutaneous emphysema Septic shock with multiorgan system failure. Requiring pressor support with norepinephrine and vasopressin. Acute kidney injury due to ATN Acute metabolic acidosis Shock liver with elevated AST and ALT Acute DVT right lower extremity; on eliquis started this admission Elevated DD, CTA negative for PE, positive DVT Elevated liver enzymes possibly due to systemic inflammation, resolved Elevated inflammatory markers secondary to COVID 19, improving History of DVT History of asthma, not in acute exacerbation Remote history of nicotine dependence History of transverse myelitis History of C5-C6 fusion Obesity GI Prophylaxis: Protonix DVT Prophylaxis: Eliquis FULL CODE Plan Patientin in the MICU. on [facility] ventilator with pressure support Patient went into septic shock and multiorgan failure. Currently requiring pressors and received fluid boluses. Patient was also started on bicarb drip and monitor renal function closely. Patient will be cannula broad-spectrum antibiotics in the form of vancomycin and cefepime. Monitor LFTs Continue decadron, vitamins, Baricitinib Eliquis for DVT Repeat labs in AM Incentive spirometry Continue all other supportive care Cont with PT/OT consultation Prognosis remains guarded Time with Patient: Greater than 30
[2021-07-14] MEDS: NOREPINEPHRINE 32 MG in SODIUM CHLORIDE 0.9% 218 ML IV SCH ×2 (10:39→19:52)
[2021-07-14 10:45] VITALS: RESP 36
--- NOTE | 2021-07-14 10:52 | P.PN ---
Subjective Progress Note Date: 07/14/21 Principal diagnosis: Respiratory failure. 07/12/2021, the patient is being seen for a follow-up. He remains critically ill intubated sedated paralyzed on a mechanical ventilator with COVID 19 related to pneumonia and multisystem organ failure. The patient has been aggressively resuscitated over the past 48 hours. At this point in time the patient remains sedated and paralyzed. His propofol is currently running at 50 mcg/kg per minute and fentanyl is running at 1 mcg/kg/h and the patient is paralyzed with Nimbex at 1 mcg/kg per minute. He is adequately sedated and paralyzed. He remains synchronous with the mechanical ventilator. He is on a pressure control mode of mechanical ventilation with a pressure control of 23 and the rate of 30 with an FiO2 of 70% and a PEEP of 15. Chest x-ray still showing diffuse bilateral subcutaneous emphysema and there is no evidence of any pneumothorax. There is also diffuse bilateral pulmonary infiltrates. All of the tubes are in good location. PH is at 7.38 with a pCO2 of 51 and pO2 of 107. As such, the patient is adequately oxygenating and ventilating. Nevertheless, the active problem was the massive shock and hypotension which was probably a septic event. Cultures were all negative. The patient is currently on a combination of antibiotics and he is receiving cefepime, and vancomycin. Infectious disease was also consulted. I maintain the patient on fluconazole knowing that the patient had extensive oropharyngeal candidiasis at the time of the intubation. He was resuscitated IV fluids and received more than 10 L of saline and also received several doses of IV albumin. During the course of the resuscitation, he was on a combination of vasopressin physiologic dose, norepinephrine and epinephrine was also added to maintain his blood pressure. We are unable to wean off the epinephrine. Vasopressin remains at physiologic dose of 0.03 units an hour and the patient is currently on 0.15 mcg/kg per minute of norepinephrine infusion. Urine output is order of 30-50 mL an hour. His white cell count is low and currently is at 22.7. He is still spiking fever on and off for which she was given Tylenol IV. Currently he is afebrile. White cell count is down to 22.7. Meanwhile, the patient developed a nonoliguric renal failure. Creatinine is up to 2.59. He was having issues with hyperkalemia. He was given bicarb IV in the form of a push and later on drip and the sodium bicarb is currently running at the rate of 150 mL an hour. Serum bicarb this morning is at 30 with a potassium level of 4.4. Coagulation profile shows an INR of 1.4 with a PT of 14.2. The patient is a sinus rhythm. He is a shock liver and the liver function tests are essentially improving. Vancomycin level this morning is at 18.2. As stated, blood cultures are negative. Enterofeeding for nutritional support will be started today. Progress note dated 07/13/2020. 50-year-old male admitted to the hospital on June 27. His admission diagnosis was coronavirus associated pneumonia. He [facility] to [facility] on July 08, and ended up being intubated on July 10. This was for worsening hypoxemic respiratory failure. The patient is on pressure assist control mode of ventilation, with an inspiratory pressure of 23 cm water, and inspiratory time of 1 second. In addition, the patient has a rate of 30, FiO2 of 80%, and PEEP of 14. The patient's blood gases show pO2 105, pCO2 74, and pH is 7.21. The patient's currently on norepinephrine at 0.09 mcg/kg/m, vasopressin, and 0.02 units per minute, and saline at 75 mL an hour. In addition, the patient's on fentanyl 1 mcg/kg/h, Nimbex at 1 mcg/kg/m, and propofol at 50 mcg/kg/m. Tube feedings have not yet been started. White count 22.3, hemoglobin 11.3, hematocrit 33.4, and platelet count 190,000. Sodium 136, potassium 4.4, chlorides 101, CO2 28, anion gap 7 BUN 60, creatinine 2.87. Albumin is 2.3. Sputum from July 10 showing presumptive staph aureus. Chest x-ray from July 13 shows diffuse bilateral patchy infiltrates. There is extensive subcutaneous emphysema. Progress note dated 07/14/2021. 50-year-old male admitted to the hospital on June 27. His admission diagnosis was coronavirus associated pneumonia. He came to the intensive care unit on July 08 and was intubated for respiratory failure on 07/10/2021. This was for worsening hypoxemic respiratory failure. Currently, the patient is on pressure assist control, with a inspiratory pressure 23 cm water, inspiratory time of 1 second, rate of 36 breaths per minute, FiO2 65%, and PEEP of 14. Blood gases showed a pO2 of 87, pCO2 of 77, pH is 7.10. This was on a rate of 30. Repeat blood gases at the higher rate, show pO2 of 76, pCO2 70, and a pH is 7.08. The patient's on Nimbex at 1 mcg/kg/m, fentanyl 1 mcg/kg/h, norepinephrine at 70 mcg/m, vasopressin 0.03 units per minute, propofol at 50 mcg/kg/m, saline at 85 mL an hour, vital AF at 32 mL an hour. Because of his blood gases, we will go ahead and switch him to volume assist control, to attempt to reduce his PaCO2, and improve his pH. In addition, the patient is going to have a dialysis catheter placed today, and have hemodialysis. White count 34,000, hemoglobin 12.7, hematocrit 41.3, and platelet count 239,000. Sodium 136, potassium 5.7, chlorides 101, CO2 23, anion gap 12, BUN 76, with a creatinine of 4.10. Bilirubin 1.7. AST is 3060 with an ALT of 4094. Sputum from July 10 showing evidence of staph aureus. Chest x-ray shows diffuse bilateral infiltrates. Objective - Vital Signs Vital signs: Vital Signs Temp 98.5 F 07/14/21 04:00 Pulse 113 H 07/14/21 07:00 Resp 30 H 07/14/21 07:00 BP 104/76 07/14/21 06:45 Pulse Ox 93 L 07/14/21 07:00 Intake & Output 07/13/21 07/14/21 07/14/21 18:59 06:59 18:59 Intake Total 4803.541 5501.165 516.910 Output Total 540 200 5 Balance 0281.902 8696.165 511.910 Weight 137.5 kg 140.5 kg Intake: IV 972 1391 81 Pressure Bag 72 66 6 Sodium Chloride 0.9% 1, 900 825 75 000 ml @ 75 mls/hr IV . [id number] [facility] Rx#:[id number] Vancomycin 2g/500 ml 500 Intake, IV Titration 736.361 665.165 435.910 Amount Cisatracurium 200 mg In 175.692 Sodium Chloride 0.9% 180 ml @ 1 MCG/KG/MIN 7.26 mls/hr IV .Q24H [facility] Rx#: [id number] Norepinephrine 32 mg In 46.894 165.165 240.925 Sodium Chloride 0.9% 218 ml @ 0.05 MCG/KG/MIN 2. 836 mls/hr IV .Q24H [facility] Rx#:[id number] fentaNYL (PF). 1,000 mcg 176.458 100 94.985 In Sodium Chloride 0.9% 80 ml @ 0.5 MCG/KG/HR 6. 05 mls/hr IV .[id number] [facility] Rx#:[id number] propofoL 1,000 mg In 337.317 400 100 Empty Bag 1 bag @ Titrate IV .Q0M [facility] Rx#: [id number] Tube Feeding 160 Other 30 Output: Urine 540 200 5 Other: Voiding Method Indwelling Catheter Indwelling Catheter ABP, PAP, CO, CI - Last Documented Arterial Blood Pressure 108/67 - Exam No acute distress, currently sedated and paralyzed, with an orally placed endotracheal tube and NG tube. HEENT examination is grossly unremarkable. Extensive subcutaneous emphysema. Neck supple. Full range of motion. No adenopathy thyromegaly or neck vein distention. Cardiovascular examination reveals regular rhythm rate. S1-S2 normal. No S3 or S4. No discernible murmur noted. Heart sounds are distant. Heart rate 100 bpm. Lungs reveal diffuse coarse rhonchi. Breath sounds equal. No wheezes. There is extensive subcutaneous emphysema. Saturations are 91%. Abdomen soft without bowel sounds Extremities are intact. No cyanosis clubbing or edema. Skin is without rash or lesion. Neurologic examination cannot be evaluated as the patient is sedated and paralyzed. - Labs CBC & Chem 7: 07/14/21 04:15 07/14/21 04:15 Labs: Abnormal Lab Results - Last 24 Hours (Table) 07/13/21 07/13/21 07/13/21 Range/Units 13:19 18:23 23:43 WBC (3.8-10.6) k/uL RBC (4.30-5.90) m/uL Hgb (13.0-17.5) gm/dL MCV (80.0-100.0) fL MCHC (31.0-37.0) g/dL Neutrophils # (Manual) (1.3-7.7) k/uL Lymphocytes # (Manual) (1.0-4.8) k/uL Monocytes # (Manual) (0-1.0) k/uL Metamyelocytes # (Man) (0) k/uL Myelocytes # (Manual) (0) k/uL ABG pH (7.35-7.45) ABG pCO2 (35-45) mmHg ABG pO2 (83-108) mmHg ABG Total CO2 (19-24) mmol/L ABG O2 Saturation (94-97) % Sodium (137-145) mmol/L Potassium (3.5-5.1) mmol/L BUN (9-20) mg/dL Creatinine (0.66-1.25) mg/dL Glucose (74-99) mg/dL POC Glucose (mg/dL) 154 H 214 H 147 H (75-99) mg/dL Calcium (8.4-10.2) mg/dL Total Bilirubin (0.2-1.3) mg/dL AST (17-59) U/L ALT (4-49) U/L Alkaline Phosphatase (38-126) U/L Total Protein (6.3-8.2) g/dL Albumin (3.5-5.0) g/dL 07/14/21 07/14/21 07/14/21 Range/Units 04:15 04:15 06:05 WBC 34.0 H (3.8-10.6) k/uL RBC 4.04 L (4.30-5.90) m/uL Hgb 12.7 L (13.0-17.5) gm/dL MCV 102.1 H D (80.0-100.0) fL MCHC 30.8 L (31.0-37.0) g/dL Neutrophils # (Manual) 31.60 H (1.3-7.7) k/uL Lymphocytes # (Manual) 0.68 L (1.0-4.8) k/uL Monocytes # (Manual) 1.36 H (0-1.0) k/uL Metamyelocytes # (Man) 0.34 H (0) k/uL Myelocytes # (Manual) 1.02 H (0) k/uL ABG pH 7.10 L* (7.35-7.45) ABG pCO2 77 H* (35-45) mmHg ABG pO2 (83-108) mmHg ABG Total CO2 26 H (19-24) mmol/L ABG O2 Saturation (94-97) % Sodium 136 L (137-145) mmol/L Potassium 5.7 H (3.5-5.1) mmol/L BUN 76 H (9-20) mg/dL Creatinine 4.10 H (0.66-1.25) mg/dL Glucose 138 H (74-99) mg/dL POC Glucose (mg/dL) (75-99) mg/dL Calcium 7.0 L (8.4-10.2) mg/dL Total Bilirubin 1.7 H (0.2-1.3) mg/dL AST 3060 H (17-59) U/L ALT 4094 H (4-49) U/L Alkaline Phosphatase 159 H (38-126) U/L Total Protein 5.7 L (6.3-8.2) g/dL Albumin 2.8 L (3.5-5.0) g/dL 07/14/21 07/14/21 Range/Units 06:22 08:47 WBC (3.8-10.6) k/uL RBC (4.30-5.90) m/uL Hgb (13.0-17.5) gm/dL MCV (80.0-100.0) fL MCHC (31.0-37.0) g/dL Neutrophils # (Manual) (1.3-7.7) k/uL Lymphocytes # (Manual) (1.0-4.8) k/uL Monocytes # (Manual) (0-1.0) k/uL Metamyelocytes # (Man) (0) k/uL Myelocytes # (Manual) (0) k/uL ABG pH 7.08 L* (7.35-7.45) ABG pCO2 70 H (35-45) mmHg ABG pO2 76 L (83-108) mmHg ABG Total CO2 (19-24) mmol/L ABG O2 Saturation 92.0 L (94-97) % Sodium (137-145) mmol/L Potassium (3.5-5.1) mmol/L BUN (9-20) mg/dL Creatinine (0.66-1.25) mg/dL Glucose (74-99) mg/dL POC Glucose (mg/dL) 162 H (75-99) mg/dL Calcium (8.4-10.2) mg/dL Total Bilirubin (0.2-1.3) mg/dL AST (17-59) U/L ALT (4-49) U/L Alkaline Phosphatase (38-126) U/L Total Protein (6.3-8.2) g/dL Albumin (3.5-5.0) g/dL Microbiology - Last 24 Hours (Table) 07/10/21 13:05 Gram Stain - Final Sputum Sputum Culture - Final Ivonne albicans Staphylococcus aureus 07/10/21 17:41 Blood Culture - Preliminary Blood No Growth after 72 hours 07/10/21 16:02 Blood Culture - Preliminary Blood No Growth after 72 hours Assessment and Plan Assessment: Acute hypoxemic respiratory failure, secondary to coronavirus associated pneumonia, status post intubation and mechanical ventilation on July 10. Extensive subcutaneous emphysema as a complication of coronavirus associated pneumonia. History of chronic bronchial asthma. Right lower extremity deep venous thrombosis. History of oropharyngeal candidiasis. History of shock liver. Acute kidney injury. Septic shock with multiorgan system failure. Previous history of tobacco use. History of C5-C6 fusion. History of transverse myelitis. Plan: Plan dated 06/28/2021. Currently, the patient is a candidate for Decadron, Lovenox, vitamin C, vitamin D3, and zinc. He is not a candidate for REM, consistent and have been present for more than 7 days, and he is on oxygen that is greater than 6 L/m. He is getting close to the point where he may become a candidate for FLAQUITO. The patient does appear relatively comfortable. We will continue to follow make recommendations where appropriate. The patient is on his usual inhalers for his asthma. Prognosis is guarded. Plan dated 07/13/2020. The patient's labs, x-rays, and medications all reviewed. The patient remains on a factor X a inhibitor for his right lower extremity DVT. The patient continues on Decadron. FLAQUITO has been discontinued. The patient remains on fent anyl, Nimbex, and propofol. The patient remains on both norepinephrine and vasopressin. The patient is obviously very critically ill. The patient remains on pressure assist control mode of mechanical ventilation. Additional recommendations and suggestions are forthcoming. We will continue to follow the patient and make recommendations where appropriate. Overall prognosis remains very guarded. Plan dated 07/14/2021. The patient's labs, x-rays, and medications are all reviewed. The patient remains on a factor X a inhibitor for his right lower extremity DVT. The patient continues on Decadron. The patient also remains on fentanyl, Nimbex, and propofol. The patient is on norepinephrine and vasopressin for blood pressure stability. I did have a chance to speak to his Shyla. She understands the gravity of the situation. I explained to her that we will continue to support him fully. At this time, his prognosis is very poor. We will continue to follow the patient and make recommendations where appropriate. We did change his ventilator from pressure assist control, volume assist control. The patient will have a hemodialysis catheter placed today and undergo hemodialysis. Urine output is poor and renal function has worsened. Time with Patient: Greater than 30
[2021-07-14 11:21] LABS: ABG Base Excess -4.4 mmol/L; ABG HCO3 24 mmol/L (21-25); ABG Oxygen Saturation 91.3 % (94-97); ABG PCO2 62 mmHg (35-45); ABG PO2 68 mmHg (83-108); ABG TCO2 26 mmol/L (19-24)
[2021-07-14 11:23] LABS: ABG PH 7.19 (7.35-7.45); Allen Test Performed? no
[2021-07-14 11:41] LABS: Glucose,Whole Blood 181 mg/dL (75-99)
[2021-07-14] MEDS: SODIUM CHLORIDE 0.9% 1,000 ML IV SCH ×2 (12:11→23:17)
[2021-07-14] MEDS: CISATRACURIUM 200 MG in SODIUM CHLORIDE 0.9% 180 ML IV SCH (14:49)
[2021-07-14 18:26] LABS: Glucose,Whole Blood 123 mg/dL (75-99)
[2021-07-14 18:47] LABS: Calcium 7.3 mg/dL (8.4-10.2); Potassium 3.6 mmol/L (3.5-5.1)
[2021-07-14] MEDS: CEFEPIME 1 GM in SODIUM CHLORIDE 0.9% 50 ML IVPB SCH (19:49)
--- NOTE | 2021-07-14 21:31 | PCN ---
PROCEDURE NOTE PREOP DIAGNOSES: Acute chronic renal failure positive for Covid. POSTOP DIAGNOSES: Acute chronic renal failure, positive for Covid. PROCEDURE PERFORMED: Ultrasound-guided dialysis catheter placed right femoral approach. DESCRIPTION OF PROCEDURE: This patient was seen in the care unit. The right groin was prepped and drapes applied in a sterile manner. 1% lidocaine plain in the right groin. Ultrasound-guided micropuncture into the right common femoral vein. Micropuncture guide was passed. After that, 4-Indian dilator advanced on the top of the guidewire. Through the dilator, we passed the regular guidewire, was parked in the inferior vena cava. A dilator was advanced on top of the guidewire. Then we placed a dialysis catheter on the top of the guidewire. The guidewire was removed, flushed with heparin saline and hep-locked and secured with 3-0 nylon. Dressing applied. Patient tolerated the procedure well. MMODL / IJN: [id number] /
--- NOTE | 2021-07-14 23:04 | PN ---
PROGRESS NOTE DATE OF SERVICE: 07/14/2020 REASON FOR FOLLOWUP: Pneumonia. INTERVAL HISTORY: Patient is afebrile. The patient is still requiring pressor support to maintain his blood pressure. The patient is also on 60% FiO2. No significant purulent secretions through the ET, diarrhea has been reported. However did have some significant subcutaneous emphysema. PHYSICAL EXAMINATION: Blood pressure 105/60 with a pulse of 90, temperature is 98, he is 99% on 60% FIO2. General description is a middle-aged male intubated on the vent. Respiratory system: Unlabored breathing, decreased intensity in breath sounds. No wheeze. Heart S1, S2. Regular rate and rhythm. Abdomen: Soft, mildly distended. No guarding or rigidity. Extremities: No edema of the feet. LABS: Hemoglobin is 12 with white count 34,000. BUN of 38, creatinine is 2.04. Liver enzymes remain to be elevated. Sputum with MSSA. Blood culture has been negative. DIAGNOSTIC IMPRESSION AND PLAN: Patient with acute respiratory failure which is multifactorial in this patient with acute COVID-19 pneumonia, now with evidence of secondary bacterial pneumonia and MSSA. Patient to continue cefepime. Vancomycin discontinued. Overall prognosis remains to be guarded. Continue supportive care. MMODL / IJN: [id number] /
[2021-07-14 23:16] LABS: Glucose,Whole Blood 165 mg/dL (75-99)
[2021-07-15] MEDS: ACETAMINOPHEN TAB 325 MG TAB PO PRN ×2 (00:45→08:15)
[2021-07-15] MEDS: ARTIFICIAL TEARS-HYPROMELLOSE DROPS 15 ML BTL BOTH EYES SCH ×5 (04:46→20:29)
[2021-07-15 05:00] LABS: Phosphorus 7.6 mg/dL (2.5-4.5)
[2021-07-15 05:05] LABS: Vancomycin,Random 20.7 ug/mL
[2021-07-15 05:23] LABS: HCT 36.1 % (39.0-53.0); HGB 11.4 gm/dL (13.0-17.5); Hypochromasia Slight; MCH 31.5 pg (25.0-35.0); MCHC 31.7 g/dL (31.0-37.0); MCV 99.4 fL (80.0-100.0); Mean Platelet Volume 9.2; Platelet Count 146 k/uL (150-450); RBC 3.63 m/uL (4.30-5.90); RDW 13.7 % (11.5-15.5)
[2021-07-15 05:35] LABS: ABG HCO3 27 mmol/L (21-25); ABG Oxygen Saturation 93.1 % (94-97); ABG PCO2 65 mmHg (35-45); ABG PH 7.23 (7.35-7.45); ABG PO2 79 mmHg (83-108); ABG TCO2 29 mmol/L (19-24); Allen Test Performed? Yes
[2021-07-15 05:45] LABS: Glucose,Whole Blood 163 mg/dL (75-99)
[2021-07-15] MEDS: INSULIN ASPART (NovoLOG) 100 UNIT/ML VIAL SQ SCH ×3 (05:51→18:51)
[2021-07-15] MEDS: fentaNYL (PF). 1,000 MCG in SODIUM CHLORIDE 0.9% 80 ML IV SCH ×3 (07:20→21:35)
[2021-07-15] MEDS: SYMBICORT 80-4.5 MCG INHALER INHALATION SCH ×2 (07:24→19:44)
[2021-07-15] MEDS: ALBUTEROL HFA INHALER INHALATION SCH ×4 (07:24→19:44)
[2021-07-15] MEDS: CHLORHEXIDINE GLUCONATE 15 ML CUP MUCOUS MEM SCH ×2 (08:12→20:29)
[2021-07-15] MEDS: CHOLECALCIFEROL 25 MCG (1000 IU) TABLET PO SCH (08:12)
[2021-07-15] MEDS: APIXABAN 5 MG TAB PO SCH ×2 (08:12→20:29)
[2021-07-15] MEDS: ASCORBIC ACID 500 MG TAB PO SCH (08:12)
[2021-07-15] MEDS: DEXAMETHASONE SOD PHOSPHATE 10 MG/ML 1 ML VIAL IVP SCH (08:14)
[2021-07-15] MEDS: PANTOPRAZOLE 40 MG/10 ML VIAL IVP SCH (08:14)
[2021-07-15] MEDS: SODIUM BICARBONATE TAB 650 MG TAB PO SCH ×2 (08:15→20:29)
[2021-07-15] MEDS: ZINC SULFATE 220 MG CAP PO SCH (08:16)
[2021-07-15 08:53] LABS: Band Neutrophils % 2 %; Lymphocytes # (M) 0.48 k/uL (1.0-4.8); Metamyelocytes # (M) 0.48 k/uL (0); Metamyelocytes % 2 %; Myelocytes # (M) 0.24 k/uL (0); Myelocytes % 1 %; Neutrophils % (M) 88 %; Nucleated Red Blood Cells 1 /100 WBC (0-0); Total Cells Counted 200; WBC 23.9 k/uL (3.8-10.6)
--- NOTE | 2021-07-15 08:55 | P.PN ---
Subjective Patient is seen in follow-up for acute kidney injury. Oliguric. Started on hemodialysis 07/14/2021. Currently on Levophed and vasopressin. Receiving IV fluids. Also receiving tube feeds. Vital signs - on vasopressor support. Temperature 101.3F this morning. HEENT: Intubated. LUNGS: Breath sounds decreased. HEART: Tachycardic. ABDOMEN: Soft, no distention. EXTREMITITES: 1+ edema. Objective - Vital Signs Vital signs: Vital Signs Temp 101.3 F H 07/15/21 04:00 Pulse 92 07/15/21 07:00 Resp 36 H 07/15/21 07:00 BP 113/82 07/15/21 07:00 Pulse Ox 95 07/15/21 07:00 Intake & Output 07/14/21 07/15/21 07/15/21 18:59 06:59 18:59 Intake Total 2653.533 1811.984 394.444 Output Total 15 0 35 Balance 2638.533 1811.984 359.444 Intake: IV 862 697 81 Pressure Bag 72 72 6 Sodium Chloride 0.9% 1, 790 625 75 000 ml @ 75 mls/hr IV . [id number] [facility] Rx#:[id number] Intake, IV Titration 1249.533 608.984 281.444 Amount Cisatracurium 200 mg In 186.34 Sodium Chloride 0.9% 180 ml @ 1 MCG/KG/MIN 7.26 mls/hr IV .Q24H SE Rx#: [id number] Fluconazole in NaCl,Iso- 50 Osm 100 mg In Saline 1 50ml.bag @ 50 mls/hr IVPB DAILY SE Rx#:[id number] Norepinephrine 32 mg In 421.005 127.712 88.274 Sodium Chloride 0.9% 218 ml @ 0.05 MCG/KG/MIN 2. 836 mls/hr IV .Q24H [facility] Rx#:[id number] fentaNYL (PF). 1,000 mcg 192.188 81.272 93.17 In Sodium Chloride 0.9% 80 ml @ 0.5 MCG/KG/HR 6. 05 mls/hr IV .[id number] [facility] Rx#:[id number] propofoL 1,000 mg In 400 400 100 Empty Bag 1 bag @ Titrate IV .Q0M SE Rx#: [id number] Tube Feeding 352 416 32 Other 190 90 Output: Urine 15 0 35 Other: Voiding Method Indwelling Catheter Indwelling Catheter ABP, PAP, CO, CI - Last Documented Arterial Blood Pressure 117/74 - Labs CBC & Chem 7: 07/15/21 04:15 07/15/21 04:15 Labs: Abnormal Lab Results - Last 24 Hours (Table) 07/14/21 07/14/21 07/14/21 Range/Units 08:47 11:19 11:39 WBC (3.8-10.6) k/uL RBC (4.30-5.90) m/uL Hgb (13.0-17.5) gm/dL Hct (39.0-53.0) % Plt Count (150-450) k/uL ABG pH 7.08 L* 7.19 L* (7.35-7.45) ABG pCO2 70 H 62 H (35-45) mmHg ABG pO2 76 L 68 L (83-108) mmHg ABG HCO3 (21-25) mmol/L ABG Total CO2 26 H (19-24) mmol/L ABG O2 Saturation 92.0 L 91.3 L (94-97) % Carbon Dioxide (22-30) mmol/L BUN (9-20) mg/dL Creatinine (0.66-1.25) mg/dL Glucose (74-99) mg/dL POC Glucose (mg/dL) 181 H (75-99) mg/dL Calcium (8.4-10.2) mg/dL Phosphorus (2.5-4.5) mg/dL 07/14/21 07/14/21 07/14/21 Range/Units 18:24 18:33 23:15 WBC (3.8-10.6) k/uL RBC (4.30-5.90) m/uL Hgb (13.0-17.5) gm/dL Hct (39.0-53.0) % Plt Count (150-450) k/uL ABG pH (7.35-7.45) ABG pCO2 (35-45) mmHg ABG pO2 (83-108) mmHg ABG HCO3 (21-25) mmol/L ABG Total CO2 (19-24) mmol/L ABG O2 Saturation (94-97) % Carbon Dioxide 33 H (22-30) mmol/L BUN 38 H (9-20) mg/dL Creatinine 2.04 H (0.66-1.25) mg/dL Glucose 137 H (74-99) mg/dL POC Glucose (mg/dL) 123 H 165 H (75-99) mg/dL Calcium 7.3 L (8.4-10.2) mg/dL Phosphorus (2.5-4.5) mg/dL 07/15/21 07/15/21 07/15/21 Range/Units 04:15 04:15 05:31 WBC 24.1 H (3.8-10.6) k/uL RBC 3.63 L (4.30-5.90) m/uL Hgb 11.4 L (13.0-17.5) gm/dL Hct 36.1 L (39.0-53.0) % Plt Count 146 L (150-450) k/uL ABG pH 7.23 L (7.35-7.45) ABG pCO2 65 H (35-45) mmHg ABG pO2 79 L (83-108) mmHg ABG HCO3 27 H (21-25) mmol/L ABG Total CO2 29 H (19-24) mmol/L ABG O2 Saturation 93.1 L (94-97) % Carbon Dioxide (22-30) mmol/L BUN 78 H (9-20) mg/dL Creatinine 4.27 H (0.66-1.25) mg/dL Glucose 151 H (74-99) mg/dL POC Glucose (mg/dL) (75-99) mg/dL Calcium 7.0 L (8.4-10.2) mg/dL Phosphorus 7.6 H (2.5-4.5) mg/dL 07/15/21 Range/Units 05:43 WBC (3.8-10.6) k/uL RBC (4.30-5.90) m/uL Hgb (13.0-17.5) gm/dL Hct (39.0-53.0) % Plt Count (150-450) k/uL ABG pH (7.35-7.45) ABG pCO2 (35-45) mmHg ABG pO2 (83-108) mmHg ABG HCO3 (21-25) mmol/L ABG Total CO2 (19-24) mmol/L ABG O2 Saturation (94-97) % Carbon Dioxide (22-30) mmol/L BUN (9-20) mg/dL Creatinine (0.66-1.25) mg/dL Glucose (74-99) mg/dL POC Glucose (mg/dL) 163 H (75-99) mg/dL Calcium (8.4-10.2) mg/dL Phosphorus (2.5-4.5) mg/dL Microbiology - Last 24 Hours (Table) 07/10/21 17:41 Blood Culture - Preliminary Blood No Growth after 96 hours 07/10/21 16:02 Blood Culture - Preliminary Blood No Growth after 96 hours 07/10/21 13:05 Gram Stain - Final Sputum Sputum Culture - Final Ivonne albicans Staphylococcus aureus Assessment and Plan Plan: Assessment: 1. Acute kidney injury secondary to ATN secondary to septic shock. Baseline creatinine near 1 and is 4.7 today. Oliguric. Started on hemodialysis 07/14/2021. 2. Septic shock secondary to COVID-19 infection with concern for superimposed bacterial infection. 3. Hyperkalemia secondary to acute kidney injury. Improved postdialysis. 4. Acute hypoxic and hypercapnic respiratory failure. 5. Metabolic acidosis secondary to acute kidney injury. Status post bicarb drip. Improved. 6. Hypocalcemia secondary to acute kidney injury. Replaced. Corrected calcium 8.1. 7. Hyperphosphatemia secondary to acute kidney injury. Plan: Second treatment of SLED today. Decrease rate of normal saline to 50 mL an hour. Also receiving tube feeds. Add PhosLo. Continue to monitor renal function and urine output. Monitor vancomycin levels. Dose to be adjusted for renal function. Wean FiO2 and vasopressors.
--- NOTE | 2021-07-15 09:53 | XR ---
EXAMINATION TYPE: XR chest 1V portable DATE OF EXAM: 07/15/2021 COMPARISON: Chest x-ray 07/14/2021 HISTORY: Intubated TECHNIQUE: Single frontal view of the chest is obtained. FINDINGS: Endotracheal tube and NG tube are overlying appropriate positions. Rounded density superim posed over the left heart and hemidiaphragm which is indeterminate and is more conspicuous than on pr ior exam, correlate for possible contrast material. There is extensive subcutaneous emphysema, diffic ult to exclude pneumomediastinum. No evident pneumothorax or pleural effusion. Bilateral airspace dis ease persists. Cardiac mediastinal silhouette shows a similar appearance. IMPRESSION: Findings are similar to prior exam. Abnormal density as described left upper quadrant is indeterminate.
[2021-07-15] MEDS: FLUCONAZOLE IN NACL,ISO-OSM 100 MG in SALINE 1 50ML.BAG IVPB SCH (10:10)
--- NOTE | 2021-07-15 10:22 | P.PN ---
Subjective Progress Note Date: 07/15/21 Principal diagnosis: Respiratory failure. 07/12/2021, the patient is being seen for a follow-up. He remains critically ill intubated sedated paralyzed on a mechanical ventilator with COVID 19 related to pneumonia and multisystem organ failure. The patient has been aggressively resuscitated over the past 48 hours. At this point in time the patient remains sedated and paralyzed. His propofol is currently running at 50 mcg/kg per minute and fentanyl is running at 1 mcg/kg/h and the patient is paralyzed with Nimbex at 1 mcg/kg per minute. He is adequately sedated and paralyzed. He remains synchronous with the mechanical ventilator. He is on a pressure control mode of mechanical ventilation with a pressure control of 23 and the rate of 30 with an FiO2 of 70% and a PEEP of 15. Chest x-ray still showing diffuse bilateral subcutaneous emphysema and there is no evidence of any pneumothorax. There is also diffuse bilateral pulmonary infiltrates. All of the tubes are in good location. PH is at 7.38 with a pCO2 of 51 and pO2 of 107. As such, the patient is adequately oxygenating and ventilating. Nevertheless, the active problem was the massive shock and hypotension which was probably a septic event. Cultures were all negative. The patient is currently on a combination of antibiotics and he is receiving cefepime, and vancomycin. Infectious disease was also consulted. I maintain the patient on fluconazole knowing that the patient had extensive oropharyngeal candidiasis at the time of the intubation. He was resuscitated IV fluids and received more than 10 L of saline and also received several doses of IV albumin. During the course of the resuscitation, he was on a combination of vasopressin physiologic dose, norepinephrine and epinephrine was also added to maintain his blood pressure. We are unable to wean off the epinephrine. Vasopressin remains at physiologic dose of 0.03 units an hour and the patient is currently on 0.15 mcg/kg per minute of norepinephrine infusion. Urine output is order of 30-50 mL an hour. His white cell count is low and currently is at 22.7. He is still spiking fever on and off for which she was given Tylenol IV. Currently he is afebrile. White cell count is down to 22.7. Meanwhile, the patient developed a nonoliguric renal failure. Creatinine is up to 2.59. He was having issues with hyperkalemia. He was given bicarb IV in the form of a push and later on drip and the sodium bicarb is currently running at the rate of 150 mL an hour. Serum bicarb this morning is at 30 with a potassium level of 4.4. Coagulation profile shows an INR of 1.4 with a PT of 14.2. The patient is a sinus rhythm. He is a shock liver and the liver function tests are essentially improving. Vancomycin level this morning is at 18.2. As stated, blood cultures are negative. Enterofeeding for nutritional support will be started today. Progress note dated 07/13/2020. 50-year-old male admitted to the hospital on June 27. His admission diagnosis was coronavirus associated pneumonia. [facility], and ended up being intubated on July 10. This was for worsening hypoxemic respiratory failure. The patient is on pressure assist control mode of ventilation, with an inspiratory pressure of 23 cm water, and inspiratory time of 1 second. In addition, the patient has a rate of 30, FiO2 of 80%, and PEEP of 14. The patient's blood gases show pO2 105, pCO2 74, and pH is 7.21. The patient's currently on norepinephrine at 0.09 mcg/kg/m, vasopressin, and 0.02 units per minute, and saline at 75 mL an hour. In addition, the patient's on fentanyl 1 mcg/kg/h, Nimbex at 1 mcg/kg/m, and propofol at 50 mcg/kg/m. Tube feedings have not yet been started. White count 22.3, hemoglobin 11.3, hematocrit 33.4, and platelet count 190,000. Sodium 136, potassium 4.4, chlorides 101, CO2 28, anion gap 7 BUN 60, creatinine 2.87. Albumin is 2.3. Sputum from July 10 showing presumptive staph aureus. Chest x-ray from July 13 shows diffuse bilateral patchy infiltrates. There is extensive subcutaneous emphysema. Progress note dated 07/14/2021. 50-year-old male admitted to the hospital on June 27. His admission diagnosis was coronavirus associated pneumonia. He came to the intensive care unit on July 08 and was intubated for respiratory failure on 07/10/2021. This was for worsening hypoxemic respiratory failure. Currently, the patient is on pressure assist control, with a inspiratory pressure 23 cm water, inspiratory time of 1 second, rate of 36 breaths per minute, FiO2 65%, and PEEP of 14. Blood gases showed a pO2 of 87, pCO2 of 77, pH is 7.10. This was on a rate of 30. Repeat blood gases at the higher rate, show pO2 of 76, pCO2 70, and a pH is 7.08. The patient's on Nimbex at 1 mcg/kg/m, fentanyl 1 mcg/kg/h, norepinephrine at 70 mcg/m, vasopressin 0.03 units per minute, propofol at 50 mcg/kg/m, saline at 85 mL an hour, vital AF at 32 mL an hour. Because of his blood gases, we will go ahead and switch him to volume assist control, to attempt to reduce his PaCO2, and improve his pH. In addition, the patient is going to have a dialysis catheter placed today, and have hemodialysis. White count 34,000, hemoglobin 12.7, hematocrit 41.3, and platelet count 239,000. Sodium 136, potassium 5.7, chlorides 101, CO2 23, anion gap 12, BUN 76, with a creatinine of 4.10. Bilirubin 1.7. AST is 3060 with an ALT of 4094. Sputum from July 10 showing evidence of staph aureus. Chest x-ray shows diffuse bilateral infiltrates. Progress note dated 07/15/2021. 50-year-old male, admitted to the hospital on 06/27/2021. He was admitted with a diagnosis of coronavirus associated pneumonia. He came to the intensive care unit on 07/08/2021, and was intubated for respiratory failure on 07/10/2021. The patient remains on the ventilator. He is on the volume assist control, rate 36, tidal volume 450, FiO2 75%, and PEEP of 14. Blood gases show pO2 of 79, pCO2 65, and pH of 7.23. The patient is on norepinephrine at 21 mcg/m, Nimbex at 1 mcg/kg/m, fentanyl at 1 mcg/kg/h, vasopressin at 0.04 units per minute, propofol at 50 mcg/kg/m, saline at 75 mL an hour, and vital AF at 32 mL an hour, which is goal. He did have hemodialysis yesterday, but no fluid was removed. The plan is for hemodialysis today, with one half a liter being removed. Current labs include a white count 23.9, hemoglobin 11.4, hematocrit 36.1, and platelet count 146,000. Sodium 138, potassium 5, chlorides 101, CO2 27, anion gap 10, BUN 78, with creatinine of 4.27. Sputum from July 10 shows Staphylococcus aureus. Chest x-ray shows diffuse bilateral infiltrates, largely unchanged. Objective - Vital Signs Vital signs: Vital Signs Temp 101.3 F H 07/15/21 04:00 Pulse 92 07/15/21 07:00 Resp 36 H 07/15/21 07:00 BP 113/82 07/15/21 07:00 Pulse Ox 95 07/15/21 07:00 Intake & Output 07/14/21 07/15/21 07/15/21 18:59 06:59 18:59 Intake Total 2653.533 1811.984 394.444 Output Total 15 0 35 Balance 2638.533 1811.984 359.444 Intake: IV 862 697 81 Pressure Bag 72 72 6 Sodium Chloride 0.9% 1, 790 625 75 000 ml @ 75 mls/hr IV . [id number] SE Rx#:[id number] Intake, IV Titration 1249.533 608.984 281.444 Amount Cisatracurium 200 mg In 186.34 Sodium Chloride 0.9% 180 ml @ 1 MCG/KG/MIN 7.26 mls/hr IV .Q24H SE Rx#: [id number] Fluconazole in NaCl,Iso- 50 Osm 100 mg In Saline 1 50ml.bag @ 50 mls/hr IVPB DAILY ES Rx#:[id number] Norepinephrine 32 mg In 421.005 127.712 88.274 Sodium Chloride 0.9% 218 ml @ 0.05 MCG/KG/MIN 2. 836 mls/hr IV .Q24H SE Rx#:[id number] fentaNYL (PF). 1,000 mcg 192.188 81.272 93.17 In Sodium Chloride 0.9% 80 ml @ 0.5 MCG/KG/HR 6. 05 mls/hr IV .[id number] SE Rx#:[id number] propofoL 1,000 mg In 400 400 100 Empty Bag 1 bag @ Titrate IV .Q0M SE Rx#: [id number] Tube Feeding 352 416 32 Other 190 90 Output: Urine 15 0 35 Other: Voiding Method Indwelling Catheter Indwelling Catheter ABP, PAP, CO, CI - Last Documented Arterial Blood Pressure 117/74 - Exam No acute distress, currently sedated and paralyzed, with an orally placed endotracheal tube and NG tube. HEENT examination is grossly unremarkable. Extensive subcutaneous emphysema. Neck supple. Full range of motion. No adenopathy thyromegaly or neck vein distention. Cardiovascular examination reveals regular rhythm rate. S1-S2 normal. No S3 or S4. No discernible murmur noted. Heart sounds are distant. Heart rate 92 bpm. Lungs reveal diffuse coarse rhonchi. Breath sounds equal. No wheezes. There is extensive subcutaneous emphysema. Saturations are 95%. Abdomen soft without bowel sounds Extremities are intact. No cyanosis clubbing or edema. Skin is without rash or lesion. Neurologic examination cannot be evaluated as the patient is sedated and paralyzed. - Labs CBC & Chem 7: 07/15/21 04:15 07/15/21 04:15 Labs: Abnormal Lab Results - Last 24 Hours (Table) 07/14/21 07/14/21 07/14/21 Range/Units 11:19 11:39 18:24 WBC (3.8-10.6) k/uL RBC (4.30-5.90) m/uL Hgb (13.0-17.5) gm/dL Hct (39.0-53.0) % Plt Count (150-450) k/uL Neutrophils # (Manual) (1.3-7.7) k/uL Lymphocytes # (Manual) (1.0-4.8) k/uL Monocytes # (Manual) (0-1.0) k/uL Metamyelocytes # (Man) (0) k/uL Myelocytes # (Manual) (0) k/uL Nucleated RBCs (0-0) /100 WBC ABG pH 7.19 L* (7.35-7.45) ABG pCO2 62 H (35-45) mmHg ABG pO2 68 L (83-108) mmHg ABG HCO3 (21-25) mmol/L ABG Total CO2 26 H (19-24) mmol/L ABG O2 Saturation 91.3 L (94-97) % Carbon Dioxide (22-30) mmol/L BUN (9-20) mg/dL Creatinine (0.66-1.25) mg/dL Glucose (74-99) mg/dL POC Glucose (mg/dL) 181 H 123 H (75-99) mg/dL Calcium (8.4-10.2) mg/dL Phosphorus (2.5-4.5) mg/dL 07/14/21 07/14/21 07/15/21 Range/Units 18:33 23:15 04:15 WBC (3.8-10.6) k/uL RBC (4.30-5.90) m/uL Hgb (13.0-17.5) gm/dL Hct (39.0-53.0) % Plt Count (150-450) k/uL Neutrophils # (Manual) (1.3-7.7) k/uL Lymphocytes # (Manual) (1.0-4.8) k/uL Monocytes # (Manual) (0-1.0) k/uL Metamyelocytes # (Man) (0) k/uL Myelocytes # (Manual) (0) k/uL Nucleated RBCs (0-0) /100 WBC ABG pH (7.35-7.45) ABG pCO2 (35-45) mmHg ABG pO2 (83-108) mmHg ABG HCO3 (21-25) mmol/L ABG Total CO2 (19-24) mmol/L ABG O2 Saturation (94-97) % Carbon Dioxide 33 H (22-30) mmol/L BUN 38 H 78 H (9-20) mg/dL Creatinine 2.04 H 4.27 H (0.66-1.25) mg/dL Glucose 137 H 151 H (74-99) mg/dL POC Glucose (mg/dL) 165 H (75-99) mg/dL Calcium 7.3 L 7.0 L (8.4-10.2) mg/dL Phosphorus 7.6 H (2.5-4.5) mg/dL 07/15/21 07/15/21 07/15/21 Range/Units 04:15 05:31 05:43 WBC 23.9 H (3.8-10.6) k/uL RBC 3.63 L (4.30-5.90) m/uL Hgb 11.4 L (13.0-17.5) gm/dL Hct 36.1 L (39.0-53.0) % Plt Count 146 L (150-450) k/uL Neutrophils # (Manual) 21.50 H (1.3-7.7) k/uL Lymphocytes # (Manual) 0.48 L (1.0-4.8) k/uL Monocytes # (Manual) 1.20 H (0-1.0) k/uL Metamyelocytes # (Man) 0.48 H (0) k/uL Myelocytes # (Manual) 0.24 H (0) k/uL Nucleated RBCs 1 H (0-0) /100 WBC ABG pH 7.23 L (7.35-7.45) ABG pCO2 65 H (35-45) mmHg ABG pO2 79 L (83-108) mmHg ABG HCO3 27 H (21-25) mmol/L ABG Total CO2 29 H (19-24) mmol/L ABG O2 Saturation 93.1 L (94-97) % Carbon Dioxide (22-30) mmol/L BUN (9-20) mg/dL Creatinine (0.66-1.25) mg/dL Glucose (74-99) mg/dL POC Glucose (mg/dL) 163 H (75-99) mg/dL Calcium (8.4-10.2) mg/dL Phosphorus (2.5-4.5) mg/dL Microbiology - Last 24 Hours (Table) 07/10/21 17:41 Blood Culture - Preliminary Blood No Growth after 96 hours 07/10/21 16:02 Blood Culture - Preliminary Blood No Growth after 96 hours 07/10/21 13:05 Gram Stain - Final Sputum Sputum Culture - Final Ivonne albicans Staphylococcus aureus Assessment and Plan Assessment: Acute hypoxemic respiratory failure, secondary to coronavirus associated pneumonia, status post intubation and mechanical ventilation on July 10. Extensive subcutaneous emphysema as a complication of coronavirus associated pneumonia. History of chronic bronchial asthma. Right lower extremity deep venous thrombosis. History of oropharyngeal candidiasis. History of shock liver. Acute kidney injury. Septic shock with multiorgan system failure. Previous history of tobacco use. History of C5-C6 fusion. History of transverse myelitis. Plan: Plan dated 06/28/2021. Currently, the patient is a candidate for Decadron, Lovenox, vitamin C, vitamin D3, and zinc. He is not a candidate for REM, consistent and have been present for more than 7 days, and he is on oxygen that is greater than 6 L/m. He is getting close to the point where he may become a candidate for FLAQUITO. The patient does appear relatively comfortable. We will continue to follow make recommendations where appropriate. The patient is on his usual inhalers for his asthma. Prognosis is guarded. Plan dated 07/13/2020. The patient's labs, x-rays, and medications all reviewed. The patient remains on a factor X a inhibitor for his right lower extremity DVT. The patient continues on Decadron. FLAQUITO has been discontinued. The patient remains on fentanyl, Nimbex, and propofol. The patient remains on both norepinephrine and vasopressin. The patient is obviously very critically ill. The patient remains on pressure assist control mode of mechanical ventilation. Additional recommendations and suggestions are forthcoming. We will continue to follow the patient and make recommendations where appropriate. Overall prognosis remains very guarded. Plan dated 07/14/2021. The patient's labs, x-rays, and medications are all reviewed. The patient remains on a factor X a inhibitor for his right lower extremity DVT. The patient continues on Decadron. The patient also remains on fentanyl, Nimbex, and propofol. The patient is on norepinephrine and vasopressin for blood pressure stability. I did have a chance to speak to his Shyla. She understands the gravity of the situation. I explained to her that we will continue to support him fully. At this time, his prognosis is very poor. We will continue to follow the patient and make recommendations where appropriate. We did change his ventilator from pressure assist control, volume assist control. The patient will have a hemodialysis catheter placed today and undergo hemodialysis. Urine output is poor and renal function has worsened. Plan dated 07/15/2021. The patient was switched from pressure assist control, to volume assist control yesterday. Blood gases today are much improved. The patient remains on norepinephrine, Nimbex, fentanyl, vasopressin, propofol, and tube feeds. The patient did have hemodialysis yesterday, and will have hemodialysis again today. We will continue to follow make recommendations where appropriate. I did have a chance to speak to the patient's yesterday. I gave her a full update. The patient continues to be a full code. We will continue to follow make recommendations were appropriate. Medications are reviewed. Labs are reviewed. Chest x-rays reviewed. Time with Patient: Greater than 30
[2021-07-15 11:27] LABS: Glucose,Whole Blood 154 mg/dL (75-99)
[2021-07-15] MEDS: CISATRACURIUM 200 MG in SODIUM CHLORIDE 0.9% 180 ML IV SCH ×2 (13:07→18:52)
[2021-07-15] MEDS: CALCIUM ACETATE 667 MG TAB PO SCH ×2 (13:08→18:53)
[2021-07-15] MEDS: SODIUM CHLORIDE 0.9% 150 ML with VASOPRESSIN 60 UNIT IV SCH ×2 (13:13)
[2021-07-15] MEDS: SODIUM CHLORIDE 0.9% 1,000 ML IV SCH ×2 (14:28→18:52)
[2021-07-15 17:32] LABS: Glucose,Whole Blood 143 mg/dL (75-99)
--- NOTE | 2021-07-15 18:17 | PN ---
PROGRESS NOTE DATE OF SERVICE: 07/15/2021 REASON FOR FOLLOWUP: Pneumonia. INTERVAL HISTORY: Patient did spike a fever early this morning. The patient is afebrile since then. The patient is hemodynamically stable requiring less pressor support. FiO2 is currently at 75%. No significant purulent secretions in the ET, diarrhea or any other changes reported by nursing staff. PHYSICAL EXAMINATION: Blood pressure 108/63 with a pulse of 80, temperature 98. He is 95% on 75% FIO2. General description is a middle-aged male lying in bed in no distress. Respiratory system: Unlabored breathing, decreased intensity of breath sounds. No wheeze. Heart S1, S2. Regular rate and rhythm. Abdomen: Soft. No distention. No guarding. No rigidity. Extremities 1+ edema of the feet. LABS: Hemoglobin 11.4, white count 3.9, creatinine 4.27. DIAGNOSTIC IMPRESSION AND PLAN: Patient with acute respiratory failure which is multifactorial with acute COVID-19 pneumonia now with pneumonia. Sputum has been MSSA. Patient is covered with cefepime. Overall prognosis remains to be we will continue with current antibiotics and monitor clinical course closely. MMODL / IJN: [id number] /
--- NOTE | 2021-07-15 18:31 | XR ---
EXAMINATION TYPE: XR chest 1V portable DATE OF EXAM: 07/15/2021 COMPARISON: Today HISTORY: Respiratory failure TECHNIQUE: Single view FINDINGS: Endotracheal tube is 5 cm from the colin. There is nasogastric tube in the stomach. There is extensive soft tissue air over the chest. There are no hilar masses. There is some diffuse pulmona ry interstitial and airspace edema. IMPRESSION: Pulmonary edema unchanged. Soft tissue air are unchanged.
[2021-07-15] MEDS: NOREPINEPHRINE 32 MG in SODIUM CHLORIDE 0.9% 218 ML IV SCH (18:52)
[2021-07-15] MEDS: CEFEPIME 1 GM in SODIUM CHLORIDE 0.9% 50 ML IVPB SCH (20:29)
--- NOTE | 2021-07-15 23:24 | P.PN ---
Subjective Progress Note Date: 07/14/21 Principal diagnosis: Acute hypoxic respiratory failure secondary to COVID-19 pneumonia 07/06/2021 Patient evaluated sitting up in the chair, reports overall he is feeling slightly better. He was talking on the phone with family and appeared in good spirits. He continues on airvo at 50L with an FiO2 of 70% and in addition to a nonrebreather, oxygen saturation is 94%. He is afebrile, blood pressure 102/66. Labs reviewed today; white count of 18.7, sodium 137, potassium 4.5, CO2 32, sugars in the 110s. AST, ALT and alk phos have normalized. He continues on eliquis for a right leg DVT. There is still some peripheral edema to the right leg. Continues on baricitinib, bronchodilators, zinc, vitamins, decadron. He is being followed closely pulmonary and ID services. 07/07/2021 Patient had to sleep sitting up in the chair last night, his oxygen support was decreased slightly yesterday to 55L airvo from 60L airvo. Otherwise he is relatively stable where he is at. Chest xray today shows stable bilateral diffuse infiltrates. Could not exclude subtle pneumomediastinum. Correlate clinically. Labs reviewed today shows a WBC count of 18.3. He has some cough with minimal sputum production. Vitals today he is afebrile, heart rate 85 normal sinus rhythm, blood pressure 102/61, 91% on airvo with nonrebreather. He maintains in good spirits. 07/08/2021 Patient is in the select care unit. Requiring high flow oxygen 55 L/min with 60% FiO2. Patient became anxious and hypoxic in the afternoon and rapid response team was called him. Repeat chest x-ray showed right apical pneumothorax. Patient was transferred to MICU for close monitoring. Patient is being continued on dexamethasone and Eliquis. Also being continued on baricitinib. Laboratory data showed WBC 17.6 hemoglobin 13.4 and platelets 243 Sodium 136 potassium 4.5 chloride 99 bicarbonate 33 BUN 22 and creatinine 0.74 LDH 8074 and CRP 4.4 07/09/2021 Patient is currently in the MICU. Awake alert and oriented x3. Able to speak. Sitting in the chair. Requiring high flow oxygen currently. on Airvo 60 L at 90% FiO2 with 100% nonrebreather facemask. Chest x-ray showed no pneumothorax today. There is subcutaneous emphysema on the right and evidence of pneumomediastinum. Patient is being continued on dexamethasone and baricitinib and Eliquis due to DVT diagnosed on admission. Laboratory data showed WBC 17.0 hemoglobin 12.9 and platelets 260 BUN 73 and creatinine 0.64 [id number] Patient is in the MICU. Was requiring BiPAP last night. Patient woke up with coughing spell and subsequently desaturated and unable to recover. He was switched to BiPAP and eventually went into respiratory failure. Patient was intubated in the afternoon. Chest x-ray in the morning showed stable chest. Repeat chest x-ray showed left- sided central line. Diffuse bilateral airspace disease subcutaneous emphysema pneumomediastinum and less than 5% right-sided pneumothorax stable. Patient is being current dexamethasone, baricitinib and Eliquis. Laboratory data showed WBC 40.0 hemoglobin 13.3 and platelets 362 ABGs showed pH 7.26 PCO2 75 PO2 80 and sodium 135 potassium 4.3 chloride 99 bicarb is 32 BUN 28 and creatinine 0.69 LDH 1698 CRP 2.7 and procalcitonin level is 0.06 07/11/2021 Patient is only intensive care unit. Intubated and on mechanical ventilator. Patient is also sedated and on propofol and fentanyl and Nimbex. Patient became progressively hypotensive and into septic shock with signs of multiorgan failure. Patient was started vancomycin and cefepime. Currently patient is on pressure control respiratory rate 30 and FiO2-% PEEP of 15. Chest x-ray this morning showed persistent bilateral airspace opacities. Diffuse subcutaneous emphysema not significantly changed. Pneumothorax is not definitely visualized continued retention on follow-up imaging. Laboratory data showed WBC 28.4 hemoglobin 12.5 and platelets 342 ABGs this morning showed pH of 7.15 PCO2 70 PO2 95 Sodium 137 potassium 5.8 BUN 34 and creatinine 1.30 magnesium 2.5 total bilirubin is 1.5 AST 07/13/2007 and ALT 1497 and alk phos 105 Repeat BMP showed creatinine went up to 2.17 and nephrology was consulted. Critical care team is on board. 07/12/2020 Patient is in MICU. Remains on mechanical ventilator. Sedated and paralyzed.. Patient is on pressor support with Levophed. Currently on pressure control with FiO2 70% PEEP of 15. Chest x-ray showed patchy bilateral lung infiltrates stable from comparison. No definite pneumothorax evident on the current study. Extensive subcutaneous emphysema remains present. Patient went into septic shock and multiorgan dysfunction following intubation. Currently on broad-spectrum antibiotics, vancomycin and cefepime. Also on fluconazole due to extensive oropharyngeal candidiasis. Urine output is maintained. Laboratory data showed WBC 22.7. Hemoglobin 11.9 platelets 245 lymphocytes 0.7 BUN 47 creatinine 2.59 and calcium 6.2 liver enzymes are trending down AST 1062 ALT 2036 and alk phos 84 albumin 2.3 hepatitis panel negative. Sputum culture showed Ivonne albicans. Patient is in sinus rhythm. Pulmonary nephrology is on board. 07/13/2020 Patient is in the MICU and on mechanical ventilator with pressure support. Sedated and paralyzed. FiO2 80% and PEEP of 14. ABG showed pH 7.21 PCO2 74 and PO2 105. Patient is being continued on Levophed and vasopressin as well. Chest x-ray today showed difficult to exclude pneumomediastinum. There is extensive subcutaneous emphysema. Laboratory data showed WBC 22.3 hemoglobin 11.3 and platelets 190 lymphocytes 0.4 Sodium 136 potassium 4.4 chloride 101 BUN 16 creatinine 2.87. AST 572 ALT 1786 and alk phos 99 albumin 2.3 07/14/2021 Patient is in MICU. On mechanical ventilator. Sedated and paralyzed. Currently on pressure support with PEEP of 14. FiO2 60%. Chest x-ray showed findings are similar to prior exam. Correlate for pneumonia. ARDS, edema. Laboratory showed WBC 34.0 hemoglobin 12.7 and platelets 239 ABGs 7 pH 7.1 PCO2 77 and PO2 87. Sodium 136 potassium 5.7 chloride 101 BUN 76 and creatinine 4.10. Bilirubin level is 1.7 AST 3060 and ALT 4094 and alk phos 159. Albumin 2.4. Pulmonary nephrology is on board. Patient has been initiated with hemodialysis today. Review of systems could not be obtained from the patient at this time. All inpatient medications were reviewed and appropriate changes in these medications as dictated in the history and assessment and plan. Objective - Vital Signs Vital signs: Vital Signs Temp 99.5 F 07/14/21 13:00 Pulse 105 H 07/14/21 19:00 Resp 36 H 07/14/21 19:00 BP 87/58 07/14/21 19:00 Pulse Ox 91 L 07/14/21 19:00 Intake & Output 07/14/21 07/14/21 07/15/21 06:59 18:59 06:59 Intake Total 2056.165 2653.533 103.981 Output Total 200 15 0 Balance 6834.579 8355.533 103.981 Weight 140.5 kg Intake: IV 1391 862 26 Pressure Bag 66 72 6 Sodium Chloride 0.9% 1, 825 790 20 000 ml @ 75 mls/hr IV . [id number] SE Rx#:[id number] Vancomycin 2g/500 ml 500 Intake, IV Titration 486.389 1117.533 45.981 Amount Cisatracurium 200 mg In 186.34 Sodium Chloride 0.9% 180 ml @ 1 MCG/KG/MIN 7.26 mls/hr IV .Q24H SE Rx#: [id number] Fluconazole in NaCl,Iso- 50 Osm 100 mg In Saline 1 50ml.bag @ 50 mls/hr IVPB DAILY SE Rx#:[id number] Norepinephrine 32 mg In 165.165 421.005 45.981 Sodium Chloride 0.9% 218 ml @ 0.05 MCG/KG/MIN 2. 836 mls/hr IV .Q24H SE Rx#:[id number] fentaNYL (PF). 1,000 mcg 100 192.188 In Sodium Chloride 0.9% 80 ml @ 0.5 MCG/KG/HR 6. 05 mls/hr IV .[id number] SE Rx#:[id number] propofoL 1,000 mg In 400 400 Empty Bag 1 bag @ Titrate IV .Q0M SE Rx#: [id number] Tube Feeding 352 32 Other 190 Output: Urine 200 15 0 Other: Voiding Method Indwelling Catheter Indwelling Catheter ABP, PAP, CO, CI - Last Documented Arterial Blood Pressure 98/58 - Labs CBC & Chem 7: 07/15/21 04:15 07/15/21 04:15 Labs: Abnormal Lab Results - Last 24 Hours (Table) 07/13/21 07/14/21 07/14/21 Range/Units 23:43 04:15 04:15 WBC 34.0 H (3.8-10.6) k/uL RBC 4.04 L (4.30-5.90) m/uL Hgb 12.7 L (13.0-17.5) gm/dL MCV 102.1 H D (80.0-100.0) fL MCHC 30.8 L (31.0-37.0) g/dL Neutrophils # (Manual) 31.60 H (1.3-7.7) k/uL Lymphocytes # (Manual) 0.68 L (1.0-4.8) k/uL Monocytes # (Manual) 1.36 H (0-1.0) k/uL Metamyelocytes # (Man) 0.34 H (0) k/uL Myelocytes # (Manual) 1.02 H (0) k/uL ABG pH (7.35-7.45) ABG pCO2 (35-45) mmHg ABG pO2 (83-108) mmHg ABG Total CO2 (19-24) mmol/L ABG O2 Saturation (94-97) % Sodium 136 L (137-145) mmol/L Potassium 5.7 H (3.5-5.1) mmol/L Carbon Dioxide (22-30) mmol/L BUN 76 H (9-20) mg/dL Creatinine 4.10 H (0.66-1.25) mg/dL Glucose 138 H (74-99) mg/dL POC Glucose (mg/dL) 147 H (75-99) mg/dL Calcium 7.0 L (8.4-10.2) mg/dL Total Bilirubin 1.7 H (0.2-1.3) mg/dL AST 3060 H (17-59) U/L ALT 4094 H (4-49) U/L Alkaline Phosphatase 159 H (38-126) U/L Total Protein 5.7 L (6.3-8.2) g/dL Albumin 2.8 L (3.5-5.0) g/dL 07/14/21 07/14/21 07/14/21 Range/Units 06:05 06:22 08:47 WBC (3.8-10.6) k/uL RBC (4.30-5.90) m/uL Hgb (13.0-17.5) gm/dL MCV (80.0-100.0) fL MCHC (31.0-37.0) g/dL Neutrophils # (Manual) (1.3-7.7) k/uL Lymphocytes # (Manual) (1.0-4.8) k/uL Monocytes # (Manual) (0-1.0) k/uL Metamyelocytes # (Man) (0) k/uL Myelocytes # (Manual) (0) k/uL ABG pH 7.10 L* 7.08 L* (7.35-7.45) ABG pCO2 77 H* 70 H (35-45) mmHg ABG pO2 76 L (83-108) mmHg ABG Total CO2 26 H (19-24) mmol/L ABG O2 Saturation 92.0 L (94-97) % Sodium (137-145) mmol/L Potassium (3.5-5.1) mmol/L Carbon Dioxide (22-30) mmol/L BUN (9-20) mg/dL Creatinine (0.66-1.25) mg/dL Glucose (74-99) mg/dL POC Glucose (mg/dL) 162 H (75-99) mg/dL Calcium (8.4-10.2) mg/dL Total Bilirubin (0.2-1.3) mg/dL AST (17-59) U/L ALT (4-49) U/L Alkaline Phosphatase (38-126) U/L Total Protein (6.3-8.2) g/dL Albumin (3.5-5.0) g/dL 07/14/21 07/14/21 07/14/21 Range/Units 11:19 11:39 18:24 WBC (3.8-10.6) k/uL RBC (4.30-5.90) m/uL Hgb (13.0-17.5) gm/dL MCV (80.0-100.0) fL MCHC (31.0-37.0) g/dL Neutrophils # (Manual) (1.3-7.7) k/uL Lymphocytes # (Manual) (1.0-4.8) k/uL Monocytes # (Manual) (0-1.0) k/uL Metamyelocytes # (Man) (0) k/uL Myelocytes # (Manual) (0) k/uL ABG pH 7.19 L* (7.35-7.45) ABG pCO2 62 H (35-45) mmHg ABG pO2 68 L (83-108) mmHg ABG Total CO2 26 H (19-24) mmol/L ABG O2 Saturation 91.3 L (94-97) % Sodium (137-145) mmol/L Potassium (3.5-5.1) mmol/L Carbon Dioxide (22-30) mmol/L BUN (9-20) mg/dL Creatinine (0.66-1.25) mg/dL Glucose (74-99) mg/dL POC Glucose (mg/dL) 181 H 123 H (75-99) mg/dL Calcium (8.4-10.2) mg/dL Total Bilirubin (0.2-1.3) mg/dL AST (17-59) U/L ALT (4-49) U/L Alkaline Phosphatase (38-126) U/L Total Protein (6.3-8.2) g/dL Albumin (3.5-5.0) g/dL 07/14/21 Range/Units 18:33 WBC (3.8-10.6) k/uL RBC (4.30-5.90) m/uL Hgb (13.0-17.5) gm/dL MCV (80.0-100.0) fL MCHC (31.0-37.0) g/dL Neutrophils # (Manual) (1.3-7.7) k/uL Lymphocytes # (Manual) (1.0-4.8) k/uL Monocytes # (Manual) (0-1.0) k/uL Metamyelocytes # (Man) (0) k/uL Myelocytes # (Manual) (0) k/uL ABG pH (7.35-7.45) ABG pCO2 (35-45) mmHg ABG pO2 (83-108) mmHg ABG Total CO2 (19-24) mmol/L ABG O2 Saturation (94-97) % Sodium (137-145) mmol/L Potassium (3.5-5.1) mmol/L Carbon Dioxide 33 H (22-30) mmol/L BUN 38 H (9-20) mg/dL Creatinine 2.04 H (0.66-1.25) mg/dL Glucose 137 H (74-99) mg/dL POC Glucose (mg/dL) (75-99) mg/dL Calcium 7.3 L (8.4-10.2) mg/dL Total Bilirubin (0.2-1.3) mg/dL AST (17-59) U/L ALT (4-49) U/L Alkaline Phosphatase (38-126) U/L Total Protein (6.3-8.2) g/dL Albumin (3.5-5.0) g/dL Microbiology - Last 24 Hours (Table) 07/10/21 16:02 Blood Culture - Preliminary Blood No Growth after 96 hours 07/10/21 13:05 Gram Stain - Final Sputum Sputum Culture - Final Ivonne albicans Staphylococcus aureus 07/10/21 17:41 Blood Culture - Preliminary Blood No Growth after 72 hours Assessment and Plan Assessment: Acute hypoxic respiratory failure secondary to COVID 19 pneumonia requiring oxygen support with 60L with FiO2 90% and nonrebreather mask--> BIPAP. Intubated on 07/10/2021 Right apical pneumothorax estimated at less than 10% and subcutaneous emphysema Septic shock with multiorgan system failure. Requiring pressor support with norepinephrine and vasopressin. Acute kidney injury due to ATN Acute metabolic acidosis Shock liver with elevated AST and ALT Acute DVT right lower extremity; on eliquis started this admission Elevated DD, CTA negative for PE, positive DVT Elevated liver enzymes possibly due to systemic inflammation, resolved Elevated inflammatory markers secondary to COVID 19, improving History of DVT History of asthma, not in acute exacerbation Remote history of nicotine dependence History of transverse myelitis History of C5-C6 fusion Obesity GI Prophylaxis: Protonix DVT Prophylaxis: Eliquis FULL CODE Plan [facility] Patient went into septic shock and multiorgan failure. Currently requiring pressors and received fluid boluses. Patient was also started on bicarb drip and monitor renal function closely. Patient will be cannula broad-spectrum antibiotics in the form of vancomycin and cefepime. Monitor LFTs Continue decadron, vitamins, Baricitinib Eliquis for DVT Repeat labs in AM Incentive spirometry Continue all other supportive care Cont with PT/OT consultation Prognosis remains guarded Time with Patient: Greater than 30
--- NOTE | 2021-07-15 23:28 | P.PN ---
Subjective Progress Note Date: 07/15/21 Principal diagnosis: Acute hypoxic respiratory failure secondary to COVID-19 pneumonia 07/06/2021 Patient evaluated sitting up in the chair, reports overall he is feeling slightly better. He was talking on the phone with family and appeared in good spirits. He continues on airvo at 50L with an FiO2 of 70% and in addition to a nonrebreather, oxygen saturation is 94%. He is afebrile, blood pressure 102/66. Labs reviewed today; white count of 18.7, sodium 137, potassium 4.5, CO2 32, sugars in the 110s. AST, ALT and alk phos have normalized. He continues on eliquis for a right leg DVT. There is still some peripheral edema to the right leg. Continues on baricitinib, bronchodilators, zinc, vitamins, decadron. He is being followed closely pulmonary and ID services. 07/07/2021 Patient had to sleep sitting up in the chair last night, his oxygen support was decreased slightly yesterday to 55L airvo from 60L airvo. Otherwise he is relatively stable where he is at. Chest xray today shows stable bilateral diffuse infiltrates. Could not exclude subtle pneumomediastinum. Correlate clinically. Labs reviewed today shows a WBC count of 18.3. He has some cough with minimal sputum production. Vitals today he is afebrile, heart rate 85 normal sinus rhythm, blood pressure 102/61, 91% on airvo with nonrebreather. He maintains in good spirits. 07/08/2021 Patient is in the select care unit. Requiring high flow oxygen 55 L/min with 60% FiO2. Patient became anxious and hypoxic in the afternoon and rapid response team was called him. Repeat chest x-ray showed right apical pneumothorax. Patient was transferred to MICU for close monitoring. Patient is being continued on dexamethasone and Eliquis. Also being continued on baricitinib. Laboratory data showed WBC 17.6 hemoglobin 13.4 and platelets 243 Sodium 136 potassium 4.5 chloride 99 bicarbonate 33 BUN 22 and creatinine 0.74 LDH 8074 and CRP 4.4 07/09/2021 Patient is currently in the MICU. Awake alert and oriented x3. Able to speak. Sitting in the chair. Requiring high flow oxygen currently. on Airvo 60 L at 90% FiO2 with 100% nonrebreather facemask. Chest x-ray showed no pneumothorax today. There is subcutaneous emphysema on the right and evidence of pneumomediastinum. Patient is being continued on dexamethasone and baricitinib and Eliquis due to DVT diagnosed on admission. Laboratory data showed WBC 17.0 hemoglobin 12.9 and platelets 260 BUN 73 and creatinine 0.64 [id number] Patient is in the MICU. Was requiring BiPAP last night. Patient woke up with coughing spell and subsequently desaturated and unable to recover. He was switched to BiPAP and eventually went into respiratory failure. Patient was intubated in the afternoon. Chest x-ray in the morning showed stable chest. Repeat chest x-ray showed left- sided central line. Diffuse bilateral airspace disease subcutaneous emphysema pneumomediastinum and less than 5% right-sided pneumothorax stable. Patient is being current dexamethasone, baricitinib and Eliquis. Laboratory data showed WBC 40.0 hemoglobin 13.3 and platelets 362 ABGs showed pH 7.26 PCO2 75 PO2 80 and sodium 135 potassium 4.3 chloride 99 bicarb is 32 BUN 28 and creatinine 0.69 LDH 1698 CRP 2.7 and procalcitonin level is 0.06 07/11/2021 Patient is only intensive care unit. Intubated and on mechanical ventilator. Patient is also sedated and on propofol and fentanyl and Nimbex. Patient became progressively hypotensive and into septic shock with signs of multiorgan failure. Patient was started vancomycin and cefepime. Currently patient is on pressure control respiratory rate 30 and FiO2-% PEEP of 15. Chest x-ray this morning showed persistent bilateral airspace opacities. Diffuse subcutaneous emphysema not significantly changed. Pneumothorax is not definitely visualized continued retention on follow-up imaging. Laboratory data showed WBC 28.4 hemoglobin 12.5 and platelets 342 ABGs this morning showed pH of 7.15 PCO2 70 PO2 95 Sodium 137 potassium 5.8 BUN 34 and creatinine 1.30 magnesium 2.5 total bilirubin is 1.5 AST 07/13/2007 and ALT 1497 and alk phos 105 Repeat BMP showed creatinine went up to 2.17 and nephrology was consulted. Critical care team is on board. 07/12/2020 Patient is in MICU. Remains on mechanical ventilator. Sedated and paralyzed.. Patient is on pressor support with Levophed. Currently on pressure control with FiO2 70% PEEP of 15. Chest x-ray showed patchy bilateral lung infiltrates stable from comparison. No definite pneumothorax evident on the current study. Extensive subcutaneous emphysema remains present. Patient went into septic shock and multiorgan dysfunction following intubation. Currently on broad-spectrum antibiotics, vancomycin and cefepime. Also on fluconazole due to extensive oropharyngeal candidiasis. Urine output is maintained. Laboratory data showed WBC 22.7. Hemoglobin 11.9 platelets 245 lymphocytes 0.7 BUN 47 creatinine 2.59 and calcium 6.2 liver enzymes are trending down AST 1062 ALT 2036 and alk phos 84 albumin 2.3 hepatitis panel negative. Sputum culture showed Ivonne albicans. Patient is in sinus rhythm. Pulmonary nephrology is on board. 07/13/2020 Patient is in the MICU and on mechanical ventilator with pressure support. Sedated and paralyzed. FiO2 80% and PEEP of 14. ABG showed pH 7.21 PCO2 74 and PO2 105. Patient is being continued on Levophed and vasopressin as well. Chest x-ray today showed difficult to exclude pneumomediastinum. There is extensive subcutaneous emphysema. Laboratory data showed WBC 22.3 hemoglobin 11.3 and platelets 190 lymphocytes 0.4 Sodium 136 potassium 4.4 chloride 101 BUN 16 creatinine 2.87. AST 572 ALT 1786 and alk phos 99 albumin 2.3 07/14/2021 Patient is in MICU. On mechanical ventilator. Sedated and paralyzed. Currently on pressure support with PEEP of 14. FiO2 60%. Chest x-ray showed findings are similar to prior exam. Correlate for pneumonia. ARDS, edema. Laboratory showed WBC 34.0 hemoglobin 12.7 and platelets 239 ABGs 7 pH 7.1 PCO2 77 and PO2 87. Sodium 136 potassium 5.7 chloride 101 BUN 76 and creatinine 4.10. Bilirubin level is 1.7 AST 3060 and ALT 4094 and alk phos 159. Albumin 2.4. Pulmonary nephrology is on board. Patient has been initiated with hemodialysis today. 07/15/2021 Patient remains on nicardipine drip. Changed to assist control. Still requiring pressor support. Currently sedated and paralyzed. Chest x-ray showed findings are similar to prior exam. Abnormal density as described left upper quadrant is intermediate. Patient is being continued on antibiotics in the form of cefepime and vancomycin. Continued on dexamethasone 6 mg daily and Eliquis and multivitamin supplementation. Laboratory data showed WBC trending down to 23.9 hemoglobin 11.4 and platelets 146 Sodium 138 potassium 5.0 chloride 101 bicarb is 27 BUN 78 and creatinine 4.27. Phosphorus 7.6 and calcium 7.0. Plan for hemodialysis today. Nephrology and pulmonary is on board. Review of systems could not be obtained from the patient at this time. All inpatient medications were reviewed and appropriate changes in these medications as dictated in the history and assessment and plan. Objective - Vital Signs Vital signs: Vital Signs Temp 97.9 F 07/15/21 20:00 Pulse 108 H 07/15/21 22:30 Resp 36 H 07/15/21 22:30 BP 91/69 07/15/21 22:30 Pulse Ox 91 L 07/15/21 22:30 Intake & Output 07/15/21 07/15/21 07/16/21 06:59 18:59 06:59 Intake Total 0622.765 2470.404 690.345 Output Total 0 540 5 Balance 2595.538 6389.404 685.345 Weight 140.5 kg Intake: IV 697 722 274 Cefepime 1 gm In Sodium 50 Chloride 0.9% 50 ml @ 12. 5 mls/hr IVPB HS SE Rx#: [id number] Pressure Bag 72 72 24 Sodium Chloride 0.9% 1, 625 650 200 000 ml @ 50 mls/hr IV . Q20H SE Rx#:[id number] Intake, IV Titration 608.984 852.404 210.345 Amount Cisatracurium 200 mg In 203.643 0.968 Sodium Chloride 0.9% 180 ml @ 1 MCG/KG/MIN 7.26 mls/hr IV .Q24H SE Rx#: [id number] Norepinephrine 32 mg In 127.712 168.269 24.274 Sodium Chloride 0.9% 218 ml @ 0.05 MCG/KG/MIN 2. 836 mls/hr IV .Q24H SE Rx#:[id number] fentaNYL (PF). 1,000 mcg 81.272 180.492 85.103 In Sodium Chloride 0.9% 80 ml @ 0.5 MCG/KG/HR 6. 05 mls/hr IV .[id number] SE Rx#:[id number] propofoL 1,000 mg In 400 300 100 Empty Bag 1 bag @ Titrate IV .Q0M SE Rx#: [id number] Tube Feeding 416 472 176 Other 90 190 30 Output: Urine 0 40 5 Hemodialysis 500 Other: Voiding Method Indwelling Catheter Indwelling Catheter ABP, PAP, CO, CI - Last Documented Arterial Blood Pressure 81/52 - Exam PHYSICAL EXAMINATION: GENERAL: Patient is currently on mechanical mechanical ventilator sedated and intubated.. HEENT: Pupils are round and equally reacting to light. EOMI. No scleral icterus. No conjunctival pallor. Normocephalic, atraumatic. No pharyngeal erythema. No thyromegaly. CARDIOVASCULAR: S1 and S2 present. No murmurs, rubs, or gallops. PULMONARY: Coarse scattered rhonchi ABDOMEN: Soft, nontender, nondistended, normoactive bowel sounds. No palpable organomegaly. MUSCULOSKELETAL: No joint swelling or deformity. EXTREMITIES: No cyanosis, clubbing, right leg peripheral edema. NEUROLOGICAL: Gross neurological examination did not reveal any focal deficits. SKIN: No rashes. - Labs CBC & Chem 7: 07/16/21 04:00 07/16/21 18:45 Labs: Abnormal Lab Results - Last 24 Hours (Table) 07/14/21 07/15/21 07/15/21 Range/Units 23:15 04:15 04:15 WBC 23.9 H (3.8-10.6) k/uL RBC 3.63 L (4.30-5.90) m/uL Hgb 11.4 L (13.0-17.5) gm/dL Hct 36.1 L (39.0-53.0) % Plt Count 146 L (150-450) k/uL Neutrophils # (Manual) 21.50 H (1.3-7.7) k/uL Lymphocytes # (Manual) 0.48 L (1.0-4.8) k/uL Monocytes # (Manual) 1.20 H (0-1.0) k/uL Metamyelocytes # (Man) 0.48 H (0) k/uL Myelocytes # (Manual) 0.24 H (0) k/uL Nucleated RBCs 1 H (0-0) /100 WBC ABG pH (7.35-7.45) ABG pCO2 (35-45) mmHg ABG pO2 (83-108) mmHg ABG HCO3 (21-25) mmol/L ABG Total CO2 (19-24) mmol/L ABG O2 Saturation (94-97) % BUN 78 H (9-20) mg/dL Creatinine 4.27 H (0.66-1.25) mg/dL Glucose 151 H (74-99) mg/dL POC Glucose (mg/dL) 165 H (75-99) mg/dL Calcium 7.0 L (8.4-10.2) mg/dL Phosphorus 7.6 H (2.5-4.5) mg/dL 07/15/21 07/15/21 07/15/21 Range/Units 05:31 05:43 11:25 WBC (3.8-10.6) k/uL RBC (4.30-5.90) m/uL Hgb (13.0-17.5) gm/dL Hct (39.0-53.0) % Plt Count (150-450) k/uL Neutrophils # (Manual) (1.3-7.7) k/uL Lymphocytes # (Manual) (1.0-4.8) k/uL Monocytes # (Manual) (0-1.0) k/uL Metamyelocytes # (Man) (0) k/uL Myelocytes # (Manual) (0) k/uL Nucleated RBCs (0-0) /100 WBC ABG pH 7.23 L (7.35-7.45) ABG pCO2 65 H (35-45) mmHg ABG pO2 79 L (83-108) mmHg ABG HCO3 27 H (21-25) mmol/L ABG Total CO2 29 H (19-24) mmol/L ABG O2 Saturation 93.1 L (94-97) % BUN (9-20) mg/dL Creatinine (0.66-1.25) mg/dL Glucose (74-99) mg/dL POC Glucose (mg/dL) 163 H 154 H (75-99) mg/dL Calcium (8.4-10.2) mg/dL Phosphorus (2.5-4.5) mg/dL 07/15/21 Range/Units 17:30 WBC (3.8-10.6) k/uL RBC (4.30-5.90) m/uL Hgb (13.0-17.5) gm/dL Hct (39.0-53.0) % Plt Count (150-450) k/uL Neutrophils # (Manual) (1.3-7.7) k/uL Lymphocytes # (Manual) (1.0-4.8) k/uL Monocytes # (Manual) (0-1.0) k/uL Metamyelocytes # (Man) (0) k/uL Myelocytes # (Manual) (0) k/uL Nucleated RBCs (0-0) /100 WBC ABG pH (7.35-7.45) ABG pCO2 (35-45) mmHg ABG pO2 (83-108) mmHg ABG HCO3 (21-25) mmol/L ABG Total CO2 (19-24) mmol/L ABG O2 Saturation (94-97) % BUN (9-20) mg/dL Creatinine (0.66-1.25) mg/dL Glucose (74-99) mg/dL POC Glucose (mg/dL) 143 H (75-99) mg/dL Calcium (8.4-10.2) mg/dL Phosphorus (2.5-4.5) mg/dL Microbiology - Last 24 Hours (Table) 07/10/21 17:41 Blood Culture - Preliminary Blood No Growth after 120 hours 07/10/21 16:02 Blood Culture - Preliminary Blood No Growth after 120 hours Assessment and Plan Assessment: Acute hypoxic respiratory failure secondary to COVID 19 pneumonia requiring oxygen support with 60L with FiO2 90% and nonrebreather mask--> BIPAP. Intubated on 07/10/2021 Right apical pneumothorax estimated at less than 10% and subcutaneous emphysema Septic shock with multiorgan system failure. Requiring pressor support with norepinephrine and vasopressin. Acute kidney injury due to ATN Acute metabolic acidosis Shock liver with elevated AST and ALT Acute DVT right lower extremity; on eliquis started this admission Elevated DD, CTA negative for PE, positive DVT Elevated liver enzymes possibly due to systemic inflammation, resolved Elevated inflammatory markers secondary to COVID 19, improving History of DVT History of asthma, not in acute exacerbation Remote history of nicotine dependence History of transverse myelitis History of C5-C6 fusion Obesity GI Prophylaxis: Protonix DVT Prophylaxis: Eliquis FULL CODE Plan Patientin in the MICU. on [facility] ventilator with pressure support Patient went into septic shock and multiorgan failure. Currently still requiring pressors and received fluid boluses. Patient was also started on bicarb drip and monitor renal function closely.Due to worsening renal failure patient was initiated on hemodialysis on 07/14/2021. Patient will be cannula broad-spectrum antibiotics in the form of vancomycin and cefepime. Monitor LFTs Continue decadron, vitamins. Baricitinib on hold. Eliquis for DVT Repeat labs in AM Incentive spirometry Continue all other supportive care Cont with PT/OT consultation Prognosis remains guarded Time with Patient: Greater than 30
[2021-07-16 00:04] LABS: Glucose,Whole Blood 154 mg/dL (75-99)
[2021-07-16] MEDS: INSULIN ASPART (NovoLOG) 100 UNIT/ML VIAL SQ SCH ×5 (00:07→23:34)
[2021-07-16] MEDS: ARTIFICIAL TEARS-HYPROMELLOSE DROPS 15 ML BTL BOTH EYES SCH ×7 (00:08→23:34)
[2021-07-16] MEDS: ACETAMINOPHEN TAB 325 MG TAB PO PRN ×2 (03:51→23:55)
[2021-07-16 04:27] LABS: HCT 38.2 % (39.0-53.0); HGB 12.2 gm/dL (13.0-17.5); Hypochromasia Slight; MCH 32.1 pg (25.0-35.0); MCHC 31.9 g/dL (31.0-37.0); MCV 100.6 fL (80.0-100.0); Mean Platelet Volume 9.5; Platelet Count 116 k/uL (150-450); RDW 13.2 % (11.5-15.5)
[2021-07-16 04:51] LABS: Albumin 2.8 g/dL (3.5-5.0); Calcium 7.1 mg/dL (8.4-10.2); Potassium 5.6 mmol/L (3.5-5.1); Total Bilirubin 1.8 mg/dL (0.2-1.3); Total Protein 5.5 g/dL (6.3-8.2)
[2021-07-16] MEDS: fentaNYL (PF). 1,000 MCG in SODIUM CHLORIDE 0.9% 80 ML IV SCH ×3 (04:52→21:12)
[2021-07-16 05:32] LABS: ABG Base Excess -4.4 mmol/L; ABG HCO3 25 mmol/L (21-25); ABG Oxygen Saturation 93.1 % (94-97); ABG PCO2 70 mmHg (35-45); ABG PO2 84 mmHg (83-108); ABG TCO2 27 mmol/L (19-24); Allen Test Performed? Yes
[2021-07-16 05:36] LABS: ABG PH 7.15 (7.35-7.45)
[2021-07-16 06:11] LABS: Band Neutrophils % 3 %; Lymphocytes # (M) 1.91 k/uL (1.0-4.8); Monocytes # (M) 0.76 k/uL (0-1.0); Neutrophils % (M) 91 %; Nucleated Red Blood Cells 3 /100 WBC (0-0); Total Cells Counted 200; WBC 38.1 k/uL (3.8-10.6)
[2021-07-16] MEDS: CALCIUM ACETATE 667 MG TAB PO SCH ×3 (06:43→17:24)
[2021-07-16] MEDS: CISATRACURIUM 200 MG in SODIUM CHLORIDE 0.9% 180 ML IV SCH ×2 (08:07→21:44)
[2021-07-16] MEDS: ALBUTEROL HFA INHALER INHALATION SCH ×4 (08:22→20:07)
[2021-07-16] MEDS: SYMBICORT 80-4.5 MCG INHALER INHALATION SCH ×2 (08:23→20:07)
[2021-07-16] MEDS: CHLORHEXIDINE GLUCONATE 15 ML CUP MUCOUS MEM SCH ×2 (08:46→21:44)
[2021-07-16] MEDS: APIXABAN 5 MG TAB PO SCH ×2 (08:46→21:44)
[2021-07-16] MEDS: ASCORBIC ACID 500 MG TAB PO SCH (08:47)
[2021-07-16] MEDS: PANTOPRAZOLE 40 MG/10 ML VIAL IVP SCH (08:47)
[2021-07-16] MEDS: SODIUM BICARBONATE TAB 650 MG TAB PO SCH ×2 (08:47→21:44)
[2021-07-16] MEDS: CHOLECALCIFEROL 25 MCG (1000 IU) TABLET PO SCH (08:47)
[2021-07-16] MEDS: FLUCONAZOLE IN NACL,ISO-OSM 100 MG in SALINE 1 50ML.BAG IVPB SCH (08:47)
[2021-07-16] MEDS: ZINC SULFATE 220 MG CAP PO SCH (08:47)
[2021-07-16] MEDS: DEXAMETHASONE SOD PHOSPHATE 10 MG/ML 1 ML VIAL IVP SCH (08:47)
--- NOTE | 2021-07-16 08:48 | XR ---
EXAMINATION TYPE: XR chest 1V portable DATE OF EXAM: 07/16/2021 COMPARISON: Chest x-ray 07/15/2021 HISTORY: Intubated TECHNIQUE: Single frontal view of the chest is obtained. FINDINGS: Endotracheal tube, NG tube are overlying appropriate positions. Extensive subcutaneous emp hysema may limit evaluation. Left subclavian central venous catheter is again noted, distal tip cours ing to the level of the superior vena cava. Bilateral airspace disease is extensive as on prior. Card iac mediastinal silhouette is likely stable. No evident pneumothorax or sizable effusion. IMPRESSION: There is no significant interval change. Extensive subcutaneous emphysema somewhat limit s evaluation. Correlate for ARDS, pneumonia, pulmonary edema. Difficult to exclude pneumomediastinum.
--- NOTE | 2021-07-16 09:15 | P.PN ---
Subjective Patient is seen in follow-up for acute kidney injury. Oliguric. Started on hemodialysis 07/14/2021. Currently on Levophed and vasopressin. Receiving IV fluids. Also receiving tube feeds. Potassium 5.6 today. Vital signs - on vasopressor support. Temperature 101.3F this morning. HEENT: Intubated. LUNGS: Breath sounds decreased. HEART: Tachycardic. ABDOMEN: Soft, no distention. EXTREMITITES: 1+ edema. Objective - Vital Signs Vital signs: Vital Signs Temp 99.3 F 07/16/21 08:00 Pulse 105 H 07/16/21 09:00 Resp 36 H 07/16/21 09:00 BP 89/66 07/16/21 09:00 Pulse Ox 92 L 07/16/21 09:00 Intake & Output 07/15/21 07/16/21 07/16/21 18:59 06:59 18:59 Intake Total 2236.404 1935.259 651.528 Output Total 540 10 5 Balance 6539.683 2259.259 646.528 Weight 140.5 kg 148 kg Intake: IV 722 722 168 Cefepime 1 gm In Sodium 50 Chloride 0.9% 50 ml @ 12. 5 mls/hr IVPB HS SE Rx#: [id number] Pressure Bag 72 72 18 Sodium Chloride 0.9% 1, 650 600 150 000 ml @ 50 mls/hr IV . Q20H SE Rx#:[id number] Intake, IV Titration 852.404 659.259 345.528 Amount Cisatracurium 200 mg In 203.643 0.968 190.454 Sodium Chloride 0.9% 180 ml @ 1 MCG/KG/MIN 7.26 mls/hr IV .Q24H SE Rx#: [id number] Norepinephrine 32 mg In 168.269 87.412 55.074 Sodium Chloride 0.9% 218 ml @ 0.05 MCG/KG/MIN 2. 836 mls/hr IV .Q24H SE Rx#:[id number] fentaNYL (PF). 1,000 mcg 180.492 173.231 In Sodium Chloride 0.9% 80 ml @ 0.5 MCG/KG/HR 6. 05 mls/hr IV .[id number] SE Rx#:[id number] propofoL 1,000 mg In 300 397.648 100 Empty Bag 1 bag @ Titrate IV .Q0M [facility] Rx#: [id number] Tube Feeding 472 464 108 Other 190 90 30 Output: Urine 40 10 5 Hemodialysis 500 Other: Voiding Method Indwelling Catheter Indwelling Catheter Indwelling Catheter ABP, PAP, CO, CI - Last Documented Arterial Blood Pressure 79/58 - Labs CBC & Chem 7: 07/16/21 04:00 07/16/21 04:00 Labs: Abnormal Lab Results - Last 24 Hours (Table) 07/15/21 07/15/21 07/16/21 Range/Units 11:25 17:30 00:01 WBC (3.8-10.6) k/uL RBC (4.30-5.90) m/uL Hgb (13.0-17.5) gm/dL Hct (39.0-53.0) % MCV (80.0-100.0) fL Plt Count (150-450) k/uL Neutrophils # (Manual) (1.3-7.7) k/uL Nucleated RBCs (0-0) /100 WBC ABG pH (7.35-7.45) ABG pCO2 (35-45) mmHg ABG Total CO2 (19-24) mmol/L ABG O2 Saturation (94-97) % Potassium (3.5-5.1) mmol/L BUN (9-20) mg/dL Creatinine (0.66-1.25) mg/dL Glucose (74-99) mg/dL POC Glucose (mg/dL) 154 H 143 H 154 H (75-99) mg/dL Calcium (8.4-10.2) mg/dL Total Bilirubin (0.2-1.3) mg/dL AST (17-59) U/L ALT (4-49) U/L Alkaline Phosphatase (38-126) U/L Total Protein (6.3-8.2) g/dL Albumin (3.5-5.0) g/dL 07/16/21 07/16/21 07/16/21 Range/Units 04:00 04:00 05:28 WBC 38.1 H (3.8-10.6) k/uL RBC 3.80 L (4.30-5.90) m/uL Hgb 12.2 L (13.0-17.5) gm/dL Hct 38.2 L (39.0-53.0) % MCV 100.6 H (80.0-100.0) fL Plt Count 116 L (150-450) k/uL Neutrophils # (Manual) 35.80 H (1.3-7.7) k/uL Nucleated RBCs 3 H (0-0) /100 WBC ABG pH 7.15 L* (7.35-7.45) ABG pCO2 70 H (35-45) mmHg ABG Total CO2 27 H (19-24) mmol/L ABG O2 Saturation 93.1 L (94-97) % Potassium 5.6 H (3.5-5.1) mmol/L BUN 81 H (9-20) mg/dL Creatinine 4.85 H (0.66-1.25) mg/dL Glucose 133 H (74-99) mg/dL POC Glucose (mg/dL) (75-99) mg/dL Calcium 7.1 L (8.4-10.2) mg/dL Total Bilirubin 1.8 H (0.2-1.3) mg/dL AST 1629 H (17-59) U/L ALT 3333 H (4-49) U/L Alkaline Phosphatase 212 H (38-126) U/L Total Protein 5.5 L (6.3-8.2) g/dL Albumin 2.8 L (3.5-5.0) g/dL Microbiology - Last 24 Hours (Table) 07/10/21 17:41 Blood Culture - Preliminary Blood No Growth after 120 hours 07/10/21 16:02 Blood Culture - Preliminary Blood No Growth after 120 hours Assessment and Plan Plan: Assessment: 1. Acute kidney injury secondary to ATN secondary to septic shock. Baseline creatinine near 1 and is 4.85 today. Oliguric. Started on hemodialysis 07/14/2021. 2. Septic shock secondary to COVID-19 infection with concern for superimposed bacterial infection. 3. Hyperkalemia secondary to acute kidney injury. 4. Acute hypoxic and hypercapnic respiratory failure. 5. Metabolic acidosis secondary to acute kidney injury. Status post bicarb drip. Improved. 6. Hypocalcemia secondary to acute kidney injury. Replaced. Corrected calcium 8.1. 7. Hyperphosphatemia secondary to acute kidney injury. On PhosLo. Plan: Third treatment of SLED today. Receiving tube feeds. Continue to monitor renal function and urine output. Wean FiO2 and vasopressors. Repeat potassium 2 hours after dialysis.
--- NOTE | 2021-07-16 10:01 | P.PN ---
Subjective Progress Note Date: 07/16/21 Principal diagnosis: Respiratory failure. 07/12/2021, the patient is being seen for a follow-up. He remains critically ill intubated sedated paralyzed on a mechanical ventilator with COVID 19 related to pneumonia and multisystem organ failure. The patient has been aggressively resuscitated over the past 48 hours. At this point in time the patient remains sedated and paralyzed. His propofol is currently running at 50 mcg/kg per minute and fentanyl is running at 1 mcg/kg/h and the patient is paralyzed with Nimbex at 1 mcg/kg per minute. He is adequately sedated and paralyzed. He remains synchronous with the mechanical ventilator. He is on a pressure control mode of mechanical ventilation with a pressure control of 23 and the rate of 30 with an FiO2 of 70% and a PEEP of 15. Chest x-ray still showing diffuse bilateral subcutaneous emphysema and there is no evidence of any pneumothorax. There is also diffuse bilateral pulmonary infiltrates. All of the tubes are in good location. PH is at 7.38 with a pCO2 of 51 and pO2 of 107. As such, the patient is adequately oxygenating and ventilating. Nevertheless, the active problem was the massive shock and hypotension which was probably a septic event. Cultures were all negative. The patient is currently on a combination of antibiotics and he is receiving cefepime, and vancomycin. Infectious disease was also consulted. I maintain the patient on fluconazole knowing that the patient had extensive oropharyngeal candidiasis at the time of the intubation. He was resuscitated IV fluids and received more than 10 L of saline and also received several doses of IV albumin. During the course of the resuscitation, he was on a combination of vasopressin physiologic dose, norepinephrine and epinephrine was also added to maintain his blood pressure. We are unable to wean off the epinephrine. Vasopressin remains at physiologic dose of 0.03 units an hour and the patient is currently on 0.15 mcg/kg per minute of norepinephrine infusion. Urine output is order of 30-50 mL an hour. His white cell count is low and currently is at 22.7. He is still spiking fever on and off for which she was given Tylenol IV. Currently he is afebrile. White cell count is down to 22.7. Meanwhile, the patient developed a nonoliguric renal failure. Creatinine is up to 2.59. He was having issues with hyperkalemia. He was given bicarb IV in the form of a push and later on drip and the sodium bicarb is currently running at the rate of 150 mL an hour. Serum bicarb this morning is at 30 with a potassium level of 4.4. Coagulation profile shows an INR of 1.4 with a PT of 14.2. The patient is a sinus rhythm. He is a shock liver and the liver function tests are essentially improving. Vancomycin level this morning is at 18.2. As stated, blood cultures are negative. Enterofeeding for nutritional support will be started today. Progress note dated 07/13/2020. 50-year-old male admitted to the hospital on June 27. His admission diagnosis was coronavirus associated pneumonia. [facility], and ended up being intubated on July 10. This was for worsening hypoxemic respiratory failure. The patient is on pressure assist control mode of ventilation, with an inspiratory pressure of 23 cm water, and inspiratory time of 1 second. In addition, the patient has a rate of 30, FiO2 of 80%, and PEEP of 14. The patient's blood gases show pO2 105, pCO2 74, and pH is 7.21. The patient's currently on norepinephrine at 0.09 mcg/kg/m, vasopressin, and 0.02 units per minute, and saline at 75 mL an hour. In addition, the patient's on fentanyl 1 mcg/kg/h, Nimbex at 1 mcg/kg/m, and propofol at 50 mcg/kg/m. Tube feedings have not yet been started. White count 22.3, hemoglobin 11.3, hematocrit 33.4, and platelet count 190,000. Sodium 136, potassium 4.4, chlorides 101, CO2 28, anion gap 7 BUN 60, creatinine 2.87. Albumin is 2.3. Sputum from July 10 showing presumptive staph aureus. Chest x-ray from July 13 shows diffuse bilateral patchy infiltrates. There is extensive subcutaneous emphysema. Progress note dated 07/14/2021. 50-year-old male admitted to the hospital on June 27. His admission diagnosis was coronavirus associated pneumonia. He came to the intensive care unit on July 08 and was intubated for respiratory failure on 07/10/2021. This was for worsening hypoxemic respiratory failure. Currently, the patient is on pressure assist control, with a inspiratory pressure 23 cm water, inspiratory time of 1 second, rate of 36 breaths per minute, FiO2 65%, and PEEP of 14. Blood gases showed a pO2 of 87, pCO2 of 77, pH is 7.10. This was on a rate of 30. Repeat blood gases at the higher rate, show pO2 of 76, pCO2 70, and a pH is 7.08. The patient's on Nimbex at 1 mcg/kg/m, fentanyl 1 mcg/kg/h, norepinephrine at 70 mcg/m, vasopressin 0.03 units per minute, propofol at 50 mcg/kg/m, saline at 85 mL an hour, vital AF at 32 mL an hour. Because of his blood gases, we will go ahead and switch him to volume assist control, to attempt to reduce his PaCO2, and improve his pH. In addition, the patient is going to have a dialysis catheter placed today, and have hemodialysis. White count 34,000, hemoglobin 12.7, hematocrit 41.3, and platelet count 239,000. Sodium 136, potassium 5.7, chlorides 101, CO2 23, anion gap 12, BUN 76, with a creatinine of 4.10. Bilirubin 1.7. AST is 3060 with an ALT of 4094. Sputum from July 10 showing evidence of staph aureus. Chest x-ray shows diffuse bilateral infiltrates. Progress note dated 07/15/2021. 50-year-old male, admitted to the hospital on 06/27/2021. He was admitted with a diagnosis of coronavirus associated pneumonia. He came to the intensive care unit on 07/08/2021, and was intubated for respiratory failure on 07/10/2021. The patient remains on the ventilator. He is on the volume assist control, rate 36, tidal volume 450, FiO2 75%, and PEEP of 14. Blood gases show pO2 of 79, pCO2 65, and pH of 7.23. The patient is on norepinephrine at 21 mcg/m, Nimbex at 1 mcg/kg/m, fentanyl at 1 mcg/kg/h, vasopressin at 0.04 units per minute, propofol at 50 mcg/kg/m, saline at 75 mL an hour, and vital AF at 32 mL an hour, which is goal. He did have hemodialysis yesterday, but no fluid was removed. The plan is for hemodialysis today, with one half a liter being removed. Current labs include a white count 23.9, hemoglobin 11.4, hematocrit 36.1, and platelet count 146,000. Sodium 138, potassium 5, chlorides 101, CO2 27, anion gap 10, BUN 78, with creatinine of 4.27. Sputum from July 10 shows Staphylococcus aureus. Chest x-ray shows diffuse bilateral infiltrates, largely unchanged. Progress note dated 07/16/2021. 50-year-old male, admitted to the hospital on 06/27/2021. The patient was admitted with a diagnosis of coronavirus associated pneumonia. The patient came to the intensive care unit on July 08, and was intubated for respiratory failure 2 days later on 07/10/2021. The patient remains on the ventilator. The patient is on the volume assist control mode, rate 36, tidal [place] 450, FiO2 75%, PEEP of 14. Blood gases show a pO2 of 85, pCO2 70, and a pH is 7.15. The patient is currently on norepinephrine at 27 mcg/m, Nimbex at 2 mcg/kg/m, propofol at 50 mcg/kg/m, these are present and 0.04 units per minute, fentanyl 1 mcg/kg/h. The patient's also receiving vital AF, at goal. White count 38.1, hemoglobin 12.2, hematocrit 38.2, and platelet count 116,000. Sodium 137, potassium 5.6, chlorides 98, CO2 23, anion gap 16, BUN 81, and creatinine 4.85. AST is 1629. ALT is 3333. Sputum sampling from July 10 shows evidence of Staphylococcus aureus. Chest x-ray shows diffuse bilateral infiltrates, and extensive subcutaneous emphysema. Objective - Vital Signs Vital signs: Vital Signs Temp 99.3 F 07/16/21 08:00 Pulse 105 H 07/16/21 09:00 Resp 36 H 07/16/21 09:00 BP 89/66 07/16/21 09:00 Pulse Ox 92 L 07/16/21 09:00 Intake & Output 07/15/21 07/16/21 07/16/21 18:59 06:59 18:59 Intake Total 2236.404 1935.259 758.984 Output Total 540 10 5 Balance 0297.212 0555.259 753.984 Weight 140.5 kg 148 kg Intake: IV 722 722 224 Cefepime 1 gm In Sodium 50 Chloride 0.9% 50 ml @ 12. 5 mls/hr IVPB HS ES Rx#: [id number] Pressure Bag 72 72 24 Sodium Chloride 0.9% 1, 650 600 200 000 ml @ 50 mls/hr IV . Q20H SE Rx#:[id number] Intake, IV Titration 852.404 659.259 360.984 Amount Cisatracurium 200 mg In 203.643 0.968 190.454 Sodium Chloride 0.9% 180 ml @ 1 MCG/KG/MIN 7.26 mls/hr IV .Q24H SE Rx#: [id number] Norepinephrine 32 mg In 168.269 87.412 70.530 Sodium Chloride 0.9% 218 ml @ 0.05 MCG/KG/MIN 2. 836 mls/hr IV .Q24H SE Rx#:[id number] fentaNYL (PF). 1,000 mcg 180.492 173.231 In Sodium Chloride 0.9% 80 ml @ 0.5 MCG/KG/HR 6. 05 mls/hr IV .[id number] SE Rx#:[id number] propofoL 1,000 mg In 300 397.648 100 Empty Bag 1 bag @ Titrate IV .Q0M SE Rx#: [id number] Tube Feeding 472 464 144 Other 190 90 30 Output: Urine 40 10 5 Hemodialysis 500 Other: Voiding Method Indwelling Catheter Indwelling Catheter Indwelling Catheter ABP, PAP, CO, CI - Last Documented Arterial Blood Pressure 79/58 - Exam No acute distress, currently sedated and paralyzed, with an orally placed endotracheal tube and NG tube. HEENT examination is grossly unremarkable. Extensive subcutaneous emphysema. Neck supple. Full range of motion. No adenopathy thyromegaly or neck vein distention. Cardiovascular examination reveals regular rhythm rate. S1-S2 normal. No S3 or S4. No discernible murmur noted. Heart sounds are distant. Heart rate 105 bpm. Lungs reveal diffuse coarse rhonchi. Breath sounds equal. No wheezes. There is extensive subcutaneous emphysema. Saturations are 92%. Abdomen soft without bowel sounds Extremities are intact. No cyanosis clubbing or edema. Skin is without rash or lesion. Neurologic examination cannot be evaluated as the patient is sedated and paralyzed. - Labs CBC & Chem 7: 07/16/21 04:00 07/16/21 04:00 Labs: Abnormal Lab Results - Last 24 Hours (Table) 07/15/21 07/15/21 07/16/21 Range/Units 11:25 17:30 00:01 WBC (3.8-10.6) k/uL RBC (4.30-5.90) m/uL Hgb (13.0-17.5) gm/dL Hct (39.0-53.0) % MCV (80.0-100.0) fL Plt Count (150-450) k/uL Neutrophils # (Manual) (1.3-7.7) k/uL Nucleated RBCs (0-0) /100 WBC ABG pH (7.35-7.45) ABG pCO2 (35-45) mmHg ABG Total CO2 (19-24) mmol/L ABG O2 Saturation (94-97) % Potassium (3.5-5.1) mmol/L BUN (9-20) mg/dL Creatinine (0.66-1.25) mg/dL Glucose (74-99) mg/dL POC Glucose (mg/dL) 154 H 143 H 154 H (75-99) mg/dL Calcium (8.4-10.2) mg/dL Total Bilirubin (0.2-1.3) mg/dL AST (17-59) U/L ALT (4-49) U/L Alkaline Phosphatase (38-126) U/L Total Protein (6.3-8.2) g/dL Albumin (3.5-5.0) g/dL 07/16/21 07/16/21 07/16/21 Range/Units 04:00 04:00 05:28 WBC 38.1 H (3.8-10.6) k/uL RBC 3.80 L (4.30-5.90) m/uL Hgb 12.2 L (13.0-17.5) gm/dL Hct 38.2 L (39.0-53.0) % MCV 100.6 H (80.0-100.0) fL Plt Count 116 L (150-450) k/uL Neutrophils # (Manual) 35.80 H (1.3-7.7) k/uL Nucleated RBCs 3 H (0-0) /100 WBC ABG pH 7.15 L* (7.35-7.45) ABG pCO2 70 H (35-45) mmHg ABG Total CO2 27 H (19-24) mmol/L ABG O2 Saturation 93.1 L (94-97) % Potassium 5.6 H (3.5-5.1) mmol/L BUN 81 H (9-20) mg/dL Creatinine 4.85 H (0.66-1.25) mg/dL Glucose 133 H (74-99) mg/dL POC Glucose (mg/dL) (75-99) mg/dL Calcium 7.1 L (8.4-10.2) mg/dL Total Bilirubin 1.8 H (0.2-1.3) mg/dL AST 1629 H (17-59) U/L ALT 3333 H (4-49) U/L Alkaline Phosphatase 212 H (38-126) U/L Total Protein 5.5 L (6.3-8.2) g/dL Albumin 2.8 L (3.5-5.0) g/dL Microbiology - Last 24 Hours (Table) 07/10/21 17:41 Blood Culture - Preliminary Blood No Growth after 120 hours 07/10/21 16:02 Blood Culture - Preliminary Blood No Growth after 120 hours Assessment and Plan Assessment: Acute hypoxemic respiratory failure, secondary to coronavirus associated pneumonia, status post intubation and mechanical ventilation on July 10. Extensive subcutaneous emphysema as a complication of coronavirus associated pneumonia. History of chronic bronchial asthma. Right lower extremity deep venous thrombosis. History of oropharyngeal candidiasis. History of shock liver. Acute kidney injury. Septic shock with multiorgan system failure. Previous history of tobacco use. History of C5-C6 fusion. History of transverse myelitis. Plan: Plan dated 06/28/2021. Currently, the patient is a candidate for Decadron, Lovenox, vitamin C, vitamin D3, and zinc. He is not a candidate for REM, consistent and have been present for more than 7 days, and he is on oxygen that is greater than 6 L/m. He is getting close to the point where he may become a candidate for FLAQUITO. The patient does appear relatively comfortable. We will continue to follow make recommendations where appropriate. The patient is on his usual inhalers for his asthma. Prognosis is guarded. Plan dated 07/13/2020. The patient's labs, x-rays, and medications all reviewed. The patient remains on a factor X a inhibitor for his right lower extremity DVT. The patient continues on Decadron. FLAQUITO has been discontinued. The patient remains on fentanyl, Nimbex, and propofol. The patient remains on both norepinephrine and vasopressin. The patient is obviously very critically ill. The patient remains on pressure assist control mode of mechanical ventilation. Additional recommendations and suggestions are forthcoming. We will continue to follow the patient and make recommendations where appropriate. Overall prognosis remains very guarded. Plan dated 07/14/2021. The patient's labs, x-rays, and medications are all reviewed. The patient remains on a factor X a inhibitor for his right lower extremity DVT. The patient continues on Decadron. The patient also remains on fentanyl, Nimbex, and propofol. The patient is on norepinephrine and vasopressin for blood pressure stability. I did have a chance to speak to his Shyla. She understands the gravity of the situation. I explained to her that we will continue to support him fully. At this time, his prognosis is very poor. We will continue to follow the patient and make recommendations where appropriate. We did change his ventilator from pressure assist control, volume assist control. The patient will have a hemodialysis catheter placed today and undergo hemodialysis. Urine output is poor and renal function has worsened. Plan dated 07/15/2021. The patient was switched from pressure assist control, to volume assist control yesterday. Blood gases today are much improved. The patient remains on norepinephrine, Nimbex, fentanyl, vasopressin, propofol, and tube feeds. The patient did have hemodialysis yesterday, and will have hemodialysis again today. We will continue to follow make recommendations where appropriate. I did have a chance to speak to the patient's yesterday. I gave her a full update. The patient continues to be a full code. We will continue to follow make recommendations were appropriate. Medications are reviewed. Labs are reviewed. Chest x-rays reviewed. Plan dated 07/16/2021. The patient remains about the same. The patient is currently receiving hemodialysis. The patient remains on norepinephrine, Nimbex, propofol, fentanyl, and vasopressin. The patient was switched from pressure assist control to volume assist control, because of worsening hypercapnia, and acidosis. Additional recommendations and suggestions are forthcoming. I will continue to follow make recommendations were appropriate. Prognosis is guarded. I did speak to the 2 days ago, and gave her an update. She does understand the gravity of the situation. Time with Patient: Greater than 30
[2021-07-16] MEDS ORDERED: FUROSEMIDE 10 MG/ML 10 ML VIAL IV ONE (12:00)
[2021-07-16] MEDS: SODIUM CHLORIDE 0.9% 150 ML with VASOPRESSIN 60 UNIT IV SCH ×2 (12:28)
--- NOTE | 2021-07-16 12:30 | CONS ---
DATE OF CONSULTATION: 07/16/2020 This is a 50-year-old gentleman who was seen for acute renal failure with hyperkalemia. The patient has history of COVID positive, has been intubated. MEDICAL HISTORY: History of transverse myelitis of the C5-C6 fusion, history of asthma. SOCIAL HISTORY: Smoking in the past. PHYSICAL EXAMINATION: Patient was seen in the intensive care unit. The patient has been intubated. Neck is supple. Chest has crackles bilateral. Abdomen is protuberant, no peritoneal sign noted. Femorals are 1+ bilateral. Patient has marked swelling of both lower extremities. PLAN: Placement of the dialysis catheter. Risks and complications discussed. MMODL / IJN: [id number] / MTDD
[2021-07-16 14:03] LABS: Glucose,Whole Blood 131 mg/dL (75-99)
[2021-07-16] MEDS: NOREPINEPHRINE 32 MG in SODIUM CHLORIDE 0.9% 218 ML IV SCH (14:50)
[2021-07-16 17:20] LABS: Glucose,Whole Blood 73 mg/dL (75-99)
[2021-07-16] MEDS: fentaNYL (PF) 2,500 MCG in SODIUM CHLORIDE 0.9% 200 ML IV SCH (21:20)
[2021-07-16] MEDS: CEFEPIME 1 GM in SODIUM CHLORIDE 0.9% 50 ML IVPB SCH (21:44)
[2021-07-16 23:28] LABS: Glucose,Whole Blood 133 mg/dL (75-99)
--- NOTE | 2021-07-16 23:57 | PN ---
PROGRESS NOTE DATE OF SERVICE: 07/16/2021 REASON FOR FOLLOWUP: Pneumonia. INTERVAL HISTORY: Patient is afebrile. The patient is requiring less pressor support. FiO2 is currently at 75%. No significant purulent secretions in the ET, diarrhea or any other changes reported by the nursing staff. PHYSICAL EXAMINATION: Blood pressure 105/71, pulse of 109, temperature 98.9. He is 90% on 75% FIO2. General description is a middle-aged male intubated on the vent. Respiratory system: Unlabored breathing, decreased breath sounds in the base. No wheeze. Heart S1, S2. Regular rate and rhythm. Abdomen soft, no tenderness. LAB: Hemoglobin 12.1, white count 28.1. BUN of 81, creatinine 4.85. Procalcitonin 2.44. Sputum is MSSA and Ivonne albicans. DIAGNOSTIC IMPRESSION AND PLAN: Patient with acute respiratory failure which is multifactorial in this patient who did have a Covid 19 pneumonia now with component of secondary bacterial pneumonia. Sputum with MSSA, covered with cefepime, also receiving Fluconazole with worsening white count, more likely steroid effect. No cultures will be repeated and antibiotic adjusted further if needed. at bedside. Questions were answered. MMODL / IJN: [id number] /
--- NOTE | 2021-07-17 00:07 | P.PN ---
Subjective Progress Note Date: 07/16/21 Principal diagnosis: Acute hypoxic respiratory failure secondary to COVID-19 pneumonia 07/06/2021 Patient evaluated sitting up in the chair, reports overall he is feeling slightly better. He was talking on the phone with family and appeared in good spirits. He continues on airvo at 50L with an FiO2 of 70% and in addition to a nonrebreather, oxygen saturation is 94%. He is afebrile, blood pressure 102/66. Labs reviewed today; white count of 18.7, sodium 137, potassium 4.5, CO2 32, sugars in the 110s. AST, ALT and alk phos have normalized. He continues on eliquis for a right leg DVT. There is still some peripheral edema to the right leg. Continues on baricitinib, bronchodilators, zinc, vitamins, decadron. He is being followed closely pulmonary and ID services. 07/07/2021 Patient had to sleep sitting up in the chair last night, his oxygen support was decreased slightly yesterday to 55L airvo from 60L airvo. Otherwise he is relatively stable where he is at. Chest xray today shows stable bilateral diffuse infiltrates. Could not exclude subtle pneumomediastinum. Correlate clinically. Labs reviewed today shows a WBC count of 18.3. He has some cough with minimal sputum production. Vitals today he is afebrile, heart rate 85 normal sinus rhythm, blood pressure 102/61, 91% on airvo with nonrebreather. He maintains in good spirits. 07/08/2021 Patient is in the select care unit. Requiring high flow oxygen 55 L/min with 60% FiO2. Patient became anxious and hypoxic in the afternoon and rapid response team was called him. Repeat chest x-ray showed right apical pneumothorax. Patient was transferred to MICU for close monitoring. Patient is being continued on dexamethasone and Eliquis. Also being continued on baricitinib. Laboratory data showed WBC 17.6 hemoglobin 13.4 and platelets 243 Sodium 136 potassium 4.5 chloride 99 bicarbonate 33 BUN 22 and creatinine 0.74 LDH 8074 and CRP 4.4 07/09/2021 Patient is currently in the MICU. Awake alert and oriented x3. Able to speak. Sitting in the chair. Requiring high flow oxygen currently. on Airvo 60 L at 90% FiO2 with 100% nonrebreather facemask. Chest x-ray showed no pneumothorax today. There is subcutaneous emphysema on the right and evidence of pneumomediastinum. Patient is being continued on dexamethasone and baricitinib and Eliquis due to DVT diagnosed on admission. Laboratory data showed WBC 17.0 hemoglobin 12.9 and platelets 260 BUN 73 and creatinine 0.64 [id number] Patient is in the MICU. Was requiring BiPAP last night. Patient woke up with coughing spell and subsequently desaturated and unable to recover. He was switched to BiPAP and eventually went into respiratory failure. Patient was intubated in the afternoon. Chest x-ray in the morning showed stable chest. Repeat chest x-ray showed left- sided central line. Diffuse bilateral airspace disease subcutaneous emphysema pneumomediastinum and less than 5% right-sided pneumothorax stable. Patient is being current dexamethasone, baricitinib and Eliquis. Laboratory data showed WBC 40.0 hemoglobin 13.3 and platelets 362 ABGs showed pH 7.26 PCO2 75 PO2 80 and sodium 135 potassium 4.3 chloride 99 bicarb is 32 BUN 28 and creatinine 0.69 LDH 1698 CRP 2.7 and procalcitonin level is 0.06 07/11/2021 Patient is only intensive care unit. Intubated and on mechanical ventilator. Patient is also sedated and on propofol and fentanyl and Nimbex. Patient became progressively hypotensive and into septic shock with signs of multiorgan failure. Patient was started vancomycin and cefepime. Currently patient is on pressure control respiratory rate 30 and FiO2-% PEEP of 15. Chest x-ray this morning showed persistent bilateral airspace opacities. Diffuse subcutaneous emphysema not significantly changed. Pneumothorax is not definitely visualized continued retention on follow-up imaging. Laboratory data showed WBC 28.4 hemoglobin 12.5 and platelets 342 ABGs this morning showed pH of 7.15 PCO2 70 PO2 95 Sodium 137 potassium 5.8 BUN 34 and creatinine 1.30 magnesium 2.5 total bilirubin is 1.5 AST 07/13/2007 and ALT 1497 and alk phos 105 Repeat BMP showed creatinine went up to 2.17 and nephrology was consulted. Critical care team is on board. 07/12/2020 Patient is in MICU. Remains on mechanical ventilator. Sedated and paralyzed.. Patient is on pressor support with Levophed. Currently on pressure control with FiO2 70% PEEP of 15. Chest x-ray showed patchy bilateral lung infiltrates stable from comparison. No definite pneumothorax evident on the current study. Extensive subcutaneous emphysema remains present. Patient went into septic shock and multiorgan dysfunction following intubation. Currently on broad-spectrum antibiotics, vancomycin and cefepime. Also on fluconazole due to extensive oropharyngeal candidiasis. Urine output is maintained. Laboratory data showed WBC 22.7. Hemoglobin 11.9 platelets 245 lymphocytes 0.7 BUN 47 creatinine 2.59 and calcium 6.2 liver enzymes are trending down AST 1062 ALT 2036 and alk phos 84 albumin 2.3 hepatitis panel negative. Sputum culture showed Ivonne albicans. Patient is in sinus rhythm. Pulmonary nephrology is on board. 07/13/2020 Patient is in the MICU and on mechanical ventilator with pressure support. Sedated and paralyzed. FiO2 80% and PEEP of 14. ABG showed pH 7.21 PCO2 74 and PO2 105. Patient is being continued on Levophed and vasopressin as well. Chest x-ray today showed difficult to exclude pneumomediastinum. There is extensive subcutaneous emphysema. Laboratory data showed WBC 22.3 hemoglobin 11.3 and platelets 190 lymphocytes 0.4 Sodium 136 potassium 4.4 chloride 101 BUN 16 creatinine 2.87. AST 572 ALT 1786 and alk phos 99 albumin 2.3 07/14/2021 Patient is in MICU. On mechanical ventilator. Sedated and paralyzed. Currently on pressure support with PEEP of 14. FiO2 60%. Chest x-ray showed findings are similar to prior exam. Correlate for pneumonia. ARDS, edema. Laboratory showed WBC 34.0 hemoglobin 12.7 and platelets 239 ABGs 7 pH 7.1 PCO2 77 and PO2 87. Sodium 136 potassium 5.7 chloride 101 BUN 76 and creatinine 4.10. Bilirubin level is 1.7 AST 3060 and ALT 4094 and alk phos 159. Albumin 2.4. Pulmonary nephrology is on board. Patient has been initiated with hemodialysis today. 07/15/2021 Patient remains on nicardipine drip. Changed to assist control. Still requiring pressor support. Currently sedated and paralyzed. Chest x-ray showed findings are similar to prior exam. Abnormal density as described left upper quadrant is intermediate. Patient is being continued on antibiotics in the form of cefepime and vancomycin. Continued on dexamethasone 6 mg daily and Eliquis and multivitamin supplementation. Laboratory data showed WBC trending down to 23.9 hemoglobin 11.4 and platelets 146 Sodium 138 potassium 5.0 chloride 101 bicarb is 27 BUN 78 and creatinine 4.27. Phosphorus 7.6 and calcium 7.0. Plan for hemodialysis today. Nephrology and pulmonary is on board. 07/16/2021 Patient is currently in the MICU. Remains on mechanical ventilator. Sedated and paralyzed. Currently on assist control with tidal volume 450, respiratory 36, FiO2 70% and PEEP of 14. Still requiring pressor support with norepinephrine. Chest x-ray showed there is no significant interval change. Extensive subcutaneous emphysema somewhat limits the evaluation. Correlate for ARDS pneumonia pulmonary edema. Level data showed WBC 38.1 hemoglobin 12.1 platelets 116 sodium 137 potassium 5.6 BUN 81 and creatinine 4.85 AST 1629 ALT 3333 alk phos 212 and procalcitonin level is 2.44. Patient is getting hemodialysis today. Remains antibiotics in the form of cefepime. Currently on tube feeding Continue dexamethasone, apixaban and multivitamins supplementation. Pulmonary, nephrology is on board. Review of systems could not be obtained from the patient at this time. All inpatient medications were reviewed and appropriate changes in these medications as dictated in the history and assessment and plan. Objective - Vital Signs Vital signs: Vital Signs Temp 99.9 F H 07/16/21 20:00 Pulse 109 H 07/16/21 21:00 Resp 36 H 07/16/21 21:00 BP 105/71 07/16/21 21:00 Pulse Ox 90 L 07/16/21 21:00 Intake & Output 07/16/21 07/16/21 07/17/21 06:59 18:59 06:59 Intake Total 4900.469 9988.800 202.622 Output Total 10 1005 Balance 1925.259 745.800 202.622 Weight 148 kg Intake: IV 722 278 Cefepime 1 gm In Sodium 50 Chloride 0.9% 50 ml @ 12. 5 mls/hr IVPB HS SE Rx#: [id number] Pressure Bag 72 78 Sodium Chloride 0.9% 1, 600 200 000 ml @ 50 mls/hr IV . Q20H SE Rx#:[id number] Intake, IV Titration 659.259 944.800 202.622 Amount Cisatracurium 200 mg In 0.968 190.454 Sodium Chloride 0.9% 180 ml @ 1 MCG/KG/MIN 7.26 mls/hr IV .Q24H SE Rx#: [id number] Norepinephrine 32 mg In 87.412 162.588 Sodium Chloride 0.9% 218 ml @ 0.05 MCG/KG/MIN 2. 836 mls/hr IV .Q24H SE Rx#:[id number] fentaNYL (PF). 1,000 mcg 173.231 91.758 102.622 In Sodium Chloride 0.9% 80 ml @ 0.5 MCG/KG/HR 6. 05 mls/hr IV .[id number] SE Rx#:[id number] propofoL 1,000 mg In 397.648 500 100 Empty Bag 1 bag @ Titrate IV .Q0M SE Rx#: [id number] Tube Feeding 464 468 Other 90 60 Output: Urine 10 5 Hemodialysis 1000 Other: Voiding Method Indwelling Catheter Indwelling Catheter ABP, PAP, CO, CI - Last Documented Arterial Blood Pressure 95/63 - Exam PHYSICAL EXAMINATION: GENERAL: Patient is currently on mechanical mechanical ventilator sedated and in tubated.. HEENT: Pupils are round and equally reacting to light. EOMI. No scleral icterus. No conjunctival pallor. Normocephalic, atraumatic. No pharyngeal erythema. No thyromegaly. CARDIOVASCULAR: S1 and S2 present. No murmurs, rubs, or gallops. PULMONARY: Coarse scattered rhonchi ABDOMEN: Soft, nontender, nondistended, normoactive bowel sounds. No palpable organomegaly. MUSCULOSKELETAL: No joint swelling or deformity. EXTREMITIES: No cyanosis, clubbing, right leg peripheral edema. NEUROLOGICAL: Gross neurological examination did not reveal any focal deficits. SKIN: No rashes. - Labs CBC & Chem 7: 07/16/21 04:00 07/16/21 18:45 Labs: Abnormal Lab Results - Last 24 Hours (Table) 07/16/21 07/16/21 07/16/21 Range/Units 00:01 04:00 04:00 WBC 38.1 H (3.8-10.6) k/uL RBC 3.80 L (4.30-5.90) m/uL Hgb 12.2 L (13.0-17.5) gm/dL Hct 38.2 L (39.0-53.0) % MCV 100.6 H (80.0-100.0) fL Plt Count 116 L (150-450) k/uL Neutrophils # (Manual) 35.80 H (1.3-7.7) k/uL Nucleated RBCs 3 H (0-0) /100 WBC ABG pH (7.35-7.45) ABG pCO2 (35-45) mmHg ABG Total CO2 (19-24) mmol/L ABG O2 Saturation (94-97) % Potassium 5.6 H (3.5-5.1) mmol/L BUN 81 H (9-20) mg/dL Creatinine 4.85 H (0.66-1.25) mg/dL Glucose 133 H (74-99) mg/dL POC Glucose (mg/dL) 154 H (75-99) mg/dL Calcium 7.1 L (8.4-10.2) mg/dL Total Bilirubin 1.8 H (0.2-1.3) mg/dL AST 1629 H (17-59) U/L ALT 3333 H (4-49) U/L Alkaline Phosphatase 212 H (38-126) U/L Total Protein 5.5 L (6.3-8.2) g/dL Albumin 2.8 L (3.5-5.0) g/dL Procalcitonin (0.02-0.09) ng/mL 07/16/21 07/16/21 07/16/21 Range/Units 04:00 05:28 14:02 WBC (3.8-10.6) k/uL RBC (4.30-5.90) m/uL Hgb (13.0-17.5) gm/dL Hct (39.0-53.0) % MCV (80.0-100.0) fL Plt Count (150-450) k/uL Neutrophils # (Manual) (1.3-7.7) k/uL Nucleated RBCs (0-0) /100 WBC ABG pH 7.15 L* (7.35-7.45) ABG pCO2 70 H (35-45) mmHg ABG Total CO2 27 H (19-24) mmol/L ABG O2 Saturation 93.1 L (94-97) % Potassium (3.5-5.1) mmol/L BUN (9-20) mg/dL Creatinine (0.66-1.25) mg/dL Glucose (74-99) mg/dL POC Glucose (mg/dL) 131 H (75-99) mg/dL Calcium (8.4-10.2) mg/dL Total Bilirubin (0.2-1.3) mg/dL AST (17-59) U/L ALT (4-49) U/L Alkaline Phosphatase (38-126) U/L Total Protein (6.3-8.2) g/dL Albumin (3.5-5.0) g/dL Procalcitonin 2.44 H (0.02-0.09) ng/mL 07/16/21 07/16/21 Range/Units 17:18 18:45 WBC (3.8-10.6) k/uL RBC (4.30-5.90) m/uL Hgb (13.0-17.5) gm/dL Hct (39.0-53.0) % MCV (80.0-100.0) fL Plt Count (150-450) k/uL Neutrophils # (Manual) (1.3-7.7) k/uL Nucleated RBCs (0-0) /100 WBC ABG pH (7.35-7.45) ABG pCO2 (35-45) mmHg ABG Total CO2 (19-24) mmol/L ABG O2 Saturation (94-97) % Potassium 5.6 H (3.5-5.1) mmol/L BUN (9-20) mg/dL Creatinine (0.66-1.25) mg/dL Glucose (74-99) mg/dL POC Glucose (mg/dL) 73 L (75-99) mg/dL Calcium (8.4-10.2) mg/dL Total Bilirubin (0.2-1.3) mg/dL AST (17-59) U/L ALT (4-49) U/L Alkaline Phosphatase (38-126) U/L Total Protein (6.3-8.2) g/dL Albumin (3.5-5.0) g/dL Procalcitonin (0.02-0.09) ng/mL Microbiology - Last 24 Hours (Table) 07/10/21 17:41 Blood Culture - Final Blood No Growth after 144 hours 07/10/21 16:02 Blood Culture - Final Blood No Growth after 144 hours Assessment and Plan Assessment: Acute hypoxic respiratory failure secondary to COVID 19 pneumonia requiring oxygen support with 60L with FiO2 90% and nonrebreather mask--> BIPAP. Intubated on 07/10/2021 Right apical pneumothorax estimated at less than 10% and subcutaneous emphysema Septic shock with multiorgan system failure. Requiring pressor support with norepinephrine and vasopressin. Acute kidney injury due to ATN. Requiring hemodialysis initiated on 07/14/2021 Acute metabolic acidosis Shock liver with elevated AST and ALT Acute DVT right lower extremity; on eliquis started this admission Elevated DD, CTA negative for PE, positive DVT Elevated liver enzymes possibly due to systemic inflammation, resolved Elevated inflammatory markers secondary to COVID 19, improving History of DVT History of asthma, not in acute exacerbation Remote history of nicotine dependence History of transverse myelitis History of C5-C6 fusion Obesity GI Prophylaxis: Protonix DVT Prophylaxis: Eliquis FULL CODE Plan Patientin in the MICU. on [facility] ventilator with pressure support Patient went into septic shock and multiorgan failure. Currently still requiring pressors and received fluid boluses. Patient was also started on bicarb drip and monitor renal function closely.Due to worsening renal failure patient was initiated on hemodialysis on 07/14/2021. Patient will be cannula broad-spectrum antibiotics in the form of cefepime. Monitor LFTs Continue decadron, vitamins. Baricitinib on hold. Eliquis for DVT Repeat labs in AM Incentive spirometry Continue all other supportive care Cont with PT/OT consultation Prognosis remains guarded Time with Patient: Greater than 30
[2021-07-17] MEDS: NOREPINEPHRINE 32 MG in SODIUM CHLORIDE 0.9% 218 ML IV SCH ×3 (01:11→23:46)
[2021-07-17] MEDS: ARTIFICIAL TEARS-HYPROMELLOSE DROPS 15 ML BTL BOTH EYES SCH ×6 (04:07→23:54)
[2021-07-17 04:20] LABS: HGB 12.3 gm/dL (13.0-17.5); Hypochromasia Slight; MCH 32.4 pg (25.0-35.0); MCHC 32.3 g/dL (31.0-37.0); MCV 100.5 fL (80.0-100.0); Platelet Count 110 k/uL (150-450); RBC 3.78 m/uL (4.30-5.90); RDW 13.6 % (11.5-15.5)
[2021-07-17 05:15] LABS: Calcium 7.4 mg/dL (8.4-10.2); Potassium 5.8 mmol/L (3.5-5.1)
[2021-07-17 05:33] LABS: ABG Base Excess -5.4 mmol/L; ABG HCO3 24 mmol/L (21-25); ABG PO2 79 mmHg (83-108); ABG TCO2 26 mmol/L (19-24); Allen Test Performed? Yes
[2021-07-17 05:37] LABS: ABG PCO2 74 mmHg (35-45); ABG PH 7.12 (7.35-7.45)
[2021-07-17 05:52] LABS: Glucose,Whole Blood 131 mg/dL (75-99)
[2021-07-17] MEDS: INSULIN ASPART (NovoLOG) 100 UNIT/ML VIAL SQ SCH ×4 (05:52→23:55)
[2021-07-17] MEDS: SODIUM CHLORIDE 0.9% 1,000 ML IV SCH ×2 (05:52→10:16)
[2021-07-17] MEDS: CALCIUM ACETATE 667 MG TAB PO SCH ×3 (06:18→17:36)
[2021-07-17 07:06] LABS: Band Neutrophils % 32 %; Metamyelocytes % 3 %; Myelocytes % 1 %; Neutrophils % (M) 61 %; Nucleated Red Blood Cells 13 /100 WBC (0-0); Total Cells Counted 200
[2021-07-17 07:07] LABS: Anisocytosis (M) Present; Lymphocytes # (M) 1.09 k/uL (1.0-4.8); Metamyelocytes # (M) 1.09 k/uL (0); Monocytes # (M) 0.36 k/uL (0-1.0); Myelocytes # (M) 0.36 k/uL (0); WBC 36.3 k/uL (3.8-10.6)
[2021-07-17 07:08] LABS: Polychromasia Present
[2021-07-17 07:09] LABS: Large Platelets Present
--- NOTE | 2021-07-17 08:32 | XR ---
EXAMINATION TYPE: XR chest 1V DATE OF EXAM: 07/17/2021 COMPARISON: Chest x-ray 07/16/2021 HISTORY: Intubated TECHNIQUE: Single frontal view of the chest is obtained. FINDINGS: Endotracheal tube, NG tube, left subclavian central venous catheter are stable overlying a ppropriate positions. Suspect pneumomediastinum changes are present. There is extensive subcutaneous emphysema, no evident pneumothorax or pleural effusion. Bilateral airspace disease is again seen. Car diomediastinal silhouette is likely stable. IMPRESSION: Findings are similar to prior exam. Correlate for pneumonia, ARDS
[2021-07-17] MEDS ORDERED: SODIUM BICARB 8.4% 50 ML SYR (1 MEQ/ML) IV STA (09:51)
[2021-07-17] MEDS: SYMBICORT 80-4.5 MCG INHALER INHALATION SCH ×2 (09:51→19:43)
[2021-07-17] MEDS: ALBUTEROL HFA INHALER INHALATION SCH ×4 (09:51→19:36)
--- NOTE | 2021-07-17 09:52 | P.PN ---
Subjective Patient is seen in follow-up for acute kidney injury. Oliguric. Started on hemodialysis 07/14/2021. Currently on Levophed and vasopressin. Receiving IV fluids. Also receiving tube feeds. Potassium 5.8 today. No significant changes overnight. Vital signs - on vasopressor support. Temperature 101.3F this morning. HEENT: Intubated. LUNGS: Breath sounds decreased. HEART: Tachycardic. ABDOMEN: Soft, no distention. EXTREMITITES: 1+ edema. Objective - Vital Signs Vital signs: Vital Signs Temp 100.8 F H 07/17/21 04:00 Pulse 110 H 07/17/21 07:00 Resp 36 H 07/17/21 07:00 BP 100/71 07/17/21 07:00 Pulse Ox 88 L 07/17/21 07:00 Intake & Output 07/16/21 07/17/21 07/17/21 18:59 06:59 18:59 Intake Total 5333.534 6252.673 152 Output Total 1005 5 Balance 008.425 6564.673 152 Intake: IV 278 226 16 Cefepime 1 gm In Sodium 50 Chloride 0.9% 50 ml @ 12. 5 mls/hr IVPB HS SE Rx#: [id number] Pressure Bag 78 66 6 Sodium Chloride 0.9% 1, 200 110 10 000 ml @ 10 mls/hr IV . Q24H SE Rx#:[id number] Intake, IV Titration 944.800 911.673 100 Amount Cisatracurium 200 mg In 190.454 197.714 Sodium Chloride 0.9% 180 ml @ 1 MCG/KG/MIN 7.26 mls/hr IV .Q24H SE Rx#: [id number] Norepinephrine 32 mg In 162.588 211.337 Sodium Chloride 0.9% 218 ml @ 0.05 MCG/KG/MIN 2. 836 mls/hr IV .Q24H SE Rx#:[id number] fentaNYL (PF). 1,000 mcg 91.758 102.622 In Sodium Chloride 0.9% 80 ml @ 0.5 MCG/KG/HR 6. 05 mls/hr IV .[id number] SE Rx#:[id number] propofoL 1,000 mg In 500 400 100 Empty Bag 1 bag @ Titrate IV .Q0M SE Rx#: [id number] Tube Feeding 468 396 36 Other 60 90 Output: Urine 5 5 Hemodialysis 1000 Other: Voiding Method Indwelling Catheter Indwelling Catheter ABP, PAP, CO, CI - Last Documented Arterial Blood Pressure 95/58 - Labs CBC & Chem 7: 07/17/21 04:00 07/17/21 04:00 Labs: Abnormal Lab Results - Last 24 Hours (Table) 07/16/21 07/16/21 07/16/21 Range/Units 04:00 14:02 17:18 WBC (3.8-10.6) k/uL RBC (4.30-5.90) m/uL Hgb (13.0-17.5) gm/dL Hct (39.0-53.0) % MCV (80.0-100.0) fL Plt Count (150-450) k/uL Neutrophils # (Manual) (1.3-7.7) k/uL Metamyelocytes # (Man) (0) k/uL Myelocytes # (Manual) (0) k/uL Nucleated RBCs (0-0) /100 WBC ABG pH (7.35-7.45) ABG pCO2 (35-45) mmHg ABG pO2 (83-108) mmHg ABG Total CO2 (19-24) mmol/L ABG O2 Saturation (94-97) % Sodium (137-145) mmol/L Potassium (3.5-5.1) mmol/L Carbon Dioxide (22-30) mmol/L BUN (9-20) mg/dL Creatinine (0.66-1.25) mg/dL Glucose (74-99) mg/dL POC Glucose (mg/dL) 131 H 73 L (75-99) mg/dL Calcium (8.4-10.2) mg/dL Procalcitonin 2.44 H (0.02-0.09) ng/mL TSH (0.465-4.680) mIU/L 07/16/21 07/16/21 07/17/21 Range/Units 18:45 23:27 04:00 WBC 36.3 H (3.8-10.6) k/uL RBC 3.78 L (4.30-5.90) m/uL Hgb 12.3 L (13.0-17.5) gm/dL Hct 38.0 L (39.0-53.0) % MCV 100.5 H (80.0-100.0) fL Plt Count 110 L (150-450) k/uL Neutrophils # (Manual) 33.70 H (1.3-7.7) k/uL Metamyelocytes # (Man) 1.09 H (0) k/uL Myelocytes # (Manual) 0.36 H (0) k/uL Nucleated RBCs 13 H (0-0) /100 WBC ABG pH (7.35-7.45) ABG pCO2 (35-45) mmHg ABG pO2 (83-108) mmHg ABG Total CO2 (19-24) mmol/L ABG O2 Saturation (94-97) % Sodium (137-145) mmol/L Potassium 5.6 H (3.5-5.1) mmol/L Carbon Dioxide (22-30) mmol/L BUN (9-20) mg/dL Creatinine (0.66-1.25) mg/dL Glucose (74-99) mg/dL POC Glucose (mg/dL) 133 H (75-99) mg/dL Calcium (8.4-10.2) mg/dL Procalcitonin (0.02-0.09) ng/mL TSH (0.465-4.680) mIU/L 07/17/21 07/17/21 07/17/21 Range/Units 04:00 04:00 05:28 WBC (3.8-10.6) k/uL RBC (4.30-5.90) m/uL Hgb (13.0-17.5) gm/dL Hct (39.0-53.0) % MCV (80.0-100.0) fL Plt Count (150-450) k/uL Neutrophils # (Manual) (1.3-7.7) k/uL Metamyelocytes # (Man) (0) k/uL Myelocytes # (Manual) (0) k/uL Nucleated RBCs (0-0) /100 WBC ABG pH 7.12 L* (7.35-7.45) ABG pCO2 74 H* (35-45) mmHg ABG pO2 79 L (83-108) mmHg ABG Total CO2 26 H (19-24) mmol/L ABG O2 Saturation 91.0 L (94-97) % Sodium 135 L (137-145) mmol/L Potassium 5.8 H (3.5-5.1) mmol/L Carbon Dioxide 20 L (22-30) mmol/L BUN 86 H (9-20) mg/dL Creatinine 5.50 H (0.66-1.25) mg/dL Glucose 137 H (74-99) mg/dL POC Glucose (mg/dL) (75-99) mg/dL Calcium 7.4 L (8.4-10.2) mg/dL Procalcitonin (0.02-0.09) ng/mL TSH 0.052 L (0.465-4.680) mIU/L 07/17/21 Range/Units 05:51 WBC (3.8-10.6) k/uL RBC (4.30-5.90) m/uL Hgb (13.0-17.5) gm/dL Hct (39.0-53.0) % MCV (80.0-100.0) fL Plt Count (150-450) k/uL Neutrophils # (Manual) (1.3-7.7) k/uL Metamyelocytes # (Man) (0) k/uL Myelocytes # (Manual) (0) k/uL Nucleated RBCs (0-0) /100 WBC ABG pH (7.35-7.45) ABG pCO2 (35-45) mmHg ABG pO2 (83-108) mmHg ABG Total CO2 (19-24) mmol/L ABG O2 Saturation (94-97) % Sodium (137-145) mmol/L Potassium (3.5-5.1) mmol/L Carbon Dioxide (22-30) mmol/L BUN (9-20) mg/dL Creatinine (0.66-1.25) mg/dL Glucose (74-99) mg/dL POC Glucose (mg/dL) 131 H (75-99) mg/dL Calcium (8.4-10.2) mg/dL Procalcitonin (0.02-0.09) ng/mL TSH (0.465-4.680) mIU/L Microbiology - Last 24 Hours (Table) 07/10/21 17:41 Blood Culture - Final Blood No Growth after 144 hours 07/10/21 16:02 Blood Culture - Final Blood No Growth after 144 hours Assessment and Plan Plan: Assessment: 1. Acute kidney injury secondary to ATN secondary to septic shock. Baseline creatinine near 1 and is 5.5 today. Oliguric. Started on hemodialysis 07/14/2021. 2. Septic shock secondary to COVID-19 infection with concern for superimposed bacterial infection. 3. Hyperkalemia secondary to acute kidney injury and acidosis. 4. Acute hypoxic and hypercapnic respiratory failure. 5. Metabolic acidosis secondary to acute kidney injury. Status post bicarb drip. On oral bicarb. 6. Hypocalcemia secondary to acute kidney injury. Replaced. Better. 7. Hyperphosphatemia secondary to acute kidney injury. On PhosLo. Plan: Continue with daily SLED. Receiving tube feeds. Continue to monitor renal function and urine output. Wean FiO2 and vasopressors. Repeat potassium 2 hours after dialysis. 2 A of sodium bicarb IV push.
[2021-07-17] MEDS: FLUCONAZOLE IN NACL,ISO-OSM 100 MG in SALINE 1 50ML.BAG IVPB SCH (10:10)
[2021-07-17] MEDS: PANTOPRAZOLE 40 MG/10 ML VIAL IVP SCH (10:11)
[2021-07-17] MEDS: CHLORHEXIDINE GLUCONATE 15 ML CUP MUCOUS MEM SCH ×2 (10:11→20:15)
[2021-07-17] MEDS: DEXAMETHASONE SOD PHOSPHATE 10 MG/ML 1 ML VIAL IVP SCH (10:11)
[2021-07-17] MEDS: ZINC SULFATE 220 MG CAP PO SCH (10:12)
[2021-07-17] MEDS: APIXABAN 5 MG TAB PO SCH ×2 (10:12→20:15)
[2021-07-17] MEDS: CHOLECALCIFEROL 25 MCG (1000 IU) TABLET PO SCH (10:12)
[2021-07-17] MEDS: ASCORBIC ACID 500 MG TAB PO SCH (10:12)
[2021-07-17] MEDS: SODIUM CHLORIDE 0.9% 150 ML with VASOPRESSIN 60 UNIT IV SCH ×2 (10:13)
[2021-07-17] MEDS: SODIUM BICARBONATE TAB 650 MG TAB PO SCH ×2 (10:13→20:15)
[2021-07-17] MEDS: CISATRACURIUM 200 MG in SODIUM CHLORIDE 0.9% 180 ML IV SCH (10:13)
[2021-07-17] MEDS: fentaNYL (PF) 2,500 MCG in SODIUM CHLORIDE 0.9% 200 ML IV SCH (10:15)
--- NOTE | 2021-07-17 10:19 | P.PN ---
Subjective Progress Note Date: 07/17/21 Principal diagnosis: Respiratory failure. 07/12/2021, the patient is being seen for a follow-up. He remains critically ill intubated sedated paralyzed on a mechanical ventilator with COVID 19 related to pneumonia and multisystem organ failure. The patient has been aggressively resuscitated over the past 48 hours. At this point in time the patient remains sedated and paralyzed. His propofol is currently running at 50 mcg/kg per minute and fentanyl is running at 1 mcg/kg/h and the patient is paralyzed with Nimbex at 1 mcg/kg per minute. He is adequately sedated and paralyzed. He remains synchronous with the mechanical ventilator. He is on a pressure control mode of mechanical ventilation with a pressure control of 23 and the rate of 30 with an FiO2 of 70% and a PEEP of 15. Chest x-ray still showing diffuse bilateral subcutaneous emphysema and there is no evidence of any pneumothorax. There is also diffuse bilateral pulmonary infiltrates. All of the tubes are in good location. PH is at 7.38 with a pCO2 of 51 and pO2 of 107. As such, the patient is adequately oxygenating and ventilating. Nevertheless, the active problem was the massive shock and hypotension which was probably a septic event. Cultures were all negative. The patient is currently on a combination of antibiotics and he is receiving cefepime, and vancomycin. Infectious disease was also consulted. I maintain the patient on fluconazole knowing that the patient had extensive oropharyngeal candidiasis at the time of the intubation. He was resuscitated IV fluids and received more than 10 L of saline and also received several doses of IV albumin. During the course of the resuscitation, he was on a combination of vasopressin physiologic dose, norepinephrine and epinephrine was also added to maintain his blood pressure. We are unable to wean off the epinephrine. Vasopressin remains at physiologic dose of 0.03 units an hour and the patient is currently on 0.15 mcg/kg per minute of norepinephrine infusion. Urine output is order of 30-50 mL an hour. His white cell count is low and currently is at 22.7. He is still spiking fever on and off for which she was given Tylenol IV. Currently he is afebrile. White cell count is down to 22.7. Meanwhile, the patient developed a nonoliguric renal failure. Creatinine is up to 2.59. He was having issues with hyperkalemia. He was given bicarb IV in the form of a push and later on drip and the sodium bicarb is currently running at the rate of 150 mL an hour. Serum bicarb this morning is at 30 with a potassium level of 4.4. Coagulation profile shows an INR of 1.4 with a PT of 14.2. The patient is a sinus rhythm. He is a shock liver and the liver function tests are essentially improving. Vancomycin level this morning is at 18.2. As stated, blood cultures are negative. Enterofeeding for nutritional support will be started today. Progress note dated 07/13/2020. 50-year-old male admitted to the hospital on June 27. His admission diagnosis was coronavirus associated pneumonia. [facility] and ended up being intubated on July 10. This was for worsening hypoxemic respiratory failure. The patient is on pressure assist control mode of ventilation, with an inspiratory pressure of 23 cm water, and inspiratory time of 1 second. In addition, the patient has a rate of 30, FiO2 of 80%, and PEEP of 14. The patient's blood gases show pO2 105, pCO2 74, and pH is 7.21. The patient's currently on norepinephrine at 0.09 mcg/kg/m, vasopressin, and 0.02 units per minute, and saline at 75 mL an hour. In addition, the patient's on fentanyl 1 mcg/kg/h, Nimbex at 1 mcg/kg/m, and propofol at 50 mcg/kg/m. Tube feedings have not yet been started. White count 22.3, hemoglobin 11.3, hematocrit 33.4, and platelet count 190,000. Sodium 136, potassium 4.4, chlorides 101, CO2 28, anion gap 7 BUN 60, creatinine 2.87. Albumin is 2.3. Sputum from July 10 showing presumptive staph aureus. Chest x-ray from July 13 shows diffuse bilateral patchy infiltrates. There is extensive subcutaneous emphysema. Progress note dated 07/14/2021. 50-year-old male admitted to the hospital on June 27. His admission diagnosis was coronavirus associated pneumonia. He came to the intensive care unit on July 08 and was intubated for respiratory failure on 07/10/2021. This was for worsening hypoxemic respiratory failure. Currently, the patient is on pressure assist control, with a inspiratory pressure 23 cm water, inspiratory time of 1 second, rate of 36 breaths per minute, FiO2 65%, and PEEP of 14. Blood gases showed a pO2 of 87, pCO2 of 77, pH is 7.10. This was on a rate of 30. Repeat blood gases at the higher rate, show pO2 of 76, pCO2 70, and a pH is 7.08. The patient's on Nimbex at 1 mcg/kg/m, fentanyl 1 mcg/kg/h, norepinephrine at 70 mcg/m, vasopressin 0.03 units per minute, propofol at 50 mcg/kg/m, saline at 85 mL an hour, vital AF at 32 mL an hour. Because of his blood gases, we will go ahead and switch him to volume assist control, to attempt to reduce his PaCO2, and improve his pH. In addition, the patient is going to have a dialysis catheter placed today, and have hemodialysis. White count 34,000, hemoglobin 12.7, hematocrit 41.3, and platelet count 239,000. Sodium 136, potassium 5.7, chlorides 101, CO2 23, anion gap 12, BUN 76, with a creatinine of 4.10. Bilirubin 1.7. AST is 3060 with an ALT of 4094. Sputum from July 10 showing evidence of staph aureus. Chest x-ray shows diffuse bilateral infiltrates. Progress note dated 07/15/2021. 50-year-old male, admitted to the hospital on 06/27/2021. He was admitted with a diagnosis of coronavirus associated pneumonia. He came to the intensive care unit on 07/08/2021, and was intubated for respiratory failure on 07/10/2021. The patient remains on the ventilator. He is on the volume assist control, rate 36, tidal volume 450, FiO2 75%, and PEEP of 14. Blood gases show pO2 of 79, pCO2 65, and pH of 7.23. The patient is on norepinephrine at 21 mcg/m, Nimbex at 1 mcg/kg/m, fentanyl at 1 mcg/kg/h, vasopressin at 0.04 units per minute, propofol at 50 mcg/kg/m, saline at 75 mL an hour, and vital AF at 32 mL an hour, which is goal. He did have hemodialysis yesterday, but no fluid was removed. The plan is for hemodialysis today, with one half a liter being removed. Current labs include a white count 23.9, hemoglobin 11.4, hematocrit 36.1, and platelet count 146,000. Sodium 138, potassium 5, chlorides 101, CO2 27, anion gap 10, BUN 78, with creatinine of 4.27. Sputum from July 10 shows Staphylococcus aureus. Chest x-ray shows diffuse bilateral infiltrates, largely unchanged. Progress note dated 07/16/2021. 50-year-old male, admitted to the hospital on 06/27/2021. The patient was admitted with a diagnosis of coronavirus associated pneumonia. The patient came to the intensive care unit on July 08, and was intubated for respiratory failure 2 days later on 07/10/2021. The patient remains on the ventilator. The patient is on the volume assist control mode, rate 36, tidal [place] 450, FiO2 75%, PEEP of 14. Blood gases show a pO2 of 85, pCO2 70, and a pH is 7.15. The patient is currently on norepinephrine at 27 mcg/m, Nimbex at 2 mcg/kg/m, propofol at 50 mcg/kg/m, these are present and 0.04 units per minute, fentanyl 1 mcg/kg/h. The patient's also receiving vital AF, at goal. White count 38.1, hemoglobin 12.2, hematocrit 38.2, and platelet count 116,000. Sodium 137, potassium 5.6, chlorides 98, CO2 23, anion gap 16, BUN 81, and creatinine 4.85. AST is 1629. ALT is 3333. Sputum sampling from July 10 shows evidence of Staphylococcus aureus. Chest x-ray shows diffuse bilateral infiltrates, and extensive subcutaneous emphysema. Progress note dated 07/17/2021. 50-year-old male, again seen in room 258. The patient was admitted to the hospital on 06/27/2021. The patient was admitted with a diagnosis of coronavirus associated pneumonia. The patient came to the intensive care unit on July 08, and was intubated for respiratory failure, 2 days later, on 06/22/2021. The patient remains on the ventilator. He was previously on pressure assist control, now volume assist control, with a rate of 36, tidal volume 450, FiO2 75%, and PEEP of 14. Blood gases show pO2 of 79, pCO2 74, and pH is 7.11. The patient remains on saline at 10 mL an hour, fentanyl at 0.5 mcg/kg/h, norepinephrine at 53 mcg/m, vasopressin at 0.04 units per minute, propofol at 50 mcg/kg/m, Nimbex at 1 mcg/kg/m, vital high protein at 36 mL an hour, which is goal. The patient did have hemodialysis yesterday, with 1 L re moved. The plan is for hemodialysis again today. I had a chance to speak to the 2 days ago on the phone, and yesterday, and person, in the patient's room. I gave her a thorough day. I did tell her, that the patient was very critically ill, and that he likely may not survive this illness. She understands. Chest x-ray shows diffuse bilateral infiltrates. There is extensive subcutaneous emphysema. White count is 36.3, hemoglobin is 12.3, hematocrit 38, and platelet count 110,000. Sodium 135, potassium 5.8, chlorides 99, CO2 20, anion gap 16, BUN 86, creatinine 5.50. Cortisol levels 28. TSH is 0.052. Objective - Vital Signs Vital signs: Vital Signs Temp 100.8 F H 07/17/21 04:00 Pulse 110 H 07/17/21 07:00 Resp 36 H 07/17/21 07:00 BP 100/71 07/17/21 07:00 Pulse Ox 88 L 07/17/21 07:00 Intake & Output 07/16/21 07/17/21 07/17/21 18:59 06:59 18:59 Intake Total 4580.307 8143.673 152 Output Total 1005 5 Balance 983.529 0804.673 152 Intake: IV 278 226 16 Cefepime 1 gm In Sodium 50 Chloride 0.9% 50 ml @ 12. 5 mls/hr IVPB HS SE Rx#: [id number] Pressure Bag 78 66 6 Sodium Chloride 0.9% 1, 200 110 10 000 ml @ 10 mls/hr IV . Q24H SE Rx#:[id number] Intake, IV Titration 944.800 911.673 100 Amount Cisatracurium 200 mg In 190.454 197.714 Sodium Chloride 0.9% 180 ml @ 1 MCG/KG/MIN 7.26 mls/hr IV .Q24H SE Rx#: [id number] Norepinephrine 32 mg In 162.588 211.337 Sodium Chloride 0.9% 218 ml @ 0.05 MCG/KG/MIN 2. 836 mls/hr IV .Q24H SE Rx#:[id number] fentaNYL (PF). 1,000 mcg 91.758 102.622 In Sodium Chloride 0.9% 80 ml @ 0.5 MCG/KG/HR 6. 05 mls/hr IV .[id number] SE Rx#:[id number] propofoL 1,000 mg In 500 400 100 Empty Bag 1 bag @ Titrate IV .Q0M SE Rx#: [id number] Tube Feeding 468 396 36 Other 60 90 Output: Urine 5 5 Hemodialysis 1000 Other: Voiding Method Indwelling Catheter Indwelling Catheter ABP, PAP, CO, CI - Last Documented Arterial Blood Pressure 95/58 - Exam No acute distress, currently sedated and paralyzed, with an orally placed endotracheal tube and NG tube. HEENT examination is grossly unremarkable. Extensive subcutaneous emphysema. Neck supple. Full range of motion. No adenopathy thyromegaly or neck vein distention. Cardiovascular examination reveals regular rhythm rate. S1-S2 normal. No S3 or S4. No discernible murmur noted. Heart sounds are distant. Heart rate 110 bpm. Lungs reveal diffuse coarse rhonchi. Breath sounds equal. No wheezes. There is extensive subcutaneous emphysema. Saturations are 90%. Abdomen soft without bowel sounds Extremities are intact. No cyanosis clubbing or edema. Skin is without rash or lesion. Neurologic examination cannot be evaluated as the patient is sedated and paralyzed. - Labs CBC & Chem 7: 07/17/21 04:00 07/17/21 04:00 Labs: Abnormal Lab Results - Last 24 Hours (Table) 07/16/21 07/16/21 07/16/21 Range/Units 04:00 14:02 17:18 WBC (3.8-10.6) k/uL RBC (4.30-5.90) m/uL Hgb (13.0-17.5) gm/dL Hct (39.0-53.0) % MCV (80.0-100.0) fL Plt Count (150-450) k/uL Neutrophils # (Manual) (1.3-7.7) k/uL Metamyelocytes # (Man) (0) k/uL Myelocytes # (Manual) (0) k/uL Nucleated RBCs (0-0) /100 WBC ABG pH (7.35-7.45) ABG pCO2 (35-45) mmHg ABG pO2 (83-108) mmHg ABG Total CO2 (19-24) mmol/L ABG O2 Saturation (94-97) % Sodium (137-145) mmol/L Potassium (3.5-5.1) mmol/L Carbon Dioxide (22-30) mmol/L BUN (9-20) mg/dL Creatinine (0.66-1.25) mg/dL Glucose (74-99) mg/dL POC Glucose (mg/dL) 131 H 73 L (75-99) mg/dL Calcium (8.4-10.2) mg/dL Procalcitonin 2.44 H (0.02-0.09) ng/mL TSH (0.465-4.680) mIU/L 07/16/21 07/16/21 07/17/21 Range/Units 18:45 23:27 04:00 WBC 36.3 H (3.8-10.6) k/uL RBC 3.78 L (4.30-5.90) m/uL Hgb 12.3 L (13.0-17.5) gm/dL Hct 38.0 L (39.0-53.0) % MCV 100.5 H (80.0-100.0) fL Plt Count 110 L (150-450) k/uL Neutrophils # (Manual) 33.70 H (1.3-7.7) k/uL Metamyelocytes # (Man) 1.09 H (0) k/uL Myelocytes # (Manual) 0.36 H (0) k/uL Nucleated RBCs 13 H (0-0) /100 WBC ABG pH (7.35-7.45) ABG pCO2 (35-45) mmHg ABG pO2 (83-108) mmHg ABG Total CO2 (19-24) mmol/L ABG O2 Saturation (94-97) % Sodium (137-145) mmol/L Potassium 5.6 H (3.5-5.1) mmol/L Carbon Dioxide (22-30) mmol/L BUN (9-20) mg/dL Creatinine (0.66-1.25) mg/dL Glucose (74-99) mg/dL POC Glucose (mg/dL) 133 H (75-99) mg/dL Calcium (8.4-10.2) mg/dL Procalcitonin (0.02-0.09) ng/mL TSH (0.465-4.680) mIU/L 07/17/21 07/17/21 07/17/21 Range/Units 04:00 04:00 05:28 WBC (3.8-10.6) k/uL RBC (4.30-5.90) m/uL Hgb (13.0-17.5) gm/dL Hct (39.0-53.0) % MCV (80.0-100.0) fL Plt Count (150-450) k/uL Neutrophils # (Manual) (1.3-7.7) k/uL Metamyelocytes # (Man) (0) k/uL Myelocytes # (Manual) (0) k/uL Nucleated RBCs (0-0) /100 WBC ABG pH 7.12 L* (7.35-7.45) ABG pCO2 74 H* (35-45) mmHg ABG pO2 79 L (83-108) mmHg ABG Total CO2 26 H (19-24) mmol/L ABG O2 Saturation 91.0 L (94-97) % Sodium 135 L (137-145) mmol/L Potassium 5.8 H (3.5-5.1) mmol/L Carbon Dioxide 20 L (22-30) mmol/L BUN 86 H (9-20) mg/dL Creatinine 5.50 H (0.66-1.25) mg/dL Glucose 137 H (74-99) mg/dL POC Glucose (mg/dL) (75-99) mg/dL Calcium 7.4 L (8.4-10.2) mg/dL Procalcitonin (0.02-0.09) ng/mL TSH 0.052 L (0.465-4.680) mIU/L 07/17/21 Range/Units 05:51 WBC (3.8-10.6) k/uL RBC (4.30-5.90) m/uL Hgb (13.0-17.5) gm/dL Hct (39.0-53.0) % MCV (80.0-100.0) fL Plt Count (150-450) k/uL Neutrophils # (Manual) (1.3-7.7) k/uL Metamyelocytes # (Man) (0) k/uL Myelocytes # (Manual) (0) k/uL Nucleated RBCs (0-0) /100 WBC ABG pH (7.35-7.45) ABG pCO2 (35-45) mmHg ABG pO2 (83-108) mmHg ABG Total CO2 (19-24) mmol/L ABG O2 Saturation (94-97) % Sodium (137-145) mmol/L Potassium (3.5-5.1) mmol/L Carbon Dioxide (22-30) mmol/L BUN (9-20) mg/dL Creatinine (0.66-1.25) mg/dL Glucose (74-99) mg/dL POC Glucose (mg/dL) 131 H (75-99) mg/dL Calcium (8.4-10.2) mg/dL Procalcitonin (0.02-0.09) ng/mL TSH (0.465-4.680) mIU/L Microbiology - Last 24 Hours (Table) 07/10/21 17:41 Blood Culture - Final Blood No Growth after 144 hours 07/10/21 16:02 Blood Culture - Final Blood No Growth after 144 hours Assessment and Plan Assessment: Acute hypoxemic respiratory failure, secondary to coronavirus associated pneumonia, status post intubation and mechanical ventilation on July 10. Extensive subcutaneous emphysema as a complication of coronavirus associated pneumonia. History of chronic bronchial asthma. Right lower extremity deep venous thrombosis. History of oropharyngeal candidiasis. History of shock liver. Acute kidney injury. Septic shock with multiorgan system failure. Previous history of tobacco use. History of C5-C6 fusion. History of transverse myelitis. Plan: Plan dated 06/28/2021. Currently, the patient is a candidate for Decadron, Lovenox, vitamin C, vitamin D3, and zinc. He is not a candidate for REM, consistent and have been present for more than 7 days, and he is on oxygen that is greater than 6 L/m. He is getting close to the point where he may become a candidate for FLAQUITO. The patient does appear relatively comfortable. We will continue to follow make recommendations where appropriate. The patient is on his usual inhalers for his asthma. Prognosis is guarded. Plan dated 07/13/2020. The patient's labs, x-rays, and medications all reviewed. The patient remains on a factor X a inhibitor for his right lower extremity DVT. The patient continues on Decadron. FLAQUITO has been discontinued. The patient remains on fentanyl, Nimbex, and propofol. The patient remains on both norepinephrine and vasopressin. The patient is obviously very critically ill. The patient remains on pressure assist control mode of mechanical ventilation. Additional recommendations and suggestions are forthcoming. We will continue to follow the patient and make recommendations where appropriate. Overall prognosis remains very guarded. Plan dated 07/14/2021. The patient's labs, x-rays, and medications are all reviewed. The patient remains on a factor X a inhibitor for his right lower extremity DVT. The patient continues on Decadron. The patient also remains on fentanyl, Nimbex, and propofol. The patient is on norepinephrine and vasopressin for blood pressure stability. I did have a chance to speak to his Shyla. She understands the gravity of the situation. I explained to her that we will continue to support him fully. At this time, his prognosis is very poor. We will continue to follow the patient and make recommendations where appropriate. We did change his ventilator from pressure assist control, volume assist control. The patient will have a hemodialysis catheter placed today and undergo hemodialysis. Urine output is poor and renal function has worsened. Plan dated 07/15/2021. The patient was switched from pressure assist control, to volume assist control yesterday. Blood gases today are much improved. The patient remains on norepinephrine, Nimbex, fentanyl, vasopressin, propofol, and tube feeds. The patient did have hemodialysis yesterday, and will have hemodialysis again today. We will continue to follow make recommendations where appropriate. I did have a chance to speak to the patient's yesterday. I gave her a full update. The patient continues to be a full code. We will continue to follow make recommendations were appropriate. Medications are reviewed. Labs are reviewed. Chest x-rays reviewed. Plan dated 07/16/2021. The patient remains about the same. The patient is currently receiving hemodialysis. The patient remains on norepinephrine, Nimbex, propofol, fentanyl, and vasopressin. The patient was switched from pressure assist control to volume assist control, because of worsening hypercapnia, and acidosis. Additional recommendations and suggestions are forthcoming. I will continue to follow make recommendations were appropriate. Prognosis is guarded. I did speak to the 2 days ago, and gave her an update. She does understand the gravity of the situation. Plan dated 07/17/2021. The patient will have hemodialysis today. 1 L was removed during hemodialysis yesterday. The patient remains on all the same drips including fentanyl, norepinephrine, vasopressin, propofol, Nimbex, and is receiving tube feedings with vital high protein. The patient's overall prognosis is very guarded. I had a chance to speak to the in person yesterday. Her name is Shyla. I did let her know that her was very critically ill, and may not survive this. The patient had a cortisol level which was 28. I am going to give him hydrocortisone instead of Decadron. Additional recommendations and suggestions are forthcoming. Continue to follow make recommendations where appropriate. Time with Patient: Greater than 30
[2021-07-17 10:59] LABS: T4, Free (Free Thyroxine) 0.32 ng/dL (0.78-2.19)
[2021-07-17 11:59] LABS: Glucose,Whole Blood 133 mg/dL (75-99)
[2021-07-17 12:51] VITALS: BMI 45.5
[2021-07-17] MEDS: HYDROCORTISONE SUCCINATE 100 MG/2 ML VIAL IV SCH ×3 (13:37→23:55)
[2021-07-17 17:29] LABS: Glucose,Whole Blood 151 mg/dL (75-99)
--- NOTE | 2021-07-17 17:43 | P.PN ---
Subjective Progress Note Date: 07/17/21 50-year-old male patient, admitted to the hospital on 06/27/2021 with acute hypoxic respiratory failure related to COVID-19 D pneumonia. The patient came to the intensive care unit on July 08, and was intubated for respiratory failure, 2 days later, on 06/22/2021. 07/17/2021 The patient is seen and evaluated in ICU; remains intubated and mechanically ventilated; remains on fentanyl, propofol and Nimbex. Cortisol level is elevated at 28; critical care recommending to switch patient to hydrocortisone from Decadron The patient did have hemodialysis yesterday, with 1 L removed. The plan is for hemodialysis again today. Chest x-ray shows diffuse bilateral infiltrates. There is extensive subcutaneous emphysema. White count is 36.3, hemoglobin is 12.3, hematocrit 38, and platelet count 110,000. Sodium 135, potassium 5.8, chlorides 99, CO2 20, anion gap 16, BUN 86, creatinine 5.50. Cortisol levels 28. TSH is 0.052. Blood gases show pO2 of 79, pCO2 74, and pH is 7.11. Patient remains critically ill with grave prognosis; patient's condition has been updated to patient's family by intensive care team Objective - Vital Signs Vital signs: Vital Signs Temp 100.8 F H 07/17/21 04:00 Pulse 110 H 07/17/21 07:00 Resp 36 H 07/17/21 07:00 BP 100/71 07/17/21 07:00 Pulse Ox 88 L 07/17/21 07:00 Intake & Output 07/16/21 07/17/21 07/17/21 18:59 06:59 18:59 Intake Total 0312.135 6274.673 617.710 Output Total 1005 5 Balance 600.425 6377.673 617.710 Intake: IV 278 226 16 Cefepime 1 gm In Sodium 50 Chloride 0.9% 50 ml @ 12. 5 mls/hr IVPB HS SE Rx#: [id number] Pressure Bag 78 66 6 Sodium Chloride 0.9% 1, 200 110 10 000 ml @ 10 mls/hr IV . Q24H SE Rx#:[id number] Intake, IV Titration 944.800 911.673 565.710 Amount Cisatracurium 200 mg In 190.454 197.714 181.258 Sodium Chloride 0.9% 180 ml @ 1 MCG/KG/MIN 7.26 mls/hr IV .Q24H SE Rx#: [id number] Norepinephrine 32 mg In 162.588 211.337 184.452 Sodium Chloride 0.9% 218 ml @ 0.05 MCG/KG/MIN 2. 836 mls/hr IV .Q24H SE Rx#:[id number] fentaNYL (PF). 1,000 mcg 91.758 102.622 In Sodium Chloride 0.9% 80 ml @ 0.5 MCG/KG/HR 6. 05 mls/hr IV .[id number] SE Rx#:[id number] propofoL 1,000 mg In 500 400 200 Empty Bag 1 bag @ Titrate IV .Q0M SE Rx#: [id number] Tube Feeding 468 396 36 Other 60 90 Output: Urine 5 5 Hemodialysis 1000 Other: Voiding Method Indwelling Catheter Indwelling Catheter ABP, PAP, CO, CI - Last Documented Arterial Blood Pressure 95/58 - Exam GENERAL: Patient is currently on mechanical mechanical ventilator sedated and intubated.. HEENT: Pupils are round and equally reacting to light. EOMI. No scleral icterus. No conjunctival pallor. Normocephalic, atraumatic. No pharyngeal erythema. No thyromegaly. CARDIOVASCULAR: S1 and S2 present. No murmurs, rubs, or gallops. PULMONARY: Coarse scattered rhonchi ABDOMEN: Soft, nontender, nondistended, normoactive bowel sounds. No palpable organomegaly. MUSCULOSKELETAL: No joint swelling or deformity. EXTREMITIES: No cyanosis, clubbing, right leg peripheral edema. NEUROLOGICAL: Gross neurological examination did not reveal any focal deficits. - Labs CBC & Chem 7: 07/17/21 04:00 07/17/21 04:00 Labs: Abnormal Lab Results - Last 24 Hours (Table) 07/16/21 07/16/21 07/16/21 Range/Units 04:00 14:02 17:18 WBC (3.8-10.6) k/uL RBC (4.30-5.90) m/uL Hgb (13.0-17.5) gm/dL Hct (39.0-53.0) % MCV (80.0-100.0) fL Plt Count (150-450) k/uL Neutrophils # (Manual) (1.3-7.7) k/uL Metamyelocytes # (Man) (0) k/uL Myelocytes # (Manual) (0) k/uL Nucleated RBCs (0-0) /100 WBC ABG pH (7.35-7.45) ABG pCO2 (35-45) mmHg ABG pO2 (83-108) mmHg ABG Total CO2 (19-24) mmol/L ABG O2 Saturation (94-97) % Sodium (137-145) mmol/L Potassium (3.5-5.1) mmol/L Carbon Dioxide (22-30) mmol/L BUN (9-20) mg/dL Creatinine (0.66-1.25) mg/dL Glucose (74-99) mg/dL POC Glucose (mg/dL) 131 H 73 L (75-99) mg/dL Calcium (8.4-10.2) mg/dL Procalcitonin 2.44 H (0.02-0.09) ng/mL TSH (0.465-4.680) mIU/L Free T4 (0.78-2.19) ng/dL 07/16/21 07/16/21 07/17/21 Range/Units 18:45 23:27 04:00 WBC 36.3 H (3.8-10.6) k/uL RBC 3.78 L (4.30-5.90) m/uL Hgb 12.3 L (13.0-17.5) gm/dL Hct 38.0 L (39.0-53.0) % MCV 100.5 H (80.0-100.0) fL Plt Count 110 L (150-450) k/uL Neutrophils # (Manual) 33.70 H (1.3-7.7) k/uL Metamyelocytes # (Man) 1.09 H (0) k/uL Myelocytes # (Manual) 0.36 H (0) k/uL Nucleated RBCs 13 H (0-0) /100 WBC ABG pH (7.35-7.45) ABG pCO2 (35-45) mmHg ABG pO2 (83-108) mmHg ABG Total CO2 (19-24) mmol/L ABG O2 Saturation (94-97) % Sodium (137-145) mmol/L Potassium 5.6 H (3.5-5.1) mmol/L Carbon Dioxide (22-30) mmol/L BUN (9-20) mg/dL Creatinine (0.66-1.25) mg/dL Glucose (74-99) mg/dL POC Glucose (mg/dL) 133 H (75-99) mg/dL Calcium (8.4-10.2) mg/dL Procalcitonin (0.02-0.09) ng/mL TSH (0.465-4.680) mIU/L Free T4 (0.78-2.19) ng/dL 07/17/21 07/17/21 07/17/21 Range/Units 04:00 04:00 05:28 WBC (3.8-10.6) k/uL RBC (4.30-5.90) m/uL Hgb (13.0-17.5) gm/dL Hct (39.0-53.0) % MCV (80.0-100.0) fL Plt Count (150-450) k/uL Neutrophils # (Manual) (1.3-7.7) k/uL Metamyelocytes # (Man) (0) k/uL Myelocytes # (Manual) (0) k/uL Nucleated RBCs (0-0) /100 WBC ABG pH 7.12 L* (7.35-7.45) ABG pCO2 74 H* (35-45) mmHg ABG pO2 79 L (83-108) mmHg ABG Total CO2 26 H (19-24) mmol/L ABG O2 Saturation 91.0 L (94-97) % Sodium 135 L (137-145) mmol/L Potassium 5.8 H (3.5-5.1) mmol/L Carbon Dioxide 20 L (22-30) mmol/L BUN 86 H (9-20) mg/dL Creatinine 5.50 H (0.66-1.25) mg/dL Glucose 137 H (74-99) mg/dL POC Glucose (mg/dL) (75-99) mg/dL Calcium 7.4 L (8.4-10.2) mg/dL Procalcitonin (0.02-0.09) ng/mL TSH 0.052 L (0.465-4.680) mIU/L Free T4 0.32 L (0.78-2.19) ng/dL 07/17/21 Range/Units 05:51 WBC (3.8-10.6) k/uL RBC (4.30-5.90) m/uL Hgb (13.0-17.5) gm/dL Hct (39.0-53.0) % MCV (80.0-100.0) fL Plt Count (150-450) k/uL Neutrophils # (Manual) (1.3-7.7) k/uL Metamyelocytes # (Man) (0) k/uL Myelocytes # (Manual) (0) k/uL Nucleated RBCs (0-0) /100 WBC ABG pH (7.35-7.45) ABG pCO2 (35-45) mmHg ABG pO2 (83-108) mmHg ABG Total CO2 (19-24) mmol/L ABG O2 Saturation (94-97) % Sodium (137-145) mmol/L Potassium (3.5-5.1) mmol/L Carbon Dioxide (22-30) mmol/L BUN (9-20) mg/dL Creatinine (0.66-1.25) mg/dL Glucose (74-99) mg/dL POC Glucose (mg/dL) 131 H (75-99) mg/dL Calcium (8.4-10.2) mg/dL Procalcitonin (0.02-0.09) ng/mL TSH (0.465-4.680) mIU/L Free T4 (0.78-2.19) ng/dL Microbiology - Last 24 Hours (Table) 07/10/21 17:41 Blood Culture - Final Blood No Growth after 144 hours 07/10/21 16:02 Blood Culture - Final Blood No Growth after 144 hours Assessment and Plan Assessment: Acute hypoxic respiratory failure secondary to COVID 19 pneumonia requiring oxygen support with 60L with FiO2 90% and nonrebreather mask--> BIPAP. Intubated on 07/10/2021 Right apical pneumothorax estimated at less than 10% and subcutaneous emphysema Septic shock with multiorgan system failure. Requiring pressor support with norepinephrine and vasopressin. Acute kidney injury due to ATN. Requiring hemodialysis initiated on 07/14/2021 Acute metabolic acidosis Shock liver with elevated AST and ALT Acute DVT right lower extremity; on eliquis started this admission Elevated DD, CTA negative for PE, positive DVT Elevated liver enzymes possibly due to systemic inflammation, resolved Elevated inflammatory markers secondary to COVID 19, improving History of DVT History of asthma, not in acute exacerbation Remote history of nicotine dependence History of transverse myelitis History of C5-C6 fusion Obesity GI Prophylaxis: Protonix DVT Prophylaxis: Eliquis FULL CODE Plan Patientin in the MICU. on [facility] ventilator with pressure support Patient went into septic shock and multiorgan failure. Currently still requiring pressors and received fluid boluses. Patient was also started on bicarb drip and monitor renal function closely.Due to worsening renal failure patient was initiated on hemodialysis on 07/14/2021. Patient will be cannula broad-spectrum antibiotics in the form of cefepime. Monitor LFTs Continue decadron, vitamins. Baricitinib on hold. Eliquis for DVT Repeat labs in AM Incentive spirometry Continue all other supportive care Cont with PT/OT consultation Prognosis remains guarded
[2021-07-17] MEDS: CEFEPIME 1 GM in SODIUM CHLORIDE 0.9% 50 ML IVPB SCH (20:15)
--- NOTE | 2021-07-17 20:52 | PN ---
PROGRESS NOTE DATE OF SERVICE: 07/17/2021 REASON FOR FOLLOWUP: Pneumonia. INTERVAL HISTORY: The patient did spike a fever this morning of 100.8. He is as far as blood pressure is concerned no significant purulent secretions through the ET or diarrhea or any other changes reported by the nursing staff. PHYSICAL EXAMINATION: Blood pressure 98/72 with a pulse of 96, temperature 97.5. He is 92% on 75% FiO2. General description is a middle-aged male lying in bed in no distress, Respiratory system: Unlabored breathing, decreased intensity of breath sounds. No wheeze. Heart S1, S2. Regular rate and rhythm. Abdomen soft, no tenderness. LABS: Hemoglobin is 12.3, white count , creatinine 5.50. DIAGNOSTIC IMPRESSION AND PLAN: Patient with acute respiratory failure secondary to the pneumonia with a component of secondary bacterial pneumonia in this patient who comes in with MSSA pneumonia. Patient is covered with cefepime. White count is significantly elevated, more likely because of steroid effect, and will be monitored closely. Repeat inflammatory markers. Continue supportive care. MMODL / IJN: [id number] /
[2021-07-17 23:53] LABS: Glucose,Whole Blood 167 mg/dL (75-99)
[2021-07-18] MEDS: ARTIFICIAL TEARS-HYPROMELLOSE DROPS 15 ML BTL BOTH EYES SCH ×6 (04:00→23:33)
[2021-07-18 05:28] LABS: HCT 37.5 % (39.0-53.0); HGB 12.4 gm/dL (13.0-17.5); Hypochromasia Slight; MCH 33.1 pg (25.0-35.0); MCHC 33.1 g/dL (31.0-37.0); MCV 100.3 fL (80.0-100.0); Macrocytosis Slight; Mean Platelet Volume 10.6; RBC 3.74 m/uL (4.30-5.90); RDW 14.5 % (11.5-15.5)
[2021-07-18 05:38] LABS: Glucose,Whole Blood 152 mg/dL (75-99)
[2021-07-18 05:48] LABS: Albumin 2.9 g/dL (3.5-5.0); Calcium 7.5 mg/dL (8.4-10.2); Potassium 5.7 mmol/L (3.5-5.1); Total Bilirubin 3.3 mg/dL (0.2-1.3); Total Protein 5.7 g/dL (6.3-8.2)
[2021-07-18 05:57] LABS: ABG Base Excess -3.5 mmol/L; ABG HCO3 25 mmol/L (21-25); ABG Oxygen Saturation 92.4 % (94-97); ABG PO2 83 mmHg (83-108); ABG TCO2 28 mmol/L (19-24); Allen Test Performed? Yes
[2021-07-18 06:01] LABS: Glucose,Whole Blood 157 mg/dL (75-99)
[2021-07-18 06:02] LABS: ABG PCO2 73 mmHg (35-45); ABG PH 7.15 (7.35-7.45)
[2021-07-18] MEDS: INSULIN ASPART (NovoLOG) 100 UNIT/ML VIAL SQ SCH ×4 (06:03→23:36)
[2021-07-18] MEDS: CALCIUM ACETATE 667 MG TAB PO SCH ×3 (06:04→17:39)
[2021-07-18] MEDS: HYDROCORTISONE SUCCINATE 100 MG/2 ML VIAL IV SCH ×4 (06:04→23:33)
[2021-07-18 06:18] LABS: Platelet Count 93 k/uL (150-450)
[2021-07-18 06:21] LABS: Band Neutrophils % 6 %; Metamyelocytes % 3 %; Myelocytes % 2 %; Neutrophils % (M) 88 %; Nucleated Red Blood Cells 9 /100 WBC (0-0); Total Cells Counted 200
[2021-07-18 06:22] LABS: Lymphocytes # (M) 0.34 k/uL (1.0-4.8); Metamyelocytes # (M) 1.01 k/uL (0); Monocytes # (M) 0.34 k/uL (0-1.0); Myelocytes # (M) 0.67 k/uL (0); WBC 33.6 k/uL (3.8-10.6)
[2021-07-18 07:04] LABS: Poikilocytosis (M) Present
[2021-07-18] MEDS: NOREPINEPHRINE 32 MG in SODIUM CHLORIDE 0.9% 218 ML IV SCH ×2 (07:22→18:38)
[2021-07-18] MEDS: SYMBICORT 80-4.5 MCG INHALER INHALATION SCH ×2 (07:28→20:06)
[2021-07-18] MEDS: ALBUTEROL HFA INHALER INHALATION SCH ×4 (07:28→19:26)
--- NOTE | 2021-07-18 07:38 | XR ---
EXAMINATION TYPE: XR chest 1V portable DATE OF EXAM: 07/18/2021 CLINICAL HISTORY: Difficulty breathing progress study. TECHNIQUE: Single AP portable semiupright view of the chest is obtained. COMPARISON: Chest x-ray from one day earlier and older studies. FINDINGS: Stable endotracheal and orogastric tubes. Stable left sided central venous catheter. Significant overlying subcutaneous emphysema redemonstrated. Persistent bilateral multifocal and conf luent opacities. Cardiac silhouette size is stable and within normal limits. Surgical change in the c ervical spine is partially imaged. IMPRESSION: Persistent bilateral multifocal and confluent opacities consistent with covid-19 infectio n are redemonstrated. Extensive overlying subcutaneous emphysema again seen. No significant change fr om one day earlier.
--- NOTE | 2021-07-18 08:11 | P.PN ---
Subjective Patient is seen in follow-up for acute kidney injury. Oliguric. Started on hemodialysis 07/14/2021. Currently on Levophed and vasopressin. Receiving tube feeds. Potassium stable. No significant changes overnight. Vital signs - on vasopressor support. HEENT: Intubated. LUNGS: Breath sounds decreased. HEART: Tachycardic. ABDOMEN: Soft, no distention. EXTREMITITES: 2+ edema. Objective - Vital Signs Vital signs: Vital Signs Temp 99.0 F 07/18/21 04:00 Pulse 105 H 07/18/21 07:00 Resp 36 H 07/18/21 07:00 BP 95/66 07/18/21 07:00 Pulse Ox 89 L 07/18/21 07:00 Intake & Output 07/17/21 07/18/21 07/18/21 18:59 06:59 18:59 Intake Total 0285.701 1997.357 154.569 Output Total 25 5 Balance 5790.255 6585.357 154.569 Weight 148 kg Intake: IV 248 176 16 Fluconazole in NaCl,Iso- 50 Osm 100 mg In Saline 1 50ml.bag @ 50 mls/hr IVPB DAILY SE Rx#:[id number] Pressure Bag 78 66 6 Sodium Chloride 0.9% 1, 120 110 10 000 ml @ 10 mls/hr IV . Q24H SE Rx#:[id number] Intake, IV Titration 846.392 697.357 102.569 Amount Cisatracurium 200 mg In 181.258 138.424 Sodium Chloride 0.9% 180 ml @ 1 MCG/KG/MIN 7.26 mls/hr IV .Q24H SE Rx#: [id number] Norepinephrine 32 mg In 295.055 72.353 102.569 Sodium Chloride 0.9% 218 ml @ 0.05 MCG/KG/MIN 2. 836 mls/hr IV .Q24H SE Rx#:[id number] fentaNYL (PF). 1,000 mcg 70.079 In Sodium Chloride 0.9% 80 ml @ 0.5 MCG/KG/HR 6. 05 mls/hr IV .[id number] SE Rx#:[id number] propofoL 1,000 mg In 300 486.58 Empty Bag 1 bag @ Titrate IV .Q0M SE Rx#: [id number] Tube Feeding 468 360 36 Other 90 90 Output: Urine 25 5 Other: Voiding Method Indwelling Catheter Indwelling Catheter ABP, PAP, CO, CI - Last Documented Arterial Blood Pressure 86/56 - Labs CBC & Chem 7: 07/18/21 04:05 07/18/21 04:05 Labs: Abnormal Lab Results - Last 24 Hours (Table) 07/17/21 07/17/21 07/17/21 Range/Units 04:00 11:57 17:27 WBC (3.8-10.6) k/uL RBC (4.30-5.90) m/uL Hgb (13.0-17.5) gm/dL Hct (39.0-53.0) % MCV (80.0-100.0) fL Plt Count (150-450) k/uL Neutrophils # (Manual) (1.3-7.7) k/uL Lymphocytes # (Manual) (1.0-4.8) k/uL Metamyelocytes # (Man) (0) k/uL Myelocytes # (Manual) (0) k/uL Nucleated RBCs (0-0) /100 WBC ABG pH (7.35-7.45) ABG pCO2 (35-45) mmHg ABG Total CO2 (19-24) mmol/L ABG O2 Saturation (94-97) % Sodium (137-145) mmol/L Potassium (3.5-5.1) mmol/L BUN (9-20) mg/dL Creatinine (0.66-1.25) mg/dL Glucose (74-99) mg/dL POC Glucose (mg/dL) 133 H 151 H (75-99) mg/dL Calcium (8.4-10.2) mg/dL Total Bilirubin (0.2-1.3) mg/dL AST (17-59) U/L Alkaline Phosphatase (38-126) U/L Total Protein (6.3-8.2) g/dL Albumin (3.5-5.0) g/dL TSH 0.052 L (0.465-4.680) mIU/L Free T4 0.32 L (0.78-2.19) ng/dL 07/17/21 07/17/21 07/18/21 Range/Units 22:48 23:51 04:05 WBC 33.6 H (3.8-10.6) k/uL RBC 3.74 L (4.30-5.90) m/uL Hgb 12.4 L (13.0-17.5) gm/dL Hct 37.5 L (39.0-53.0) % MCV 100.3 H (80.0-100.0) fL Plt Count 93 L (150-450) k/uL Neutrophils # (Manual) 31.50 H (1.3-7.7) k/uL Lymphocytes # (Manual) 0.34 L (1.0-4.8) k/uL Metamyelocytes # (Man) 1.01 H (0) k/uL Myelocytes # (Manual) 0.67 H (0) k/uL Nucleated RBCs 9 H (0-0) /100 WBC ABG pH (7.35-7.45) ABG pCO2 (35-45) mmHg ABG Total CO2 (19-24) mmol/L ABG O2 Saturation (94-97) % Sodium (137-145) mmol/L Potassium 5.5 H (3.5-5.1) mmol/L BUN (9-20) mg/dL Creatinine (0.66-1.25) mg/dL Glucose (74-99) mg/dL POC Glucose (mg/dL) 167 H (75-99) mg/dL Calcium (8.4-10.2) mg/dL Total Bilirubin (0.2-1.3) mg/dL AST (17-59) U/L Alkaline Phosphatase (38-126) U/L Total Protein (6.3-8.2) g/dL Albumin (3.5-5.0) g/dL TSH (0.465-4.680) mIU/L Free T4 (0.78-2.19) ng/dL 07/18/21 07/18/21 07/18/21 Range/Units 04:05 05:25 05:59 WBC (3.8-10.6) k/uL RBC (4.30-5.90) m/uL Hgb (13.0-17.5) gm/dL Hct (39.0-53.0) % MCV (80.0-100.0) fL Plt Count (150-450) k/uL Neutrophils # (Manual) (1.3-7.7) k/uL Lymphocytes # (Manual) (1.0-4.8) k/uL Metamyelocytes # (Man) (0) k/uL Myelocytes # (Manual) (0) k/uL Nucleated RBCs (0-0) /100 WBC ABG pH (7.35-7.45) ABG pCO2 (35-45) mmHg ABG Total CO2 (19-24) mmol/L ABG O2 Saturation (94-97) % Sodium 135 L (137-145) mmol/L Potassium 5.7 H (3.5-5.1) mmol/L BUN 89 H (9-20) mg/dL Creatinine 5.47 H (0.66-1.25) mg/dL Glucose 144 H (74-99) mg/dL POC Glucose (mg/dL) 152 H 157 H (75-99) mg/dL Calcium 7.5 L (8.4-10.2) mg/dL Total Bilirubin 3.3 H (0.2-1.3) mg/dL AST 1065 H (17-59) U/L Alkaline Phosphatase 250 H (38-126) U/L Total Protein 5.7 L (6.3-8.2) g/dL Albumin 2.9 L (3.5-5.0) g/dL TSH (0.465-4.680) mIU/L Free T4 (0.78-2.19) ng/dL 07/18/21 Range/Units 06:00 WBC (3.8-10.6) k/uL RBC (4.30-5.90) m/uL Hgb (13.0-17.5) gm/dL Hct (39.0-53.0) % MCV (80.0-100.0) fL Plt Count (150-450) k/uL Neutrophils # (Manual) (1.3-7.7) k/uL Lymphocytes # (Manual) (1.0-4.8) k/uL Metamyelocytes # (Man) (0) k/uL Myelocytes # (Manual) (0) k/uL Nucleated RBCs (0-0) /100 WBC ABG pH 7.15 L* (7.35-7.45) ABG pCO2 73 H* (35-45) mmHg ABG Total CO2 28 H (19-24) mmol/L ABG O2 Saturation 92.4 L (94-97) % Sodium (137-145) mmol/L Potassium (3.5-5.1) mmol/L BUN (9-20) mg/dL Creatinine (0.66-1.25) mg/dL Glucose (74-99) mg/dL POC Glucose (mg/dL) (75-99) mg/dL Calcium (8.4-10.2) mg/dL Total Bilirubin (0.2-1.3) mg/dL AST (17-59) U/L Alkaline Phosphatase (38-126) U/L Total Protein (6.3-8.2) g/dL Albumin (3.5-5.0) g/dL TSH (0.465-4.680) mIU/L Free T4 (0.78-2.19) ng/dL Assessment and Plan Plan: Assessment: 1. Acute kidney injury secondary to ATN secondary to septic shock. Oliguric. Started on hemodialysis 07/14/2021. Baseline creatinine 1. 2. Septic shock secondary to COVID-19 infection with concern for superimposed bacterial infection. 3. Hyperkalemia secondary to acute kidney injury and acidosis. 4. Acute hypoxic and hypercapnic respiratory failure. 5. Metabolic acidosis secondary to acute kidney injury. Status post bicarb drip. On oral bicarb. 6. Hypocalcemia secondary to acute kidney injury. Replaced. Better. 7. Hyperphosphatemia secondary to acute kidney injury. On PhosLo. Plan: Continue with daily SLED. Receiving tube feeds. Continue to monitor renal function and urine output. Wean FiO2 and vasopressors. Increase dose of bicarb.
[2021-07-18] MEDS ORDERED: SODIUM ZIRCONIUM CYCLOSILICATE 10 GM PACKET PO ONE (08:30)
[2021-07-18] MEDS: SODIUM CHLORIDE 0.9% 150 ML with VASOPRESSIN 60 UNIT IV SCH ×2 (08:30)
--- NOTE | 2021-07-18 09:52 | P.PN ---
Subjective Progress Note Date: 07/18/21 Principal diagnosis: Respiratory failure. 07/12/2021, the patient is being seen for a follow-up. He remains critically ill intubated sedated paralyzed on a mechanical ventilator with COVID 19 related to pneumonia and multisystem organ failure. The patient has been aggressively resuscitated over the past 48 hours. At this point in time the patient remains sedated and paralyzed. His propofol is currently running at 50 mcg/kg per minute and fentanyl is running at 1 mcg/kg/h and the patient is paralyzed with Nimbex at 1 mcg/kg per minute. He is adequately sedated and paralyzed. He remains synchronous with the mechanical ventilator. He is on a pressure control mode of mechanical ventilation with a pressure control of 23 and the rate of 30 with an FiO2 of 70% and a PEEP of 15. Chest x-ray still showing diffuse bilateral subcutaneous emphysema and there is no evidence of any pneumothorax. There is also diffuse bilateral pulmonary infiltrates. All of the tubes are in good location. PH is at 7.38 with a pCO2 of 51 and pO2 of 107. As such, the patient is adequately oxygenating and ventilating. Nevertheless, the active problem was the massive shock and hypotension which was probably a septic event. Cultures were all negative. The patient is currently on a combination of antibiotics and he is receiving cefepime, and vancomycin. Infectious disease was also consulted. I maintain the patient on fluconazole knowing that the patient had extensive oropharyngeal candidiasis at the time of the intubation. He was resuscitated IV fluids and received more than 10 L of saline and also received several doses of IV albumin. During the course of the resuscitation, he was on a combination of vasopressin physiologic dose, norepinephrine and epinephrine was also added to maintain his blood pressure. We are unable to wean off the epinephrine. Vasopressin remains at physiologic dose of 0.03 units an hour and the patient is currently on 0.15 mcg/kg per minute of norepinephrine infusion. Urine output is order of 30-50 mL an hour. His white cell count is low and currently is at 22.7. He is still spiking fever on and off for which she was given Tylenol IV. Currently he is afebrile. White cell count is down to 22.7. Meanwhile, the patient developed a nonoliguric renal failure. Creatinine is up to 2.59. He was having issues with hyperkalemia. He was given bicarb IV in the form of a push and later on drip and the sodium bicarb is currently running at the rate of 150 mL an hour. Serum bicarb this morning is at 30 with a potassium level of 4.4. Coagulation profile shows an INR of 1.4 with a PT of 14.2. The patient is a sinus rhythm. He is a shock liver and the liver function tests are essentially improving. Vancomycin level this morning is at 18.2. As stated, blood cultures are negative. Enterofeeding for nutritional support will be started today. Progress note dated 07/13/2020. 50-year-old male admitted to the hospital on June 27. His admission diagnosis was coronavirus associated pneumonia. [facility], and ended up being intubated on July 10. This was for worsening hypoxemic respiratory failure. The patient is on pressure assist control mode of ventilation, with an inspiratory pressure of 23 cm water, and inspiratory time of 1 second. In addition, the patient has a rate of 30, FiO2 of 80%, and PEEP of 14. The patient's blood gases show pO2 105, pCO2 74, and pH is 7.21. The patient's currently on norepinephrine at 0.09 mcg/kg/m, vasopressin, and 0.02 units per minute, and saline at 75 mL an hour. In addition, the patient's on fentanyl 1 mcg/kg/h, Nimbex at 1 mcg/kg/m, and propofol at 50 mcg/kg/m. Tube feedings have not yet been started. White count 22.3, hemoglobin 11.3, hematocrit 33.4, and platelet count 190,000. Sodium 136, potassium 4.4, chlorides 101, CO2 28, anion gap 7 BUN 60, creatinine 2.87. Albumin is 2.3. Sputum from July 10 showing presumptive staph aureus. Chest x-ray from July 13 shows diffuse bilateral patchy infiltrates. There is extensive subcutaneous emphysema. Progress note dated 07/14/2021. 50-year-old male admitted to the hospital on June 27. His admission diagnosis was coronavirus associated pneumonia. He came to the intensive care unit on July 08 and was intubated for respiratory failure on 07/10/2021. This was for worsening hypoxemic respiratory failure. Currently, the patient is on pressure assist control, with a inspiratory pressure 23 cm water, inspiratory time of 1 second, rate of 36 breaths per minute, FiO2 65%, and PEEP of 14. Blood gases showed a pO2 of 87, pCO2 of 77, pH is 7.10. This was on a rate of 30. Repeat blood gases at the higher rate, show pO2 of 76, pCO2 70, and a pH is 7.08. The patient's on Nimbex at 1 mcg/kg/m, fentanyl 1 mcg/kg/h, norepinephrine at 70 mcg/m, vasopressin 0.03 units per minute, propofol at 50 mcg/kg/m, saline at 85 mL an hour, vital AF at 32 mL an hour. Because of his blood gases, we will go ahead and switch him to volume assist control, to attempt to reduce his PaCO2, and improve his pH. In addition, the patient is going to have a dialysis catheter placed today, and have hemodialysis. White count 34,000, hemoglobin 12.7, hematocrit 41.3, and platelet count 239,000. Sodium 136, potassium 5.7, chlorides 101, CO2 23, anion gap 12, BUN 76, with a creatinine of 4.10. Bilirubin 1.7. AST is 3060 with an ALT of 4094. Sputum from July 10 showing evidence of staph aureus. Chest x-ray shows diffuse bilateral infiltrates. Progress note dated 07/15/2021. 50-year-old male, admitted to the hospital on 06/27/2021. He was admitted with a diagnosis of coronavirus associated pneumonia. He came to the intensive care unit on 07/08/2021, and was intubated for respiratory failure on 07/10/2021. The patient remains on the ventilator. He is on the volume assist control, rate 36, tidal volume 450, FiO2 75%, and PEEP of 14. Blood gases show pO2 of 79, pCO2 65, and pH of 7.23. The patient is on norepinephrine at 21 mcg/m, Nimbex at 1 mcg/kg/m, fentanyl at 1 mcg/kg/h, vasopressin at 0.04 units per minute, propofol at 50 mcg/kg/m, saline at 75 mL an hour, and vital AF at 32 mL an hour, which is goal. He did have hemodialysis yesterday, but no fluid was removed. The plan is for hemodialysis today, with one half a liter being removed. Current labs include a white count 23.9, hemoglobin 11.4, hematocrit 36.1, and platelet count 146,000. Sodium 138, potassium 5, chlorides 101, CO2 27, anion gap 10, BUN 78, with creatinine of 4.27. Sputum from July 10 shows Staphylococcus aureus. Chest x-ray shows diffuse bilateral infiltrates, largely unchanged. Progress note dated 07/16/2021. 50-year-old male, admitted to the hospital on 06/27/2021. The patient was admitted with a diagnosis of coronavirus associated pneumonia. The patient came to the intensive care unit on July 08, and was intubated for respiratory failure 2 days later on 07/10/2021. The patient remains on the ventilator. The patient is on the volume assist control mode, rate 36, tidal [place] 450, FiO2 75%, PEEP of 14. Blood gases show a pO2 of 85, pCO2 70, and a pH is 7.15. The patient is currently on norepinephrine at 27 mcg/m, Nimbex at 2 mcg/kg/m, propofol at 50 mcg/kg/m, these are present and 0.04 units per minute, fentanyl 1 mcg/kg/h. The patient's also receiving vital AF, at goal. White count 38.1, hemoglobin 12.2, hematocrit 38.2, and platelet count 116,000. Sodium 137, potassium 5.6, chlorides 98, CO2 23, anion gap 16, BUN 81, and creatinine 4.85. AST is 1629. ALT is 3333. Sputum sampling from July 10 shows evidence of Staphylococcus aureus. Chest x-ray shows diffuse bilateral infiltrates, and extensive subcutaneous emphysema. Progress note dated 07/17/2021. 50-year-old male, again seen in room 258. The patient was admitted to the hospital on 06/27/2021. The patient was admitted with a diagnosis of coronavirus associated pneumonia. The patient came to the intensive care unit on July 08, and was intubated for respiratory failure, 2 days later, on 06/22/2021. The patient remains on the ventilator. He was previously on pressure assist control, now volume assist control, with a rate of 36, tidal volume 450, FiO2 75%, and PEEP of 14. Blood gases show pO2 of 79, pCO2 74, and pH is 7.11. The patient remains on saline at 10 mL an hour, fentanyl at 0.5 mcg/kg/h, norepinephrine at 53 mcg/m, vasopressin at 0.04 units per minute, propofol at 50 mcg/kg/m, Nimbex at 1 mcg/kg/m, vital high protein at 36 mL an hour, which is goal. The patient did have hemodialysis yesterday, with 1 L re moved. The plan is for hemodialysis again today. I had a chance to speak to the 2 days ago on the phone, and yesterday, and person, in the patient's room. I gave her a thorough day. I did tell her, that the patient was very critically ill, and that he likely may not survive this illness. She understands. Chest x-ray shows diffuse bilateral infiltrates. There is extensive subcutaneous emphysema. White count is 36.3, hemoglobin is 12.3, hematocrit 38, and platelet count 110,000. Sodium 135, potassium 5.8, chlorides 99, CO2 20, anion gap 16, BUN 86, creatinine 5.50. Cortisol levels 28. TSH is 0.052. Progress note dated 07/18/2021. 50-year-old male, again seen in room 258. The patient was admitted to the hospital on 06/27/2021. The patient was admitted with a diagnosis of c oronavirus associated pneumonia and hypoxemic respiratory failure. The patient came to the intensive care unit on July 08, was intubated 2 days later on July 10. The patient remains on the ventilator. The patient is on the volume assist control mode, rate 36, tidal volume 50, FiO2 75%, and PEEP 14. We'll gases show pO2 of 83, pCO2 73, and pH is 7.15. The patient is currently on Nimbex at 1 mcg/kg/m, vasopressin at 0.04 units per minute, saline at 10 mL an hour, propofol at 50 mcg/kg/m, fentanyl at 0.05 mcg/kg/h, norepinephrine at 52 mcg/m, and vital high protein at 36 mL an hour, which is goal. The patient had a liter removed yesterday during hemodialysis, and the plan is to remove another liter today. White count 33.6, hemoglobin 12.4, hematocrit 37.5, and platelet count 93,000. Sodium 135, potassium 5.7, chlorides 100, CO2 20, anion gap 12, BUN 89, creatinine 5.47. AST 1065 and ALTs 2697. Microbiology shows evidence of staph aureus in the sputum on July 10. Chest x-ray shows persistent bilateral infiltrates. The x-ray is essentially unchanged. The patient has extensive subcutaneous emphysema. Objective - Vital Signs Vital signs: Vital Signs Temp 99.0 F 07/18/21 04:00 Pulse 105 H 07/18/21 07:00 Resp 36 H 07/18/21 07:00 BP 95/66 07/18/21 07:00 Pulse Ox 89 L 07/18/21 07:00 Intake & Output 07/17/21 07/18/21 07/18/21 18:59 06:59 18:59 Intake Total 9627.896 8822.357 254.569 Output Total 25 5 1000 Balance 8093.626 9981.357 -745.431 Weight 148 kg Intake: IV 248 176 16 Fluconazole in NaCl,Iso- 50 Osm 100 mg In Saline 1 50ml.bag @ 50 mls/hr IVPB DAILY SE Rx#:[id number] Pressure Bag 78 66 6 Sodium Chloride 0.9% 1, 120 110 10 000 ml @ 10 mls/hr IV . Q24H SE Rx#:[id number] Intake, IV Titration 846.392 697.357 202.569 Amount Cisatracurium 200 mg In 181.258 138.424 Sodium Chloride 0.9% 180 ml @ 1 MCG/KG/MIN 7.26 mls/hr IV .Q24H SE Rx#: [id number] Norepinephrine 32 mg In 295.055 72.353 102.569 Sodium Chloride 0.9% 218 ml @ 0.05 MCG/KG/MIN 2. 836 mls/hr IV .Q24H SE Rx#:[id number] fentaNYL (PF). 1,000 mcg 70.079 In Sodium Chloride 0.9% 80 ml @ 0.5 MCG/KG/HR 6. 05 mls/hr IV .[id number] SE Rx#:[id number] propofoL 1,000 mg In 300 486.58 100 Empty Bag 1 bag @ Titrate IV .Q0M SE Rx#: [id number] Tube Feeding 468 360 36 Other 90 90 Output: Urine 25 5 Hemodialysis 1000 Other: Voiding Method Indwelling Catheter Indwelling Catheter ABP, PAP, CO, CI - Last Documented Arterial Blood Pressure 86/56 - Exam No acute distress, currently sedated and paralyzed, with an orally placed endotracheal tube and NG tube. HEENT examination is grossly unremarkable. Extensive subcutaneous emphysema. Neck supple. Full range of motion. No adenopathy thyromegaly or neck vein distention. Cardiovascular examination reveals regular rhythm rate. S1-S2 normal. No S3 or S4. No discernible murmur noted. Heart sounds are distant. Heart rate 101 bpm. Lungs reveal diffuse coarse rhonchi. Breath sounds equal. No wheezes. There is extensive subcutaneous emphysema. Saturations are 89 %. Abdomen soft without bowel sounds Extremities are intact. No cyanosis clubbing or edema. Skin is without rash or lesion. Neurologic examination cannot be evaluated as the patient is sedated and paralyzed. - Labs CBC & Chem 7: 07/18/21 04:05 07/18/21 04:05 Labs: Abnormal Lab Results - Last 24 Hours (Table) 07/17/21 07/17/21 07/17/21 Range/Units 04:00 11:57 17:27 WBC (3.8-10.6) k/uL RBC (4.30-5.90) m/uL Hgb (13.0-17.5) gm/dL Hct (39.0-53.0) % MCV (80.0-100.0) fL Plt Count (150-450) k/uL Neutrophils # (Manual) (1.3-7.7) k/uL Lymphocytes # (Manual) (1.0-4.8) k/uL Metamyelocytes # (Man) (0) k/uL Myelocytes # (Manual) (0) k/uL Nucleated RBCs (0-0) /100 WBC ABG pH (7.35-7.45) ABG pCO2 (35-45) mmHg ABG Total CO2 (19-24) mmol/L ABG O2 Saturation (94-97) % Sodium (137-145) mmol/L Potassium (3.5-5.1) mmol/L BUN (9-20) mg/dL Creatinine (0.66-1.25) mg/dL Glucose (74-99) mg/dL POC Glucose (mg/dL) 133 H 151 H (75-99) mg/dL Calcium (8.4-10.2) mg/dL Total Bilirubin (0.2-1.3) mg/dL AST (17-59) U/L ALT (4-49) U/L Alkaline Phosphatase (38-126) U/L Total Protein (6.3-8.2) g/dL Albumin (3.5-5.0) g/dL Free T4 0.32 L (0.78-2.19) ng/dL 07/17/21 07/17/21 07/18/21 Range/Units 22:48 23:51 04:05 WBC 33.6 H (3.8-10.6) k/uL RBC 3.74 L (4.30-5.90) m/uL Hgb 12.4 L (13.0-17.5) gm/dL Hct 37.5 L (39.0-53.0) % MCV 100.3 H (80.0-100.0) fL Plt Count 93 L (150-450) k/uL Neutrophils # (Manual) 31.50 H (1.3-7.7) k/uL Lymphocytes # (Manual) 0.34 L (1.0-4.8) k/uL Metamyelocytes # (Man) 1.01 H (0) k/uL Myelocytes # (Manual) 0.67 H (0) k/uL Nucleated RBCs 9 H (0-0) /100 WBC ABG pH (7.35-7.45) ABG pCO2 (35-45) mmHg ABG Total CO2 (19-24) mmol/L ABG O2 Saturation (94-97) % Sodium (137-145) mmol/L Potassium 5.5 H (3.5-5.1) mmol/L BUN (9-20) mg/dL Creatinine (0.66-1.25) mg/dL Glucose (74-99) mg/dL POC Glucose (mg/dL) 167 H (75-99) mg/dL Calcium (8.4-10.2) mg/dL Total Bilirubin (0.2-1.3) mg/dL AST (17-59) U/L ALT (4-49) U/L Alkaline Phosphatase (38-126) U/L Total Protein (6.3-8.2) g/dL Albumin (3.5-5.0) g/dL Free T4 (0.78-2.19) ng/dL 07/18/21 07/18/2107/18/22 Range/Units 04:05 05:25 05:59 WBC (3.8-10.6) k/uL RBC (4.30-5.90) m/uL Hgb (13.0-17.5) gm/dL Hct (39.0-53.0) % MCV (80.0-100.0) fL Plt Count (150-450) k/uL Neutrophils # (Manual) (1.3-7.7) k/uL Lymphocytes # (Manual) (1.0-4.8) k/uL Metamyelocytes # (Man) (0) k/uL Myelocytes # (Manual) (0) k/uL Nucleated RBCs (0-0) /100 WBC ABG pH (7.35-7.45) ABG pCO2 (35-45) mmHg ABG Total CO2 (19-24) mmol/L ABG O2 Saturation (94-97) % Sodium 135 L (137-145) mmol/L Potassium 5.7 H (3.5-5.1) mmol/L BUN 89 H (9-20) mg/dL Creatinine 5.47 H (0.66-1.25) mg/dL Glucose 144 H (74-99) mg/dL POC Glucose (mg/dL) 152 H 157 H (75-99) mg/dL Calcium 7.5 L (8.4-10.2) mg/dL Total Bilirubin 3.3 H (0.2-1.3) mg/dL AST 1065 H (17-59) U/L ALT 2697 H (4-49) U/L Alkaline Phosphatase 250 H (38-126) U/L Total Protein 5.7 L (6.3-8.2) g/dL Albumin 2.9 L (3.5-5.0) g/dL Free T4 (0.78-2.19) ng/dL 07/18/21 Range/Units 06:00 WBC (3.8-10.6) k/uL RBC (4.30-5.90) m/uL Hgb (13.0-17.5) gm/dL Hct (39.0-53.0) % MCV (80.0-100.0) fL Plt Count (150-450) k/uL Neutrophils # (Manual) (1.3-7.7) k/uL Lymphocytes # (Manual) (1.0-4.8) k/uL Metamyelocytes # (Man) (0) k/uL Myelocytes # (Manual) (0) k/uL Nucleated RBCs (0-0) /100 WBC ABG pH 7.15 L* (7.35-7.45) ABG pCO2 73 H* (35-45) mmHg ABG Total CO2 28 H (19-24) mmol/L ABG O2 Saturation 92.4 L (94-97) % Sodium (137-145) mmol/L Potassium (3.5-5.1) mmol/L BUN (9-20) mg/dL Creatinine (0.66-1.25) mg/dL Glucose (74-99) mg/dL POC Glucose (mg/dL) (75-99) mg/dL Calcium (8.4-10.2) mg/dL Total Bilirubin (0.2-1.3) mg/dL AST (17-59) U/L ALT (4-49) U/L Alkaline Phosphatase (38-126) U/L Total Protein (6.3-8.2) g/dL Albumin (3.5-5.0) g/dL Free T4 (0.78-2.19) ng/dL Assessment and Plan Assessment: Acute hypoxemic respiratory failure, secondary to coronavirus associated pneumonia, status post intubation and mechanical ventilation on July 10. Acute respiratory distress syndrome (ARDS). Extensive subcutaneous emphysema as a complication of coronavirus associated pneumonia. Possible acute adrenal insufficiency. History of chronic bronchial asthma. Right lower extremity deep venous thrombosis. History of oropharyngeal candidiasis. History of shock liver. Acute kidney injury. Septic shock with multiorgan system failure. Previous history of tobacco use. History of C5-C6 fusion. History of transverse myelitis. Plan: Plan dated 06/28/2021. Currently, the patient is a candidate for Decadron, Lovenox, vitamin C, vitamin D3, and zinc. He is not a candidate for REM, consistent and have been present for more than 7 days, and he is on oxygen that is greater than 6 L/m. He is getting close to the point where he may become a candidate for FLAQUITO. The patient does appear relatively comfortable. We will continue to follow make recommendations where appropriate. The patient is on his usual inhalers for his asthma. Prognosis is guarded. Plan dated 07/13/2020. The patient's labs, x-rays, and medications all reviewed. The patient remains on a factor X a inhibitor for his right lower extremity DVT. The patient continues on Decadron. FLAQUITO has been discontinued. The patient remains on fentanyl, Nimbex, and propofol. The patient remains on both norepinephrine and vasopressin. The patient is obviously very critically ill. The patient remains on pressure assist control mode of mechanical ventilation. Additional recommendations and suggestions are forthcoming. We will continue to follow the patient and make recommendations where appropriate. Overall prognosis remains very guarded. Plan dated 07/14/2021. The patient's labs, x-rays, and medications are all reviewed. The patient remains on a factor X a inhibitor for his right lower extremity DVT. The patient continues on Decadron. The patient also remains on fentanyl, Nimbex, and propofol. The patient is on norepinephrine and vasopressin for blood pressure stability. I did have a chance to speak to his Shyla. She understands the gravity of the situation. I explained to her that we will continue to support him fully. At this time, his prognosis is very poor. We will continue to follow the patient and make recommendations where appropriate. We did change his ventilator from pressure assist control, volume assist control. The patient will have a hemodialysis catheter placed today and undergo hemodialysis. Urine output is poor and renal function has worsened. Plan dated 07/15/2021. The patient was switched from pressure assist control, to volume assist control yesterday. Blood gases today are much improved. The patient remains on norepinephrine, Nimbex, fentanyl, vasopressin, propofol, and tube feeds. The patient did have hemodialysis yesterday, and will have hemodialysis again today. We will continue to follow make recommendations where appropriate. I did have a chance to speak to the patient's yesterday. I gave her a full update. The patient continues to be a full code. We will continue to follow make recommendations were appropriate. Medications are reviewed. Labs are reviewed. Chest x-rays reviewed. Plan dated 07/16/2021. The patient remains about the same. The patient is currently receiving hemodialysis. The patient remains on norepinephrine, Nimbex, propofol, fentanyl, and vasopressin. The patient was switched from pressure assist control to volume assist control, because of worsening hypercapnia, and acidosis. Additional recommendations and suggestions are forthcoming. I will continue to follow make recommendations were appropriate. Prognosis is guarded. I did speak to the 2 days ago, and gave her an update. She does understand the gravity of the situation. Plan dated 07/17/2021. The patient will have hemodialysis today. 1 L was removed during hemodialysis yesterday. The patient remains on all the same drips including fentanyl, norepinephrine, vasopressin, propofol, Nimbex, and is receiving tube feedings with vital high protein. The patient's overall prognosis is very guarded. I had a chance to speak to the in person yesterday. Her name is Shyla. I did let her know that her was very critically ill, and may not survive this. The patient had a cortisol level which was 28. I am going to give him hydrocortisone instead of Decadron. Additional recommendations and suggestions are forthcoming. Continue to follow make recommendations where appropriate. Plan dated 07/18/2021. The patient is having hemodialysis today. The goal is to remove another liter fluid. He did have hemodialysis yesterday, with 1 L removed. The patient remains on multiple drips including Nimbex, vasopressin, propofol, fentanyl, and norepinephrine. Blood gases are reviewed. Labs and x-rays are reviewed. The chest x-rays essentially unchanged. The patient has extensive subcutaneous em physema. The patient was switched to hydrocortisone yesterday for suspected adrenal insufficiency. Additional recommendations and suggestions are forthcoming. Prognosis is guarded. We will continue to follow make recommendations where appropriate. I did have an opportunity to speak to the on 2 separate occasions. She does understand the gravity of the situation. Time with Patient: Greater than 30
[2021-07-18] MEDS: ASCORBIC ACID 500 MG TAB PO SCH (09:55)
[2021-07-18] MEDS: PANTOPRAZOLE 40 MG/10 ML VIAL IVP SCH (09:55)
[2021-07-18] MEDS: CHLORHEXIDINE GLUCONATE 15 ML CUP MUCOUS MEM SCH ×2 (09:55→21:29)
[2021-07-18] MEDS: APIXABAN 5 MG TAB PO SCH ×2 (09:55→21:29)
[2021-07-18] MEDS: SODIUM BICARBONATE TAB 650 MG TAB PO SCH ×2 (09:56→21:29)
[2021-07-18] MEDS: FLUCONAZOLE IN NACL,ISO-OSM 100 MG in SALINE 1 50ML.BAG IVPB SCH (09:56)
[2021-07-18] MEDS: CHOLECALCIFEROL 25 MCG (1000 IU) TABLET PO SCH (09:56)
[2021-07-18] MEDS: ZINC SULFATE 220 MG CAP PO SCH (09:56)
[2021-07-18 11:34] LABS: Glucose,Whole Blood 159 mg/dL (75-99)
[2021-07-18 17:36] LABS: Glucose,Whole Blood 160 mg/dL (75-99)
--- NOTE | 2021-07-18 17:38 | PN ---
PROGRESS NOTE DATE OF SERVICE: 07/18/2021 REASON FOR FOLLOWUP: Pneumonia and sepsis. INTERVAL HISTORY: The patient's overall fever pattern has improved. He did have a low-grade fever of 99.7 to 100 degrees Fahrenheit. The patient is requiring pressor to maintain his blood pressure. FiO2 is currently 75%. No significant purulent secretions in the ET, diarrhea or any other changes reported by the nursing staff. PHYSICAL EXAMINATION: Blood pressure 124/67, pulse of 101, temperature 99.7. He is 90% on 65% FiO2. General description is a middle-aged male intubated on the vent. Respiratory system: Unlabored breathing, decreased intensity of breath sounds. No wheeze. Heart S1, S2. Regular rate and rhythm. Abdomen soft, mildly distended. No guarding or rigidity. EXTREMITIES: Did have edema of feet. LABS: Hemoglobin is 12.3, white count 23.6, creatinine 5.07. Liver enzymes are elevated, though trending down. DIAGNOSTIC IMPRESSION AND PLAN: Patient with acute respiratory failure which is multifactorial in this patient pneumonia complicated by development of bacteremia pneumonia. Sputum has been MSSA, also showing Ivonne albicans, more likely candidiasis. Patient's white count is showing a downward trend. Patient is covered with cefepime, and fluconazole. To continue while monitoring his clinical course closely. Prognosis continues to be guarded. at the bedside. Questions were answered. MMODL / IJN: [id number] /
[2021-07-18] MEDS: CISATRACURIUM 200 MG in SODIUM CHLORIDE 0.9% 180 ML IV SCH ×2 (18:37→21:23)
[2021-07-18] MEDS: CEFEPIME 1 GM in SODIUM CHLORIDE 0.9% 50 ML IVPB SCH (21:29)
[2021-07-18 23:37] LABS: Glucose,Whole Blood 132 mg/dL (75-99)
[2021-07-19] MEDS: fentaNYL (PF) 2,500 MCG in SODIUM CHLORIDE 0.9% 200 ML IV SCH (01:02)
[2021-07-19] MEDS: ARTIFICIAL TEARS-HYPROMELLOSE DROPS 15 ML BTL BOTH EYES SCH ×4 (03:58→17:26)
[2021-07-19] MEDS: SODIUM CHLORIDE 0.9% 1,000 ML IV SCH (04:47)
[2021-07-19] MEDS: HYDROCORTISONE SUCCINATE 100 MG/2 ML VIAL IV SCH ×3 (05:18→17:29)
[2021-07-19 05:24] LABS: Glucose,Whole Blood 133 mg/dL (75-99)
[2021-07-19] MEDS: INSULIN ASPART (NovoLOG) 100 UNIT/ML VIAL SQ SCH ×3 (05:28→17:08)
[2021-07-19] MEDS: CALCIUM ACETATE 667 MG TAB PO SCH ×3 (05:55→17:08)
[2021-07-19 06:10] LABS: Allen Test Performed? Yes
[2021-07-19 06:17] LABS: ABG Base Excess -1.8 mmol/L; ABG HCO3 26 mmol/L (21-25); ABG Oxygen Saturation 95.4 % (94-97); ABG PCO2 62 mmHg (35-45); ABG PH 7.23 (7.35-7.45); ABG PO2 94 mmHg (83-108); ABG TCO2 28 mmol/L (19-24)
[2021-07-19 06:27] LABS: HGB 12.1 gm/dL (13.0-17.5); MCHC 34.5 g/dL (31.0-37.0); MCV 98.5 fL (80.0-100.0); Mean Platelet Volume 11.6; RBC 3.55 m/uL (4.30-5.90)
[2021-07-19 06:38] LABS: Platelet Count 78 k/uL (150-450)
[2021-07-19 06:48] LABS: Albumin 2.7 g/dL (3.5-5.0); Calcium 7.5 mg/dL (8.4-10.2); Potassium 4.8 mmol/L (3.5-5.1); Total Protein 5.5 g/dL (6.3-8.2)
--- NOTE | 2021-07-19 06:48 | XR ---
EXAMINATION TYPE: XR chest 1V portable DATE OF EXAM: 07/19/2021 CLINICAL HISTORY: Difficulty breathing progress study. TECHNIQUE: Single AP portable semiupright view of the chest is obtained. COMPARISON: Chest x-ray from one day earlier and older studies FINDINGS: Stable endotracheal and orogastric tubes. Stable left sided central venous catheter. Significant overlying subcutaneous emphysema redemonstrated. Persistent bilateral multifocal and conf luent opacities. Cardiac silhouette size is stable and upper limits of normal. Osseous structures are intact. IMPRESSION: Persistent bilateral multifocal and confluent opacities consistent with covid-19 infectio n are redemonstrated. Extensive overlying subcutaneous emphysema again seen. No significant change fr om one day earlier.
[2021-07-19] MEDS: ALBUTEROL HFA INHALER INHALATION SCH ×4 (07:39→19:22)
[2021-07-19] MEDS: SYMBICORT 80-4.5 MCG INHALER INHALATION SCH ×2 (07:42→19:22)
--- NOTE | 2021-07-19 08:48 | P.PN ---
Subjective Patient is seen in follow-up for acute kidney injury. Oliguric. Started on hemodialysis 07/14/2021. Currently on Levophed. Receiving tube feeds. Potassium normal. Pupils fixed and dilated per the nurse. CT of the brain ordered. Vital signs - on vasopressor support. HEENT: Intubated. LUNGS: Breath sounds decreased. HEART: Regular rhythm. Abdomen: Soft, no distention. EXTREMITITES: 2+ edema. Objective - Vital Signs Vital signs: Vital Signs Temp 97.1 F L 07/19/21 04:00 Pulse 79 07/19/21 07:30 Resp 36 H 07/19/21 07:30 BP 117/80 07/19/21 07:30 Pulse Ox 92 L 07/19/21 07:30 Intake & Output 07/18/21 07/19/21 07/19/21 18:59 06:59 18:59 Intake Total 6320.255 1175.322 211.877 Output Total 2510 20 0 Balance -9182.307 1028.322 211.877 Weight 154.5 kg 157 kg Intake: IV 243 124 6 Fluconazole in NaCl,Iso- 50 Osm 100 mg In Saline 1 50ml.bag @ 50 mls/hr IVPB DAILY SE Rx#:[id number] Pressure Bag 63 54 6 Sodium Chloride 0.9% 1, 130 70 0 000 ml @ 10 mls/hr IV . Q24H SE Rx#:[id number] Intake, IV Titration 778.768 773.322 169.877 Amount Cisatracurium 200 mg In 20.086 Sodium Chloride 0.9% 180 ml @ 1 MCG/KG/MIN 7.26 mls/hr IV .Q24H SE Rx#: [id number] Norepinephrine 32 mg In 324.108 129.831 69.877 Sodium Chloride 0.9% 218 ml @ 0.05 MCG/KG/MIN 2. 836 mls/hr IV .Q24H SE Rx#:[id number] Sodium Chloride 0.9% 1, 0 000 ml @ 10 mls/hr IV . Q24H SE Rx#:[id number] fentaNYL (PF) 2,500 mcg 235.345 In Sodium Chloride 0.9% 200 ml @ 0.5 MCG/KG/HR 6. 05 mls/hr IV .Q24H SE Rx #:[id number] propofoL 1,000 mg In 454.66 388.06 100 Empty Bag 1 bag @ Titrate IV .Q0M COUNTS INCLUDE 234 BEDS AT THE [facility] Rx#: [id number] Tube Feeding 144 432 36 Other 90 Output: Urine 10 20 0 Hemodialysis 2500 Other: Voiding Method Indwelling Catheter Indwelling Catheter ABP, PAP, CO, CI - Last Documented Arterial Blood Pressure 121/79 - Labs CBC & Chem 7: 07/19/21 03:55 07/19/21 03:55 Labs: Abnormal Lab Results - Last 24 Hours (Table) 07/18/21 07/18/21 07/18/21 Range/Units 04:05 11:31 17:29 WBC (3.8-10.6) k/uL RBC (4.30-5.90) m/uL Hgb (13.0-17.5) gm/dL Hct (39.0-53.0) % Plt Count (150-450) k/uL ABG pH (7.35-7.45) ABG pCO2 (35-45) mmHg ABG HCO3 (21-25) mmol/L ABG Total CO2 (19-24) mmol/L Sodium (137-145) mmol/L Chloride (98-107) mmol/L BUN (9-20) mg/dL Creatinine (0.66-1.25) mg/dL Glucose (74-99) mg/dL POC Glucose (mg/dL) 159 H 160 H (75-99) mg/dL Calcium (8.4-10.2) mg/dL Total Bilirubin (0.2-1.3) mg/dL AST (17-59) U/L ALT 2697 H (4-49) U/L Alkaline Phosphatase (38-126) U/L Total Protein (6.3-8.2) g/dL Albumin (3.5-5.0) g/dL 07/18/21 07/19/21 07/19/21 Range/Units 23:34 03:55 03:55 WBC 33.0 H (3.8-10.6) k/uL RBC 3.55 L (4.30-5.90) m/uL Hgb 12.1 L (13.0-17.5) gm/dL Hct 35.0 L (39.0-53.0) % Plt Count 78 L (150-450) k/uL ABG pH (7.35-7.45) ABG pCO2 (35-45) mmHg ABG HCO3 (21-25) mmol/L ABG Total CO2 (19-24) mmol/L Sodium 133 L (137-145) mmol/L Chloride 96 L (98-107) mmol/L BUN 94 H (9-20) mg/dL Creatinine 5.34 H (0.66-1.25) mg/dL Glucose 126 H (74-99) mg/dL POC Glucose (mg/dL) 132 H (75-99) mg/dL Calcium 7.5 L (8.4-10.2) mg/dL Total Bilirubin 3.0 H (0.2-1.3) mg/dL AST 600 H (17-59) U/L ALT 1956 H (4-49) U/L Alkaline Phosphatase 246 H (38-126) U/L Total Protein 5.5 L (6.3-8.2) g/dL Albumin 2.7 L (3.5-5.0) g/dL 07/19/21 07/19/21 Range/Units 05:21 06:05 WBC (3.8-10.6) k/uL RBC (4.30-5.90) m/uL Hgb (13.0-17.5) gm/dL Hct (39.0-53.0) % Plt Count (150-450) k/uL ABG pH 7.23 L (7.35-7.45) ABG pCO2 62 H (35-45) mmHg ABG HCO3 26 H (21-25) mmol/L ABG Total CO2 28 H (19-24) mmol/L Sodium (137-145) mmol/L Chloride (98-107) mmol/L BUN (9-20) mg/dL Creatinine (0.66-1.25) mg/dL Glucose (74-99) mg/dL POC Glucose (mg/dL) 133 H (75-99) mg/dL Calcium (8.4-10.2) mg/dL Total Bilirubin (0.2-1.3) mg/dL AST (17-59) U/L ALT (4-49) U/L Alkaline Phosphatase (38-126) U/L Total Protein (6.3-8.2) g/dL Albumin (3.5-5.0) g/dL Assessment and Plan Plan: Assessment: 1. Acute kidney injury secondary to ATN secondary to septic shock. Oliguric. Started on hemodialysis 07/14/2021. Baseline creatinine 1. 2. Septic shock secondary to COVID-19 infection with concern for superimposed bacterial infection. 3. Hyperkalemia secondary to acute kidney injury and acidosis. Improved postdialysis. 4. Acute hypoxic and hypercapnic respiratory failure. 5. Metabolic acidosis secondary to acute kidney injury. Status post bicarb drip. On oral bicarb. 6. Hypocalcemia secondary to acute kidney injury. Replaced. Better. 7. Hyperphosphatemia secondary to acute kidney injury. On PhosLo. Plan: Patient underwent daily SLED this week. Hold today. Plan for another treatment tomorrow. Continue to monitor renal function and urine output. Wean FiO2 and vasopressors. CT of the brain pending. Prognosis guarded. Case discussed with the swiss type screw machine operator
[2021-07-19] MEDS: ASCORBIC ACID 500 MG TAB PO SCH (09:12)
[2021-07-19] MEDS: CHLORHEXIDINE GLUCONATE 15 ML CUP MUCOUS MEM SCH (09:13)
[2021-07-19] MEDS: CHOLECALCIFEROL 25 MCG (1000 IU) TABLET PO SCH (09:13)
[2021-07-19] MEDS: PANTOPRAZOLE 40 MG/10 ML VIAL IVP SCH (09:13)
[2021-07-19 09:14] LABS: Band Neutrophils % 8 %; Lymphocytes # (M) 0.31 k/uL (1.0-4.8); Metamyelocytes # (M) 1.56 k/uL (0); Metamyelocytes % 5 %; Monocytes # (M) 0.62 k/uL (0-1.0); Myelocytes # (M) 0.62 k/uL (0); Myelocytes % 2 %; Neutrophils % (M) 83 %; Nucleated Red Blood Cells 6 /100 WBC (0-0); Total Cells Counted 200; WBC 31.1 k/uL (3.8-10.6)
[2021-07-19] MEDS: SODIUM BICARBONATE TAB 650 MG TAB PO SCH (09:14)
[2021-07-19] MEDS: ZINC SULFATE 220 MG CAP PO SCH (09:14)
[2021-07-19] MEDS: FLUCONAZOLE IN NACL,ISO-OSM 100 MG in SALINE 1 50ML.BAG IVPB SCH (09:14)
[2021-07-19 09:15] LABS: Poikilocytosis (M) Present
--- NOTE | 2021-07-19 09:53 | P.PN ---
Subjective Progress Note Date: 07/19/21 Principal diagnosis: Respiratory failure. 07/12/2021, the patient is being seen for a follow-up. He remains critically ill intubated sedated paralyzed on a mechanical ventilator with COVID 19 related to pneumonia and multisystem organ failure. The patient has been aggressively resuscitated over the past 48 hours. At this point in time the patient remains sedated and paralyzed. His propofol is currently running at 50 mcg/kg per minute and fentanyl is running at 1 mcg/kg/h and the patient is paralyzed with Nimbex at 1 mcg/kg per minute. He is adequately sedated and paralyzed. He remains synchronous with the mechanical ventilator. He is on a pressure control mode of mechanical ventilation with a pressure control of 23 and the rate of 30 with an FiO2 of 70% and a PEEP of 15. Chest x-ray still showing diffuse bilateral subcutaneous emphysema and there is no evidence of any pneumothorax. There is also diffuse bilateral pulmonary infiltrates. All of the tubes are in good location. PH is at 7.38 with a pCO2 of 51 and pO2 of 107. As such, the patient is adequately oxygenating and ventilating. Nevertheless, the active problem was the massive shock and hypotension which was probably a septic event. Cultures were all negative. The patient is currently on a combination of antibiotics and he is receiving cefepime, and vancomycin. Infectious disease was also consulted. I maintain the patient on fluconazole knowing that the patient had extensive oropharyngeal candidiasis at the time of the intubation. He was resuscitated IV fluids and received more than 10 L of saline and also received several doses of IV albumin. During the course of the resuscitation, he was on a combination of vasopressin physiologic dose, norepinephrine and epinephrine was also added to maintain his blood pressure. We are unable to wean off the epinephrine. Vasopressin remains at physiologic dose of 0.03 units an hour and the patient is currently on 0.15 mcg/kg per minute of norepinephrine infusion. Urine output is order of 30-50 mL an hour. His white cell count is low and currently is at 22.7. He is still spiking fever on and off for which she was given Tylenol IV. Currently he is afebrile. White cell count is down to 22.7. Meanwhile, the patient developed a nonoliguric renal failure. Creatinine is up to 2.59. He was having issues with hyperkalemia. He was given bicarb IV in the form of a push and later on drip and the sodium bicarb is currently running at the rate of 150 mL an hour. Serum bicarb this morning is at 30 with a potassium level of 4.4. Coagulation profile shows an INR of 1.4 with a PT of 14.2. The patient is a sinus rhythm. He is a shock liver and the liver function tests are essentially improving. Vancomycin level this morning is at 18.2. As stated, blood cultures are negative. Enterofeeding for nutritional support will be started today. Progress note dated 07/13/2020. 50-year-old male admitted to the hospital on June 27. His admission diagnosis was coronavirus associated pneumonia. [facility] and ended up being intubated on July 10. This was for worsening hypoxemic respiratory failure. The patient is on pressure assist control mode of ventilation, with an inspiratory pressure of 23 cm water, and inspiratory time of 1 second. In addition, the patient has a rate of 30, FiO2 of 80%, and PEEP of 14. The patient's blood gases show pO2 105, pCO2 74, and pH is 7.21. The patient's currently on norepinephrine at 0.09 mcg/kg/m, vasopressin, and 0.02 units per minute, and saline at 75 mL an hour. In addition, the patient's on fentanyl 1 mcg/kg/h, Nimbex at 1 mcg/kg/m, and propofol at 50 mcg/kg/m. Tube feedings have not yet been started. White count 22.3, hemoglobin 11.3, hematocrit 33.4, and platelet count 190,000. Sodium 136, potassium 4.4, chlorides 101, CO2 28, anion gap 7 BUN 60, creatinine 2.87. Albumin is 2.3. Sputum from July 10 showing presumptive staph aureus. Chest x-ray from July 13 shows diffuse bilateral patchy infiltrates. There is extensive subcutaneous emphysema. Progress note dated 07/14/2021. 50-year-old male admitted to the hospital on June 27. His admission diagnosis was coronavirus associated pneumonia. He came to the intensive care unit on July 08 and was intubated for respiratory failure on 07/10/2021. This was for worsening hypoxemic respiratory failure. Currently, the patient is on pressure assist control, with a inspiratory pressure 23 cm water, inspiratory time of 1 second, rate of 36 breaths per minute, FiO2 65%, and PEEP of 14. Blood gases showed a pO2 of 87, pCO2 of 77, pH is 7.10. This was on a rate of 30. Repeat blood gases at the higher rate, show pO2 of 76, pCO2 70, and a pH is 7.08. The patient's on Nimbex at 1 mcg/kg/m, fentanyl 1 mcg/kg/h, norepinephrine at 70 mcg/m, vasopressin 0.03 units per minute, propofol at 50 mcg/kg/m, saline at 85 mL an hour, vital AF at 32 mL an hour. Because of his blood gases, we will go ahead and switch him to volume assist control, to attempt to reduce his PaCO2, and improve his pH. In addition, the patient is going to have a dialysis catheter placed today, and have hemodialysis. White count 34,000, hemoglobin 12.7, hematocrit 41.3, and platelet count 239,000. Sodium 136, potassium 5.7, chlorides 101, CO2 23, anion gap 12, BUN 76, with a creatinine of 4.10. Bilirubin 1.7. AST is 3060 with an ALT of 4094. Sputum from July 10 showing evidence of staph aureus. Chest x-ray shows diffuse bilateral infiltrates. Progress note dated 07/15/2021. 50-year-old male, admitted to the hospital on 06/27/2021. He was admitted with a diagnosis of coronavirus associated pneumonia. He came to the intensive care unit on 07/08/2021, and was intubated for respiratory failure on 07/10/2021. The patient remains on the ventilator. He is on the volume assist control, rate 36, tidal volume 450, FiO2 75%, and PEEP of 14. Blood gases show pO2 of 79, pCO2 65, and pH of 7.23. The patient is on norepinephrine at 21 mcg/m, Nimbex at 1 mcg/kg/m, fentanyl at 1 mcg/kg/h, vasopressin at 0.04 units per minute, propofol at 50 mcg/kg/m, saline at 75 mL an hour, and vital AF at 32 mL an hour, which is goal. He did have hemodialysis yesterday, but no fluid was removed. The plan is for hemodialysis today, with one half a liter being removed. Current labs include a white count 23.9, hemoglobin 11.4, hematocrit 36.1, and platelet count 146,000. Sodium 138, potassium 5, chlorides 101, CO2 27, anion gap 10, BUN 78, with creatinine of 4.27. Sputum from July 10 shows Staphylococcus aureus. Chest x-ray shows diffuse bilateral infiltrates, largely unchanged. Progress note dated 07/16/2021. 50-year-old male, admitted to the hospital on 06/27/2021. The patient was admitted with a diagnosis of coronavirus associated pneumonia. The patient came to the intensive care unit on July 08, and was intubated for respiratory failure 2 days later on 07/10/2021. The patient remains on the ventilator. The patient is on the volume assist control mode, rate 36, tidal [place] 450, FiO2 75%, PEEP of 14. Blood gases show a pO2 of 85, pCO2 70, and a pH is 7.15. The patient is currently on norepinephrine at 27 mcg/m, Nimbex at 2 mcg/kg/m, propofol at 50 mcg/kg/m, these are present and 0.04 units per minute, fentanyl 1 mcg/kg/h. The patient's also receiving vital AF, at goal. White count 38.1, hemoglobin 12.2, hematocrit 38.2, and platelet count 116,000. Sodium 137, potassium 5.6, chlorides 98, CO2 23, anion gap 16, BUN 81, and creatinine 4.85. AST is 1629. ALT is 3333. Sputum sampling from July 10 shows evidence of Staphylococcus aureus. Chest x-ray shows diffuse bilateral infiltrates, and extensive subcutaneous emphysema. Progress note dated 07/17/2021. 50-year-old male, again seen in room 258. The patient was admitted to the hospital on 06/27/2021. The patient was admitted with a diagnosis of coronavirus associated pneumonia. The patient came to the intensive care unit on July 08, and was intubated for respiratory failure, 2 days later, on 06/22/2021. The patient remains on the ventilator. He was previously on pressure assist control, now volume assist control, with a rate of 36, tidal volume 450, FiO2 75%, and PEEP of 14. Blood gases show pO2 of 79, pCO2 74, and pH is 7.11. The patient remains on saline at 10 mL an hour, fentanyl at 0.5 mcg/kg/h, norepinephrine at 53 mcg/m, vasopressin at 0.04 units per minute, propofol at 50 mcg/kg/m, Nimbex at 1 mcg/kg/m, vital high protein at 36 mL an hour, which is goal. The patient did have hemodialysis yesterday, with 1 L re moved. The plan is for hemodialysis again today. I had a chance to speak to the 2 days ago on the phone, and yesterday, and person, in the patient's room. I gave her a thorough day. I did tell her, that the patient was very critically ill, and that he likely may not survive this illness. She understands. Chest x-ray shows diffuse bilateral infiltrates. There is extensive subcutaneous emphysema. White count is 36.3, hemoglobin is 12.3, hematocrit 38, and platelet count 110,000. Sodium 135, potassium 5.8, chlorides 99, CO2 20, anion gap 16, BUN 86, creatinine 5.50. Cortisol levels 28. TSH is 0.052. Progress note dated 07/18/2021. 50-year-old male, again seen in room 258. The patient was admitted to the hospital on 06/27/2021. The patient was admitted with a diagnosis of c oronavirus associated pneumonia and hypoxemic respiratory failure. The patient came to the intensive care unit on July 08, was intubated 2 days later on July 10. The patient remains on the ventilator. The patient is on the volume assist control mode, rate 36, tidal volume 50, FiO2 75%, and PEEP 14. We'll gases show pO2 of 83, pCO2 73, and pH is 7.15. The patient is currently on Nimbex at 1 mcg/kg/m, vasopressin at 0.04 units per minute, saline at 10 mL an hour, propofol at 50 mcg/kg/m, fentanyl at 0.05 mcg/kg/h, norepinephrine at 52 mcg/m, and vital high protein at 36 mL an hour, which is goal. The patient had a liter removed yesterday during hemodialysis, and the plan is to remove another liter today. White count 33.6, hemoglobin 12.4, hematocrit 37.5, and platelet count 93,000. Sodium 135, potassium 5.7, chlorides 100, CO2 20, anion gap 12, BUN 89, creatinine 5.47. AST 1065 and ALTs 2697. Microbiology shows evidence of staph aureus in the sputum on July 10. Chest x-ray shows persistent bilateral infiltrates. The x-ray is essentially unchanged. The patient has extensive subcutaneous emphysema. Progress note dated 07/19/2021. 50-year-old male, again seen in room 258. The patient was admitted back on 06/27/2021. He was admitted with a diagnosis of coronavirus associated pneumonia, and hypoxemic respiratory failure. The patient came to the intensive care unit on 07/08/2021, and was intubated on 07/10/2021. The patient remains on the ventilator. He is on the volume assist control mode, rate, 36, tidal volume 450, FiO2 is 75%, with a PEEP of 14. Blood gases show pO2 94, pCO2 62, and pH of 7.23. The patient is currently on norepinephrine at 31 mcg/m, saline at 5 mL an hour, Nimbex at 1 mcg/kg/m, fentanyl 1 mcg/kg/h, propofol at 50 mcg/kg/m, vasopressin, which is been weaned off, and vital high protein at 36 mL an hour, which is goal. The patient had hemodialysis yesterday, and 1.5 L of fluid was removed. Nephrology has decided not to dialyze the patient today. Unfortunately, according to the nurse, the patient has a change in his pupillary size and reactivity. For that reason, the patient will be sent for a computed tomography scan of the head. We will be done without contrast. Chest x-ray continues to show diffuse bilateral infiltrates. White count 31.1, hemoglobin 12.1, hematocrit 35, and platelet count 70,000. Sodium 133, potassium 4.8, chlorides 96, CO2 25, anion 12, BUN 94, with a creatinine of 5.34. AST 600, ALT 1956. Albumin is 2.7. Objective - Vital Signs Vital signs: Vital Signs Temp 97.1 F L 07/19/21 04:00 Pulse 79 07/19/21 07:30 Resp 36 H 07/19/21 07:30 BP 117/80 07/19/21 07:30 Pulse Ox 92 L 07/19/21 07:30 Intake & Output 07/18/21 07/19/21 07/19/21 18:59 06:59 18:59 Intake Total 9872.893 7013.322 211.877 Output Total 2510 20 0 Balance -3559.986 8640.322 211.877 Weight 154.5 kg 157 kg Intake: IV 243 124 6 Fluconazole in NaCl,Iso- 50 Osm 100 mg In Saline 1 50ml.bag @ 50 mls/hr IVPB DAILY SE Rx#:[id number] Pressure Bag 63 54 6 Sodium Chloride 0.9% 1, 130 70 0 000 ml @ 10 mls/hr IV . Q24H SE Rx#:[id number] Intake, IV Titration 778.768 773.322 169.877 Amount Cisatracurium 200 mg In 20.086 Sodium Chloride 0.9% 180 ml @ 1 MCG/KG/MIN 7.26 mls/hr IV .Q24H SE Rx#: [id number] Norepinephrine 32 mg In 324.108 129.831 69.877 Sodium Chloride 0.9% 218 ml @ 0.05 MCG/KG/MIN 2. 836 mls/hr IV .Q24H SE Rx#:[id number] Sodium Chloride 0.9% 1, 0 000 ml @ 10 mls/hr IV . Q24H SE Rx#:[id number] fentaNYL (PF) 2,500 mcg 235.345 In Sodium Chloride 0.9% 200 ml @ 0.5 MCG/KG/HR 6. 05 mls/hr IV .Q24H SE Rx #:[id number] propofoL 1,000 mg In 454.66 388.06 100 Empty Bag 1 bag @ Titrate IV .Q0M SE Rx#: [id number] Tube Feeding 144 432 36 Other 90 Output: Urine 10 20 0 Hemodialysis 2500 Other: Voiding Method Indwelling Catheter Indwelling Catheter ABP, PAP, CO, CI - Last Documented Arterial Blood Pressure 121/79 - Exam No acute distress, currently sedated and paralyzed, with an orally placed endotracheal tube and NG tube. HEENT examination is grossly unremarkable. Extensive subcutaneous emphysema. Pupils 5 mm and poorly reactive. Neck supple. Full range of motion. No adenopathy thyromegaly or neck vein distention. Cardiovascular examination reveals regular rhythm rate. S1-S2 normal. No S3 or S4. No discernible murmur noted. Heart sounds are distant. Heart rate 79 bpm. Lungs reveal diffuse coarse rhonchi. Breath sounds equal. No wheezes. There is extensive subcutaneous emphysema. Saturations are 92 %. Abdomen soft without bowel sounds Extremities are intact. No cyanosis clubbing or edema. Skin is without rash or lesion. Neurologic examination cannot be evaluated as the patient is sedated and paralyzed. - Labs CBC & Chem 7: 07/19/21 03:55 07/19/21 03:55 Labs: Abnormal Lab Results - Last 24 Hours (Table) 07/18/21 07/18/21 07/18/21 Range/Units 11:31 17:29 23:34 WBC (3.8-10.6) k/uL RBC (4.30-5.90) m/uL Hgb (13.0-17.5) gm/dL Hct (39.0-53.0) % Plt Count (150-450) k/uL Neutrophils # (Manual) (1.3-7.7) k/uL Lymphocytes # (Manual) (1.0-4.8) k/uL Metamyelocytes # (Man) (0) k/uL Myelocytes # (Manual) (0) k/uL Nucleated RBCs (0-0) /100 WBC ABG pH (7.35-7.45) ABG pCO2 (35-45) mmHg ABG HCO3 (21-25) mmol/L ABG Total CO2 (19-24) mmol/L Sodium (137-145) mmol/L Chloride (98-107) mmol/L BUN (9-20) mg/dL Creatinine (0.66-1.25) mg/dL Glucose (74-99) mg/dL POC Glucose (mg/dL) 159 H 160 H 132 H (75-99) mg/dL Calcium (8.4-10.2) mg/dL Total Bilirubin (0.2-1.3) mg/dL AST (17-59) U/L ALT (4-49) U/L Alkaline Phosphatase (38-126) U/L Total Protein (6.3-8.2) g/dL Albumin (3.5-5.0) g/dL 07/19/21 07/19/21 07/19/21 Range/Units 03:55 03:55 05:21 WBC 31.1 H (3.8-10.6) k/uL RBC 3.55 L (4.30-5.90) m/uL Hgb 12.1 L (13.0-17.5) gm/dL Hct 35.0 L (39.0-53.0) % Plt Count 78 L (150-450) k/uL Neutrophils # (Manual) 28.30 H (1.3-7.7) k/uL Lymphocytes # (Manual) 0.31 L (1.0-4.8) k/uL Metamyelocytes # (Man) 1.56 H (0) k/uL Myelocytes # (Manual) 0.62 H (0) k/uL Nucleated RBCs 6 H (0-0) /100 WBC ABG pH (7.35-7.45) ABG pCO2 (35-45) mmHg ABG HCO3 (21-25) mmol/L ABG Total CO2 (19-24) mmol/L Sodium 133 L (137-145) mmol/L Chloride 96 L (98-107) mmol/L BUN 94 H (9-20) mg/dL Creatinine 5.34 H (0.66-1.25) mg/dL Glucose 126 H (74-99) mg/dL POC Glucose (mg/dL) 133 H (75-99) mg/dL Calcium 7.5 L (8.4-10.2) mg/dL Total Bilirubin 3.0 H (0.2-1.3) mg/dL AST 600 H (17-59) U/L ALT 1956 H (4-49) U/L Alkaline Phosphatase 246 H (38-126) U/L Total Protein 5.5 L (6.3-8.2) g/dL Albumin 2.7 L (3.5-5.0) g/dL 07/19/21 Range/Units 06:05 WBC (3.8-10.6) k/uL RBC (4.30-5.90) m/uL Hgb (13.0-17.5) gm/dL Hct (39.0-53.0) % Plt Count (150-450) k/uL Neutrophils # (Manual) (1.3-7.7) k/uL Lymphocytes # (Manual) (1.0-4.8) k/uL Metamyelocytes # (Man) (0) k/uL Myelocytes # (Manual) (0) k/uL Nucleated RBCs (0-0) /100 WBC ABG pH 7.23 L (7.35-7.45) ABG pCO2 62 H (35-45) mmHg ABG HCO3 26 H (21-25) mmol/L ABG Total CO2 28 H (19-24) mmol/L Sodium (137-145) mmol/L Chloride (98-107) mmol/L BUN (9-20) mg/dL Creatinine (0.66-1.25) mg/dL Glucose (74-99) mg/dL POC Glucose (mg/dL) (75-99) mg/dL Calcium (8.4-10.2) mg/dL Total Bilirubin (0.2-1.3) mg/dL AST (17-59) U/L ALT (4-49) U/L Alkaline Phosphatase (38-126) U/L Total Protein (6.3-8.2) g/dL Albumin (3.5-5.0) g/dL Assessment and Plan Assessment: Acute hypoxemic respiratory failure, secondary to coronavirus associated pneumonia, status post intubation and mechanical ventilation on July 10. Acute respiratory distress syndrome (ARDS). Extensive subcutaneous emphysema as a complication of coronavirus associated pneumonia. Possible acute adrenal insufficiency. History of chronic bronchial asthma. Right lower extremity deep venous thrombosis. History of oropharyngeal candidiasis. History of shock liver. Acute kidney injury. Septic shock with multiorgan system failure. Previous history of tobacco use. History of C5-C6 fusion. History of transverse myelitis. Plan: Plan dated 06/28/2021. Currently, the patient is a candidate for Decadron, Lovenox, vitamin C, vitamin D3, and zinc. He is not a candidate for REM, consistent and have been present for more than 7 days, and he is on oxygen that is greater than 6 L/m. He is getting close to the point where he may become a candidate for FLAQUITO. The patient does appear relatively comfortable. We will continue to follow make recommendations where appropriate. The patient is on his usual inhalers for his asthma. Prognosis is guarded. Plan dated 07/13/2020. The patient's labs, x-rays, and medications all reviewed. The patient remains on a factor X a inhibitor for his right lower extremity DVT. The patient continues on Decadron. FLAQUITO has been discontinued. The patient remains on fentanyl, Nimbex, and propofol. The patient remains on both norepinephrine and vasopressin. The patient is obviously very critically ill. The patient remains on pressure assist control mode of mechanical ventilation. Additional recommendations and suggestions are forthcoming. We will continue to follow the patient and make recommendations where appropriate. Overall prognosis remains very guarded. Plan dated 07/14/2021. The patient's labs, x-rays, and medications are all reviewed. The patient remains on a factor X a inhibitor for his right lower extremity DVT. The patient continues on Decadron. The patient also remains on fentanyl, Nimbex, and propofol. The patient is on norepinephrine and vasopressin for blood pressure stability. I did have a chance to speak to his Shyla. She understands the gravity of the situation. I explained to her that we will continue to support him fully. At this time, his prognosis is very poor. We will continue to follow the patient and make recommendations where appropriate. We did change his ventilator from pressure assist control, volume assist control. The patient will have a hemodialysis catheter placed today and undergo hemodialysis. Urine output is poor and renal function has worsened. Plan dated 07/15/2021. The patient was switched from pressure assist control, to volume assist control yesterday. Blood gases today are much improved. The patient remains on norepinephrine, Nimbex, fentanyl, vasopressin, propofol, and tube feeds. The patient did have hemodialysis yesterday, and will have hemodialysis again today. We will continue to follow make recommendations where appropriate. I did have a chance to speak to the patient's yesterday. I gave her a full update. The patient continues to be a full code. We will continue to follow make recommendations were appropriate. Medications are reviewed. Labs are reviewed. Chest x-rays reviewed. Plan dated 07/16/2021. The patient remains about the same. The patient is currently receiving hemodialysis. The patient remains on norepinephrine, Nimbex, propofol, fentanyl, and vasopressin. The patient was switched from pressure assist control to volume assist control, because of worsening hypercapnia, and acidosis. Additional recommendations and suggestions are forthcoming. I will continue to follow make recommendations were appropriate. Prognosis is guarded. I did speak to the 2 days ago, and gave her an update. She does understand the gravity of the situation. Plan dated 07/17/2021. The patient will have hemodialysis today. 1 L was removed during hemodialysis yesterday. The patient remains on all the same drips including fentanyl, norepinephrine, vasopressin, propofol, Nimbex, and is receiving tube feedings with vital high protein. The patient's overall prognosis is very guarded. I had a chance to speak to the in person yesterday. Her name is Shyla. I did let her know that her was very critically ill, and may not survive this. The patient had a cortisol level which was 28. I am going to give him hy drocortisone instead of Decadron. Additional recommendations and suggestions are forthcoming. Continue to follow make recommendations where appropriate. Plan dated 07/18/2021. The patient is having hemodialysis today. The goal is to remove another liter fluid. He did have hemodialysis yesterday, with 1 L removed. The patient remains on multiple drips including Nimbex, vasopressin, propofol, fentanyl, and norepinephrine. Blood gases are reviewed. Labs and x-rays are reviewed. The chest x-rays essentially unchanged. The patient has extensive subcutaneous emphysema. The patient was switched to hydrocortisone yesterday for suspected adrenal insufficiency. Additional recommendations and suggestions are forthcoming. Prognosis is guarded. We will continue to follow make recommendat ions where appropriate. I did have an opportunity to speak to the on 2 separate occasions. She does understand the gravity of the situation. Plan dated 07/19/2021. The patient will not have hemodialysis today. The patient remains on norepinephrine, Nimbex, fentanyl, and propofol. Vasopressin has been weaned off. Because of the change in his pupillary size and reactivity, the patient wi ll go for head CT today without contrast. Additional recommendations and suggestions are forthcoming. We have been talking to the all along. She understands the gravity of the situation. A few days ago, the patient was placed on stress doses of hydrocortisone, for suspected adrenal insufficiency. The dose of norepinephrine has been significantly wean, and the patient has been taken off the vasopressin. We will continue to follow make recommendations where appropriate. Prognosis is very guarded. Time with Patient: Greater than 30
--- NOTE | 2021-07-19 11:20 | CT ---
EXAMINATION TYPE: CT brain wo con DATE OF EXAM: 07/19/2021 COMPARISON: CT brain June 25, 2019 HISTORY: pupils enlarged, nonreactive CT DLP: 1099.4 mGycm. Automated Exposure Control for Dose Reduction was Utilized. TECHNIQUE: CT scan of the head is performed without contrast. FINDINGS: New Diffuse gyral swelling bilaterally. New hyperdense material filling the sulci bilatera lly suspicious for acute subarachnoid hemorrhage though is not as prominent as suspected as suprasell ar level. The ventricles are stable in size and not dilated. There is effacement of the suprasellar c istern and fourth ventricle along with inferior cerebellar cerebellar tonsillar displacement and diff use piedra-white matter blurring. Completely opacified mastoid air cells bilaterally. Dependent fluid l eft sphenoid sinus. Endotracheal tube and orogastric tube noted on localizer. IMPRESSION: Suspect severe global ischemia with marked parenchymal swelling and vague [place] blurring bilaterally. There is uncal herniation with loss of the suprasellar cistern. There is ton sillar herniation. Hyperdense material along the periphery is suspicious for acute subarachnoid hemor rhage. A [place] level critical message alert has been initiated for Dave Vigil via the [employer] Critical Results System on 07/19/2021 11:17 AM. This message alert has been sent to Dave Vigil via the preferences provided by the clinician for the receipt of Radiology Critical Findings. Message ID [id number].
[2021-07-19 11:28] LABS: Glucose,Whole Blood 150 mg/dL (75-99)
--- NOTE | 2021-07-19 12:14 | P.PN ---
Subjective Progress Note Date: 07/18/21 Principal diagnosis: Acute hypoxic respiratory failure secondary to COVID 19 pneumonia Status post intubation and mechanical ventilation on July 10 Acute respiratory distress syndrome Extensive subcutaneous emphysema as a complication of coronavirus associated pn [place] Possible adrenal insufficiency 50-year-old male patient, admitted to the hospital on 06/27/2021 with acute hypoxic respiratory failure related to COVID-19 D pneumonia. The patient came to the intensive care unit on July 08, and was intubated for respiratory failure, 2 days later, on 06/22/2021. 07/17/2021 The patient is seen and evaluated in ICU; remains intubated and mechanically ventilated; remains on fentanyl, propofol and Nimbex. Cortisol level is elevated at 28; critical care recommending to switch patient to hydrocortisone from Decadron The patient did have hemodialysis yesterday, with 1 L removed. The plan is for hemodialysis again today. Chest x-ray shows diffuse bilateral infiltrates. There is extensive subcutaneous emphysema. White count is 36.3, hemoglobin is 12.3, hematocrit 38, and platelet count 110,000. Sodium 135, potassium 5.8, chlorides 99, CO2 20, anion gap 16, BUN 86, creatinine 5.50. Cortisol levels 28. TSH is 0.052. Blood gases show pO2 of 79, pCO2 74, and pH is 7.11. Patient remains critically ill with grave prognosis; patient's condition has been updated to patient's family by intensive care team 07/18/2021 The patient is seen and evaluated and discussed with nursing staff; remains on the mechanical ventilator. ABGs drawn this morning reveal pO2 of 83, pCO2 73, and pH is 7.15. The patient is currently on Nimbex, vasopressin, propofol, fentanyl, norepinephrine. The patient underwent hemodialysis yesterday and had a liter removed; plan for repeat hemodialysis this morning. Laboratory review shows White count 33.6, hemoglobin 12.4, hematocrit 37.5, and platelet count 93,000. Sodium 135, potassium 5.7, chlorides 100, CO2 20, anion gap 12, BUN 89, creatinine 5.47. AST 1065 and ALTs 2697. Microbiology shows evidence of staph aureus in the sputum on July 10. Chest x-ray shows persistent bilateral infiltrates which is is essentially unchanged. The patient has extensive subcutaneous emphysema. Patient was/to hydrocortisone for suspected adrenal insufficiency for critical care recommendations Patient's prognosis does remain quite Objective - Vital Signs Vital signs: Vital Signs Temp 99.5 F 07/18/21 12:00 Pulse 103 H 07/18/21 14:00 Resp 36 H 07/18/21 14:00 BP 97/66 07/18/21 14:00 Pulse Ox 89 L 07/18/21 14:00 Intake & Output 07/17/21 07/18/21 07/18/21 18:59 06:59 18:59 Intake Total 2009.640 7361.357 671.369 Output Total 25 5 2510 Balance 7574.532 9369.357 -1838.631 Weight 148 kg 154.5 kg Intake: IV 248 176 172 Fluconazole in NaCl,Iso- 50 50 Osm 100 mg In Saline 1 50ml.bag @ 50 mls/hr IVPB DAILY SE Rx#:[id number] Pressure Bag 78 66 42 Sodium Chloride 0.9% 1, 120 110 80 000 ml @ 10 mls/hr IV . Q24H SE Rx#:[id number] Intake, IV Titration 846.392 697.357 391.369 Amount Cisatracurium 200 mg In 181.258 138.424 Sodium Chloride 0.9% 180 ml @ 1 MCG/KG/MIN 7.26 mls/hr IV .Q24H SE Rx#: [id number] Norepinephrine 32 mg In 295.055 72.353 102.569 Sodium Chloride 0.9% 218 ml @ 0.05 MCG/KG/MIN 2. 836 mls/hr IV .Q24H SE Rx#:[id number] fentaNYL (PF). 1,000 mcg 70.079 In Sodium Chloride 0.9% 80 ml @ 0.5 MCG/KG/HR 6. 05 mls/hr IV .[id number] SE Rx#:[id number] propofoL 1,000 mg In 300 486.58 288.8 Empty Bag 1 bag @ Titrate IV .Q0M SE Rx#: [id number] Tube Feeding 468 360 108 Other 90 90 Output: Urine 25 5 10 Hemodialysis 2500 Other: Voiding Method Indwelling Catheter Indwelling Catheter Indwelling Catheter ABP, PAP, CO, CI - Last Documented Arterial Blood Pressure 107/64 - Exam GENERAL: Patient is currently on mechanical mechanical ventilator sedated and intubated.. HEENT: Pupils are round and equally reacting to light. EOMI. No scleral icterus. No conjunctival pallor. Normocephalic, atraumatic. No pharyngeal erythema. No thyromegaly. CARDIOVASCULAR: S1 and S2 present. No murmurs, rubs, or gallops. PULMONARY: Coarse scattered rhonchi ABDOMEN: Soft, nontender, nondistended, normoactive bowel sounds. No palpable organomegaly. MUSCULOSKELETAL: No joint swelling or deformity. EXTREMITIES: No cyanosis, clubbing, right leg peripheral edema. NEUROLOGICAL: Gross neurological examination did not reveal any focal deficits. - Labs CBC & Chem 7: 07/19/21 03:55 07/19/21 03:55 Labs: Abnormal Lab Results - Last 24 Hours (Table) 07/17/21 07/17/21 07/17/21 Range/Units 17:27 22:48 23:51 WBC (3.8-10.6) k/uL RBC (4.30-5.90) m/uL Hgb (13.0-17.5) gm/dL Hct (39.0-53.0) % MCV (80.0-100.0) fL Plt Count (150-450) k/uL Neutrophils # (Manual) (1.3-7.7) k/uL Lymphocytes # (Manual) (1.0-4.8) k/uL Metamyelocytes # (Man) (0) k/uL Myelocytes # (Manual) (0) k/uL Nucleated RBCs (0-0) /100 WBC ABG pH (7.35-7.45) ABG pCO2 (35-45) mmHg ABG Total CO2 (19-24) mmol/L ABG O2 Saturation (94-97) % Sodium (137-145) mmol/L Potassium 5.5 H (3.5-5.1) mmol/L BUN (9-20) mg/dL Creatinine (0.66-1.25) mg/dL Glucose (74-99) mg/dL POC Glucose (mg/dL) 151 H 167 H (75-99) mg/dL Calcium (8.4-10.2) mg/dL Total Bilirubin (0.2-1.3) mg/dL AST (17-59) U/L ALT (4-49) U/L Alkaline Phosphatase (38-126) U/L Total Protein (6.3-8.2) g/dL Albumin (3.5-5.0) g/dL 07/18/21 07/18/21 07/18/21 Range/Units 04:05 04:05 05:25 WBC 33.6 H (3.8-10.6) k/uL RBC 3.74 L (4.30-5.90) m/uL Hgb 12.4 L (13.0-17.5) gm/dL Hct 37.5 L (39.0-53.0) % MCV 100.3 H (80.0-100.0) fL Plt Count 93 L (150-450) k/uL Neutrophils # (Manual) 31.50 H (1.3-7.7) k/uL Lymphocytes # (Manual) 0.34 L (1.0-4.8) k/uL Metamyelocytes # (Man) 1.01 H (0) k/uL Myelocytes # (Manual) 0.67 H (0) k/uL Nucleated RBCs 9 H (0-0) /100 WBC ABG pH (7.35-7.45) ABG pCO2 (35-45) mmHg ABG Total CO2 (19-24) mmol/L ABG O2 Saturation (94-97) % Sodium 135 L (137-145) mmol/L Potassium 5.7 H (3.5-5.1) mmol/L BUN 89 H (9-20) mg/dL Creatinine 5.47 H (0.66-1.25) mg/dL Glucose 144 H (74-99) mg/dL POC Glucose (mg/dL) 152 H (75-99) mg/dL Calcium 7.5 L (8.4-10.2) mg/dL Total Bilirubin 3.3 H (0.2-1.3) mg/dL AST 1065 H (17-59) U/L ALT 2697 H (4-49) U/L Alkaline Phosphatase 250 H (38-126) U/L Total Protein 5.7 L (6.3-8.2) g/dL Albumin 2.9 L (3.5-5.0) g/dL 07/18/21 07/18/21 07/18/21 Range/Units 05:59 06:00 11:31 WBC (3.8-10.6) k/uL RBC (4.30-5.90) m/uL Hgb (13.0-17.5) gm/dL Hct (39.0-53.0) % MCV (80.0-100.0) fL Plt Count (150-450) k/uL Neutrophils # (Manual) (1.3-7.7) k/uL Lymphocytes # (Manual) (1.0-4.8) k/uL Metamyelocytes # (Man) (0) k/uL Myelocytes # (Manual) (0) k/uL Nucleated RBCs (0-0) /100 WBC ABG pH 7.15 L* (7.35-7.45) ABG pCO2 73 H* (35-45) mmHg ABG Total CO2 28 H (19-24) mmol/L ABG O2 Saturation 92.4 L (94-97) % Sodium (137-145) mmol/L Potassium (3.5-5.1) mmol/L BUN (9-20) mg/dL Creatinine (0.66-1.25) mg/dL Glucose (74-99) mg/dL POC Glucose (mg/dL) 157 H 159 H (75-99) mg/dL Calcium (8.4-10.2) mg/dL Total Bilirubin (0.2-1.3) mg/dL AST (17-59) U/L ALT (4-49) U/L Alkaline Phosphatase (38-126) U/L Total Protein (6.3-8.2) g/dL Albumin (3.5-5.0) g/dL Assessment and Plan Assessment: Acute hypoxic respiratory failure secondary to COVID 19 pneumonia requiring oxygen support with 60L with FiO2 90% and nonrebreather mask--> BIPAP. Intubated on 07/10/2021 Right apical pneumothorax estimated at less than 10% and subcutaneous emphysema Septic shock with multiorgan system failure. Requiring pressor support with norepinephrine and vasopressin. Acute kidney injury due to ATN. Requiring hemodialysis initiated on 07/14/2021 Acute metabolic acidosis Shock liver with elevated AST and ALT Acute DVT right lower extremity; on eliquis started this admission Elevated DD, CTA negative for PE, positive DVT Elevated liver enzymes possibly due to systemic inflammation, resolved Elevated inflammatory markers secondary to COVID 19, improving History of DVT History of asthma, not in acute exacerbation Remote history of nicotine dependence History of transverse myelitis History of C5-C6 fusion Obesity GI Prophylaxis: Protonix DVT Prophylaxis: Eliquis FULL CODE Plan Patientin in the MICU. on [facility] ventilator with pressure support Patient went into septic shock and multiorgan failure. Currently still requiring pressors and received fluid boluses. Patient was also started on bicarb drip and monitor renal function closely.Due to worsening renal failure patient was initiated on hemodialysis on 07/14/2021. Patient will be cannula broad-spectrum antibiotics in the form of cefepime. Monitor LFTs Continue decadron, vitamins. Baricitinib on hold. Eliquis for DVT Repeat labs in AM Incentive spirometry Continue all other supportive care Cont with PT/OT consultation Prognosis remains guarded
[2021-07-19] MEDS: APIXABAN 5 MG TAB PO SCH (12:40)
[2021-07-19] MEDS ORDERED: MANNITOL IV ONE ×2 (13:00→22:00)
[2021-07-19] MEDS ORDERED: SODIUM CHLORIDE 3%(HYPERTONIC) 500 ML IV SCH (13:00)
[2021-07-19] MEDS ORDERED: MANNITOL 20% ONE (13:00)
[2021-07-19] MEDS ORDERED: PMX ONE (13:00)
--- NOTE | 2021-07-19 13:43 | P.CNNES ---
History of Present Illness Consult date: 07/19/21 Requesting physician: Dave Vigil Reason for Consult: abnormal CT brain History of Present Illness: This is a 50-year-old gentleman with history of transverse myelitis (2007), chronic back pain who presented emergency department on 06/27/2021 for shortness of breath. Neurology is consulted for abnormal CT head finding. History is obtained from the patient's (Shyla) who is at bedside and his nurse. His admission diagnoses was bright virus associated pneumonia. Because of his declining respiratory status was intubated on the 07/10/2021. Patient also has been on sedation of fentanyl 1mcg/kg/hr, Nimbex 1mcg/kg/min and IV propofol 50mcg/kg/min. also the patient is on norepinephrine 0.2 mcg/kg/m since the patient has hypotension. At one point the patient was on vasopressin, norepinephrine and epinephrine to maintain his blood pressure. During this hospital stay he has been getting dialysis since 07/14/21 and last dialysis was yesterday. Today the patient was noted to have dilated and unreactive pupils (about 6mm bilaterally) but per the nurse it was noted at midnight by ICU nurse but unsure why it was not addressed. Prior to that last reactive pupil documented was on 07/18/21 at 8pm per nurse. A CT head was done today at 11:10am and report as suspected severe global ischemia with marketed parenchymal swelling in the piedra-white matter blurring bilaterally. The uncal herniation with loss of suprasellar cistern. There is tonsillar herniation. Hyperdense material along the periphery is suspicious for acute subarachnoid hemorrhage. I personally reviewed the CT of the head and I agree with the findings. Of note the patient's stated that the patient has history of transverse mye litis in 2007 and he was treated [facility]. He is currently not on any medication for transverse myelitis. He has chronic back pain and takes when necessary [id number] pain medication. Otherwise the patient does not have any other medical history. It seems that he has not followed up with a neurologist as well. He socially drinks alcohol. He smokes cigars socially. Per the there is no illicit drug use. Patient has not received vaccine for his COVID-19. The patient's , prior to presenting to the hospital patient is oriented X4 and had no focal deficits. Other workup in the hospital consisted of: Most recent vitals: Blood pressure is 91/61, heart rate of 84, respiratory of 535, temperature of 94.6 Fahrenheit core, and pulse ox of 87% and patient is on mechanical ventilation just recently the patient the pulse ox. One down to an 85%. Most recent white blood cell is 31.1 thousand, platelet is 78,000 and is trending downwards, hemoglobin is 12.1, hematocrit is 35.0. Most recent chem strip panel is sodium is 133, creatinine is 5.34 which is trending upwards and he is requiring dialysis last dialysis was yesterday, serum glucose is 126, calcium 7.5, AST is 600, ALT is 1956, Most recent phosphorus is 7.6 which is elevated, and magnesium was 2.5 which is also slightly elevated at. TSH is 0.052 and the free T4 is 0.32 both are low Urine analysis was done twice and was negative for urinary tract infection. Coronavirus PCR wasn't detected positive on 06/27/2021. Hepatitis B surface antigen antibody and core antibody was nonreactive. During this hospital visit was felt the patient has acute respiratory distress syndrome, right lower extremity DVT and is on Eliquis and the shock liver with multiorgan failure. Review of Systems Review of system is limited but the parent positive and negative as per HPI Past Medical History Past Medical History: Asthma Additional Past Medical History / Comment(s): tranverese mylitis History of Any Multi-Drug Resistant Organisms: None Reported Additional Past Surgical History / Comment(s): c5-c6 fusion, right hip replacment. Past Anesthesia/Blood Transfusion Reactions: No Reported Reaction Past Psychological History: No Psychological Hx Reported Smoking Status: Former smoker Past Alcohol Use History: None Reported Past Drug Use History: None Reported - Past Family History Mother Family Medical History: Myocardial Infarction ([place]), Vascular Disorder Father History Unknown: Yes Medications and Allergies Home Medications Medication Instructions Recorded Confirmed Type Albuterol Sulfate [Proair Hfa] 2 puff INHALATION RT-Q6H PRN 06/27/21 06/27/21 History Baclofen 10 mg PO BID 06/27/21 06/27/21 History Fluticasone Propion/Salmeterol 1 puff INHALATION RT-BID 06/27/21 06/27/21 History [Wixela 250-50 Inhub] Naproxen 500 mg PO BID 06/27/21 06/27/21 History oxyCODONE-APAP 5-325MG [Percocet 1 tab PO TID 06/27/21 06/27/21 History 5-325 mg] Allergies Allergy/AdvReac Type Severity Reaction Status Date / Time No Known Allergies Allergy Verified 06/27/21 12:56 Physical Examination - Vital Signs Vital Signs: Vital Signs Temp Pulse Resp BP BP Pulse Ox 07/19/21 12:30 89 36 H 91/61 85 L 07/19/21 12:00 94.6 F L 84 35 H 91/61 87 L 07/19/21 11:30 81 36 H 112/80 87 L 07/19/21 11:00 36 H 07/19/21 10:30 79 36 H 109/73 93 L 07/19/21 10:00 79 36 H 116/80 93 L 07/19/21 09:30 79 36 H 117/76 93 L 07/19/21 09:00 79 36 H 112/82 92 L 07/19/21 08:30 79 36 H 120/78 92 L 07/19/21 08:00 94.6 F L 80 36 H 117/84 92 L 07/19/21 07:30 79 36 H 117/80 92 L 07/19/21 07:00 79 36 H 120/82 92 L 07/19/21 06:30 80 36 H 120/81 92 L 07/19/21 06:00 80 36 H 122/79 92 L 07/19/21 05:30 80 36 H 122/85 92 L 07/19/21 05:00 80 36 H 123/86 93 L 07/19/21 04:30 80 36 H 120/84 92 L 07/19/21 04:00 97.1 F L 80 36 H 118/87 92 L 07/19/21 03:30 81 36 H 118/86 92 L 07/19/21 03:00 81 36 H 129/88 92 L 07/19/21 02:30 82 36 H 137/97 92 L 07/19/21 02:00 85 36 H 136/95 91 L 07/19/21 01:30 85 36 H 131/92 91 L 07/19/21 01:00 86 36 H 142/96 91 L 07/19/21 00:30 90 36 H 137/99 91 L 07/19/21 00:00 97.5 F L 90 36 H 129/91 91 L 07/18/21 23:30 91 36 H 126/90 89 L 07/18/21 23:03 93 36 H 126/90 90 L 07/18/21 23:00 93 36 H 122/87 89 L 07/18/21 22:30 93 36 H 124/88 91 L 07/18/21 22:00 95 36 H 123/88 91 L 07/18/21 21:30 96 36 H 121/87 90 L 07/18/21 21:00 96 36 H 113/82 91 L 07/18/21 20:30 98 36 H 118/83 91 L 07/18/21 20:00 98.1 F 98 36 H 118/83 88 L 07/18/21 19:30 98 36 H 116/81 90 L 07/18/21 19:00 99.3 F 98 36 H 116/84 88 L 07/18/21 18:30 99 36 H 111/76 89 L 07/18/21 18:00 99 36 H 111/76 89 L 07/18/21 17:30 99 36 H 110/77 89 L 07/18/21 17:00 101 H 36 H 107/72 90 L 07/18/21 16:30 101 H 36 H 111/77 90 L 07/18/21 16:00 99.7 F H 101 H 36 H 114/77 90 L 07/18/21 15:30 102 H 36 H 107/79 90 L 07/18/21 15:00 102 H 36 H 107/79 89 L 07/18/21 14:30 103 H 36 H 106/79 89 L 07/18/21 14:00 103 H 36 H 97/66 89 L 07/18/21 13:30 104 H 36 H 95/71 89 L 07/18/21 13:00 108 H 36 H 115/84 07/18/21 12:52 90/60 Intake and Output 07/18/21 07/19/21 07/19/21 22:59 06:59 14:59 Intake Total 147.834 9360.236 361.877 Output Total 10 10 0 Balance 064.168 6684.236 361.877 Intake: IV 119 76 120 Fluconazole in NaCl,Iso- 50 Osm 100 mg In Saline 1 50ml.bag @ 50 mls/hr IVPB DAILY SE Rx#:[id number] Pressure Bag 39 36 30 Sodium Chloride 0.9% 1, 80 40 40 000 ml @ 10 mls/hr IV . Q24H SE Rx#:[id number] Intake, IV Titration 507.485 653.236 169.877 Amount Cisatracurium 200 mg In 20.086 Sodium Chloride 0.9% 180 ml @ 1 MCG/KG/MIN 7.26 mls/hr IV .Q24H SE Rx#: [id number] Norepinephrine 32 mg In 221.539 129.831 69.877 Sodium Chloride 0.9% 218 ml @ 0.05 MCG/KG/MIN 2. 836 mls/hr IV .Q24H SE Rx#:[id number] Sodium Chloride 0.9% 1, 0 000 ml @ 10 mls/hr IV . Q24H SE Rx#:[id number] fentaNYL (PF) 2,500 mcg 235.345 In Sodium Chloride 0.9% 200 ml @ 0.5 MCG/KG/HR 6. 05 mls/hr IV .Q24H SE Rx #:[id number] propofoL 1,000 mg In 265.86 288.06 100 Empty Bag 1 bag @ Titrate IV .Q0M SE Rx#: [id number] Tube Feeding 180 288 72 Other 30 60 Output: Urine 10 10 0 Other: Voiding Method Indwelling Catheter Indwelling Catheter Indwelling Catheter Weight 157 kg ABP, PAP, CO, CI - Last 8 Hours Arterial Blood Pressure 93/58 Arterial Blood Pressure 90/52 Arterial Blood Pressure 97/56 Arterial Blood Pressure 120/71 Arterial Blood Pressure 113/68 Arterial Blood Pressure 123/76 Arterial Blood Pressure 119/72 Arterial Blood Pressure 117/76 Arterial Blood Pressure 126/77 Arterial Blood Pressure 121/79 Arterial Blood Pressure 121/79 Arterial Blood Pressure 122/79 Arterial Blood Pressure 120/79 Arterial Blood Pressure 122/78 Arterial Blood Pressure 129/81 GENERAL: The patient is a morbid obese lying in bed and does not seem in acute distress. CHEST: The heart rate is regular rate rhythm. No murmurs to auscultation. LUNG: Clear to auscultation bilaterally no wheezing noted throughout. Not labored breathing. Intubated on ventilator. Is breathing at the ventilator rate (36). ABDOMEN/GI: Bowel sounds present in all 4 quadrants. No tenderness to palpation throughout. NEUROLOGICAL: Limited because of patient condition and sedation (fentanyl 1mcg/kg/hr, Nimbex 1mcg/kg/min and IV propofol 50mcg/kg/min). Higher mental function: The patient is comatose. GCS 3 (E1, VT1, M). No responsive, verbalizing or following commands. Cranial nerves: I had to manually open his eyes and primary gaze are at midline. The pupils are dilated (7mm) bilaterally and non-reactive to light. No faical weakness. Negative corneal reflex, occuocephalic reflex, gag reflex and not b reathing over the vent. Motor: The strength is limited but no movement noted to painful stimuli thr oughout. No spontaneous movement noted. Decrease tone throughout. Normal bulk. Cerebellum: Could not assess. Sensation: Could not assess light touch but to painful stimuli no movement noted throughout. Plantars are mute bilaterally. Results - Laboratory Findings CBC and BMP: 07/19/21 03:55 07/19/21 13:20 Abnormal Lab Findings: Abnormal Labs 06/27/21 06/27/21 06/27/21 12:06 12:09 12:09 WBC RBC Hgb Hct MCV MCHC Plt Count Neutrophils # Neutrophils # (Manual) Lymphocytes # 0.6 L Lymphocytes # (Manual) Monocytes # Monocytes # (Manual) Metamyelocytes # (Man) Myelocytes # (Manual) Nucleated RBCs PT INR D-Dimer 4.24 H ABG pH ABG pCO2 ABG pO2 ABG HCO3 ABG Total CO2 ABG O2 Saturation Sodium Potassium Chloride Carbon Dioxide BUN Creatinine Glucose POC Glucose (mg/dL) Calcium Phosphorus Magnesium Ferritin Total Bilirubin AST ALT Alkaline Phosphatase Lactate Dehydrogenase Troponin I C-Reactive Protein Total Protein Albumin Procalcitonin TSH Free T4 Urine Protein Urine Blood Urine RBC Urine WBC Amorphous Sediment Hyaline Casts Urine Mucus Coronavirus (PCR) Detected A 06/27/21 06/27/21 06/27/21 12:09 12:09 16:57 WBC RBC Hgb Hct MCV MCHC Plt Count Neutrophils # Neutrophils # (Manual) Lymphocytes # Lymphocytes # (Manual) Monocytes # Monocytes # (Manual) Metamyelocytes # (Man) Myelocytes # (Manual) Nucleated RBCs PT INR D-Dimer ABG pH ABG pCO2 ABG pO2 ABG HCO3 ABG Total CO2 ABG O2 Saturation Sodium Potassium Chloride 109 H Carbon Dioxide BUN Creatinine Glucose 126 H POC Glucose (mg/dL) Calcium Phosphorus Magnesium Ferritin 2288.0 H Total Bilirubin AST 102 H ALT 88 H Alkaline Phosphatase Lactate Dehydrogenase 2296 H Troponin I C-Reactive Protein 16.6 H Total Protein Albumin Procalcitonin 0.15 H TSH Free T4 Urine Protein 1+ H Urine Blood Urine RBC Urine WBC Amorphous Sediment Hyaline Casts Urine Mucus Rare H Coronavirus (PCR) 06/28/21 06/28/21 06/28/21 07:04 07:04 16:51 WBC RBC Hgb Hct MCV MCHC Plt Count Neutrophils # Neutrophils # (Manual) Lymphocytes # 0.4 L Lymphocytes # (Manual) Monocytes # Monocytes # (Manual) Metamyelocytes # (Man) Myelocytes # (Manual) Nucleated RBCs PT INR D-Dimer ABG pH ABG pCO2 ABG pO2 ABG HCO3 ABG Total CO2 ABG O2 Saturation Sodium Potassium Chloride 110 H Carbon Dioxide BUN Creatinine Glucose 132 H POC Glucose (mg/dL) 133 H Calcium Phosphorus Magnesium Ferritin Total Bilirubin AST 77 H ALT 82 H Alkaline Phosphatase Lactate Dehydrogenase Troponin I C-Reactive Protein Total Protein Albumin 3.1 L Procalcitonin TSH Free T4 Urine Protein Urine Blood Urine RBC Urine WBC Amorphous Sediment Hyaline Casts Urine Mucus Coronavirus (PCR) 06/28/21 06/29/21 06/29/21 19:16 05:42 10:11 WBC RBC Hgb Hct MCV MCHC Plt Count Neutrophils # Neutrophils # (Manual) Lymphocytes # Lymphocytes # (Manual) Monocytes # Monocytes # (Manual) Metamyelocytes # (Man) Myelocytes # (Manual) Nucleated RBCs PT INR D-Dimer ABG pH ABG pCO2 ABG pO2 ABG HCO3 ABG Total CO2 ABG O2 Saturation Sodium Potassium Chloride 113 H Carbon Dioxide BUN 22 H Creatinine Glucose 122 H POC Glucose (mg/dL) 170 H 116 H Calcium Phosphorus Magnesium Ferritin Total Bilirubin AST 80 H ALT 72 H Alkaline Phosphatase Lactate Dehydrogenase Troponin I C-Reactive Protein Total Protein Albumin 3.3 L Procalcitonin TSH Free T4 Urine Protein Urine Blood Urine RBC Urine WBC Amorphous Sediment Hyaline Casts Urine Mucus Coronavirus (PCR) 06/29/21 06/29/21 06/29/21 10:37 11:47 16:44 WBC RBC Hgb Hct MCV MCHC Plt Count Neutrophils # Neutrophils # (Manual) Lymphocytes # Lymphocytes # (Manual) Monocytes # Monocytes # (Manual) Metamyelocytes # (Man) Myelocytes # (Manual) Nucleated RBCs PT INR D-Dimer >34.10 H ABG pH ABG pCO2 ABG pO2 ABG HCO3 ABG Total CO2 ABG O2 Saturation Sodium Potassium Chloride Carbon Dioxide BUN Creatinine Glucose POC Glucose (mg/dL) 138 H 142 H Calcium Phosphorus Magnesium Ferritin Total Bilirubin AST ALT Alkaline Phosphatase Lactate Dehydrogenase Troponin I C-Reactive Protein Total Protein Albumin Procalcitonin TSH Free T4 Urine Protein Urine Blood Urine RBC Urine WBC Amorphous Sediment Hyaline Casts Urine Mucus Coronavirus (PCR) 06/29/21 06/30/21 06/30/21 20:06 05:46 05:46 WBC RBC Hgb Hct MCV MCHC Plt Count Neutrophils # 8.8 H Neutrophils # (Manual) Lymphocytes # 0.8 L Lymphocytes # (Manual) Monocytes # Monocytes # (Manual) Metamyelocytes # (Man) Myelocytes # (Manual) Nucleated RBCs PT INR D-Dimer >34.10 H ABG pH ABG pCO2 ABG pO2 ABG HCO3 ABG Total CO2 ABG O2 Saturation Sodium Potassium Chloride Carbon Dioxide BUN Creatinine Glucose POC Glucose (mg/dL) 115 H Calcium Phosphorus Magnesium Ferritin Total Bilirubin AST ALT Alkaline Phosphatase Lactate Dehydrogenase Troponin I C-Reactive Protein Total Protein Albumin Procalcitonin TSH Free T4 Urine Protein Urine Blood Urine RBC Urine WBC Amorphous Sediment Hyaline Casts Urine Mucus Coronavirus (PCR) 06/30/21 06/30/21 06/30/21 05:46 11:27 16:35 WBC RBC Hgb Hct MCV MCHC Plt Count Neutrophils # Neutrophils # (Manual) Lymphocytes # Lymphocytes # (Manual) Monocytes # Monocytes # (Manual) Metamyelocytes # (Man) Myelocytes # (Manual) Nucleated RBCs PT INR D-Dimer ABG pH ABG pCO2 ABG pO2 ABG HCO3 ABG Total CO2 ABG O2 Saturation Sodium Potassium Chloride 111 H Carbon Dioxide BUN 28 H Creatinine Glucose POC Glucose (mg/dL) 109 H 171 H Calcium Phosphorus Magnesium Ferritin Total Bilirubin AST 61 H ALT 61 H Alkaline Phosphatase Lactate Dehydrogenase 2764 H Troponin I C-Reactive Protein 3.2 H Total Protein 6.2 L Albumin 3.0 L Procalcitonin TSH Free T4 Urine Protein Urine Blood Urine RBC Urine WBC Amorphous Sediment Hyaline Casts Urine Mucus Coronavirus (PCR) 06/30/21 07/01/21 07/01/21 20:04 06:39 06:55 WBC 12.4 H RBC Hgb Hct MCV MCHC Plt Count Neutrophils # 11.2 H Neutrophils # (Manual) Lymphocytes # 0.6 L Lymphocytes # (Manual) Monocytes # Monocytes # (Manual) Metamyelocytes # (Man) Myelocytes # (Manual) Nucleated RBCs PT INR D-Dimer ABG pH ABG pCO2 ABG pO2 ABG HCO3 ABG Total CO2 ABG O2 Saturation Sodium Potassium Chloride Carbon Dioxide BUN Creatinine Glucose POC Glucose (mg/dL) 117 H 124 H Calcium Phosphorus Magnesium Ferritin Total Bilirubin AST ALT Alkaline Phosphatase Lactate Dehydrogenase Troponin I C-Reactive Protein Total Protein Albumin Procalcitonin TSH Free T4 Urine Protein Urine Blood Urine RBC Urine WBC Amorphous Sediment Hyaline Casts Urine Mucus Coronavirus (PCR) 07/01/21 07/01/21 07/01/21 06:55 11:35 16:56 WBC RBC Hgb Hct MCV MCHC Plt Count Neutrophils # Neutrophils # (Manual) Lymphocytes # Lymphocytes # (Manual) Monocytes # Monocytes # (Manual) Metamyelocytes # (Man) Myelocytes # (Manual) Nucleated RBCs PT INR D-Dimer ABG pH ABG pCO2 ABG pO2 ABG HCO3 ABG Total CO2 ABG O2 Saturation Sodium Potassium Chloride Carbon Dioxide 32 H BUN 24 H Creatinine Glucose 117 H POC Glucose (mg/dL) 107 H 166 H Calcium Phosphorus Magnesium Ferritin Total Bilirubin AST 60 H ALT 69 H Alkaline Phosphatase Lactate Dehydrogenase Troponin I C-Reactive Protein Total Protein Albumin 3.1 L Procalcitonin TSH Free T4 Urine Protein Urine Blood Urine RBC Urine WBC Amorphous Sediment Hyaline Casts Urine Mucus Coronavirus (PCR) 07/01/21 07/02/21 07/02/21 20:00 06:01 06:01 WBC 14.8 H RBC Hgb Hct MCV MCHC Plt Count Neutrophils # 13.6 H Neutrophils # (Manual) Lymphocytes # 0.6 L Lymphocytes # (Manual) Monocytes # Monocytes # (Manual) Metamyelocytes # (Man) Myelocytes # (Manual) Nucleated RBCs PT INR D-Dimer ABG pH ABG pCO2 ABG pO2 ABG HCO3 ABG Total CO2 ABG O2 Saturation Sodium Potassium Chloride Carbon Dioxide BUN 26 H Creatinine Glucose 118 H POC Glucose (mg/dL) 157 H Calcium Phosphorus Magnesium Ferritin Total Bilirubin AST ALT 72 H Alkaline Phosphatase Lactate Dehydrogenase Troponin I C-Reactive Protein Total Protein Albumin 3.2 L Procalcitonin TSH Free T4 Urine Protein Urine Blood Urine RBC Urine WBC Amorphous Sediment Hyaline Casts Urine Mucus Coronavirus (PCR) 07/02/21 07/02/21 07/02/21 06:01 11:57 16:55 WBC RBC Hgb Hct MCV MCHC Plt Count Neutrophils # Neutrophils # (Manual) Lymphocytes # Lymphocytes # (Manual) Monocytes # Monocytes # (Manual) Metamyelocytes # (Man) Myelocytes # (Manual) Nucleated RBCs PT INR D-Dimer ABG pH ABG pCO2 ABG pO2 ABG HCO3 ABG Total CO2 ABG O2 Saturation Sodium Potassium Chloride Carbon Dioxide BUN Creatinine Glucose POC Glucose (mg/dL) 115 H 127 H 123 H Calcium Phosphorus Magnesium Ferritin Total Bilirubin AST ALT Alkaline Phosphatase Lactate Dehydrogenase Troponin I C-Reactive Protein Total Protein Albumin Procalcitonin TSH Free T4 Urine Protein Urine Blood Urine RBC Urine WBC Amorphous Sediment Hyaline Casts Urine Mucus Coronavirus (PCR) 07/02/21 07/03/21 07/03/21 20:59 04:58 04:58 WBC 15.6 H RBC Hgb Hct MCV MCHC Plt Count Neutrophils # 14.0 H Neutrophils # (Manual) Lymphocytes # 0.8 L Lymphocytes # (Manual) Monocytes # Monocytes # (Manual) Metamyelocytes # (Man) Myelocytes # (Manual) Nucleated RBCs PT INR D-Dimer ABG pH ABG pCO2 ABG pO2 ABG HCO3 ABG Total CO2 ABG O2 Saturation Sodium Potassium Chloride Carbon Dioxide BUN 26 H Creatinine Glucose POC Glucose (mg/dL) 133 H Calcium Phosphorus Magnesium Ferritin Total Bilirubin AST 71 H ALT 73 H Alkaline Phosphatase Lactate Dehydrogenase Troponin I C-Reactive Protein Total Protein Albumin 3.2 L Procalcitonin TSH Free T4 Urine Protein Urine Blood Urine RBC Urine WBC Amorphous Sediment Hyaline Casts Urine Mucus Coronavirus (PCR) 07/03/21 07/03/21 07/03/21 11:42 12:26 12:26 WBC RBC Hgb Hct MCV MCHC Plt Count Neutrophils # Neutrophils # (Manual) Lymphocytes # Lymphocytes # (Manual) Monocytes # Monocytes # (Manual) Metamyelocytes # (Man) Myelocytes # (Manual) Nucleated RBCs PT INR D-Dimer >34.10 H ABG pH ABG pCO2 ABG pO2 ABG HCO3 ABG Total CO2 ABG O2 Saturation Sodium Potassium Chloride Carbon Dioxide BUN Creatinine Glucose POC Glucose (mg/dL) 108 H Calcium Phosphorus Magnesium Ferritin Total Bilirubin AST ALT Alkaline Phosphatase Lactate Dehydrogenase 3232 H Troponin I C-Reactive Protein 14.8 H Total Protein Albumin Procalcitonin TSH Free T4 Urine Protein Urine Blood Urine RBC Urine WBC Amorphous Sediment Hyaline Casts Urine Mucus Coronavirus (PCR) 07/03/21 07/03/21 07/04/21 16:34 20:59 05:40 WBC 15.5 H RBC 4.21 L Hgb Hct MCV MCHC Plt Count Neutrophils # 14.6 H Neutrophils # (Manual) Lymphocytes # 0.3 L Lymphocytes # (Manual) Monocytes # Monocytes # (Manual) Metamyelocytes # (Man) Myelocytes # (Manual) Nucleated RBCs PT INR D-Dimer ABG pH ABG pCO2 ABG pO2 ABG HCO3 ABG Total CO2 ABG O2 Saturation Sodium Potassium Chloride Carbon Dioxide BUN Creatinine Glucose POC Glucose (mg/dL) 146 H 153 H Calcium Phosphorus Magnesium Ferritin Total Bilirubin AST ALT Alkaline Phosphatase Lactate Dehydrogenase Troponin I C-Reactive Protein Total Protein Albumin Procalcitonin TSH Free T4 Urine Protein Urine Blood Urine RBC Urine WBC Amorphous Sediment Hyaline Casts Urine Mucus Coronavirus (PCR) 07/04/21 07/04/21 07/04/21 05:40 06:00 11:40 WBC RBC Hgb Hct MCV MCHC Plt Count Neutrophils # Neutrophils # (Manual) Lymphocytes # Lymphocytes # (Manual) Monocytes # Monocytes # (Manual) Metamyelocytes # (Man) Myelocytes # (Manual) Nucleated RBCs PT INR D-Dimer ABG pH ABG pCO2 ABG pO2 ABG HCO3 ABG Total CO2 ABG O2 Saturation Sodium Potassium Chloride Carbon Dioxide BUN 26 H Creatinine Glucose 143 H POC Glucose (mg/dL) 132 H 121 H Calcium Phosphorus Magnesium Ferritin Total Bilirubin AST ALT 54 H Alkaline Phosphatase 127 H Lactate Dehydrogenase Troponin I C-Reactive Protein Total Protein 6.2 L Albumin 2.9 L Procalcitonin TSH Free T4 Urine Protein Urine Blood Urine RBC Urine WBC Amorphous Sediment Hyaline Casts Urine Mucus Coronavirus (PCR) 07/04/21 07/04/21 07/05/21 16:58 20:48 06:57 WBC RBC Hgb Hct MCV MCHC Plt Count Neutrophils # Neutrophils # (Manual) Lymphocytes # Lymphocytes # (Manual) Monocytes # Monocytes # (Manual) Metamyelocytes # (Man) Myelocytes # (Manual) Nucleated RBCs PT INR D-Dimer ABG pH ABG pCO2 ABG pO2 ABG HCO3 ABG Total CO2 ABG O2 Saturation Sodium Potassium Chloride Carbon Dioxide BUN Creatinine Glucose POC Glucose (mg/dL) 149 H 129 H 131 H Calcium Phosphorus Magnesium Ferritin Total Bilirubin AST ALT Alkaline Phosphatase Lactate Dehydrogenase Troponin I C-Reactive Protein Total Protein Albumin Procalcitonin TSH Free T4 Urine Protein Urine Blood Urine RBC Urine WBC Amorphous Sediment Hyaline Casts Urine Mucus Coronavirus (PCR) 07/05/21 07/05/21 07/05/21 07:10 07:10 07:10 WBC 20.5 H RBC Hgb Hct MCV MCHC Plt Count Neutrophils # 19.4 H Neutrophils # (Manual) Lymphocytes # 0.4 L Lymphocytes # (Manual) Monocytes # Monocytes # (Manual) Metamyelocytes # (Man) Myelocytes # (Manual) Nucleated RBCs PT INR D-Dimer >34.10 H ABG pH ABG pCO2 ABG pO2 ABG HCO3 ABG Total CO2 ABG O2 Saturation Sodium Potassium Chloride Carbon Dioxide BUN Creatinine Glucose POC Glucose (mg/dL) Calcium Phosphorus Magnesium Ferritin Total Bilirubin AST ALT Alkaline Phosphatase Lactate Dehydrogenase 2585 H Troponin I C-Reactive Protein 4.7 H Total Protein Albumin Procalcitonin TSH Free T4 Urine Protein Urine Blood Urine RBC Urine WBC Amorphous Sediment Hyaline Casts Urine Mucus Coronavirus (PCR) 07/05/21 07/05/21 07/05/21 07:10 11:46 17:00 WBC RBC Hgb Hct MCV MCHC Plt Count Neutrophils # Neutrophils # (Manual) Lymphocytes # Lymphocytes # (Manual) Monocytes # Monocytes # (Manual) Metamyelocytes # (Man) Myelocytes # (Manual) Nucleated RBCs PT INR D-Dimer ABG pH ABG pCO2 ABG pO2 ABG HCO3 ABG Total CO2 ABG O2 Saturation Sodium Potassium Chloride Carbon Dioxide BUN 24 H Creatinine Glucose 112 H POC Glucose (mg/dL) 162 H 120 H Calcium Phosphorus Magnesium Ferritin Total Bilirubin AST ALT 52 H Alkaline Phosphatase 131 H Lactate Dehydrogenase Troponin I C-Reactive Protein Total Protein Albumin 3.1 L Procalcitonin TSH Free T4 Urine Protein Urine Blood Urine RBC Urine WBC Amorphous Sediment Hyaline Casts Urine Mucus Coronavirus (PCR) 07/05/21 07/06/21 07/06/21 21:03 06:04 06:52 WBC 18.7 H RBC Hgb Hct MCV MCHC Plt Count Neutrophils # 17.4 H Neutrophils # (Manual) Lymphocytes # 0.4 L Lymphocytes # (Manual) Monocytes # Monocytes # (Manual) Metamyelocytes # (Man) Myelocytes # (Manual) Nucleated RBCs PT INR D-Dimer ABG pH ABG pCO2 ABG pO2 ABG HCO3 ABG Total CO2 ABG O2 Saturation Sodium Potassium Chloride Carbon Dioxide BUN Creatinine Glucose POC Glucose (mg/dL) 176 H 112 H Calcium Phosphorus Magnesium Ferritin Total Bilirubin AST ALT Alkaline Phosphatase Lactate Dehydrogenase Troponin I C-Reactive Protein Total Protein Albumin Procalcitonin TSH Free T4 Urine Protein Urine Blood Urine RBC Urine WBC Amorphous Sediment Hyaline Casts Urine Mucus Coronavirus (PCR) 07/06/21 07/06/21 07/06/21 06:52 12:04 17:05 WBC RBC Hgb Hct MCV MCHC Plt Count Neutrophils # Neutrophils # (Manual) Lymphocytes # Lymphocytes # (Manual) Monocytes # Monocytes # (Manual) Metamyelocytes # (Man) Myelocytes # (Manual) Nucleated RBCs PT INR D-Dimer ABG pH ABG pCO2 ABG pO2 ABG HCO3 ABG Total CO2 ABG O2 Saturation Sodium Potassium Chloride Carbon Dioxide 32 H BUN Creatinine Glucose 101 H POC Glucose (mg/dL) 113 H 112 H Calcium Phosphorus Magnesium Ferritin Total Bilirubin AST ALT Alkaline Phosphatase Lactate Dehydrogenase Troponin I C-Reactive Protein Total Protein Albumin 3.0 L Procalcitonin TSH Free T4 Urine Protein Urine Blood Urine RBC Urine WBC Amorphous Sediment Hyaline Casts Urine Mucus Coronavirus (PCR) 07/06/21 07/07/21 07/07/21 20:20 06:21 09:13 WBC 18.3 H RBC Hgb Hct MCV MCHC Plt Count Neutrophils # 16.8 H Neutrophils # (Manual) Lymphocytes # 0.7 L Lymphocytes # (Manual) Monocytes # Monocytes # (Manual) Metamyelocytes # (Man) Myelocytes # (Manual) Nucleated RBCs PT INR D-Dimer ABG pH ABG pCO2 ABG pO2 ABG HCO3 ABG Total CO2 ABG O2 Saturation Sodium Potassium Chloride Carbon Dioxide BUN Creatinine Glucose POC Glucose (mg/dL) 139 H 123 H Calcium Phosphorus Magnesium Ferritin Total Bilirubin AST ALT Alkaline Phosphatase Lactate Dehydrogenase Troponin I C-Reactive Protein Total Protein Albumin Procalcitonin TSH Free T4 Urine Protein Urine Blood Urine RBC Urine WBC Amorphous Sediment Hyaline Casts Urine Mucus Coronavirus (PCR) 07/07/21 07/07/21 07/07/21 09:13 11:18 16:44 WBC RBC Hgb Hct MCV MCHC Plt Count Neutrophils # Neutrophils # (Manual) Lymphocytes # Lymphocytes # (Manual) Monocytes # Monocytes # (Manual) Metamyelocytes # (Man) Myelocytes # (Manual) Nucleated RBCs PT INR D-Dimer ABG pH ABG pCO2 ABG pO2 ABG HCO3 ABG Total CO2 ABG O2 Saturation Sodium Potassium Chloride Carbon Dioxide BUN Creatinine Glucose POC Glucose (mg/dL) 105 H 167 H Calcium Phosphorus Magnesium Ferritin Total Bilirubin AST ALT Alkaline Phosphatase Lactate Dehydrogenase Troponin I C-Reactive Protein Total Protein Albumin Procalcitonin 0.10 H TSH Free T4 Urine Protein Urine Blood Urine RBC Urine WBC Amorphous Sediment Hyaline Casts Urine Mucus Coronavirus (PCR) 07/07/21 07/08/21 07/08/21 20:02 06:06 07:39 WBC 17.6 H RBC 4.16 L Hgb Hct MCV MCHC Plt Count Neutrophils # 16.3 H Neutrophils # (Manual) Lymphocytes # 0.6 L Lymphocytes # (Manual) Monocytes # Monocytes # (Manual) Metamyelocytes # (Man) Myelocytes # (Manual) Nucleated RBCs PT INR D-Dimer ABG pH ABG pCO2 ABG pO2 ABG HCO3 ABG Total CO2 ABG O2 Saturation Sodium Potassium Chloride Carbon Dioxide BUN Creatinine Glucose POC Glucose (mg/dL) 104 H 111 H Calcium Phosphorus Magnesium Ferritin Total Bilirubin AST ALT Alkaline Phosphatase Lactate Dehydrogenase Troponin I C-Reactive Protein Total Protein Albumin Procalcitonin TSH Free T4 Urine Protein Urine Blood Urine RBC Urine WBC Amorphous Sediment Hyaline Casts Urine Mucus Coronavirus (PCR) 07/08/21 07/08/21 07/08/21 07:39 11:36 15:43 WBC RBC Hgb Hct MCV MCHC Plt Count Neutrophils # Neutrophils # (Manual) Lymphocytes # Lymphocytes # (Manual) Monocytes # Monocytes # (Manual) Metamyelocytes # (Man) Myelocytes # (Manual) Nucleated RBCs PT INR D-Dimer ABG pH ABG pCO2 ABG pO2 ABG HCO3 ABG Total CO2 ABG O2 Saturation Sodium 136 L Potassium Chloride Carbon Dioxide 33 H BUN 22 H Creatinine Glucose 111 H POC Glucose (mg/dL) 158 H 121 H Calcium Phosphorus Magnesium Ferritin Total Bilirubin AST ALT 51 H Alkaline Phosphatase Lactate Dehydrogenase 1897 H Troponin I C-Reactive Protein 4.4 H Total Protein Albumin 3.0 L Procalcitonin TSH Free T4 Urine Protein Urine Blood Urine RBC Urine WBC Amorphous Sediment Hyaline Casts Urine Mucus Coronavirus (PCR) 07/08/21 07/08/21 07/09/21 17:30 20:03 06:01 WBC RBC Hgb Hct MCV MCHC Plt Count Neutrophils # Neutrophils # (Manual) Lymphocytes # Lymphocytes # (Manual) Monocytes # Monocytes # (Manual) Metamyelocytes # (Man) Myelocytes # (Manual) Nucleated RBCs PT INR D-Dimer ABG pH ABG pCO2 ABG pO2 ABG HCO3 ABG Total CO2 ABG O2 Saturation Sodium Potassium Chloride Carbon Dioxide BUN Creatinine Glucose POC Glucose (mg/dL) 127 H 168 H 129 H Calcium Phosphorus Magnesium Ferritin Total Bilirubin AST ALT Alkaline Phosphatase Lactate Dehydrogenase Troponin I C-Reactive Protein Total Protein Albumin Procalcitonin TSH Free T4 Urine Protein Urine Blood Urine RBC Urine WBC Amorphous Sediment Hyaline Casts Urine Mucus Coronavirus (PCR) 07/09/21 07/09/21 07/09/21 07:31 07:31 11:47 WBC 17.0 H RBC 4.06 L Hgb 12.9 L Hct 38.9 L MCV MCHC Plt Count Neutrophils # 15.6 H Neutrophils # (Manual) Lymphocytes # 0.6 L Lymphocytes # (Manual) Monocytes # Monocytes # (Manual) Metamyelocytes # (Man) Myelocytes # (Manual) Nucleated RBCs PT INR D-Dimer ABG pH ABG pCO2 ABG pO2 ABG HCO3 ABG Total CO2 ABG O2 Saturation Sodium 136 L Potassium Chloride Carbon Dioxide 34 H BUN 23 H Creatinine 0.64 L Glucose 103 H POC Glucose (mg/dL) 125 H Calcium 8.3 L Phosphorus Magnesium Ferritin Total Bilirubin AST ALT Alkaline Phosphatase Lactate Dehydrogenase Troponin I C-Reactive Protein Total Protein 6.2 L Albumin 2.8 L Procalcitonin TSH Free T4 Urine Protein Urine Blood Urine RBC Urine WBC Amorphous Sediment Hyaline Casts Urine Mucus Coronavirus (PCR) 07/09/21 07/09/21 07/10/21 16:41 20:11 03:38 WBC 21.3 H RBC 4.08 L Hgb 12.9 L Hct MCV MCHC Plt Count Neutrophils # 18.9 H Neutrophils # (Manual) Lymphocytes # 0.9 L Lymphocytes # (Manual) Monocytes # Monocytes # (Manual) Metamyelocytes # (Man) Myelocytes # (Manual) Nucleated RBCs PT INR D-Dimer ABG pH ABG pCO2 ABG pO2 ABG HCO3 ABG Total CO2 ABG O2 Saturation Sodium Potassium Chloride Carbon Dioxide BUN Creatinine Glucose POC Glucose (mg/dL) 152 H 117 H Calcium Phosphorus Magnesium Ferritin Total Bilirubin AST ALT Alkaline Phosphatase Lactate Dehydrogenase Troponin I C-Reactive Protein Total Protein Albumin Procalcitonin TSH Free T4 Urine Protein Urine Blood Urine RBC Urine WBC Amorphous Sediment Hyaline Casts Urine Mucus Coronavirus (PCR) 07/10/21 07/10/21 07/10/21 03:38 03:38 10:10 WBC RBC Hgb Hct MCV MCHC Plt Count Neutrophils # Neutrophils # (Manual) Lymphocytes # Lymphocytes # (Manual) Monocytes # Monocytes # (Manual) Metamyelocytes # (Man) Myelocytes # (Manual) Nucleated RBCs PT INR D-Dimer 28.53 H ABG pH 7.51 H ABG pCO2 ABG pO2 46 L* ABG HCO3 35 H ABG Total CO2 37 H ABG O2 Saturation 84.6 L Sodium 135 L Potassium Chloride Carbon Dioxide 32 H BUN 28 H Creatinine Glucose POC Glucose (mg/dL) Calcium Phosphorus Magnesium Ferritin Total Bilirubin AST ALT Alkaline Phosphatase Lactate Dehydrogenase 1698 H Troponin I C-Reactive Protein 2.7 H Total Protein 6.1 L Albumin 2.8 L Procalcitonin TSH Free T4 Urine Protein Urine Blood Urine RBC Urine WBC Amorphous Sediment Hyaline Casts Urine Mucus Coronavirus (PCR) 07/10/21 07/10/21 07/10/21 13:00 14:07 15:22 WBC 40.0 H RBC 4.20 L Hgb Hct MCV MCHC Plt Count Neutrophils # 37.8 H Neutrophils # (Manual) Lymphocytes # 0.5 L Lymphocytes # (Manual) Monocytes # 1.4 H Monocytes # (Manual) Metamyelocytes # (Man) Myelocytes # (Manual) Nucleated RBCs PT INR D-Dimer ABG pH 7.26 L ABG pCO2 75 H* ABG pO2 80 L ABG HCO3 34 H ABG Total CO2 36 H ABG O2 Saturation 93.2 L Sodium Potassium Chloride Carbon Dioxide BUN Creatinine Glucose POC Glucose (mg/dL) 189 H Calcium Phosphorus Magnesium Ferritin Total Bilirubin AST ALT Alkaline Phosphatase Lactate Dehydrogenase Troponin I C-Reactive Protein Total Protein Albumin Procalcitonin TSH Free T4 Urine Protein Urine Blood Urine RBC Urine WBC Amorphous Sediment Hyaline Casts Urine Mucus Coronavirus (PCR) 07/10/21 07/10/21 07/10/21 15:22 15:38 15:38 WBC RBC Hgb Hct MCV MCHC Plt Count Neutrophils # Neutrophils # (Manual) Lymphocytes # Lymphocytes # (Manual) Monocytes # Monocytes # (Manual) Metamyelocytes # (Man) Myelocytes # (Manual) Nucleated RBCs PT INR D-Dimer ABG pH ABG pCO2 ABG pO2 ABG HCO3 ABG Total CO2 ABG O2 Saturation Sodium 135 L Potassium 5.4 H Chloride Carbon Dioxide BUN 33 H Creatinine Glucose 217 H POC Glucose (mg/dL) Calcium 7.7 L Phosphorus Magnesium Ferritin Total Bilirubin AST ALT Alkaline Phosphatase Lactate Dehydrogenase Troponin I 0.153 H* C-Reactive Protein Total Protein Albumin Procalcitonin 4.19 H TSH Free T4 Urine Protein Urine Blood Urine RBC Urine WBC Amorphous Sediment Hyaline Casts Urine Mucus Coronavirus (PCR) 07/10/21 07/10/21 07/10/21 15:45 18:02 23:56 WBC RBC Hgb Hct MCV MCHC Plt Count Neutrophils # Neutrophils # (Manual) Lymphocytes # Lymphocytes # (Manual) Monocytes # Monocytes # (Manual) Metamyelocytes # (Man) Myelocytes # (Manual) Nucleated RBCs PT INR D-Dimer ABG pH ABG pCO2 ABG pO2 ABG HCO3 ABG Total CO2 ABG O2 Saturation Sodium Potassium Chloride Carbon Dioxide BUN Creatinine Glucose POC Glucose (mg/dL) 195 H 161 H Calcium Phosphorus Magnesium Ferritin Total Bilirubin AST ALT Alkaline Phosphatase Lactate Dehydrogenase Troponin I C-Reactive Protein Total Protein Albumin Procalcitonin TSH Free T4 Urine Protein 1+ H Urine Blood Small H Urine RBC 18 H Urine WBC 6 H Amorphous Sediment Occasional H Hyaline Casts 3 H Urine Mucus Rare H Coronavirus (PCR) 07/11/21 07/11/21 07/11/21 04:20 04:20 04:21 WBC 28.4 H RBC 3.95 L Hgb 12.5 L Hct MCV MCHC Plt Count Neutrophils # 26.5 H Neutrophils # (Manual) Lymphocytes # 0.5 L Lymphocytes # (Manual) Monocytes # 1.3 H Monocytes # (Manual) Metamyelocytes # (Man) Myelocytes # (Manual) Nucleated RBCs PT INR D-Dimer ABG pH ABG pCO2 ABG pO2 ABG HCO3 ABG Total CO2 ABG O2 Saturation Sodium Potassium 5.8 H Chloride Carbon Dioxide BUN 34 H Creatinine 1.30 H Glucose 143 H POC Glucose (mg/dL) 155 H Calcium 6.6 L Phosphorus Magnesium 2.5 H Ferritin Total Bilirubin 1.5 H AST 1308 H ALT 1497 H Alkaline Phosphatase Lactate Dehydrogenase Troponin I C-Reactive Protein Total Protein 5.5 L Albumin 2.6 L Procalcitonin TSH Free T4 Urine Protein Urine Blood Urine RBC Urine WBC Amorphous Sediment Hyaline Casts Urine Mucus Coronavirus (PCR) 07/11/21 07/11/21 07/11/21 05:40 08:54 09:55 WBC RBC Hgb Hct MCV MCHC Plt Count Neutrophils # Neutrophils # (Manual) Lymphocytes # Lymphocytes # (Manual) Monocytes # Monocytes # (Manual) Metamyelocytes # (Man) Myelocytes # (Manual) Nucleated RBCs PT 15.7 H INR 1.6 H D-Dimer ABG pH 7.15 L* ABG pCO2 70 H ABG pO2 ABG HCO3 ABG Total CO2 27 H ABG O2 Saturation Sodium Potassium Chloride Carbon Dioxide BUN Creatinine Glucose POC Glucose (mg/dL) 131 H Calcium Phosphorus Magnesium Ferritin Total Bilirubin AST ALT Alkaline Phosphatase Lactate Dehydrogenase Troponin I C-Reactive Protein Total Protein Albumin Procalcitonin TSH Free T4 Urine Protein Urine Blood Urine RBC Urine WBC Amorphous Sediment Hyaline Casts Urine Mucus Coronavirus (PCR) 07/11/21 07/11/21 07/11/21 09:55 12:35 16:15 WBC RBC Hgb Hct MCV MCHC Plt Count Neutrophils # Neutrophils # (Manual) Lymphocytes # Lymphocytes # (Manual) Monocytes # Monocytes # (Manual) Metamyelocytes # (Man) Myelocytes # (Manual) Nucleated RBCs PT INR D-Dimer ABG pH ABG pCO2 ABG pO2 ABG HCO3 ABG Total CO2 ABG O2 Saturation Sodium Potassium 5.4 H 5.2 H Chloride Carbon Dioxide BUN 39 H 44 H Creatinine 1.65 H 2.17 H Glucose 159 H 264 H POC Glucose (mg/dL) 168 H Calcium 6.2 L* 6.2 L* Phosphorus Magnesium Ferritin Total Bilirubin 1.4 H AST 2717 H ALT 2731 H Alkaline Phosphatase Lactate Dehydrogenase Troponin I C-Reactive Protein Total Protein 5.0 L Albumin 2.5 L Procalcitonin TSH Free T4 Urine Protein Urine Blood Urine RBC Urine WBC Amorphous Sediment Hyaline Casts Urine Mucus Coronavirus (PCR) 07/11/21 07/11/21 07/11/21 18:59 19:19 23:49 WBC RBC Hgb Hct MCV MCHC Plt Count Neutrophils # Neutrophils # (Manual) Lymphocytes # Lymphocytes # (Manual) Monocytes # Monocytes # (Manual) Metamyelocytes # (Man) Myelocytes # (Manual) Nucleated RBCs PT 14.2 H INR 1.4 H D-Dimer ABG pH ABG pCO2 ABG pO2 ABG HCO3 ABG Total CO2 ABG O2 Saturation Sodium Potassium Chloride Carbon Dioxide BUN Creatinine Glucose POC Glucose (mg/dL) 222 H 224 H Calcium Phosphorus Magnesium Ferritin Total Bilirubin AST ALT Alkaline Phosphatase Lactate Dehydrogenase Troponin I C-Reactive Protein Total Protein Albumin Procalcitonin TSH Free T4 Urine Protein Urine Blood Urine RBC Urine WBC Amorphous Sediment Hyaline Casts Urine Mucus Coronavirus (PCR) 07/12/21 07/12/21 07/12/21 03:25 03:25 05:25 WBC 22.7 H RBC 3.65 L Hgb 11.5 L Hct 35.3 L MCV MCHC Plt Count Neutrophils # 20.9 H Neutrophils # (Manual) Lymphocytes # 0.7 L Lymphocytes # (Manual) Monocytes # Monocytes # (Manual) Metamyelocytes # (Man) Myelocytes # (Manual) Nucleated RBCs PT INR D-Dimer ABG pH ABG pCO2 ABG pO2 ABG HCO3 ABG Total CO2 ABG O2 Saturation Sodium 135 L Potassium Chloride Carbon Dioxide BUN 47 H Creatinine 2.59 H Glucose 193 H POC Glucose (mg/dL) 178 H Calcium 6.2 L* Phosphorus Magnesium Ferritin Total Bilirubin AST 1062 H ALT 2036 H Alkaline Phosphatase Lactate Dehydrogenase Troponin I C-Reactive Protein Total Protein 4.6 L Albumin 2.3 L Procalcitonin TSH Free T4 Urine Protein Urine Blood Urine RBC Urine WBC Amorphous Sediment Hyaline Casts Urine Mucus Coronavirus (PCR) 07/12/21 07/12/21 07/12/21 05:38 12:31 18:16 WBC RBC Hgb Hct MCV MCHC Plt Count Neutrophils # Neutrophils # (Manual) Lymphocytes # Lymphocytes # (Manual) Monocytes # Monocytes # (Manual) Metamyelocytes # (Man) Myelocytes # (Manual) Nucleated RBCs PT INR D-Dimer ABG pH ABG pCO2 52 H ABG pO2 ABG HCO3 31 H ABG Total CO2 33 H ABG O2 Saturation 99.1 H Sodium Potassium Chloride Carbon Dioxide BUN Creatinine Glucose POC Glucose (mg/dL) 139 H 164 H Calcium Phosphorus Magnesium Ferritin Total Bilirubin AST ALT Alkaline Phosphatase Lactate Dehydrogenase Troponin I C-Reactive Protein Total Protein Albumin Procalcitonin TSH Free T4 Urine Protein Urine Blood Urine RBC Urine WBC Amorphous Sediment Hyaline Casts Urine Mucus Coronavirus (PCR) 07/12/21 07/13/21 07/13/21 23:49 03:50 03:50 WBC 22.3 H RBC 3.45 L Hgb 11.3 L Hct 33.4 L MCV MCHC Plt Count Neutrophils # 21.0 H Neutrophils # (Manual) Lymphocytes # 0.4 L Lymphocytes # (Manual) Monocytes # Monocytes # (Manual) Metamyelocytes # (Man) Myelocytes # (Manual) Nucleated RBCs PT INR D-Dimer ABG pH ABG pCO2 ABG pO2 ABG HCO3 ABG Total CO2 ABG O2 Saturation Sodium 136 L Potassium Chloride Carbon Dioxide BUN 60 H Creatinine 2.87 H Glucose 124 H POC Glucose (mg/dL) 132 H Calcium 7.0 L Phosphorus Magnesium Ferritin Total Bilirubin AST 572 H ALT 1786 H Alkaline Phosphatase Lactate Dehydrogenase Troponin I C-Reactive Protein Total Protein 4.9 L Albumin 2.3 L Procalcitonin TSH Free T4 Urine Protein Urine Blood Urine RBC Urine WBC Amorphous Sediment Hyaline Casts Urine Mucus Coronavirus (PCR) 07/13/21 07/13/21 07/13/21 04:27 05:46 13:19 WBC RBC Hgb Hct MCV MCHC Plt Count Neutrophils # Neutrophils # (Manual) Lymphocytes # Lymphocytes # (Manual) Monocytes # Monocytes # (Manual) Metamyelocytes # (Man) Myelocytes # (Manual) Nucleated RBCs PT INR D-Dimer ABG pH 7.21 L ABG pCO2 74 H* ABG pO2 ABG HCO3 30 H ABG Total CO2 32 H ABG O2 Saturation Sodium Potassium Chloride Carbon Dioxide BUN Creatinine Glucose POC Glucose (mg/dL) 132 H 154 H Calcium Phosphorus Magnesium Ferritin Total Bilirubin AST ALT Alkaline Phosphatase Lactate Dehydrogenase Troponin I C-Reactive Protein Total Protein Albumin Procalcitonin TSH Free T4 Urine Protein Urine Blood Urine RBC Urine WBC Amorphous Sediment Hyaline Casts Urine Mucus Coronavirus (PCR) 07/13/21 07/13/21 07/14/21 18:23 23:43 04:15 WBC RBC Hgb Hct MCV MCHC Plt Count Neutrophils # Neutrophils # (Manual) Lymphocytes # Lymphocytes # (Manual) Monocytes # Monocytes # (Manual) Metamyelocytes # (Man) Myelocytes # (Manual) Nucleated RBCs PT INR D-Dimer ABG pH ABG pCO2 ABG pO2 ABG HCO3 ABG Total CO2 ABG O2 Saturation Sodium 136 L Potassium 5.7 H Chloride Carbon Dioxide BUN 76 H Creatinine 4.10 H Glucose 138 H POC Glucose (mg/dL) 214 H 147 H Calcium 7.0 L Phosphorus Magnesium Ferritin Total Bilirubin 1.7 H AST 3060 H ALT 4094 H Alkaline Phosphatase 159 H Lactate Dehydrogenase Troponin I C-Reactive Protein Total Protein 5.7 L Albumin 2.8 L Procalcitonin TSH Free T4 Urine Protein Urine Blood Urine RBC Urine WBC Amorphous Sediment Hyaline Casts Urine Mucus Coronavirus (PCR) 07/14/21 07/14/21 07/14/21 04:15 06:05 06:22 WBC 34.0 H RBC 4.04 L Hgb 12.7 L Hct MCV 102.1 H D MCHC 30.8 L Plt Count Neutrophils # Neutrophils # (Manual) 31.60 H Lymphocytes # Lymphocytes # (Manual) 0.68 L Monocytes # Monocytes # (Manual) 1.36 H Metamyelocytes # (Man) 0.34 H Myelocytes # (Manual) 1.02 H Nucleated RBCs PT INR D-Dimer ABG pH 7.10 L* ABG pCO2 77 H* ABG pO2 ABG HCO3 ABG Total CO2 26 H ABG O2 Saturation Sodium Potassium Chloride Carbon Dioxide BUN Creatinine Glucose POC Glucose (mg/dL) 162 H Calcium Phosphorus Magnesium Ferritin Total Bilirubin AST ALT Alkaline Phosphatase Lactate Dehydrogenase Troponin I C-Reactive Protein Total Protein Albumin Procalcitonin TSH Free T4 Urine Protein Urine Blood Urine RBC Urine WBC Amorphous Sediment Hyaline Casts Urine Mucus Coronavirus (PCR) 07/14/21 07/14/21 07/14/21 08:47 11:19 11:39 WBC RBC Hgb Hct MCV MCHC Plt Count Neutrophils # Neutrophils # (Manual) Lymphocytes # Lymphocytes # (Manual) Monocytes # Monocytes # (Manual) Metamyelocytes # (Man) Myelocytes # (Manual) Nucleated RBCs PT INR D-Dimer ABG pH 7.08 L* 7.19 L* ABG pCO2 70 H 62 H ABG pO2 76 L 68 L ABG HCO3 ABG Total CO2 26 H ABG O2 Saturation 92.0 L 91.3 L Sodium Potassium Chloride Carbon Dioxide BUN Creatinine Glucose POC Glucose (mg/dL) 181 H Calcium Phosphorus Magnesium Ferritin Total Bilirubin AST ALT Alkaline Phosphatase Lactate Dehydrogenase Troponin I C-Reactive Protein Total Protein Albumin Procalcitonin TSH Free T4 Urine Protein Urine Blood Urine RBC Urine WBC Amorphous Sediment Hyaline Casts Urine Mucus Coronavirus (PCR) 07/14/21 07/14/21 07/14/21 18:24 18:33 23:15 WBC RBC Hgb Hct MCV MCHC Plt Count Neutrophils # Neutrophils # (Manual) Lymphocytes # Lymphocytes # (Manual) Monocytes # Monocytes # (Manual) Metamyelocytes # (Man) Myelocytes # (Manual) Nucleated RBCs PT INR D-Dimer ABG pH ABG pCO2 ABG pO2 ABG HCO3 ABG Total CO2 ABG O2 Saturation Sodium Potassium Chloride Carbon Dioxide 33 H BUN 38 H Creatinine 2.04 H Glucose 137 H POC Glucose (mg/dL) 123 H 165 H Calcium 7.3 L Phosphorus Magnesium Ferritin Total Bilirubin AST ALT Alkaline Phosphatase Lactate Dehydrogenase Troponin I C-Reactive Protein Total Protein Albumin Procalcitonin TSH Free T4 Urine Protein Urine Blood Urine RBC Urine WBC Amorphous Sediment Hyaline Casts Urine Mucus Coronavirus (PCR) 07/15/21 07/15/21 07/15/21 04:15 04:15 05:31 WBC 23.9 H RBC 3.63 L Hgb 11.4 L Hct 36.1 L MCV MCHC Plt Count 146 L Neutrophils # Neutrophils # (Manual) 21.50 H Lymphocytes # Lymphocytes # (Manual) 0.48 L Monocytes # Monocytes # (Manual) 1.20 H Metamyelocytes # (Man) 0.48 H Myelocytes # (Manual) 0.24 H Nucleated RBCs 1 H PT INR D-Dimer ABG pH 7.23 L ABG pCO2 65 H ABG pO2 79 L ABG HCO3 27 H ABG Total CO2 29 H ABG O2 Saturation 93.1 L Sodium Potassium Chloride Carbon Dioxide BUN 78 H Creatinine 4.27 H Glucose 151 H POC Glucose (mg/dL) Calcium 7.0 L Phosphorus 7.6 H Magnesium Ferritin Total Bilirubin AST ALT Alkaline Phosphatase Lactate Dehydrogenase Troponin I C-Reactive Protein Total Protein Albumin Procalcitonin TSH Free T4 Urine Protein Urine Blood Urine RBC Urine WBC Amorphous Sediment Hyaline Casts Urine Mucus Coronavirus (PCR) 07/15/21 07/15/21 07/15/21 05:43 11:25 17:30 WBC RBC Hgb Hct MCV MCHC Plt Count Neutrophils # Neutrophils # (Manual) Lymphocytes # Lymphocytes # (Manual) Monocytes # Monocytes # (Manual) Metamyelocytes # (Man) Myelocytes # (Manual) Nucleated RBCs PT INR D-Dimer ABG pH ABG pCO2 ABG pO2 ABG HCO3 ABG Total CO2 ABG O2 Saturation Sodium Potassium Chloride Carbon Dioxide BUN Creatinine Glucose POC Glucose (mg/dL) 163 H 154 H 143 H Calcium Phosphorus Magnesium Ferritin Total Bilirubin AST ALT Alkaline Phosphatase Lactate Dehydrogenase Troponin I C-Reactive Protein Total Protein Albumin Procalcitonin TSH Free T4 Urine Protein Urine Blood Urine RBC Urine WBC Amorphous Sediment Hyaline Casts Urine Mucus Coronavirus (PCR) 07/16/21 07/16/21 07/16/21 00:01 04:00 04:00 WBC 38.1 H RBC 3.80 L Hgb 12.2 L Hct 38.2 L MCV 100.6 H MCHC Plt Count 116 L Neutrophils # Neutrophils # (Manual) 35.80 H Lymphocytes # Lymphocytes # (Manual) Monocytes # Monocytes # (Manual) Metamyelocytes # (Man) Myelocytes # (Manual) Nucleated RBCs 3 H PT INR D-Dimer ABG pH ABG pCO2 ABG pO2 ABG HCO3 ABG Total CO2 ABG O2 Saturation Sodium Potassium 5.6 H Chloride Carbon Dioxide BUN 81 H Creatinine 4.85 H Glucose 133 H POC Glucose (mg/dL) 154 H Calcium 7.1 L Phosphorus Magnesium Ferritin Total Bilirubin 1.8 H AST 1629 H ALT 3333 H Alkaline Phosphatase 212 H Lactate Dehydrogenase Troponin I C-Reactive Protein Total Protein 5.5 L Albumin 2.8 L Procalcitonin TSH Free T4 Urine Protein Urine Blood Urine RBC Urine WBC Amorphous Sediment Hyaline Casts Urine Mucus Coronavirus (PCR) 07/16/21 07/16/21 07/16/21 04:00 05:28 14:02 WBC RBC Hgb Hct MCV MCHC Plt Count Neutrophils # Neutrophils # (Manual) Lymphocytes # Lymphocytes # (Manual) Monocytes # Monocytes # (Manual) Metamyelocytes # (Man) Myelocytes # (Manual) Nucleated RBCs PT INR D-Dimer ABG pH 7.15 L* ABG pCO2 70 H ABG pO2 ABG HCO3 ABG Total CO2 27 H ABG O2 Saturation 93.1 L Sodium Potassium Chloride Carbon Dioxide BUN Creatinine Glucose POC Glucose (mg/dL) 131 H Calcium Phosphorus Magnesium Ferritin Total Bilirubin AST ALT Alkaline Phosphatase Lactate Dehydrogenase Troponin I C-Reactive Protein Total Protein Albumin Procalcitonin 2.44 H TSH Free T4 Urine Protein Urine Blood Urine RBC Urine WBC Amorphous Sediment Hyaline Casts Urine Mucus Coronavirus (PCR) 07/16/21 07/16/21 07/16/21 17:18 18:45 23:27 WBC RBC Hgb Hct MCV MCHC Plt Count Neutrophils # Neutrophils # (Manual) Lymphocytes # Lymphocytes # (Manual) Monocytes # Monocytes # (Manual) Metamyelocytes # (Man) Myelocytes # (Manual) Nucleated RBCs PT INR D-Dimer ABG pH ABG pCO2 ABG pO2 ABG HCO3 ABG Total CO2 ABG O2 Saturation Sodium Potassium 5.6 H Chloride Carbon Dioxide BUN Creatinine Glucose POC Glucose (mg/dL) 73 L 133 H Calcium Phosphorus Magnesium Ferritin Total Bilirubin AST ALT Alkaline Phosphatase Lactate Dehydrogenase Troponin I C-Reactive Protein Total Protein Albumin Procalcitonin TSH Free T4 Urine Protein Urine Blood Urine RBC Urine WBC Amorphous Sediment Hyaline Casts Urine Mucus Coronavirus (PCR) 07/17/21 07/17/21 07/17/21 04:00 04:00 04:00 WBC 36.3 H RBC 3.78 L Hgb 12.3 L Hct 38.0 L MCV 100.5 H MCHC Plt Count 110 L Neutrophils # Neutrophils # (Manual) 33.70 H Lymphocytes # Lymphocytes # (Manual) Monocytes # Monocytes # (Manual) Metamyelocytes # (Man) 1.09 H Myelocytes # (Manual) 0.36 H Nucleated RBCs 13 H PT INR D-Dimer ABG pH ABG pCO2 ABG pO2 ABG HCO3 ABG Total CO2 ABG O2 Saturation Sodium 135 L Potassium 5.8 H Chloride Carbon Dioxide 20 L BUN 86 H Creatinine 5.50 H Glucose 137 H POC Glucose (mg/dL) Calcium 7.4 L Phosphorus Magnesium Ferritin Total Bilirubin AST ALT Alkaline Phosphatase Lactate Dehydrogenase Troponin I C-Reactive Protein Total Protein Albumin Procalcitonin TSH 0.052 L Free T4 0.32 L Urine Protein Urine Blood Urine RBC Urine WBC Amorphous Sediment Hyaline Casts Urine Mucus Coronavirus (PCR) 07/17/21 07/17/21 07/17/21 05:28 05:51 11:57 WBC RBC Hgb Hct MCV MCHC Plt Count Neutrophils # Neutrophils # (Manual) Lymphocytes # Lymphocytes # (Manual) Monocytes # Monocytes # (Manual) Metamyelocytes # (Man) Myelocytes # (Manual) Nucleated RBCs PT INR D-Dimer ABG pH 7.12 L* ABG pCO2 74 H* ABG pO2 79 L ABG HCO3 ABG Total CO2 26 H ABG O2 Saturation 91.0 L Sodium Potassium Chloride Carbon Dioxide BUN Creatinine Glucose POC Glucose (mg/dL) 131 H 133 H Calcium Phosphorus Magnesium Ferritin Total Bilirubin AST ALT Alkaline Phosphatase Lactate Dehydrogenase Troponin I C-Reactive Protein Total Protein Albumin Procalcitonin TSH Free T4 Urine Protein Urine Blood Urine RBC Urine WBC Amorphous Sediment Hyaline Casts Urine Mucus Coronavirus (PCR) 07/17/21 07/17/21 07/17/21 17:27 22:48 23:51 WBC RBC Hgb Hct MCV MCHC Plt Count Neutrophils # Neutrophils # (Manual) Lymphocytes # Lymphocytes # (Manual) Monocytes # Monocytes # (Manual) Metamyelocytes # (Man) Myelocytes # (Manual) Nucleated RBCs PT INR D-Dimer ABG pH ABG pCO2 ABG pO2 ABG HCO3 ABG Total CO2 ABG O2 Saturation Sodium Potassium 5.5 H Chloride Carbon Dioxide BUN Creatinine Glucose POC Glucose (mg/dL) 151 H 167 H Calcium Phosphorus Magnesium Ferritin Total Bilirubin AST ALT Alkaline Phosphatase Lactate Dehydrogenase Troponin I C-Reactive Protein Total Protein Albumin Procalcitonin TSH Free T4 Urine Protein Urine Blood Urine RBC Urine WBC Amorphous Sediment Hyaline Casts Urine Mucus Coronavirus (PCR) 07/18/21 07/18/21 07/18/21 04:05 04:05 05:25 WBC 33.6 H RBC 3.74 L Hgb 12.4 L Hct 37.5 L MCV 100.3 H MCHC Plt Count 93 L Neutrophils # Neutrophils # (Manual) 31.50 H Lymphocytes # Lymphocytes # (Manual) 0.34 L Monocytes # Monocytes # (Manual) Metamyelocytes # (Man) 1.01 H Myelocytes # (Manual) 0.67 H Nucleated RBCs 9 H PT INR D-Dimer ABG pH ABG pCO2 ABG pO2 ABG HCO3 ABG Total CO2 ABG O2 Saturation Sodium 135 L Potassium 5.7 H Chloride Carbon Dioxide BUN 89 H Creatinine 5.47 H Glucose 144 H POC Glucose (mg/dL) 152 H Calcium 7.5 L Phosphorus Magnesium Ferritin Total Bilirubin 3.3 H AST 1065 H ALT 2697 H Alkaline Phosphatase 250 H Lactate Dehydrogenase Troponin I C-Reactive Protein Total Protein 5.7 L Albumin 2.9 L Procalcitonin TSH Free T4 Urine Protein Urine Blood Urine RBC Urine WBC Amorphous Sediment Hyaline Casts Urine Mucus Coronavirus (PCR) 07/18/21 07/18/21 07/18/21 05:59 06:00 11:31 WBC RBC Hgb Hct MCV MCHC Plt Count Neutrophils # Neutrophils # (Manual) Lymphocytes # Lymphocytes # (Manual) Monocytes # Monocytes # (Manual) Metamyelocytes # (Man) Myelocytes # (Manual) Nucleated RBCs PT INR D-Dimer ABG pH 7.15 L* ABG pCO2 73 H* ABG pO2 ABG HCO3 ABG Total CO2 28 H ABG O2 Saturation 92.4 L Sodium Potassium Chloride Carbon Dioxide BUN Creatinine Glucose POC Glucose (mg/dL) 157 H 159 H Calcium Phosphorus Magnesium Ferritin Total Bilirubin AST ALT Alkaline Phosphatase Lactate Dehydrogenase Troponin I C-Reactive Protein Total Protein Albumin Procalcitonin TSH Free T4 Urine Protein Urine Blood Urine RBC Urine WBC Amorphous Sediment Hyaline Casts Urine Mucus Coronavirus (PCR) 07/18/21 07/18/21 07/19/21 17:29 23:34 03:55 WBC RBC Hgb Hct MCV MCHC Plt Count Neutrophils # Neutrophils # (Manual) Lymphocytes # Lymphocytes # (Manual) Monocytes # Monocytes # (Manual) Metamyelocytes # (Man) Myelocytes # (Manual) Nucleated RBCs PT INR D-Dimer ABG pH ABG pCO2 ABG pO2 ABG HCO3 ABG Total CO2 ABG O2 Saturation Sodium 133 L Potassium Chloride 96 L Carbon Dioxide BUN 94 H Creatinine 5.34 H Glucose 126 H POC Glucose (mg/dL) 160 H 132 H Calcium 7.5 L Phosphorus Magnesium Ferritin Total Bilirubin 3.0 H AST 600 H ALT 1956 H Alkaline Phosphatase 246 H Lactate Dehydrogenase Troponin I C-Reactive Protein Total Protein 5.5 L Albumin 2.7 L Procalcitonin TSH Free T4 Urine Protein Urine Blood Urine RBC Urine WBC Amorphous Sediment Hyaline Casts Urine Mucus Coronavirus (PCR) 07/19/21 07/19/21 07/19/21 03:55 05:21 06:05 WBC 31.1 H RBC 3.55 L Hgb 12.1 L Hct 35.0 L MCV MCHC Plt Count 78 L Neutrophils # Neutrophils # (Manual) 28.30 H Lymphocytes # Lymphocytes # (Manual) 0.31 L Monocytes # Monocytes # (Manual) Metamyelocytes # (Man) 1.56 H Myelocytes # (Manual) 0.62 H Nucleated RBCs 6 H PT INR D-Dimer ABG pH 7.23 L ABG pCO2 62 H ABG pO2 ABG HCO3 26 H ABG Total CO2 28 H ABG O2 Saturation Sodium Potassium Chloride Carbon Dioxide BUN Creatinine Glucose POC Glucose (mg/dL) 133 H Calcium Phosphorus Magnesium Ferritin Total Bilirubin AST ALT Alkaline Phosphatase Lactate Dehydrogenase Troponin I C-Reactive Protein Total Protein Albumin Procalcitonin TSH Free T4 Urine Protein Urine Blood Urine RBC Urine WBC Amorphous Sediment Hyaline Casts Urine Mucus Coronavirus (PCR) 07/19/21 11:26 WBC RBC Hgb Hct MCV MCHC Plt Count Neutrophils # Neutrophils # (Manual) Lymphocytes # Lymphocytes # (Manual) Monocytes # Monocytes # (Manual) Metamyelocytes # (Man) Myelocytes # (Manual) Nucleated RBCs PT INR D-Dimer ABG pH ABG pCO2 ABG pO2 ABG HCO3 ABG Total CO2 ABG O2 Saturation Sodium Potassium Chloride Carbon Dioxide BUN Creatinine Glucose POC Glucose (mg/dL) 150 H Calcium Phosphorus Magnesium Ferritin Total Bilirubin AST ALT Alkaline Phosphatase Lactate Dehydrogenase Troponin I C-Reactive Protein Total Protein Albumin Procalcitonin TSH Free T4 Urine Protein Urine Blood Urine RBC Urine WBC Amorphous Sediment Hyaline Casts Urine Mucus Coronavirus (PCR) Assessment and Plan Assessment: Dilated and unreactive pupil bilaterally due to Severe Anoxic brain injury with diffuse cerebral edema and herniation and possible Subarachnoid hemorrhage. Component of altered mental status due to above and due to metabolic encep halopathy as well as sedation effect (on IV fentanyl, Propofol and Nimbex), hypoxic encephalopathy Global cerebral edema Suspicious of subarachnoid hemorrhage Acute hypoxemic respiratory failure secondary due to bright virus associated pneumonia status post intubation and mechanical ventilation on 12:30 oh 2020 Acute respiratory distress syndrome Possible adrenal suppression is Right lower extremity DVT on Eliquis Shock liver Acute kidney injury on dialysis--worsening Septic shock with multiorgan failure History of transverse myelitis in 2007 History of C5 to C6 fusion Social history of nicotine use (Cigar) Plan: I started the patient on mannitol with a 1 dose right now then at dose at 20-30 and a dose at close to 5:00. I started the patient on hypertonic 3% saline at 30 mL an hour with a goal of 150. Every 4 hour sodium checks Ordered stat EEG and I personally notified the project technician. Ordered a repeat CT of the head for tomorrow around 5:00 in the morning. Notified the nurse if possible to go down on the sedation and if possible to go down on the vent setting to see whether the patient can breathe over the vent or not. Every hour neuro checks Ordered ammonia level and it's elevated we'll defer the management to the primary and ICU team Notified the nurse to hold the Eliquis especially with the subarachnoid the hemorrhage that was suspicious. Infection disease is on board We'll defer the rest of the medical management to the primary and ICU team. Condition is a extremely poor. I had a lengthy discussion with the patient's (who is at bedside) and reviewed the images with her as well as his condition as a whole. I notified her that the patient's condition is severely poor. Patient had dilated and unreactive pupils and on examination no brainstem reflexes (examination was limited because of sedation). Patient does not want any escalation of care to another facility. The plan is also discussed with the nurse. Thank you for the consult. Pérez Vigil M.D. Neuro-Hospitalist Time with Patient: Greater than 30
--- NOTE | 2021-07-19 16:14 | P.PN ---
Subjective Progress Note Date: 07/19/21 Principal diagnosis: Acute hypoxic respiratory failure secondary to COVID 19 pneumonia Status post intubation and mechanical ventilation on July 10 Acute respiratory distress syndrome Extensive subcutaneous emphysema as a complication of coronavirus associated pn eumonia Possible adrenal insufficiency 50-year-old male patient, admitted to the hospital on 06/27/2021 with acute hypoxic respiratory failure related to COVID-19 D pneumonia. The patient came to the intensive care unit on July 08, and was intubated for respiratory failure, 2 days later, on 06/22/2021. 07/17/2021 The patient is seen and evaluated in ICU; remains intubated and mechanically ventilated; remains on fentanyl, propofol and Nimbex. Cortisol level is elevated at 28; critical care recommending to switch patient to hydrocortisone from Decadron The patient did have hemodialysis yesterday, with 1 L removed. The plan is for hemodialysis again today. Chest x-ray shows diffuse bilateral infiltrates. There is extensive subcutaneous emphysema. White count is 36.3, hemoglobin is 12.3, hematocrit 38, and platelet count 110,000. Sodium 135, potassium 5.8, chlorides 99, CO2 20, anion gap 16, BUN 86, creatinine 5.50. Cortisol levels 28. TSH is 0.052. Blood gases show pO2 of 79, pCO2 74, and pH is 7.11. Patient remains critically ill with grave prognosis; patient's condition has been updated to patient's family by intensive care team 07/18/2021 The patient is seen and evaluated and discussed with nursing staff; remains on the mechanical ventilator. ABGs drawn this morning reveal pO2 of 83, pCO2 73, and pH is 7.15. The patient is currently on Nimbex, vasopressin, propofol, fentanyl, norepinephrine. The patient underwent hemodialysis yesterday and had a liter removed; plan for repeat hemodialysis this morning. Laboratory review shows White count 33.6, hemoglobin 12.4, hematocrit 37.5, and platelet count 93,000. Sodium 135, potassium 5.7, chlorides 100, CO2 20, anion gap 12, BUN 89, creatinine 5.47. AST 1065 and ALTs 2697. Microbiology shows evidence of staph aureus in the sputum on July 10. Chest x-ray shows persistent bilateral infiltrates which is is essentially unchanged. The patient has extensive subcutaneous emphysema. Patient was/to hydrocortisone for suspected adrenal insufficiency for critical care recommendations Patient's prognosis does remain quite 07/19/2021 Patient is seen and evaluated in ICU with at bedside; patient was noted to have dilated and unreactive pupil by ICU nurse; CT of the head was done which reveals acute subarachnoid hemorrhage; stat neurology consult was done and patient was initially decided to be transferred to a tertiary care center, however patient's wants to hold off on transfer; patient has been started on mannitol, hypertonic 3% saline; sodium levels will be checked every 4 hours; stat EEG is ordered with plans to repeat CT of her tomorrow morning Transfer plan discussed with patient's at bedside; according to her she wants to hold off on transfer and wants to be able to talk to various family members for clarification of goals of care Objective - Vital Signs Vital signs: Vital Signs Temp 94.6 F L 07/19/21 08:00 Pulse 81 07/19/21 11:30 Resp 36 H 07/19/21 11:30 BP 112/80 07/19/21 11:30 Pulse Ox 87 L 07/19/21 11:30 Intake & Output 07/18/21 07/19/21 07/19/21 18:59 06:59 18:59 Intake Total 8907.210 1887.322 361.877 Output Total 2510 20 0 Balance -7926.693 0638.322 361.877 Weight 154.5 kg 157 kg Intake: IV 243 124 120 Fluconazole in NaCl,Iso- 50 50 Osm 100 mg In Saline 1 50ml.bag @ 50 mls/hr IVPB DAILY SE Rx#:[id number] Pressure Bag 63 54 30 Sodium Chloride 0.9% 1, 130 70 40 000 ml @ 10 mls/hr IV . Q24H SE Rx#:[id number] Intake, IV Titration 778.768 773.322 169.877 Amount Cisatracurium 200 mg In 20.086 Sodium Chloride 0.9% 180 ml @ 1 MCG/KG/MIN 7.26 mls/hr IV .Q24H SE Rx#: [id number] Norepinephrine 32 mg In 324.108 129.831 69.877 Sodium Chloride 0.9% 218 ml @ 0.05 MCG/KG/MIN 2. 836 mls/hr IV .Q24H SE Rx#:[id number] Sodium Chloride 0.9% 1, 0 000 ml @ 10 mls/hr IV . Q24H SE Rx#:[id number] fentaNYL (PF) 2,500 mcg 235.345 In Sodium Chloride 0.9% 200 ml @ 0.5 MCG/KG/HR 6. 05 mls/hr IV .Q24H SE Rx #:[id number] propofoL 1,000 mg In 454.66 388.06 100 Empty Bag 1 bag @ Titrate IV .Q0M SE Rx#: [id number] Tube Feeding 144 432 72 Other 90 Output: Urine 10 20 0 Hemodialysis 2500 Other: Voiding Method Indwelling Catheter Indwelling Catheter Indwelling Catheter ABP, PAP, CO, CI - Last Documented Arterial Blood Pressure 97/56 - Exam GENERAL: Patient is currently on mechanical mechanical ventilator sedated and intubated.. HEENT: Pupils are round and equally reacting to light. EOMI. No scleral icterus. No conjunctival pallor. Normocephalic, atraumatic. No pharyngeal erythema. No thyromegaly. CARDIOVASCULAR: S1 and S2 present. No murmurs, rubs, or gallops. PULMONARY: Coarse scattered rhonchi ABDOMEN: Soft, nontender, nondistended, normoactive bowel sounds. No palpable organomegaly. MUSCULOSKELETAL: No joint swelling or deformity. EXTREMITIES: No cyanosis, clubbing, right leg peripheral edema. NEUROLOGICAL: Limited due to sedation and mechanical ventilation. - Labs CBC & Chem 7: 07/19/21 03:55 07/19/21 13:20 Labs: Abnormal Lab Results - Last 24 Hours (Table) 07/18/21 07/18/21 07/19/21 Range/Units 17:29 23:34 03:55 WBC (3.8-10.6) k/uL RBC (4.30-5.90) m/uL Hgb (13.0-17.5) gm/dL Hct (39.0-53.0) % Plt Count (150-450) k/uL Neutrophils # (Manual) (1.3-7.7) k/uL Lymphocytes # (Manual) (1.0-4.8) k/uL Metamyelocytes # (Man) (0) k/uL Myelocytes # (Manual) (0) k/uL Nucleated RBCs (0-0) /100 WBC ABG pH (7.35-7.45) ABG pCO2 (35-45) mmHg ABG HCO3 (21-25) mmol/L ABG Total CO2 (19-24) mmol/L Sodium 133 L (137-145) mmol/L Chloride 96 L (98-107) mmol/L BUN 94 H (9-20) mg/dL Creatinine 5.34 H (0.66-1.25) mg/dL Glucose 126 H (74-99) mg/dL POC Glucose (mg/dL) 160 H 132 H (75-99) mg/dL Calcium 7.5 L (8.4-10.2) mg/dL Total Bilirubin 3.0 H (0.2-1.3) mg/dL AST 600 H (17-59) U/L ALT 1956 H (4-49) U/L Alkaline Phosphatase 246 H (38-126) U/L Total Protein 5.5 L (6.3-8.2) g/dL Albumin 2.7 L (3.5-5.0) g/dL 07/19/21 07/19/21 07/19/21 Range/Units 03:55 05:21 06:05 WBC 31.1 H (3.8-10.6) k/uL RBC 3.55 L (4.30-5.90) m/uL Hgb 12.1 L (13.0-17.5) gm/dL Hct 35.0 L (39.0-53.0) % Plt Count 78 L (150-450) k/uL Neutrophils # (Manual) 28.30 H (1.3-7.7) k/uL Lymphocytes # (Manual) 0.31 L (1.0-4.8) k/uL Metamyelocytes # (Man) 1.56 H (0) k/uL Myelocytes # (Manual) 0.62 H (0) k/uL Nucleated RBCs 6 H (0-0) /100 WBC ABG pH 7.23 L (7.35-7.45) ABG pCO2 62 H (35-45) mmHg ABG HCO3 26 H (21-25) mmol/L ABG Total CO2 28 H (19-24) mmol/L Sodium (137-145) mmol/L Chloride (98-107) mmol/L BUN (9-20) mg/dL Creatinine (0.66-1.25) mg/dL Glucose (74-99) mg/dL POC Glucose (mg/dL) 133 H (75-99) mg/dL Calcium (8.4-10.2) mg/dL Total Bilirubin (0.2-1.3) mg/dL AST (17-59) U/L ALT (4-49) U/L Alkaline Phosphatase (38-126) U/L Total Protein (6.3-8.2) g/dL Albumin (3.5-5.0) g/dL 07/19/21 Range/Units 11:26 WBC (3.8-10.6) k/uL RBC (4.30-5.90) m/uL Hgb (13.0-17.5) gm/dL Hct (39.0-53.0) % Plt Count (150-450) k/uL Neutrophils # (Manual) (1.3-7.7) k/uL Lymphocytes # (Manual) (1.0-4.8) k/uL Metamyelocytes # (Man) (0) k/uL Myelocytes # (Manual) (0) k/uL Nucleated RBCs (0-0) /100 WBC ABG pH (7.35-7.45) ABG pCO2 (35-45) mmHg ABG HCO3 (21-25) mmol/L ABG Total CO2 (19-24) mmol/L Sodium (137-145) mmol/L Chloride (98-107) mmol/L BUN (9-20) mg/dL Creatinine (0.66-1.25) mg/dL Glucose (74-99) mg/dL POC Glucose (mg/dL) 150 H (75-99) mg/dL Calcium (8.4-10.2) mg/dL Total Bilirubin (0.2-1.3) mg/dL AST (17-59) U/L ALT (4-49) U/L Alkaline Phosphatase (38-126) U/L Total Protein (6.3-8.2) g/dL Albumin (3.5-5.0) g/dL Assessment and Plan Assessment: Acute hypoxic respiratory failure secondary to COVID 19 pneumonia requiring oxygen support with 60L with FiO2 90% and nonrebreather mask--> BIPAP. Intubated on 07/10/2021 Right apical pneumothorax estimated at less than 10% and subcutaneous emphysema Septic shock with multiorgan system failure. Requiring pressor support with norepinephrine and vasopressin. Acute kidney injury due to ATN. Requiring hemodialysis initiated on 07/14/2021 Acute metabolic acidosis Shock liver with elevated AST and ALT Acute DVT right lower extremity; on eliquis started this admission Elevated DD, CTA negative for PE, positive DVT Elevated liver enzymes possibly due to systemic inflammation, resolved Elevated inflammatory markers secondary to COVID 19, improving History of DVT History of asthma, not in acute exacerbation Remote history of nicotine dependence History of transverse myelitis History of C5-C6 fusion Obesity GI Prophylaxis: Protonix DVT Prophylaxis: Eliquis FULL CODE Plan Patientin in the MICU. on [facility] ventilator with pressure support Patient went into septic shock and multiorgan failure. Currently still requiring pressors and received fluid boluses. Patient was also started on bicarb drip and monitor renal function closely.Due to worsening renal failure patient was initiated on hemodialysis on 07/14/2021. Patient will be cannula broad-spectrum antibiotics in the form of cefepime. Monitor LFTs Continue decadron, vitamins. Baricitinib on hold. Eliquis for DVT Repeat labs in AM Incentive spirometry Continue all other supportive care Cont with PT/OT consultation Prognosis remains guarded
--- NOTE | 2021-07-19 17:00 | EEG ---
ELECTROENCEPHALOGRAM REPORT DATE OF SERVICE: 07/19/2021. CLINICAL HISTORY: This is a 50-year-old gentleman with recent Covid 19 pneumonia who was found to have dilated unreactive pupils and has altered mental status. The video EEG is obtained to evaluate for seizure epileptiform activity. RELEVANT MEDICATION: The patient is on IV propofol, IV Fentanyl and IV Nimbex. EEG TYPE: A routine 21 channel EEG is performed with video using the 10/20 electrode placement system. DESCRIPTION: The patient is intubated on mechanical ventilation. Regarding the background, there is no visible brain activity on bilateral hemispheres. There is no focal slowing, epileptiform discharges or seizure on the EEG. ACTIVATION PROCEDURE: Photic stimulation and Hyperventilation are not performed. CLINICAL INTERPRETATION: This is an abnormal routine EEG. There is no appreciable brain activity noted over the bilateral hemisphere. There is no focal slowing, epileptiform discharges or seizure on the EEG. Clinical correlation is recommended. TREVOR / JANNET: [id number] / [id number]
[2021-07-19 17:25] VITALS: TEMP 95.7
[2021-07-19] MEDS: NOREPINEPHRINE 32 MG in SODIUM CHLORIDE 0.9% 218 ML IV SCH (17:26)
[2021-07-19 18:30] VITALS: BP 57/42
[2021-07-19 19:12] VITALS: PULSE 42
[2021-07-20] MEDS ORDERED: MANNITOL IV ONE (04:30)
== END 2021-07-19 21:43 | disposition expired | DRG 207 ==
LOC: EC 11:53 → 3SCARD 14:35 → 2SICU 07-08 17:13
PROVIDERS: ADMIT Hospitalist; ATTEND Hospitalist
PROC: 3E0333Z Introduction of Anti-inflammatory into Peripheral Vein, Percutaneous Approach (ICD-10-PCS; 2021-06-27)
PROC: 5A0955A Assistance with Respiratory Ventilation, Greater than 96 Consecutive Hours, High Flow/Velocity Cannula (ICD-10-PCS; 2021-06-27)
PROC: 5A1D70Z Performance of Urinary Filtration, Intermittent, Less than 6 Hours Per Day (ICD-10-PCS; 2021-06-27)
PROC: XW0DXM6 Introduction of Baricitinib into Mouth and Pharynx, External Approach, New Technology Group 6 (ICD-10-PCS; 2021-06-29)
PROC: 5A1955Z Respiratory Ventilation, Greater than 96 Consecutive Hours (ICD-10-PCS; principal; 2021-07-10)
PROC: 0BH17EZ Insertion of Endotracheal Airway into Trachea, Via Natural or Artificial Opening (ICD-10-PCS; 2021-07-10)
PROC: 3E033XZ Introduction of Vasopressor into Peripheral Vein, Percutaneous Approach (ICD-10-PCS; 2021-07-10)
PROC: 03HY32Z Insertion of Monitoring Device into Upper Artery, Percutaneous Approach (ICD-10-PCS; 2021-07-10)
PROC: 4A133B1 Monitoring of Arterial Pressure, Peripheral, Percutaneous Approach (ICD-10-PCS; 2021-07-10)
PROC: 4A133J1 Monitoring of Arterial Pulse, Peripheral, Percutaneous Approach (ICD-10-PCS; 2021-07-10)
PROC: 5A09357 Assistance with Respiratory Ventilation, Less than 24 Consecutive Hours, Continuous Positive Airway Pressure (ICD-10-PCS; 2021-07-10)
PROC: 06HM33Z Insertion of Infusion Device into Right Femoral Vein, Percutaneous Approach (ICD-10-PCS; 2021-07-14)
DX: U07.1 COVID-19 (principal); I60.9 Nontraumatic subarachnoid hemorrhage, unspecified; A41.89 Other specified sepsis; G93.41 Metabolic encephalopathy; G93.5 Compression of brain; G93.6 Cerebral edema; J12.82 Pneumonia due to coronavirus disease 2019; J15.211 Pneumonia due to Methicillin susceptible Staphylococcus aureus; J69.0 Pneumonitis due to inhalation of food and vomit; J80 Acute respiratory distress syndrome; K72.00 Acute and subacute hepatic failure without coma; N17.0 Acute kidney failure with tubular necrosis; R65.21 Severe sepsis with septic shock; B17.9 Acute viral hepatitis, unspecified; B37.0 Candidal stomatitis; B37.89 Other sites of candidiasis; Z68.42 Body mass index [BMI] 45.0-49.9, adult; E87.2 Acidosis; G93.1 Anoxic brain damage, not elsewhere classified; I82.401 Acute embolism and thrombosis of unspecified deep veins of right lower extremity; J45.21 Mild intermittent asthma with (acute) exacerbation; J93.83 Other pneumothorax; N17.9 Acute kidney failure, unspecified; E87.4 Mixed disorder of acid-base balance; Z66 Do not resuscitate; E66.9 Obesity, unspecified; E83.39 Other disorders of phosphorus metabolism; E83.51 Hypocalcemia; E87.5 Hyperkalemia; F17.290 Nicotine dependence, other tobacco product, uncomplicated; F40.240 Claustrophobia; G89.29 Other chronic pain; N18.9 Chronic kidney disease, unspecified; Z79.01 Long term (current) use of anticoagulants; Z82.49 Family history of ischemic heart disease and other diseases of the circulatory system; Z86.718 Personal history of other venous thrombosis and embolism; Z96.641 Presence of right artificial hip joint; Z98.1 Arthrodesis status; R74.8 Abnormal levels of other serum enzymes; J98.2 Interstitial emphysema
CPT/HCPCS: 36415; 36600; 70450; 71045; 71275; 80048; 80053; 80202; 81001; 82140; 82533; 82728; 82805; 83605; 83615; 83735; 84100; 84132; 84145; 84295; 84439; 84443; 84484; 85025; 85379; 85610; 85730; 86140; 86704; 86706; 87040; 87070; 87077; 87186; 87205; 87340; 87635; 90935; 93005; 93970; 94002; 94003; 94640; 94660; 94760; 95819; 96361; 96374; 99285